=== PATIENT | male | born 1945 | race Caucasian/White ===

== ENCOUNTER 2024-11-05 23:15 | Emergency (ER) | payer OTHER, SELFPAY ==
--- NOTE | 2024-11-05 23:12 | XR_ITS ---
PROCEDURE INFORMATION: Exam: XR Chest Exam date and time: 11/05/2024 11:21 PM Age: 79 years old Clinical indication: Other: Seizure like activity TECHNIQUE: Imaging protocol: Radiologic exam of the chest. Views: 1 view. COMPARISON: No relevant prior studies available. FINDINGS: Lungs: No acute appearing consolidation. Pleural spaces: No pleural effusion. No pneumothorax. Heart/Mediastinum: No acute findings or cardiomegaly. Bones/joints: Status post sternotomy. IMPRESSION: No acute cardiopulmonary findings.
--- NOTE | 2024-11-05 23:12 | CT_ITS ---
PROCEDURE INFORMATION: Exam: CT Head Without Contrast Exam date and time: 11/05/2024 11:34 PM Age: 79 years old Clinical indication: Other: Seizure like activity TECHNIQUE: Imaging protocol: Computed tomography of the head without contrast. Radiation optimization: All CT scans at this facility use at least one of these dose optimization techniques: automated exposure control; mA and/or kV adjustment per patient size (includes targeted exams where dose is matched to clinical indication); or iterative reconstruction. COMPARISON: No relevant prior studies available. FINDINGS: Brain: Large area of right frontal encephalomalacia consistent with remote infarct. Age related atrophic changes in the brain. No mass effect or midline shift. No intracranial hemorrhage. No intracranial edema. No evidence of acute territorial ischemia. There is marked diffuse heterogeneity of the white matter attenuation, consistent with severe chronic white matter microvascular ischemic changes. Cerebral ventricles: The ventricular system demonstrates moderate diffuse compensatory enlargement. Paranasal sinuses: Chronic appearing polypoid mucosal thickening in the right maxillary sinus. Mastoid air cells: No significant mastoid effusion. Bones: No acute fracture. Soft tissues: No acute findings. IMPRESSION: 1. No acute intracranial findings. 2. Extensive encephalomalacia in the right frontal lobe. 3. Senescent changes in the brain.
--- NOTE | 2024-11-05 23:15 | ECG_ITS ---
APPROVED REPORT Exam: Resting ECG HR:100 bpm ECG Measurements Heart Rate 100 AXES LA 179 P 102 QRSd 99 QRS 58 QT 350 T 16 QTc 407 Conclusion SINUS TACHYCARDIA WITH OCCASIONAL VENTRICULAR PREMATURE COMPLEXES NONSPECIFIC ST & T-WAVE ABNORMALITY ABNORMAL RHYTHM ECG UNCONFIRMED REPORT Electronically signed by : SYL MCCLURE, 11/08/2024 03:47:13
[2024-11-05 23:24] VITALS: BP 170/104; PULSE 104; RESP 16; TEMP 37.2; O2SAT 94; BMI 34.5
[2024-11-05 23:28] LABS: Basophils # 0.1 K/mm3 (0-0.2); Basophils % 0.5 % (0.1-2.0); Eosinophils # 0.2 Kmm3 (0.0-0.4); Eosinophils % 1.8 % (0.1-12.0); Hematocrit 44.4 % (42.0-52.0); Hemoglobin 14.1 g/dL (14.1-18.0); Lymphocytes # 1.4 K/mm3 (0.7-4.5); Lymphocytes % 13.3 % (10-50); Mean Corpuscular HGB Conc 31.8 g/dL (31.8-35.4); Mean Corpuscular Hemoglobin 29.1 pg (27.0-31.2); Mean Corpuscular Volume 91.7 fl (80-94); Mean Platelet Volume 9.5 fl (7.4-10.4); Monocytes # 0.6 K/mm3 (0.1-1.0); Monocytes % 6.2 % (1.7-9.3); Nucleated Red Blood Cells # 0 10^3/uL; Nucleated Red Blood Cells % 0 %; Platelet Count 186 K/mm3 (142-424); Red Blood Count 4.84 M/mm3 (4.60-6.20); Red Cell Distribution Width 13.8 % (11.5-17.5); Red Cell Distribution Width-SD 46.5 fL; White Blood Count 10.2 K/mm3 (4.8-10.8)
--- NOTE | 2024-11-05 23:35 | PC.NURSE ---
side rails up x2 and padded per seizure precautions. HOB 30 degree elvated
--- NOTE | 2024-11-05 23:36 | ED_ITS ---
Discharge Plan Disposition Patient Disposition: [facility] Clinical Impressions Clinical Impression: Generalized seizure Instructions Patient Instructions: DI for Seizure Disorder -- Adult, DI for Seizure (Not Epilepsy/Seizure Disorder), DI for Seizure Disorder -- Child Print Language Print Language: Chinese Discharge ED Provider: Collins Durant General Adult HPI General Chief complaint: Seizure Stated complaint: seizure Time Seen by Provider: 11/05/24 23:17 Mode of Arrival: EMS Source of Information: Patient and EMS Description of Symptoms (Recalled from ER Triage Doc. by RN): pt presents to ed via ems with c/o seizure like activity that was witnessed per family prior to their arrival. 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 Pt now GCS 15, NAD noted, RR even and non labored. Pt did urinate himself prior to arrival. History of Present Illness HPI narrative: 79-year-old male, [facility], history of severe carotid stenosis, prior stroke, hypertension presents for possible seizure. Patient was at his family's house and he got tense, stopped moving and then started convulsing for couple minutes according to what EMS heard from family. Patient was postictal for the entirety of the EMS trip here, on arrival is now GCS 15 and well-appearing. Patient urinated on himself during the episode. Family reports that he had a similar episode 3 months ago and was admitted to the [facility] for workup. During that time they did not find any seizures, they think that he is having syncope related to his carotid stenosis. They report that he has had 3-4 these episodes in total and they mimic seizures. He is not currently on any seizure medication. Related Data Allergies Allergy/AdvReac Type Severity Reaction Status Date / Time Sulfa (Sulfonamide AdvReac Unknown Verified 11/05/24 23:33 Antibiotics) allergy reaction [facility] Disclaimer: The information contained in this section may have been updated after the patient was seen, as this information can be updated by other users. Social History Smoking Status: Never smoker alcohol intake: never current occupational status: previously employed Travel in the last 8 weeks: None ROS Obtained: Yes All systems reviewed & no additional complaints except as documented Physical Exam General General appearance: alert and in no apparent distress Head Head exam: atraumatic and normocephalic Eye Eye exam: Present normal appearance, PERRL and EOMI ENT ENT exam: Present normal oropharynx and normal external ear exam Neck Neck exam: Present normal inspection and full ROM Chest Chest inspection: Present normal inspection and symmetric chest wall rise; Absent tenderness Respiratory Respiratory exam: Present normal lung sounds bilaterally; Absent respiratory distress Cardiovascular Cardiovascular exam: Present regular rate and normal rhythm Abdominal Exam Abdominal exam: Present soft; Absent distention, tenderness or guarding Extremities Exam Extremities exam: Present normal inspection; Absent edema or joint swelling Back Exam Back exam: Present normal inspection; Absent tenderness Neurological Exam Neurological exam: Present alert and oriented X3; Absent motor sensory deficit Psychiatric Psychiatric exam: Present normal affect and normal mood Skin Skin exam: Present warm, dry and normal color Lymphatic Lymphatic Findings: no adenopathy Medical Decision Making Medical Records Medical records reviewed: Yes I reviewed the patient's medical records. Screening: Per USPSTF and CDC recommendations, given the prevalence of disease in our region, it is our hospital?s policy to screen for HIV and viral Hepatitis for all patients aged 18 and over and those with ongoing risk factors. Regan Inquiry Pt receiving controlled substance: No Regan was queried for this patient: No Vital Signs: 11/05/24 23:24 11/06/24 00:00 Temperature 98.9 F Temperature Source Oral Pulse Rate 99 H Pulse Rate [Radial] 104 H Respiratory Rate 16 23 Blood Pressure 176/92 H Blood Pressure [Right Arm] 170/104 H Blood Pressure Mean [Right Arm] 126 Blood Pressure Position [Right Arm] Sitting 02 Sat by Pulse Oximetry 94 L 94 L Oxygen Delivery Method Room Air Lab Data Lab results reviewed: Yes I reviewed the patient's lab results. Lab Results 11/05/24 22:23: Troponin I 0.02 11/05/24 23:22: WBC 10.2, RBC 4.84, Hgb 14.1, Hct 44.4, MCV 91.7, MCH 29.1, MCHC 31.8, RDW 13.8, Plt Count 186, MPV 9.5, Neut % (Auto) 78.0, Lymph % (Auto) 13.3, [place] % (Auto) 6.2, Eos % (Auto) 1.8, Baso % (Auto) 0.5, Neut # (Auto) 8.0 H, Lymph # (Auto) 1.4, [place] # (Auto) 0.6, Eos # (Auto) 0.2, Baso # (Auto) 0.1, Sodium 142, Potassium 3.7, Chloride 109 H, Carbon Dioxide 23, Anion Gap 13.7, B UN 23 H, Creatinine 1.50 H, Estimated Creat Clear 54, Estimated GFR 45 L, Est GFR ( Amer) 54 L, Glucose 110 H, Calcium 8.7, Phosphorus 3.3, Magnesium 2.1, Total Bilirubin 1.0, AST 42, ALT 36, Alkaline Phosphatase 86, Total Protein 6.6, Albumin 3.8, Globulin 2.8, Albumin/Globulin Ratio 1.4, TSH 2.77, Thyroxine (T4) 8.2 11/05/24 23:45: Lactate 2.8 H 11/06/24 00:20: Urine Color Yellow, Urine Appearance Clear, Urine pH 6.0, Ur Specific [place] 1.025, Urine Protein 2+ A, Urine Glucose (UA) 3+, Urine Ketones Negative, Urine Blood Negative, Urine Nitrate Negative, Urine Bilirubin Negative, Urine Urobilinogen 0.2, Ur Leukocyte Esterase Negative, Urine RBC None, Urine WBC Occasional, Ur Squamous Epith Cells Occasional, Urine Bacteria Trace, Urine Mucus Trace 11/05/24 23:22 11/05/24 23:22 Orders (Tests/Meds): ORDERS Category Date Time Status CT head/brain wo con Stat Cat Scan 11/05/24 23:12 Completed CXR --portable [XR chest portable] Stat Exams 11/05/24 23:12 Completed CBC w/Auto Diff [Complete Blood Count Auto Diff] Stat Lab 11/05/24 23:22 Completed CMP [Comprehensive Metabolic Panel] Stat Lab 11/05/24 23:22 Completed Lactic Acid Stat Lab 11/05/24 23:45 Completed Magnesium Stat Lab 11/05/24 23:22 Completed Phosphorous Stat Lab 11/05/24 23:22 Completed T4 (Thyroxine) Stat Lab 11/05/24 23:22 Completed TSH [Thyroid Stimulating Hormone] Stat Lab 11/05/24 23:22 Completed Troponin I Q3H Lab 11/05/24 22:23 Completed Troponin I Q3H Lab 11/06/24 02:45 Ordered UA [Urinalysis and Microscopic] Stat Lab 11/06/24 00:20 Completed ECG Data Tracing #1: I reviewed this ECG and interpreted as documented below: Sinus rhythm, rate of 100., T wave inversions in precordial and inferior leads, occasional PVC. ECG initial impression date: 11/05/24 ECG initial impression time: 23:16 HEART Score History (anamnesis): Slightly suspicious ECG: Non-specific disturbance Age: >65 years Risk factors: Atherosclerosis history Troponin: </= normal limit HEART Score: 5 Medical Decision Narrative: 79-year-old male with history of of prior stroke, severe carotid stenosis with associated syncope, hypertension, seizure-like activity in the past presents for seizure-like activity. History was obtained via interactive discussion with EMS, patient, family. On arrival, patient is [afebrile, hemodynamically stable, satting appropriately, alert, oriented x4, GCS 15], moving all extremities spontaneously. Full physical exam performed and significant for no focal neurologic deficits, no significant physical exam abnormalities. Differential includes but is not limited to seizure, syncope, intracranial lesion, cardiac pathology electrolyte derangement. Workup initiated including CT head, chest x-ray, EKG, CBC CMP mag Phos troponin TSH T4. On re-evaluation, patient [remains afebrile, HD stable.] Laboratory workup independently interpreted by me and significant for mildly elevated lactate which could be consistent with recent seizure. No significant electrolyte derangement, no significant leukocytosis. Creatinine 1.5, baseline unknown. Urine does not show infection.. Imaging independently interpreted by me and significant for encephalomalacia that appears chronic, no intracranial bleeding or obvious mass lesion.. See radiology read for full review of final results. Given patient history, exam and workup, patient's presentation most likely represents seizure or possibly syncope. [facility]. I discussed the case with patient and he is agreeable to transfer for further evaluation at the [facility]. Patient was accepted to the [facility] by Dr. Barahona and was transferred in stable condition. Procedures Risk/Benefits of Procedure(s) Were Explained: Yes Critical Care Critical Care Time Critical Care Time: No
[2024-11-05 23:37] LABS: Alanine Aminotransferase 36 U/L (12-78); Albumin Level 3.8 g/dl (3.5-5.0); Albumin/Globulin Ratio 1.4 (1.1-1.8); Alkaline Phosphatase 86 U/L (38-126); Anion Gap 13.7 mEq/L (5-15); Aspartate Amino Transferase 42 U/L (17-59); Blood Urea Nitrogen 23 mg/dl (9-20); Calcium 8.7 mg/dl (8.4-10.2); Carbon Dioxide 23 mmol/L (22.0-30.0); Chloride 109 mmol/L (98-107); Creatinine Clearance Estimated 54 mL/min (50-200); Estimated Glomerular Filt Rate 45 ml/min (>60); GFR (African American) 54 ML/MIN (>60); Globulin 2.8 g/dL (1.3-3.2); Glucose 110 mg/dl (74-100); Magnesium 2.1 mg/dl (1.6-2.3); Phosphorous 3.3 mg/dl (2.5-4.5); Potassium 3.7 mmoL/L (3.5-5.1); Sodium 142 mmol/L (136-145); Total Protein,Serum 6.6 g/dl (6.3-8.2)
[2024-11-05 23:54] LABS: T4 (Thyroxine) 8.2 ug/dl (5.53-11.0)
[2024-11-05 23:58] LABS: Troponin I 0.02 ng/ml (0.00-0.034)
[2024-11-05 23:58] LABS: Lactic Acid 2.8 mmol/L (0.7-2.1)
[2024-11-06] VITALS: BP 176/92; PULSE 99; RESP 23; O2SAT 94
[2024-11-06 00:08] LABS: Thyroid Stimulating Hormone 2.77 uIU/mL (0.465-4.68)
[2024-11-06 00:25] LABS: Microscopic, Urine URINE MICROSCOPIC (MICROSCOPIC)
[2024-11-06 00:27] LABS: Appearance,Urine CLEAR (Clear); Bilirubin,Urine Negative (Negative); Blood, Urine Negative (Negative); Color,Urine YELLOW (Yellow); Glucose,Urine (UA) 3+ (Negative); Ketones,Urine Negative (Negative); Leukocyte Esterase,Urine Negative (Negative); Nitrate,Urine Negative (Negative); Protein,Urine 2+ (Negative); Specific Gravity, Urine 1.025 (1.005-1.030); Urobilinogen,Urine 0.2 EU/dl (0.2)
[2024-11-06 00:31] VITALS: BP 154/92; PULSE 93; RESP 13; O2SAT 98
--- NOTE | 2024-11-06 00:43 | PC.NURSE ---
family comes out to show POA papers and speak with provider, updated regarding POC and pending admission/discharge
[2024-11-06 00:45] LABS: Bacteria,Urine Trace /lpf; Mucus,Urine Trace /lpf; Squamous Epithelial Cell,Urine Occasional #/hpf (0-5); WBC,Urine Occasional #/hpf (0-3)
[2024-11-06 01:01] VITALS: BP 187/92; PULSE 85; RESP 26; O2SAT 94
[2024-11-06 01:21] LABS: Coronavirus 19, PCR Not Detected (NotDetected); Influenza A, PCR Not Detected (NotDetected); Influenza B, PCR Not Detected (NotDetected)
[2024-11-06 01:30] VITALS: BP 189/83; PULSE 83; RESP 25; O2SAT 94
--- NOTE | 2024-11-06 01:33 | PC.NURSE ---
bed placement at [facility] pending Covid Swab
--- NOTE | 2024-11-06 01:47 | PC.NURSE ---
pt assisted to bedside to use urinal upon request.
[2024-11-06 02:00] VITALS: BP 188/97; PULSE 73; RESP 23; O2SAT 96
--- NOTE | 2024-11-06 02:00 | PC.NURSE ---
negative covid result called to Steve at [facility], to call back with bed assignment
--- NOTE | 2024-11-06 02:28 | PC.NURSE ---
report given to Jennifer Bates RN
[2024-11-06 02:52] VITALS: BP 188/85; PULSE 88; RESP 18; TEMP 37.1; O2SAT 95
[2024-11-06 03:47] LABS: Reflex Lactic Add Lactic Reflex
== END 2024-11-06 02:54 ==
PROVIDERS: Emergency Provider Emergency Medicine
DX: R56.9 Unspecified convulsions (principal); R00.0 Tachycardia, unspecified; G93.89 Other specified disorders of brain
CPT/HCPCS: 70450; 71045; 80053; 81001; 83605; 83735; 84100; 84436; 84443; 84484; 85025; 87636; 93005; 99285

== ENCOUNTER 2025-06-10 13:02 | Emergency (ER) | payer OTHER, SELFPAY ==
--- OUTSIDE RECORDS SUMMARY | 2025-04-22 10:23 | XMS_ITS | Encounter Summary ---
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 METHOD 05/03/2025 4:40 AM EDT [facility] MCH 28.3 26.0 - 32.0 pg LAB HEMATOLOGY METHOD 05/03/2025 4:40 AM EDT [facility] MCHC 31.1 30.7 - 35.5 g/dL LAB HEMATOLOGY METHOD 05/03/2025 4:40 AM EDT [facility] RDW 15.6(H) 11.5 - 14.5 % LAB HEMATOLOGY METHOD 05/03/2025 4:40 AM EDT [facility] MPV 10.3 8.8 - 12.5 fL LAB HEMATOLOGY METHOD 05/03/2025 4:40 AM EDT [facility] nRBC 0.0 <=0.0 per 100 WBCs LAB HEMATOLOGY METHOD 05/03/2025 4:40 AM EDT [facility] Blood Venous blood specimen / Unknown Venipuncture / Unknown 05/03/2025 4:10 AM EDT 05/03/2025 4:25 AM EDT us Michelle Christensen MD LAB BLOOD ORDERABLES Final Res ult [facility] [address] [place] [address] * (ABNORMAL) Basic Metabolic Panel, Plasma (05/03/2025 4:10 AM EDT) Glucose, Plasma 112(H) 74 - 99 mg/dL 05/03/2025 4:53 AM EDT [facility] BUN, Plasma 48(H) 8 - 23 mg/dL 05/03/2025 4:53 AM EDT [facility] Creatinine, Plasma 0.93 0.70 - 1.20 mg/dL 05/03/2025 4:53 AM EDT [facility] BUN/Creatinine Ratio 52 05/03/2025 4:53 AM EDT [facility] Sodium, Plasma 143 136 - 145 mmol/L 05/03/2025 4:53 AM EDT [facility] Potassium, Plasma 4.2 3.6 - 4.9 mmol/L 05/03/2025 4:53 AM EDT [facility] Chloride, Plasma 113(H) 97 - 107 mmol/L 05/03/2025 4:53 AM EDT [facility] CO2, Plasma 24 22 - 29 mmol/L 05/03/2025 4:53 AM EDT [facility] Anion Gap 6 6 - 16 mmol/L 05/03/2025 4:53 AM EDT [facility] Total Calcium, Plasma 8.8(L) 8.9 - 10.2 mg/dL 05/03/2025 4:53 AM EDT [facility] eGFRcr 83.0 mL/min/1.7 3m*2 05/03/2025 4:53 AM EDT [facility] Comment:Reported eGFRcr in m L/min/1.73m2 is based the CKD-EPI 2020 equation that does not use a race coefficient. Blood Venous blood specimen / Unknown Venipuncture / Unknown 05/03/2025 4:10 AM EDT 05/03/2025 4:21 AM EDT Michelle Christensen MD LAB BLOOD ORDERABLES Final Res ult Performing Organization Address City/[facility]/ZIP Co de Phone Number [facility] [address] [place] [address] * Magnesium, Plasma (05/03/2025 4:10 AM EDT) Magnesium, Plasma 2.2 1.9 - 2.4 mg/dL 05/03/2025 4:53 AM EDT [facility] Blood Venous blood specimen / Unknown Venipuncture / Unknown 05/03/2025 4:10 AM EDT 05/03/2025 4:21 AM EDT us Michelle Christensen MD LAB BLOOD ORDERABLES Final Res ult [facility] [address] [place] [address] * Phosphorus, Plasma (05/03/2025 4:10 AM EDT) Phosphorus, Plasma 2.7 2.5 - 4.5 mg/dL 05/03/2025 4:53 AM EDT [facility] Blood Venous blood specimen / Unknown Venipuncture / Unknown 05/03/2025 4:10 AM EDT 05/03/2025 4:21 AM EDT us Michelle Christensen MD LAB BLOOD ORDERABLES Final Res ult [facility] [address] [place] [address] * (ABNORMAL) POCT glucose meter (05/03/2025 12:31 AM EDT) POCT Glucose 130(H) 74 - 99 mg/dL 05/03/2025 12:33 AM EDT [facility] Comment:Accuracy of a glucos e result obtained from a capillary whole blood specimen relies upon adequate, non-compromised capillary blood flow. If the capillary glucose result is not consistent with the patient's clinical signs and symptoms, glucose testing should be repeated with either an arterial or venous sample on the glucometer or sent to the main labortory for testing. Comment 05/03/2025 12:33 AM EDT [facility] Clothespin Machine Operator ID Ericka Griffith 05/03/2025 12:33 AM EDT [facility] Device ID [id number] 05/03/2025 12:33 AM EDT [facility] Specimen Type POC Capillary 05/03/2025 12:33 AM EDT [facility] Blood Capillary blood specimen / Unknown 05/03/2025 12:31 AM EDT 05/03/2025 12:33 AM EDT us José Miguel Krueger MD LAB POINT OF CARE TEST DOCKED DEVICE UNSOLICITED RESULTS Final Result Performing Organization Address City/[facility]/ZIP Co de Phone Number [facility] [address] [place] [address] * [place] Modified Barium Swallow (05/02/2025 1:46 PM EDT) Anatomical Region Laterality Modality Esophagus, stomach and duodenum Digital Radiography Impressions 05/02/2025 4:51 PM EDT No aspiration of any tested consistency. CRITICAL RESULT: No. COMMUNICATION: Per this written report. By electronically signing this report, I, the attending physician, attest that I have personally reviewed the images/data for the above examination(s) and agree with the final edited report. Drafted by Kavin Gregg MD on 05/02/2025 4:12 PM Final report signed by Lamont Braden MD on 05/02/2025 4:51 PM Narrative 05/02/2025 4:51 PM EDT CLINICAL INDICATION: Swallow study TECHNIQUE: Modified barium swallow was performed utilizing video fluoroscopy in conjunction with the Speech Pathology team. The patient ingested multiple barium media varying consistencies. Fluoroscopy Time: 3 minutes. COMPARISON: Modified barium swallow April 25, 2025 FINDINGS: Swallowing: There was no aspiration with thin barium, however, there was penetration with thin barium using teaspoon, straw single on chin tuck. There was also penetration with nectar barium with cup consecutive. Penetration was also observed with honey barium using straw consecutive. There are moderate vallecular residue. Other: Edentulous. Procedure Note Lamont Braden MD - 05/02/2025 CLINICAL INDICATION: Swallow study TECHNIQUE: Modified barium swallow was performed utilizing video fluoroscopy inconjunction with the Speech Pathology team. The patient ingested multiplebarium media varying consistencies. Fluoroscopy Time: 3 minutes. COMPARISON: Modified barium swallow April 25, 2025 FINDINGS: Swallowing: There was no aspiration with thin barium, however, there waspenetration with thin barium using teaspoon, straw single on chin tuck.There was also penetration with nectar barium with cup consecutive.Penetration was also observed with honey barium using straw consecutive.There are moderate vallecular residue. Other: Edentulous. IMPRESSION: No aspiration of any tested consistency. CRITICAL RESULT: No. COMMUNICATION: Per this written report. By electronically signing this report, I, the attending physician, attestthat I have personally reviewed the images/data for the aboveexamination(s) and agree with the final edited report. Drafted by Kavin Gregg MD on 05/02/2025 4:12 PM Final report signed by Lamont Braden MD on 05/02/2025 4:51 PM us Shabnam Spring QUALITY IMPROVEMENT MANAGER, DNP IMG FLUOROSCOPY PROCE DURES Final Result * (ABNORMAL) POCT glucose meter (05/02/2025 12:15 PM EDT) [facility] POCT Glucose 116(H) 74 - 99 mg/dL 05/02/2025 12:17 PM EDT [facility] Comment:Accuracy of a glucos e result obtained from a capillary whole blood specimen relies upon adequate, non-compromised capillary blood flow. If the capillary glucose result is not consistent with the patient's clinical signs and symptoms, glucose testing should be repeated with either an arterial or venous sample on the glucometer or sent to the main labortory for testing. Comment 05/02/2025 12:17 PM EDT [facility] Clothespin Machine Operator ID Sincere Downey 05/02/20 12:17 PM EDT [facility] Device ID [id number] 05/02/2025 12:17 PM EDT [facility] Specimen Type POC Capillary 05/02/2025 12:17 PM EDT [facility] Blood Capillary blood specimen / Unknown 05/02/2025 12:15 PM EDT 05/02/2025 12:17 PM EDT José Miguel Krueger MD LAB POINT OF CARE TEST DOCKED DEVICE UNSOLICITED RESULTS Final Result Performing Organization Address City/State/[facility] Co de Phone Number [facility] [address] [place] [address] * (ABNORMAL) POCT glucose meter (05/02/2025 6:17 AM EDT) [facility] POCT Glucose 121(H) 74 - 99 mg/dL 05/02/2025 6:18 AM EDT [facility] Comment:Accuracy of a glucos e result obtained from a capillary whole blood specimen relies upon adequate, non-compromised capillary blood flow. If the capillary glucose result is not consistent with the patient's clinical signs and symptoms, glucose testing should be repeated with either an arterial or venous sample on the glucometer or sent to the main labortory for testing. Comment 05/02/2025 6:18 AM EDT [facility] Clothespin Machine Operator ID Ericka Griffith 05/02/2025 6:18 AM EDT [facility] Device ID [id number] 05/02/2025 6:18 AM EDT [facility] Specimen Type POC Capillary 05/02/2025 6:18 AM EDT [facility] Blood Capillary blood specimen / Unknown 05/02/2025 6:17 AM EDT 05/02/2025 6:18 AM EDT Yovani Medrano MD LAB POINT OF CARE TE ST DOCKED DEVICE UNSOLICITED RESULTS Final Result [facility] [address] [place] [id number] * (ABNORMAL) CBC W/O Differential (05/02/2025 3:50 AM EDT) WBC Count 11.16(H) 3.70 - 10.30 10*3/uL LAB HEMATOLOGY METHOD 05/02/2025 4:07 AM EDT [facility] RBC Count 2.90(L) 4.60 - 6.10 10*6/uL LAB HEMATOLOGY METHOD 05/02/2025 4:07 AM EDT [facility] HGB 8.2(L) 13.7 - 17.5 g/dL LAB HEMATOLOGY METHOD 05/02/2025 4:07 AM EDT [facility] HCT 26.7(L) 40.0 - 51.0 % LAB HEMATOLOGY METHOD 05/02/2025 4:07 AM EDT [facility] Platelet Count 245 155 - 369 10*3/uL LAB HEMATOLOGY METHOD 05/02/2025 4:07 AM EDT [facility] MCV 92 79 - 98 fL LAB HEMATOLOGY METHOD 05/02/2025 4:07 AM EDT [facility] MCH 28.3 26.0 - 32.0 pg LAB HEMATOLOGY METHOD 05/02/2025 4:07 AM EDT [facility] MCHC 30.7 30.7 - 35.5 g/dL LAB HEMATOLOGY METHOD 05/02/2025 4:07 AM EDT [facility] RDW 15.6(H) 11.5 - 14.5 % LAB HEMATOLOGY METHOD 05/02/2025 4:07 AM EDT [facility] MPV 10.3 8.8 - 12.5 fL LAB HEMATOLOGY METHOD 05/02/2025 4:07 AM EDT [facility] nRBC 0.0 <=0.0 per 100 WBCs LAB HEMATOLOGY METHOD 05/02/2025 4:07 AM EDT [facility] Blood Venous blood specimen / Unknown Venipuncture / Unknown 05/02/2025 3:50 AM EDT 05/02/2025 3:57 AM EDT us Michelle Christensen MD LAB BLOOD ORDERABLES Final Res ult [facility] [address] [place] [address] * (ABNORMAL) Basic Metabolic Panel, Plasma (05/02/2025 3:50 AM EDT) Glucose, Plasma 119(H) 74 - 99 mg/dL 05/02/2025 4:27 AM EDT [facility] BUN, Plasma 56(H) 8 - 23 mg/dL 05/02/2025 4:27 AM EDT [facility] Creatinine, Plasma 1.07 0.70 - 1.20 mg/dL 05/02/2025 4:27 AM EDT [facility] BUN/Creatinine Ratio 52 05/02/2025 4:27 AM EDT [facility] Sodium, Plasma 147(H) 136 - 145 mmol/L 05/02/2025 4:27 AM EDT [facility] Potassium, Plasma 4.4 3.6 - 4.9 mmol/L 05/02/2025 4:27 AM EDT [facility] Chloride, Plasma 116(H) 97 - 107 mmol/L 05/02/2025 4:27 AM EDT [facility] CO2, Plasma 25 22 - 29 mmol/L 05/02/2025 4:27 AM EDT [facility] Anion Gap 6 6 - 16 mmol/L 05/02/2025 4:27 AM EDT [facility] Total Calcium, Plasma 9.0 8.9 - 10.2 mg/dL 05/02/2025 4:27 AM EDT [facility] eGFRcr 70.2 mL/min/1.7 3m*2 05/02/2025 4:27 AM EDT [facility] Comment:Reported eGFRcr in m L/min/1.73m2 is based the CKD-EPI 2020 equation that does not use a race coefficient. Blood Venous blood specimen / Unknown Venipuncture / Unknown 05/02/2025 3:50 AM EDT 05/02/2025 3:58 AM EDT us Michelle Christensen MD LAB BLOOD ORDERABLES Final Res ult Performing Organization Address [facility] Co de Phone Number [facility] [address] [place] [address] * Magnesium, Plasma (05/02/2025 3:50 AM EDT) Magnesium, Plasma 2.4 1.9 - 2.4 mg/dL 05/02/2025 4:27 AM EDT [facility] Blood Venous blood specimen / Unknown Venipuncture / Unknown 05/02/2025 3:50 AM EDT 05/02/2025 3:58 AM EDT us Michelle Christensen MD LAB BLOOD ORDERABLES Final Res ult Performing Organization Address [facility] Co [place] [address] * Phosphorus, Plasma (05/02/2025 3:50 AM EDT) Phosphorus, Plasma 3.3 2.5 - 4.5 mg/dL 05/02/2025 4:27 AM EDT [facility] Blood Venous blood specimen / Unknown Venipuncture / Unknown 05/02/2025 3:50 AM EDT 05/02/2025 3:58 AM EDT us Michelle Christensen MD LAB BLOOD ORDERABLES Final Res ult Performing Organization Address [facility] Co de Phone Number [facility] [address] [place] [address] * (ABNORMAL) POCT glucose meter (05/01/2025 11:39 PM EDT) POCT Glucose 108(H) 74 - 99 mg/dL 05/01/2025 11:41 PM EDT [facility] Comment:Accuracy of a glucos e result obtained from a capillary whole blood specimen relies upon adequate, non-compromised capillary blood flow. If the capillary glucose result is not consistent with the patient's clinical signs and symptoms, glucose testing should be repeated with either an arterial or venous sample on the glucometer or sent to the main labortory for testing. Comment 05/01/2025 11:41 PM EDT [facility] Clothespin Machine Operator ID Ericka Griffith 05/01/2025 11:41 PM EDT [facility] Device ID [id number] 05/01/2025 11:41 PM EDT [facility] Specimen Type POC Capillary 05/01/2025 11:41 PM EDT [facility] Blood Capillary blood specimen / Unknown 05/01/2025 11:39 PM EDT 05/01/2025 11:41 PM EDT Yovani Medrano MD LAB POINT OF CARE TE ST DOCKED DEVICE UNSOLICITED RESULTS Final Result [facility] [address] [place] [address] * (ABNORMAL) POCT glucose meter (05/01/2025 5:10 PM EDT) [facility] POCT Glucose 104(H) 74 - 99 mg/dL 05/01/2025 5:13 PM EDT [facility] Comment:Accuracy of a glucos e result obtained from a capillary whole blood specimen relies upon adequate, non-compromised capillary blood flow. If the capillary glucose result is not consistent with the patient's clinical signs and symptoms, glucose testing should be repeated with either an arterial or venous sample on the glucometer or sent to the main labortory for testing. Comment 05/01/2025 5:13 PM EDT [facility] Clothespin Machine Operator ID Nelson Bahena 025 5:13 PM EDT [facility] Device ID [id number] 05/01/2025 5:13 PM EDT [facility] Specimen Type POC Capillary 05/01/2025 5:13 PM EDT [facility] Blood Capillary blood specimen / Unknown 05/01/2025 5:10 PM EDT 05/01/2025 5:13 PM EDT Yovani Medrano MD LAB POINT OF CARE TE ST DOCKED DEVICE UNSOLICITED RESULTS Final Result Performing Organization Address [facility] de Phone Number [facility] [address] [place] [address] * POCT glucose meter (05/01/2025 11:12 AM EDT) POCT Glucose 94 74 - 99 mg/dL 05/01/2025 11:20 AM EDT [facility] Comment:Accuracy of a glucos e result obtained from a capillary whole blood specimen relies upon adequate, non-compromised capillary blood flow. If the capillary glucose result is not consistent with the patient's clinical signs and symptoms, glucose testing should be repeated with either an arterial or venous sample on the glucometer or sent to the main labortory for testing. Comment 05/01/2025 11:20 AM EDT [facility] Clothespin Machine Operator ID Nelson Bahena 025 11:20 AM EDT [facility] Device ID [id number] 05/01/2025 11:20 AM EDT [facility] Specimen Type POC Capillary 05/01/2025 11:20 AM EDT [facility] Blood Capillary blood specimen / Unknown 05/01/2025 11:12 AM EDT 05/01/2025 11:20 AM EDT Yovani Medrano MD LAB POINT OF CARE TE ST DOCKED DEVICE UNSOLICITED RESULTS Final Result Performing Organization Address [facility] de Phone Number [facility] [address] [place] [address] * XR Abdomen 1 View (05/01/2025 10:41 AM EDT) Anatomical Region Laterality Modality Body Digital Radiogra phy Impressions 05/01/2025 11:33 AM EDT Nonobstructive bowel gas pattern. Interval transit of contrast which now presents in the rectum. CRITICAL RESULT: No. COMMUNICATION: Per this written report. Drafted by Lamont Braden MD on 05/01/2025 11:32 AM Final report signed by Lamont Braden MD on 05/01/2025 11:33 AM Narrative 05/01/2025 11:33 AM EDT CLINICAL INDICATION: emesis with abd distention TECHNIQUE: Supine radiograph of the abdomen. COMPARISON: April 26 2025. FINDINGS: The tip of the feeding tube is within the distal stomach. There is gas in nondilated small and large bowel loops. There is contrast which is present now in the distal left colon and rectum. Procedure Note Lamont Braden MD - 05/01/2025 CLINICAL INDICATION: emesis with abd distention TECHNIQUE: Supine radiograph of the abdomen. COMPARISON: April 26 2025. FINDINGS: The tip of the feeding tube is within the distal stomach. There is gas innondilated small and large bowel loops. There is contrast which is presentnow in the distal left colon and rectum. IMPRESSION: Nonobstructive bowel gas pattern. Interval transit of contrast which nowpresents in the rectum. CRITICAL RESULT: No. COMMUNICATION: Per this written report. Drafted by Lamont Braden MD on 05/01/2025 11:32 AM Final report signed by Lamont Braden MD on 05/01/2025 11:33 AM us Shabnam Spring QUALITY IMPROVEMENT MANAGER, DNP IMG XR PROCEDURES Fin al Result * (ABNORMAL) POCT glucose meter (05/01/2025 5:38 AM EDT) POCT Glucose 109(H) 74 - 99 mg/dL 05/01/2025 5:41 AM EDT [facility] Comment:Accuracy of a glucos e result obtained from a capillary whole blood specimen relies upon adequate, non-compromised capillary blood flow. If the capillary glucose result is not consistent with the patient's clinical signs and symptoms, glucose testing should be repeated with either an arterial or venous sample on the glucometer or sent to the main labortory for testing. Comment 05/01/2025 5:41 AM EDT [facility] Clothespin Machine Operator ID Damaso Hernandez 05/01/2025 5:41 AM EDT [facility] [facility] Device ID [id number] 05/01/2025 5:41 AM EDT [facility] Specimen Type POC Capillary 05/01/2025 5:41 AM EDT [facility] Blood Capillary blood specimen / Unknown 05/01/2025 5:38 AM EDT 05/01/2025 5:41 AM EDT Yovani Medrano MD LAB POINT OF CARE TE ST DOCKED DEVICE UNSOLICITED RESULTS Final Result [facility] [address] [place] [id number] * (ABNORMAL) CBC W/O Differential (05/01/2025 3:51 AM EDT) WBC Count 14.36(H) 3.70 - 10.30 10*3/uL LAB HEMATOLOGY METHOD 05/01/2025 4:09 AM EDT [facility] RBC Count 3.34(L) 4.60 - 6.10 10*6/uL LAB HEMATOLOGY METHOD 05/01/2025 4:09 AM EDT [facility] HGB 9.3(L) 13.7 - 17.5 g/dL LAB HEMATOLOGY METHOD 05/01/2025 4:09 AM EDT [facility] HCT 30.4(L) 40.0 - 51.0 % LAB HEMATOLOGY METHOD 05/01/2025 4:09 AM EDT [facility] Platelet Count 247 155 - 369 10*3/uL LAB HEMATOLOGY METHOD 05/01/2025 4:09 AM EDT [facility] MCV 91 79 - 98 fL LAB HEMATOLOGY METHOD 05/01/2025 4:09 AM EDT [facility] MCH 27.8 26.0 - 32.0 pg LAB HEMATOLOGY METHOD 05/01/2025 4:09 AM EDT [facility] MCHC 30.6(L) 30.7 - 35.5 g/dL LAB HEMATOLOGY METHOD 05/01/2025 4:09 AM EDT [facility] RDW 15.4(H) 11.5 - 14.5 % LAB HEMATOLOGY METHOD 05/01/2025 4:09 AM EDT [facility] MPV 10.2 8.8 - 12.5 fL LAB HEMATOLOGY METHOD 05/01/2025 4:09 AM EDT [facility] nRBC 0.0 <=0.0 per 100 WBCs LAB HEMATOLOGY METHOD 05/01/2025 4:09 AM EDT [facility] Blood Venous blood specimen / Unknown Venipuncture / Unknown 05/01/2025 3:51 AM EDT 05/01/2025 3:59 AM EDT us Michelle Christensen MD LAB BLOOD ORDERABLES Final Res ult [facility] [address] [place] [address] * (ABNORMAL) Basic Metabolic Panel, Plasma (05/01/2025 3:51 AM EDT) Glucose, Plasma 133(H) 74 - 99 mg/dL 05/01/2025 4:30 AM EDT [facility] BUN, Plasma 45(H) 8 - 23 mg/dL 05/01/2025 4:30 AM EDT [facility] Creatinine, Plasma 0.94 0.70 - 1.20 mg/dL 05/01/2025 4:30 AM EDT [facility] BUN/Creatinine Ratio 48 05/01/2025 4:30 AM EDT [facility] Sodium, Plasma 146(H) 136 - 145 mmol/L 05/01/2025 4:30 AM EDT [facility] Potassium, Plasma 4.4 3.6 - 4.9 mmol/L 05/01/2025 4:30 AM EDT [facility] Chloride, Plasma 114(H) 97 - 107 mmol/L 05/01/2025 4:30 AM EDT [facility] CO2, Plasma 25 22 - 29 mmol/L 05/01/2025 4:30 AM EDT [facility] Anion Gap 7 6 - 16 mmol/L 05/01/2025 4:30 AM EDT [facility] Total Calcium, Plasma 9.0 8.9 - 10.2 mg/dL 05/01/2025 4:30 AM EDT [facility] eGFRcr 81.9 mL/min/1.7 3m*2 05/01/2025 4:30 AM EDT [facility] Comment:Reported eGFRcr in m L/min/1.73m2 is based the CKD-EPI 2020 equation that does not use a race coefficient. Blood Venous blood specimen / Unknown Venipuncture / Unknown 05/01/2025 3:51 AM EDT 05/01/2025 3:59 AM EDT us Michelle Christensen MD LAB BLOOD ORDERABLES Final Res ult Performing Organization Address City/[facility]/ZIP Co de Phone [place] [address] * Magnesium, Plasma (05/01/2025 3:51 AM EDT) Magnesium, Plasma 2.2 1.9 - 2.4 mg/dL 05/01/2025 4:30 AM EDT [facility] Blood Venous blood specimen / Unknown Venipuncture / Unknown 05/01/2025 3:51 AM EDT 05/01/2025 3:59 AM EDT us Michelle Christensen MD LAB BLOOD ORDERABLES Final Res ult Performing Organization Address [facility] [place] [address] * Phosphorus, Plasma (05/01/2025 3:51 AM EDT) [facility] Signature Phosphorus, Plasma 2.8 2.5 - 4.5 mg/dL 05/01/2025 4:30 AM EDT [facility] Blood Venous blood specimen / Unknown Venipuncture / Unknown 05/01/2025 3:51 AM EDT 05/01/2025 3:59 AM EDT us Michelle Christensen MD LAB BLOOD ORDERABLES Final Res ult Performing Organization Address [facility] [place] [address] * (ABNORMAL) POCT glucose meter (04/30/2025 11:47 PM EDT) POCT Glucose 122(H) 74 - 99 mg/dL 05/01/2025 3:19 AM EDT [facility] Comment:Accuracy of a glucos e result obtained from a capillary whole blood specimen relies upon adequate, non-compromised capillary blood flow. If the capillary glucose result is not consistent with the patient's clinical signs and symptoms, glucose testing should be repeated with either an arterial or venous sample on the glucometer or sent to the main labortory for testing. Comment 05/01/2025 3:19 AM EDT [facility] Clothespin Machine Operator ID Damaso Hernandez 05/01/2025 3:19 AM EDT [facility] Device ID [id number] 05/01/2025 3:19 AM EDT [facility] Specimen Type POC Capillary 05/01/2025 3:19 AM EDT [facility] Blood Capillary blood specimen / Unknown 04/30/2025 11:47 PM EDT 05/01/2025 3:19 AM EDT Yovani Medrano MD LAB POINT OF CARE TE ST DOCKED DEVICE UNSOLICITED RESULTS Final Result Performing Organization Address City/State/[facility] Co de Phone Number [facility] [address] [place] [address] * (ABNORMAL) POCT glucose meter (04/30/2025 5:11 PM EDT) [facility] POCT Glucose 114(H) 74 - 99 mg/dL 04/30/2025 5:13 PM EDT [facility] Comment:Accuracy of a glucos e result obtained from a capillary whole blood specimen relies upon adequate, non-compromised capillary blood flow. If the capillary glucose result is not consistent with the patient's clinical signs and symptoms, glucose testing should be repeated with either an arterial or venous sample on the glucometer or sent to the main labortory for testing. Comment 04/30/2025 5:13 PM EDT [facility] Clothespin Machine Operator ID Nelson Bahena 025 5:13 PM EDT [facility] Device ID [id number] 04/30/2025 5:13 PM EDT [facility] Specimen Type POC Capillary 04/30/2025 5:13 PM EDT [facility] Blood Capillary blood specimen / Unknown 04/30/2025 5:11 PM EDT 04/30/2025 5:13 PM EDT Yovani Medrano MD LAB POINT OF CARE TE ST DOCKED DEVICE UNSOLICITED RESULTS Final Result Performing Organization Address City/[facility] Co de Phone Number [facility] [address] [place] [address] * (ABNORMAL) POCT glucose meter (04/30/2025 11:22 AM EDT) Pathologist [facility] POCT Glucose 109(H) 74 - 99 mg/dL 04/30/2025 11:24 AM EDT [facility] Comment:Accuracy of a glucos e result obtained from a capillary whole blood specimen relies upon adequate, non-compromised capillary blood flow. If the capillary glucose result is not consistent with the patient's clinical signs and symptoms, glucose testing should be repeated with either an arterial or venous sample on the glucometer or sent to the main labortory for testing. Comment 04/30/2025 11:24 AM EDT [facility] Clothespin Machine Operator ID Nelson Bahena 025 11:24 AM EDT [facility] LAB Device ID [id number] 04/30/2025 11:24 AM EDT [facility] Specimen Type POC Capillary 04/30/2025 11:24 AM EDT [facility] Blood Capillary blood specimen / Unknown 04/30/2025 11:22 AM EDT 04/30/2025 11:24 AM EDT Yovani Medrano MD LAB POINT OF CARE TE ST DOCKED DEVICE UNSOLICITED RESULTS Final Result Performing Organization Address City/[facility] Co de Phone Number [facility] [address] [place] [address] * (ABNORMAL) CBC W/O Differential (04/30/2025 3:47 AM EDT) WBC Count 10.86(H) 3.70 - 10.30 10*3/uL LAB HEMATOLOGY METHOD 04/30/2025 4:05 AM EDT [facility] RBC Count 3.12(L) 4.60 - 6.10 10*6/uL LAB HEMATOLOGY METHOD 04/30/2025 4:05 AM EDT [facility] HGB 8.8(L) 13.7 - 17.5 g/dL LAB HEMATOLOGY METHOD 04/30/2025 4:05 AM EDT [facility] HCT 28.4(L) 40.0 - 51.0 % LAB HEMATOLOGY METHOD 04/30/2025 4:05 AM EDT [facility] Platelet Count 208 155 - 369 10*3/uL LAB HEMATOLOGY METHOD 04/30/2025 4:05 AM EDT [facility] MCV 91 79 - 98 fL LAB HEMATOLOGY METHOD 04/30/2025 4:05 AM EDT [facility] MCH 28.2 26.0 - 32.0 pg LAB HEMATOLOGY METHOD 04/30/2025 4:05 AM EDT [facility] MCHC 31.0 30.7 - 35.5 g/dL LAB HEMATOLOGY METHOD 04/30/2025 4:05 AM EDT [facility] RDW 15.2(H) 11.5 - 14.5 % LAB HEMATOLOGY METHOD 04/30/2025 4:05 AM EDT [facility] MPV 10.0 8.8 - 12.5 fL LAB HEMATOLOGY METHOD 04/30/2025 4:05 AM EDT [facility] nRBC 0.0 <=0.0 per 100 WBCs LAB HEMATOLOGY METHOD 04/30/2025 4:05 AM EDT [facility] Blood Venous blood specimen / Unknown Venipuncture / Unknown 04/30/2025 3:47 AM EDT 04/30/2025 3:57 AM EDT us Michelle Christensen MD LAB BLOOD ORDERABLES Final Res ult [facility] [address] [place] [address] * (ABNORMAL) Basic Metabolic Panel, Plasma (04/30/2025 3:47 AM EDT) Glucose, Plasma 122(H) 74 - 99 mg/dL 04/30/2025 4:31 AM EDT [facility] BUN, Plasma 38(H) 8 - 23 mg/dL 04/30/2025 4:31 AM EDT [facility] Creatinine, Plasma 0.95 0.70 - 1.20 mg/dL 04/30/2025 4:31 AM EDT [facility] BUN/Creatinine Ratio 40 04/30/2025 4:31 AM EDT [facility] Sodium, Plasma 145 136 - 145 mmol/L 04/30/2025 4:31 AM EDT [facility] Potassium, Plasma 4.3 3.6 - 4.9 mmol/L 04/30/2025 4:31 AM EDT [facility] Chloride, Plasma 116(H) 97 - 107 mmol/L 04/30/2025 4:31 AM EDT [facility] CO2, Plasma 23 22 - 29 mmol/L 04/30/2025 4:31 AM EDT [facility] Anion Gap 6 6 - 16 mmol/L 04/30/2025 4:31 AM EDT [facility] Total Calcium, Plasma 8.8(L) 8.9 - 10.2 mg/dL 04/30/2025 4:31 AM EDT [facility] eGFRcr 80.9 mL/min/1.7 3m*2 04/30/2025 4:31 AM EDT [facility] Comment:Reported eGFRcr in m L/min/1.73m2 is based the CKD-EPI 2020 equation that does not use a race coefficient. Blood Venous blood specimen / Unknown Venipuncture / Unknown 04/30/2025 3:47 AM EDT 04/30/2025 3:57 AM EDT us Michelle Christensen MD LAB BLOOD ORDERABLES Final Res ult [facility] [address] [place] [address] * Magnesium, Plasma (04/30/2025 3:47 AM EDT) Magnesium, Plasma 2.0 1.9 - 2.4 mg/dL 04/30/2025 4:31 AM EDT [facility] Blood Venous blood specimen / Unknown Venipuncture / Unknown 04/30/2025 3:47 AM EDT 04/30/2025 3:57 AM EDT Result [facility] us Michelle Christensen MD LAB BLOOD ORDERABLES Final Res ult Performing Organization Address [facility]/ZIP Co de Phone Number [facility] [address] [place] [address] * (ABNORMAL) Phosphorus, Plasma (04/30/2025 3:47 AM EDT) [facility] Phosphorus, Plasma 2.1(L) 2.5 - 4.5 mg/dL 04/30/2025 4:31 AM EDT [facility] Blood Venous blood specimen / Unknown Venipuncture / Unknown 04/30/2025 3:47 AM EDT 04/30/2025 3:57 AM EDT Result [facility] us Michelle Christensen MD LAB BLOOD ORDERABLES Final Res ult Performing Organization Address [facility] de Phone Number [facility] [address] [place] [id number] * (ABNORMAL) POCT glucose meter (04/29/2025 11:36 PM EDT) [facility] POCT Glucose 112(H) 74 - 99 mg/dL 04/29/2025 11:38 PM EDT [facility] Comment:Accuracy of a glucos e result obtained from a capillary whole blood specimen relies upon adequate, non-compromised capillary blood flow. If the capillary glucose result is not consistent with the patient's clinical signs and symptoms, glucose testing should be repeated with either an arterial or venous sample on the glucometer or sent to the main labortory for testing. Comment 04/29/2025 11:38 PM EDT [facility] Clothespin Machine Operator ID Baylee Widle 11:38 PM EDT [facility] Device ID [id number] 04/29/2025 11:38 PM EDT [facility] Specimen Type POC Capillary 04/29/2025 11:38 PM EDT [facility] Blood Capillary blood specimen / Unknown 04/29/2025 11:36 PM EDT 04/29/2025 11:38 PM EDT us Bell Campbell MD LAB POINT OF CARE TEST DOCKED DEVICE UNSOLICITED RESULTS Final Result Performing Organization Address [facility] de Phone Number [facility] [address] [place] [address] * (ABNORMAL) POCT glucose meter (04/29/2025 5:02 PM EDT) [facility] POCT Glucose 122(H) 74 - 99 mg/dL 04/29/2025 5:04 PM EDT [facility] Comment:Accuracy of a glucos e result obtained from a capillary whole blood specimen relies upon adequate, non-compromised capillary blood flow. If the capillary glucose result is not consistent with the patient's clinical signs and symptoms, glucose testing should be repeated with either an arterial or venous sample on the glucometer or sent to the main labortory for testing. Comment 04/29/2025 5:04 PM EDT [facility] Clothespin Machine Operator ID Bell Duncan 04/29/2025 5:04 PM EDT [facility] Device ID [id number] 04/29/2025 5:04 PM EDT [facility] Specimen Type POC Capillary 04/29/2025 5:04 PM EDT [facility] Blood Capillary blood specimen / Unknown 04/29/2025 5:02 PM EDT 04/29/2025 5:04 PM EDT Bell Campbell MD LAB POINT OF CARE TEST DOCKED DEVICE UNSOLICITED RESULTS Final Result Performing Organization Address [facility] de Phone Number [facility] [address] [place] [address] * (ABNORMAL) POCT glucose meter (04/29/2025 5:23 AM EDT) [facility] POCT Glucose 112(H) 74 - 99 mg/dL 04/29/2025 5:24 AM EDT [facility] Comment:Accuracy of a glucos e result obtained from a capillary whole blood specimen relies upon adequate, non-compromised capillary blood flow. If the capillary glucose result is not consistent with the patient's clinical signs and symptoms, glucose testing should be repeated with either an arterial or venous sample on the glucometer or sent to the main labortory for testing. Comment 04/29/2025 5:24 AM EDT [facility] Clothespin Machine Operator ID Lillian Jones 04/29/2025 5:24 AM EDT [facility] Device ID [id number] 04/29/2025 5:24 AM EDT [facility] Specimen Type POC Capillary 04/29/2025 5:24 AM EDT [facility] Blood Capillary blood specimen / Unknown 04/29/2025 5:23 AM EDT 04/29/2025 5:24 AM EDT Bell Campbell MD LAB POINT OF CARE TEST DOCKED DEVICE UNSOLICITED RESULTS Final Result [facility] [address] [place] [id number] * (ABNORMAL) CBC W/O Differential (04/29/2025 12:33 AM EDT) WBC Count 9.58 3.70 - 10.30 10*3/uL LAB HEMATOLOGY METHOD 04/29/2025 12:52 AM EDT [facility] RBC Count 3.13(L) 4.60 - 6.10 10*6/uL LAB HEMATOLOGY METHOD 04/29/2025 12:52 AM EDT [facility] HGB 8.9(L) 13.7 - 17.5 g/dL LAB HEMATOLOGY METHOD 04/29/2025 12:52 AM EDT [facility] HCT 28.0(L) 40.0 - 51.0 % LAB HEMATOLOGY METHOD 04/29/2025 12:52 AM EDT [facility] Platelet Count 205 155 - 369 10*3/uL LAB HEMATOLOGY METHOD 04/29/2025 12:52 AM EDT [facility] MCV 90 79 - 98 fL LAB HEMATOLOGY METHOD 04/29/2025 12:52 AM EDT [facility] MCH 28.4 26.0 - 32.0 pg LAB HEMATOLOGY METHOD 04/29/2025 12:52 AM EDT [facility] MCHC 31.8 30.7 - 35.5 g/dL LAB HEMATOLOGY METHOD 04/29/2025 12:52 AM EDT [facility] RDW 15.0(H) 11.5 - 14.5 % LAB HEMATOLOGY METHOD 04/29/2025 12:52 AM EDT [facility] MPV 9.8 8.8 - 12.5 fL LAB HEMATOLOGY METHOD 04/29/2025 12:52 AM EDT [facility] nRBC 0.0 <=0.0 per 100 WBCs LAB HEMATOLOGY METHOD 04/29/2025 12:52 AM EDT [facility] Blood Venous blood specimen / Unknown Venipuncture / Unknown 04/29/2025 12:33 AM EDT 04/29/2025 12:45 AM EDT us Michelle Christensen MD LAB BLOOD ORDERABLES Final Res ult [facility] [address] [place] [address] * (ABNORMAL) Basic Metabolic Panel, Plasma (04/29/2025 12:33 AM EDT) Glucose, Plasma 114(H) 74 - 99 mg/dL 04/29/2025 1:17 AM EDT [facility] BUN, Plasma 26(H) 8 - 23 mg/dL 04/29/2025 1:17 AM EDT [facility] Creatinine, Plasma 0.93 0.70 - 1.20 mg/dL 04/29/2025 1:17 AM EDT [facility] BUN/Creatinine Ratio 28 04/29/2025 1:17 AM EDT [facility] Sodium, Plasma 145 136 - 145 mmol/L 04/29/2025 1:17 AM EDT [facility] Potassium, Plasma 4.0 3.6 - 4.9 mmol/L 04/29/2025 1:17 AM EDT [facility] Chloride, Plasma 114(H) 97 - 107 mmol/L 04/29/2025 1:17 AM EDT [facility] CO2, Plasma 24 22 - 29 mmol/L 04/29/2025 1:17 AM EDT [facility] Anion Gap 7 6 - 16 mmol/L 04/29/2025 1:17 AM EDT [facility] Total Calcium, Plasma 8.8(L) 8.9 - 10.2 mg/dL 04/29/2025 1:17 AM EDT [facility] eGFRcr 83.0 mL/min/1.7 3m*2 04/29/2025 1:17 AM EDT [facility] Comment:Reported eGFRcr in m L/min/1.73m2 is based the CKD-EPI 2020 equation that does not use a race coefficient. Blood Venous blood specimen / Unknown Venipuncture / Unknown 04/29/2025 12:33 AM EDT 04/29/2025 12:45 AM EDT us Michelle Christensen MD LAB BLOOD ORDERABLES Final Res ult Performing Organization Address City/[facility]/ZIP Co de Phone Number [facility] [address] [place] [address] * Magnesium, Plasma (04/29/2025 12:33 AM EDT) Magnesium, Plasma 2.0 1.9 - 2.4 mg/dL 04/29/2025 1:17 AM EDT [facility] Blood Venous blood specimen / Unknown Venipuncture / Unknown 04/29/2025 12:33 AM EDT 04/29/2025 12:45 AM EDT us Michelle Christensen MD LAB BLOOD ORDERABLES Final Res ult Performing Organization Address [facility] Co de Phone Number [facility] [address] [place] [address] * (ABNORMAL) Phosphorus, Plasma (04/29/2025 12:33 AM EDT) Phosphorus, Plasma 2.2(L) 2.5 - 4.5 mg/dL 04/29/2025 1:17 AM EDT [facility] Blood Venous blood specimen / Unknown Venipuncture / Unknown 04/29/2025 12:33 AM EDT 04/29/2025 12:45 AM EDT us Michelle Christensen MD LAB BLOOD ORDERABLES Final Res ult Performing Organization Address City/[facility]/ZIP Co de Phone Number [facility] [address] [place] [address] * (ABNORMAL) POCT glucose meter (04/29/2025 12:32 AM EDT) POCT Glucose 108(H) 74 - 99 mg/dL 04/29/2025 12:33 AM EDT [facility] Comment:Accuracy of a glucos e result obtained from a capillary whole blood specimen relies upon adequate, non-compromised capillary blood flow. If the capillary glucose result is not consistent with the patient's clinical signs and symptoms, glucose testing should be repeated with either an arterial or venous sample on the glucometer or sent to the main labortory for testing. Comment 04/29/2025 12:33 AM EDT [facility] Clothespin Machine Operator ID Lillian Jones 04/29/2025 12:33 AM EDT [facility] Device ID [id number] 04/29/2025 12:33 AM EDT [facility] Specimen Type POC Capillary 04/29/2025 12:33 AM EDT [facility] Blood Capillary blood specimen / Unknown 04/29/2025 12:32 AM EDT 04/29/2025 12:33 AM EDT Bell Campbell MD LAB POINT OF CARE TEST DOCKED DEVICE UNSOLICITED RESULTS Final Result Performing Organization Address City/State/[facility] Co de Phone Number [facility] [address] [place] [address] * POCT glucose meter (04/28/2025 6:32 PM EDT) [facility] POCT Glucose 83 74 - 99 mg/dL 04/29/2025 12:30 AM EDT [facility] Comment:Accuracy of a glucos e result obtained from a capillary whole blood specimen relies upon adequate, non-compromised capillary blood flow. If the capillary glucose result is not consistent with the patient's clinical signs and symptoms, glucose testing should be repeated with either an arterial or venous sample on the glucometer or sent to the main labortory for testing. Comment 04/29/2025 12:30 AM EDT [facility] Clothespin Machine Operator ID Lyudmila Padilla 12:30 AM EDT [facility] Device ID [id number] 04/29/2025 12:30 AM EDT [facility] Specimen Type POC Capillary 04/29/2025 12:30 AM EDT [facility] Blood Capillary blood specimen / Unknown 04/28/2025 6:32 PM EDT 04/29/2025 12:30 AM EDT Bell Campbell MD LAB POINT OF CARE TEST DOCKED DEVICE UNSOLICITED RESULTS Final Result Performing Organization Address [facility] Co de Phone Number [facility] [address] [place] [address] * POCT glucose meter (04/28/2025 6:23 AM EDT) [facility] POCT Glucose 93 74 - 99 mg/dL 04/28/2025 6:27 AM EDT [facility] Comment:Accuracy of a glucos e result obtained from a capillary whole blood specimen relies upon adequate, non-compromised capillary blood flow. If the capillary glucose result is not consistent with the patient's clinical signs and symptoms, glucose testing should be repeated with either an arterial or venous sample on the glucometer or sent to the main labortory for testing. Comment 04/28/2025 6:27 AM EDT [facility] Clothespin Machine Operator ID Blanka Cheney 025 6:27 AM EDT [facility] Device ID [id number] 04/28/2025 6:27 AM EDT [facility] Specimen Type POC Capillary 04/28/2025 6:27 AM EDT [facility] Blood Capillary blood specimen / Unknown 04/28/2025 6:23 AM EDT 04/28/2025 6:27 AM EDT Bell Campbell MD LAB POINT OF CARE TEST DOCKED DEVICE UNSOLICITED RESULTS Final Result Performing Organization Address City/[facility] Co de Phone Number [facility] [address] [place] [address] * (ABNORMAL) CBC W/O Differential (04/28/2025 12:57 AM EDT) Pathologist [facility] WBC Count 9.00 3.70 - 10.30 10*3/uL LAB HEMATOLOGY METHOD 04/28/2025 1:14 AM EDT [facility] RBC Count 2.84(L) 4.60 - 6.10 10*6/uL LAB HEMATOLOGY METHOD 04/28/2025 1:14 AM EDT [facility] HGB 8.3(L) 13.7 - 17.5 g/dL LAB HEMATOLOGY METHOD 04/28/2025 1:14 AM EDT [facility] HCT 25.3(L) 40.0 - 51.0 % LAB HEMATOLOGY METHOD 04/28/2025 1:14 AM EDT [facility] Platelet Count 177 155 - 369 10*3/uL LAB HEMATOLOGY METHOD 04/28/2025 1:14 AM EDT [facility] MCV 89 79 - 98 fL LAB HEMATOLOGY METHOD 04/28/2025 1:14 AM EDT [facility] MCH 29.2 26.0 - 32.0 pg LAB HEMATOLOGY METHOD 04/28/2025 1:14 AM EDT [facility] MCHC 32.8 30.7 - 35.5 g/dL LAB HEMATOLOGY METHOD 04/28/2025 1:14 AM EDT [facility] RDW 14.9(H) 11.5 - 14.5 % LAB HEMATOLOGY METHOD 04/28/2025 1:14 AM EDT [facility] MPV 10.0 8.8 - 12.5 fL LAB HEMATOLOGY METHOD 04/28/2025 1:14 AM EDT [facility] nRBC 0.0 <=0.0 per 100 WBCs LAB HEMATOLOGY METHOD 04/28/2025 1:14 AM EDT [facility] Blood Venous blood specimen / Unknown Venipuncture / Unknown 04/28/2025 12:57 AM EDT 04/28/2025 1:05 AM EDT us Michelle Christensen MD LAB BLOOD ORDERABLES Final Res ult [facility] [address] [place] [address] * (ABNORMAL) Basic Metabolic Panel, Plasma (04/28/2025 12:57 AM EDT) Glucose, Plasma 106(H) 74 - 99 mg/dL 04/28/2025 2:01 AM EDT [facility] BUN, Plasma 22 8 - 23 mg/dL 04/28/2025 2:01 AM EDT [facility] Creatinine, Plasma 0.92 0.70 - 1.20 mg/dL 04/28/2025 2:01 AM EDT [facility] BUN/Creatinine Ratio 24 04/28/2025 2:01 AM EDT [facility] Sodium, Plasma 146(H) 136 - 145 mmol/L 04/28/2025 2:01 AM EDT [facility] Potassium, Plasma 3.8 3.6 - 4.9 mmol/L 04/28/2025 2:01 AM EDT [facility] Chloride, Plasma 115(H) 97 - 107 mmol/L 04/28/2025 2:01 AM EDT [facility] CO2, Plasma 23 22 - 29 mmol/L 04/28/2025 2:01 AM EDT [facility] Anion Gap 8 6 - 16 mmol/L 04/28/2025 2:01 AM EDT [facility] Total Calcium, Plasma 8.7(L) 8.9 - 10.2 mg/dL 04/28/2025 2:01 AM EDT [facility] eGFRcr 84.1 mL/min/1.7 3m*2 04/28/2025 2:01 AM EDT [facility] Comment:Reported eGFRcr in m L/min/1.73m2 is based the CKD-EPI 2020 equation that does not use a race coefficient. Blood Venous blood specimen / Unknown Venipuncture / Unknown 04/28/2025 12:57 AM EDT 04/28/2025 1:05 AM EDT us Michelle Christensen MD LAB BLOOD ORDERABLES Final Res ult [facility] [address] [place] [address] * Magnesium, Plasma (04/28/2025 12:57 AM EDT) Magnesium, Plasma 2.0 1.9 - 2.4 mg/dL 04/28/2025 2:01 AM EDT [facility] Blood Venous blood specimen / Unknown Venipuncture / Unknown 04/28/2025 12:57 AM EDT 04/28/2025 1:05 AM EDT us Michelle Christensen MD LAB BLOOD ORDERABLES Final Res ult Performing Organization Address [facility]/ZIP Co de Phone Number [facility] [address] [place] [address] * Phosphorus, Plasma (04/28/2025 12:57 AM EDT) Pathologist [facility] Phosphorus, Plasma 2.5 2.5 - 4.5 mg/dL 04/28/2025 2:01 AM EDT [facility] Blood Venous blood specimen / Unknown Venipuncture / Unknown 04/28/2025 12:57 AM EDT 04/28/2025 1:05 AM EDT Michelle Christensen MD LAB BLOOD ORDERABLES Final Res t Performing Organization Address [facility] de Phone Number [facility] [address] [place] [address] * (ABNORMAL) POCT glucose meter (04/28/2025 12:43 AM EDT) [facility] POCT Glucose 106(H) 74 - 99 mg/dL 04/28/2025 12:45 AM EDT [facility] Comment:Accuracy of a glucos e result obtained from a capillary whole blood specimen relies upon adequate, non-compromised capillary blood flow. If the capillary glucose result is not consistent with the patient's clinical signs and symptoms, glucose testing should be repeated with either an arterial or venous sample on the glucometer or sent to the main labortory for testing. Comment 04/28/2025 12:45 AM EDT [facility] [employer] Machine Operator ID Blanka Cheney 025 12:45 AM EDT [facility] Device ID [id number] 04/28/2025 12:45 AM EDT [facility] Specimen Type POC Capillary 04/28/2025 12:45 AM EDT [facility] Blood Capillary blood specimen / Unknown 04/28/2025 12:43 AM EDT 04/28/2025 12:45 AM EDT Bell Campbell MD LAB POINT OF CARE TEST DOCKED DEVICE UNSOLICITED RESULTS Final Result Performing Organization Address [facility] de Phone Number [facility] [address] [place] [address] * (ABNORMAL) POCT glucose meter (04/27/2025 6:30 PM EDT) POCT Glucose 117(H) 74 - 99 mg/dL 04/27/2025 6:31 PM EDT [facility] Comment:Accuracy of a glucos e result obtained from a capillary whole blood specimen relies upon adequate, non-compromised capillary blood flow. If the capillary glucose result is not consistent with the patient's clinical signs and symptoms, glucose testing should be repeated with either an arterial or venous sample on the glucometer or sent to the main labortory for testing. Comment 04/27/2025 6:31 PM EDT [facility] Clothespin Machine Operator ID Bianka Rosen 04/27/2025 6:31 PM EDT [facility] Device ID [id number] 04/27/2025 6:31 PM EDT [facility] Specimen Type POC Capillary 04/27/2025 6:31 PM EDT [facility] Blood Capillary blood specimen / Unknown 04/27/2025 6:30 PM EDT 04/27/2025 6:31 PM EDT Bell Campbell MD LAB POINT OF CARE TEST DOCKED DEVICE UNSOLICITED RESULTS Final Result Performing Organization Address City/[facility] Co de Phone Number [facility] [address] [place] [address] * XR Chest 1 View (04/27/2025 6:57 AM EDT) Anatomical Region Laterality Modality Chest Digital Radiogra phy Impressions 04/27/2025 10:34 AM EDT Interval insertion of feeding tube, extends into the abdomen. Bilateral diffuse interstitial thickening, suggesting mild positive fluid balance. CRITICAL RESULT: No. COMMUNICATION: Per this written report. By electronically signing this report, I, the attending physician, attest that I have personally reviewed the images/data for the above examination(s) and agree with the final edited report. Drafted by Corey Garner MD on 04/27/2025 10:08 AM Final report signed by Danelle Gonzalez MD on 04/27/2025 10:34 AM Narrative 04/27/2025 10:34 AM EDT CLINICAL INDICATION: rib fx, still requiring oxygen TECHNIQUE: XR CHEST 1 VIEW COMPARISON: Chest x-ray 04/24/2025 FINDINGS: Interval insertion of feeding tube with tip terminating outside the field of view. Unchanged appearance of the cardiomediastinal silhouette with intact median sternotomy wires. Bilateral interstitial thickening. Left retrocardiac atelectasis. No pneumothorax. No significant pleural effusion. Procedure Note Danelle Gonzalez MD - 04/27/2025 CLINICAL INDICATION: rib fx, still requiring oxygen TECHNIQUE: XR CHEST 1 VIEW COMPARISON: Chest x-ray 04/24/2025 FINDINGS: Interval insertion of feeding tube with tip terminating outside the fieldof view. Unchanged appearance of the cardiomediastinal silhouette withintact median sternotomy wires. Bilateral interstitial thickening. Leftretrocardiac atelectasis. No pneumothorax. No significant pleuraleffusion. IMPRESSION: Interval insertion of feeding tube, extends into the abdomen. Bilateral diffuse interstitial thickening, suggesting mild positive fluidbalance. CRITICAL RESULT: No. COMMUNICATION: Per this written report. By electronically signing this report, I, the attending physician, attlaurythat I have personally reviewed the images/data for the aboveexamination(s) and agree with the final edited report. Drafted by Corey Garner MD on 04/27/2025 10:08 AM Final report signed by Danelle Gonzalez MD on 04/27/2025 10:34 AM Bell Campbell MD IMG XR PROCEDURES Final Re sult * (ABNORMAL) POCT glucose meter (04/27/2025 5:50 AM EDT) POCT Glucose 122(H) 74 - 99 mg/dL 04/27/2025 5:55 AM EDT [facility] Comment:Accuracy of a glucos e result obtained from a capillary whole blood specimen relies upon adequate, non-compromised capillary blood flow. If the capillary glucose result is not consistent with the patient's clinical signs and symptoms, glucose testing should be repeated with either an arterial or venous sample on the glucometer or sent to the main labortory for testing. Comment 04/27/2025 5:55 AM EDT [facility] Clothespin Machine Operator ID Blanka Cheney 025 5:55 AM EDT [facility] Device ID [id number] 04/27/2025 5:55 AM EDT [facility] Specimen Type POC Capillary 04/27/2025 5:55 AM EDT [facility] Blood Capillary blood specimen / Unknown 04/27/2025 5:50 AM EDT 04/27/2025 5:55 AM EDT Bell Campbell MD LAB POINT OF CARE TEST DOCKED DEVICE UNSOLICITED RESULTS Final Result Performing Organization Address City/State/[facility] Co de Phone Number [facility] [address] [place] [address] * (ABNORMAL) POCT glucose meter (04/27/2025 12:40 AM EDT) POCT Glucose 103(H) 74 - 99 mg/dL 04/27/2025 12:43 AM EDT [facility] Comment:Accuracy of a glucos e result obtained from a capillary whole blood specimen relies upon adequate, non-compromised capillary blood flow. If the capillary glucose result is not consistent with the patient's clinical signs and symptoms, glucose testing should be repeated with either an arterial or venous sample on the glucometer or sent to the main labortory for testing. Comment 04/27/2025 12:43 AM EDT [facility] Clothespin Machine Operator ID Blanka Cheney 025 12:43 AM EDT [facility]ALTH[facility] LAB Device ID [id number] 04/27/2025 12:43 AM EDT [facility] Specimen Type POC Venous 04/27/2025 12:43 AM EDT [facility] Blood Venous blood specimen / Unknown 04/27/2025 12:40 AM EDT 04/27/2025 12:43 AM EDT us Bell Campbell MD LAB POINT OF CARE TEST DOCKED DEVICE UNSOLICITED RESULTS Final Result [facility] [address] [place] [address] * (ABNORMAL) CBC W/O Differential (04/27/2025 12:39 AM EDT) WBC Count 10.69(H) 3.70 - 10.30 10*3/uL LAB HEMATOLOGY METHOD 04/27/2025 12:58 AM EDT [facility] RBC Count 2.97(L) 4.60 - 6.10 10*6/uL LAB HEMATOLOGY METHOD 04/27/2025 12:58 AM EDT [facility] HGB 8.3(L) 13.7 - 17.5 g/dL LAB HEMATOLOGY METHOD 04/27/2025 12:58 AM EDT [facility] HCT 26.7(L) 40.0 - 51.0 % LAB HEMATOLOGY METHOD 04/27/2025 12:58 AM EDT [facility] Platelet Count 170 155 - 369 10*3/uL LAB HEMATOLOGY METHOD 04/27/2025 12:58 AM EDT [facility] MCV 90 79 - 98 fL LAB HEMATOLOGY METHOD 04/27/2025 12:58 AM EDT [facility] MCH 27.9 26.0 - 32.0 pg LAB HEMATOLOGY METHOD 04/27/2025 12:58 AM EDT [facility] MCHC 31.1 30.7 - 35.5 g/dL LAB HEMATOLOGY METHOD 04/27/2025 12:58 AM EDT [facility] RDW 15.2(H) 11.5 - 14.5 % LAB HEMATOLOGY METHOD 04/27/2025 12:58 AM EDT [facility] MPV 10.3 8.8 - 12.5 fL LAB HEMATOLOGY METHOD 04/27/2025 12:58 AM EDT [facility] nRBC 0.0 <=0.0 per 100 WBCs LAB HEMATOLOGY METHOD 04/27/2025 12:58 AM EDT [facility] Blood Venous blood specimen / Unknown Venipuncture / Unknown 04/27/2025 12:39 AM EDT 04/27/2025 12:46 AM EDT us Michelle Christensen MD LAB BLOOD ORDERABLES Final Res ult [facility] [address] [place] [address] * (ABNORMAL) Basic Metabolic Panel, Plasma (04/27/2025 12:39 AM EDT) Glucose, Plasma 114(H) 74 - 99 mg/dL 04/27/2025 1:21 AM EDT [facility] BUN, Plasma 27(H) 8 - 23 mg/dL 04/27/2025 1:21 AM EDT [facility] Creatinine, Plasma 1.06 0.70 - 1.20 mg/dL 04/27/2025 1:21 AM EDT [facility] BUN/Creatinine Ratio 25 04/27/2025 1:21 AM EDT [facility] Sodium, Plasma 146(H) 136 - 145 mmol/L 04/27/2025 1:21 AM EDT [facility] Potassium, Plasma 3.9 3.6 - 4.9 mmol/L 04/27/2025 1:21 AM EDT [facility] Chloride, Plasma 115(H) 97 - 107 mmol/L 04/27/2025 1:21 AM EDT [facility] CO2, Plasma 22 22 - 29 mmol/L 04/27/2025 1:21 AM EDT [facility] Anion Gap 9 6 - 16 mmol/L 04/27/2025 1:21 AM EDT [facility] Total Calcium, Plasma 8.8(L) 8.9 - 10.2 mg/dL 04/27/2025 1:21 AM EDT [facility] eGFRcr 70.9 mL/min/1.7 3m*2 04/27/2025 1:21 AM EDT [facility] Comment:Reported eGFRcr in m L/min/1.73m2 is based the CKD-EPI 2020 equation that does not use a race coefficient. Blood Venous blood specimen / Unknown Venipuncture / Unknown 04/27/2025 12:39 AM EDT 04/27/2025 12:46 AM EDT us Michelle Christensen MD LAB BLOOD ORDERABLES Final Res ult Performing Organization Address City/[facility] [place] [address] * Magnesium, Plasma (04/27/2025 12:39 AM EDT) Magnesium, Plasma 2.0 1.9 - 2.4 mg/dL 04/27/2025 1:21 AM EDT [facility] Blood Venous blood specimen / Unknown Venipuncture / Unknown 04/27/2025 12:39 AM EDT 04/27/2025 12:46 AM EDT us Michelle Christensen MD LAB BLOOD ORDERABLES Final Res ult Performing Organization Address [facility] [place] [address] * Phosphorus, Plasma (04/27/2025 12:39 AM EDT) [facility] Phosphorus, Plasma 3.6 2.5 - 4.5 mg/dL 04/27/2025 1:21 AM EDT [facility] Blood Venous blood specimen / Unknown Venipuncture / Unknown 04/27/2025 12:39 AM EDT 04/27/2025 12:46 AM EDT us Michelle Christensen MD LAB BLOOD ORDERABLES Final Res ult Performing Organization Address [facility] Co de Phone Number [facility] [address] [place] [address] * POCT glucose meter (04/26/2025 6:48 PM EDT) [facility] POCT Glucose 94 74 - 99 mg/dL 04/26/2025 6:50 PM EDT [facility] Comment:Accuracy of a glucos e result obtained from a capillary whole blood specimen relies upon adequate, non-compromised capillary blood flow. If the capillary glucose result is not consistent with the patient's clinical signs and symptoms, glucose testing should be repeated with either an arterial or venous sample on the glucometer or sent to the main labortory for testing. Comment 04/26/2025 6:50 PM EDT [facility] Clothespin Machine Operator ID Steve Cruz 04/26/2025 6:50 PM EDT [facility] LAB Device ID [id number] 04/26/2025 6:50 PM EDT [facility] Specimen Type POC Capillary 04/26/2025 6:50 PM EDT [facility] Blood Capillary blood specimen / Unknown 04/26/2025 6:48 PM EDT 04/26/2025 6:50 PM EDT Bell Campbell MD LAB POINT OF CARE TEST DOCKED DEVICE UNSOLICITED RESULTS Final Result Performing Organization Address City/State/[facility] Co de Phone Number [facility] [address] [place] [address] * XR Abdomen 1 View (04/26/2025 5:38 PM EDT) Anatomical Region Laterality Modality Body Digital Radiogra phy Impressions 04/26/2025 5:44 PM EDT The tip of the feeding tube is within the distal stomach. CRITICAL RESULT: No. COMMUNICATION: Per this written report. Drafted by Deanna Barahona MD on 04/26/2025 5:44 PM Final report signed by Deanna Barahona MD on 04/26/2025 5:44 PM Narrative 04/26/2025 5:44 PM EDT CLINICAL INDICATION: DHT placement TECHNIQUE: Supine radiograph of the abdomen. COMPARISON: April 24, 2025. FINDINGS: Limited [id number] abdominal radiograph for the purpose of locating tube position. The tip of the feeding tube is within the distal stomach. Procedure Note Deanna Barahona MD - 04/26/2025 CLINICAL INDICATION: DHT placement TECHNIQUE: Supine radiograph of the abdomen. COMPARISON: April 24, 2025. FINDINGS: Limited [id number] abdominal radiograph for the purpose of locatingtube position. The tip of the feeding tube is within the distal stomach. IMPRESSION: The tip of the feeding tube is within the distal stomach. CRITICAL RESULT: No. COMMUNICATION: Per this written report. Drafted by Deanna Barahona MD on 04/26/2025 5:44 PM Final report signed by Deanna Barahona MD on 04/26/2025 5:44 PM us Bell Campbell MD IMG XR PROCEDURES Final Re sult * (ABNORMAL) POCT glucose meter (04/26/2025 1:15 PM EDT) POCT Glucose 104(H) 74 - 99 mg/dL 04/26/2025 1:17 PM EDT [facility] Comment:Accuracy of a glucos e result obtained from a capillary whole blood specimen relies upon adequate, non-compromised capillary blood flow. If the capillary glucose result is not consistent with the patient's clinical signs and symptoms, glucose testing should be repeated with either an arterial or venous sample on the glucometer or sent to the main labortory for testing. Comment 04/26/2025 1:17 PM EDT [facility] Clothespin Machine Operator ID Steve Cruz 04/26/2025 1:17 PM EDT [facility] Device ID [id number] 04/26/2025 1:17 PM EDT [facility] Specimen Type POC Capillary 04/26/2025 1:17 PM EDT [facility] Blood Capillary blood specimen / Unknown 04/26/2025 1:15 PM EDT 04/26/2025 1:17 PM EDT us Bell Campbell MD LAB POINT OF CARE TEST DOCKED DEVICE UNSOLICITED RESULTS Final Result Performing Organization Address City/State/[facility] Co de Phone Number [facility] [address] [place] [address] * POCT glucose meter (04/26/2025 6:28 AM EDT) POCT Glucose 97 74 - 99 mg/dL 04/26/2025 6:30 AM EDT [facility] Comment:Accuracy of a glucos e result obtained from a capillary whole blood specimen relies upon adequate, non-compromised capillary blood flow. If the capillary glucose result is not consistent with the patient's clinical signs and symptoms, glucose testing should be repeated with either an arterial or venous sample on the glucometer or sent to the main labortory for testing. Comment 04/26/2025 6:30 AM EDT [facility] Clothespin Machine Operator ID Debby Montes 04/26/20 6:30 AM EDT [facility] Device ID [id number] 04/26/2025 6:30 AM EDT [facility] Specimen Type POC Venous 04/26/2025 6:30 AM EDT [facility] Blood Venous blood specimen / Unknown 04/26/2025 6:28 AM EDT 04/26/2025 6:30 AM EDT us Bell Campbell MD LAB POINT OF CARE TEST DOCKED DEVICE UNSOLICITED RESULTS Final Result Performing Organization Address City/[facility] Co de Phone Number [facility] [address] [place] [address] * POCT glucose meter (04/26/2025 1:15 AM EDT) [facility] POCT Glucose 88 74 - 99 mg/dL 04/26/2025 1:17 AM EDT [facility] Comment:Accuracy of a glucos e result obtained from a capillary whole blood specimen relies upon adequate, non-compromised capillary blood flow. If the capillary glucose result is not consistent with the patient's clinical signs and symptoms, glucose testing should be repeated with either an arterial or venous sample on the glucometer or sent to the main labortory for testing. Comment 04/26/2025 1:17 AM EDT [facility] Clothespin Machine Operator ID Debby Montes 04/26/20 1:17 AM EDT [facility] Device ID [id number] 04/26/2025 1:17 AM EDT [facility] Specimen Type POC Venous 04/26/2025 1:17 AM EDT [facility] Blood Venous blood specimen / Unknown 04/26/2025 1:15 AM EDT 04/26/2025 1:17 AM EDT us Bell Campbell MD LAB POINT OF CARE TEST DOCKED DEVICE UNSOLICITED RESULTS Final Result Performing Organization Address City/[facility]/ZIP Co de Phone Number [facility] [address] [place] [address] * (ABNORMAL) CBC W/O Differential (04/26/2025 1:15 AM EDT) [facility] Signature WBC Count 12.26(H) 3.70 - 10.30 10*3/uL LAB HEMATOLOGY METHOD 04/26/2025 1:28 AM EDT [facility] RBC Count 3.08(L) 4.60 - 6.10 10*6/uL LAB HEMATOLOGY METHOD 04/26/2025 1:28 AM EDT [facility] HGB 8.7(L) 13.7 - 17.5 g/dL LAB HEMATOLOGY METHOD 04/26/2025 1:28 AM EDT [facility] HCT 27.1(L) 40.0 - 51.0 % LAB HEMATOLOGY METHOD 04/26/2025 1:28 AM EDT [facility] Platelet Count 165 155 - 369 10*3/uL LAB HEMATOLOGY METHOD 04/26/2025 1:28 AM EDT [facility] MCV 88 79 - 98 fL LAB HEMATOLOGY METHOD 04/26/2025 1:28 AM EDT [facility] MCH 28.2 26.0 - 32.0 pg LAB HEMATOLOGY METHOD 04/26/2025 1:28 AM EDT [facility] MCHC 32.1 30.7 - 35.5 g/dL LAB HEMATOLOGY METHOD 04/26/2025 1:28 AM EDT [facility] RDW 15.3(H) 11.5 - 14.5 % LAB HEMATOLOGY METHOD 04/26/2025 1:28 AM EDT [facility] MPV 10.0 8.8 - 12.5 fL LAB HEMATOLOGY METHOD 04/26/2025 1:28 AM EDT [facility] nRBC 0.0 <=0.0 per 100 WBCs LAB HEMATOLOGY METHOD 04/26/2025 1:28 AM EDT [facility] Blood Venous blood specimen / Unknown Venipuncture / Unknown 04/26/2025 1:15 AM EDT 04/26/2025 1:21 AM EDT us Michelle Christensen MD LAB BLOOD ORDERABLES Final Res ult [facility] [address] [place] [address] * (ABNORMAL) Basic Metabolic Panel, Plasma (04/26/2025 1:15 AM EDT) Glucose, Plasma 97 74 - 99 mg/dL 04/26/2025 1:50 AM EDT [facility] BUN, Plasma 26(H) 8 - 23 mg/dL 04/26/2025 1:50 AM EDT [facility] Creatinine, Plasma 1.12 0.70 - 1.20 mg/dL 04/26/2025 1:50 AM EDT [facility] BUN/Creatinine Ratio 23 04/26/2025 1:50 AM EDT [facility] Sodium, Plasma 145 136 - 145 mmol/L 04/26/2025 1:50 AM EDT [facility] Potassium, Plasma 3.8 3.6 - 4.9 mmol/L 04/26/2025 1:50 AM EDT [facility] Chloride, Plasma 115(H) 97 - 107 mmol/L 04/26/2025 1:50 AM EDT [facility] CO2, Plasma 22 22 - 29 mmol/L 04/26/2025 1:50 AM EDT [facility] Anion Gap 8 6 - 16 mmol/L 04/26/2025 1:50 AM EDT [facility] Total Calcium, Plasma 8.7(L) 8.9 - 10.2 mg/dL 04/26/2025 1:50 AM EDT [facility] eGFRcr 66.4 mL/min/1.7 3m*2 04/26/2025 1:50 AM EDT [facility] Comment:Reported eGFRcr in m L/min/1.73m2 is based the CKD-EPI 2020 equation that does not use a race coefficient. Blood Venous blood specimen / Unknown Venipuncture / Unknown 04/26/2025 1:15 AM EDT 04/26/2025 1:21 AM EDT us Michelle Christensen MD LAB BLOOD ORDERABLES Final Res ult [facility] [address] [place] [address] * Magnesium, Plasma (04/26/2025 1:15 AM EDT) [facility] Magnesium, Plasma 1.9 1.9 - 2.4 mg/dL 04/26/2025 1:50 AM EDT [facility] Blood Venous blood specimen / Unknown Venipuncture / Unknown 04/26/2025 1:15 AM EDT 04/26/2025 1:21 AM EDT us Michelle Christensen MD LAB BLOOD ORDERABLES Final Res ult Performing Organization Address [facility] Co de Phone Number [facility] [address] [place] [address] * Phosphorus, Plasma (04/26/2025 1:15 AM EDT) [facility] Phosphorus, Plasma 3.3 2.5 - 4.5 mg/dL 04/26/2025 1:50 AM EDT [facility] Blood Venous blood specimen / Unknown Venipuncture / Unknown 04/26/2025 1:15 AM EDT 04/26/2025 1:21 AM EDT us Michelle Christensen MD LAB BLOOD ORDERABLES Final Res ult Performing Organization Address [facility] de [place] [address] * (ABNORMAL) POCT glucose meter (04/25/2025 6:37 PM EDT) [facility] POCT Glucose 112(H) 74 - 99 mg/dL 04/25/2025 6:39 PM EDT [facility] Comment:Accuracy of a glucos e result obtained from a capillary whole blood specimen relies upon adequate, non-compromised capillary blood flow. If the capillary glucose result is not consistent with the patient's clinical signs and symptoms, glucose testing should be repeated with either an arterial or venous sample on the glucometer or sent to the main labortory for testing. Comment 04/25/2025 6:39 PM EDT [facility] Clothespin Machine Operator ID Peri Moya 04/25/20 6:39 PM EDT [facility] Device ID [id number] 04/25/2025 6:39 PM EDT [facility] Specimen Type POC Capillary 04/25/2025 6:39 PM EDT [facility] Blood Capillary blood specimen / Unknown 04/25/2025 6:37 PM EDT 04/25/2025 6:39 PM EDT Bell Campbell MD LAB POINT OF CARE TEST DOCKED DEVICE UNSOLICITED RESULTS Final Result [facility] [address] [place] [id number] * [place] Modified Barium Swallow (04/25/2025 3:31 PM EDT) Anatomical Region Laterality Modality Esophagus, stomach and duodenum Digital Radiography Impressions 04/25/2025 4:35 PM EDT No aspiration of any tested consistency. Laryngeal penetration of thin barium consistency. Please see separate note by Speech therapy team for dietary recommendations. CRITICAL RESULT: No. COMMUNICATION: Per this written report. By electronically signing this report, I, the attending physician, attest that I have personally reviewed the images/data for the above examination(s) and agree with the final edited report. Drafted by CL Buck RT (R) on 04/25/2025 4:22 PM Final report signed by Miles Curtis MD on 04/25/2025 4:35 PM Narrative 04/25/2025 4:35 PM EDT CLINICAL INDICATION: Environmental Health Officer recs; dysphagia TECHNIQUE: Modified barium swallow was performed utilizing video fluoroscopy in conjunction with the Speech Pathology team. The patient ingested barium media of varying consistencies. Fluoroscopy Time: 1.4 minutes. COMPARISON: None. FINDINGS: Swallowing: Thin consistency (IDDSI 0): There is no aspiration. There is laryngeal penetration by the teaspoon and straw. There is no laryngeal penetration by the cup. There is moderate vallecular residue. [place] consistency (IDDSI 2): There is no aspiration or laryngeal penetration by the cup. There is moderate vallecular residue. [place] consistency (IDDSI 4): There is no aspiration or laryngeal penetration. There is significant vallecular residue. Other: The patient is edentulous. Enteric tube is present. Procedure Note Miles Curtis MD - 04/25/2025 CLINICAL INDICATION: Environmental Health Officer recs; dysphagia TECHNIQUE: Modified barium swallow was performed utilizing video fluoroscopy inconjunction with the Speech Pathology team. The patient ingested bariummedia of varying consistencies. Fluoroscopy Time: 1.4 minutes. COMPARISON: None. FINDINGS: Swallowing: Thin consistency (IDDSI 0): There is no aspiration. There is laryngealpenetration by the teaspoon and straw. There is no laryngeal penetrationby the cup. There is moderate vallecular residue. [place] consistency (IDDSI 2): There is no aspiration or laryngealpenetration by the cup. There is moderate vallecular residue. [place]ud[place] consistency (IDDSI 4): There is no aspiration or laryngealpenetration. There is significant vallecular residue. Other: The patient is edentulous. Enteric tube is present. IMPRESSION: No aspiration of any tested consistency. Laryngeal penetration of thin barium consistency. Please see separate note by Speech therapy team for dietaryrecommendations. CRITICAL RESULT: No. COMMUNICATION: Per this written report. By electronically signing this report, I, the attending physician, attestthat I have personally reviewed the images/data for the aboveexamination(s) and agree with the final edited report. Drafted by CL Buck RT (R) on 04/25/2025 4:22 PM Final report signed by Miles Curtis MD on 04/25/2025 4:35 PM Michelle Christensen MD IMG FLUOROSCOPY PROCEDURES Fin al Result * (ABNORMAL) POCT glucose meter (04/25/2025 11:51 AM EDT) POCT Glucose 105(H) 74 - 99 mg/dL 04/25/2025 11:53 AM EDT [facility] Comment:Accuracy of a glucos e result obtained from a capillary whole blood specimen relies upon adequate, non-compromised capillary blood flow. If the capillary glucose result is not consistent with the patient's clinical signs and symptoms, glucose testing should be repeated with either an arterial or venous sample on the glucometer or sent to the main labortory for testing. Comment 04/25/2025 11:53 AM EDT [facility] [employer] Machine Operator ID Peri Moya 04/25/20 11:53 AM EDT [facility] Device ID [id number] 04/25/2025 11:53 AM EDT [facility] Specimen Type POC Capillary 04/25/2025 11:53 AM EDT [facility] Blood Capillary blood specimen / Unknown 04/25/2025 11:51 AM EDT 04/25/2025 11:53 AM EDT Bell Campbell MD LAB POINT OF CARE TEST DOCKED DEVICE UNSOLICITED RESULTS Final Result Performing Organization Address [facility] Co de Phone Number [facility] [address] [place] [address] * (ABNORMAL) Hemoglobin and hematocrit, blood (04/25/2025 2:48 AM EDT) HGB 9.2(L) 13.7 - 17.5 g/dL LAB HEMATOLOGY METHOD 04/25/2025 3:03 AM EDT [facility] HCT 28.9(L) 40.0 - 51.0 % LAB HEMATOLOGY METHOD 04/25/2025 3:03 AM EDT [facility] Blood Venous blood specimen / Unknown Venipuncture / Unknown 04/25/2025 2:48 AM EDT 04/25/2025 2:54 AM EDT us Michelle Christensen MD LAB BLOOD ORDERABLES Final Res ult [facility] [address] [place] [id number] * TEG Global Hemostasis with Lysis (04/25/2025 2:48 AM EDT) R, Lysis 6.7 4.6 - 9.1 min 04/25/2025 3:55 AM EDT [facility] MA, Rapid, Lysis 65.7 52.0 - 70.0 mm 04/25/2025 3:55 AM EDT [facility] MA, Fibrinogen, Lysis 28.9 15.0 - 32.0 mm 04/25/2025 3:55 AM EDT [facility] LY30 0.1 0.0 - 2.6 % 04/25/2025 3:55 AM EDT [facility] Blood Venous blood specimen / Unknown Venipuncture / Unknown 04/25/2025 2:48 AM EDT 04/25/2025 2:56 AM EDT Michelle Christensen MD LAB BLOOD ORDERABLES Final Res ult [facility] [address] [place] [address] * ECG Adult (04/25/2025 12:32 AM EDT) EKG DIAGNOSIS CLASS Abnormal MUSE ECG Ventricular Rate 101 BPM MUSE ECG Atrial Rate 101 BPM MUSE ECG IA Interval 186 ms MUSE ECG QRSD Interval 106 ms MUSE ECG QT Interval 334 ms MUSE ECG QTC Interval 433 ms MUSE ECG P [place] 53 degrees MUSE ECG R [place] 70 degrees MUSE ECG T Wave [place] 33 degrees MUSE ECG Diagnosis Sinus tachycardia with occasional premature ventricular complexes MUSE ECG Diagnosis Inferior Q waves noted MUSE ECG Diagnosis Poor R-wave progression Cannot rule out Anterior infarct , age undetermined MUSE ECG Diagnosis Nonspecific ST abnormality MUSE ECG Diagnosis Abnormal ECG MUSE ECG Diagnosis MUSE ECG Diagnosis Confirmed by Mathew King ([id number]) on 04/25/2025 7:36:58 AM MUSE ECG 04/25/2025 12:3 2 AM EDT 04/25/2025 7:36 AM EDT us Michelle Christensen MD ECG ORDERABLES Final Result Performing Organization Address City/[facility] Co de Phone Number MUSE ECG * (ABNORMAL) POCT glucose meter (04/25/2025 12:10 AM EDT) POCT Glucose 109(H) 74 - 99 mg/dL 04/25/2025 12:12 AM EDT [facility] Comment:Accuracy of a glucos e result obtained from a capillary whole blood specimen relies upon adequate, non-compromised capillary blood flow. If the capillary glucose result is not consistent with the patient's clinical signs and symptoms, glucose testing should be repeated with either an arterial or venous sample on the glucometer or sent to the main labortory for testing. Comment 04/25/2025 12:12 AM EDT [facility] [employer] Machine Operator ID Joanie Curran 04/25/2025 12:12 AM EDT [facility] Device ID [id number] 04/25/2025 12:12 AM EDT [facility] Specimen Type POC Venous 04/25/2025 12:12 AM EDT [facility] Blood Venous blood specimen / Unknown 04/25/2025 12:10 AM EDT 04/25/2025 12:12 AM EDT us Michelle Christensen MD LAB POINT OF CARE TE ST DOCKED DEVICE UNSOLICITED RESULTS Final Result [facility] [address] [place] [address] * (ABNORMAL) CBC W/O Differential (04/25/2025 12:08 AM EDT) WBC Count 12.08(H) 3.70 - 10.30 10*3/uL LAB HEMATOLOGY METHOD 04/25/2025 12:22 AM EDT [facility] RBC Count 2.88(L) 4.60 - 6.10 10*6/uL LAB HEMATOLOGY METHOD 04/25/2025 12:22 AM EDT [facility] HGB 8.3(L) 13.7 - 17.5 g/dL LAB HEMATOLOGY METHOD 04/25/2025 12:22 AM EDT [facility] HCT 25.5(L) 40.0 - 51.0 % LAB HEMATOLOGY METHOD 04/25/2025 12:22 AM EDT [facility] Platelet Count 135(L) 155 - 369 10*3/uL LAB HEMATOLOGY METHOD 04/25/2025 12:22 AM EDT [facility] MCV 89 79 - 98 fL LAB HEMATOLOGY METHOD 04/25/2025 12:22 AM EDT [facility] MCH 28.8 26.0 - 32.0 pg LAB HEMATOLOGY METHOD 04/25/2025 12:22 AM EDT [facility] MCHC 32.5 30.7 - 35.5 g/dL LAB HEMATOLOGY METHOD 04/25/2025 12:22 AM EDT [facility] RDW 15.0(H) 11.5 - 14.5 % LAB HEMATOLOGY METHOD 04/25/2025 12:22 AM EDT [facility] MPV 10.0 8.8 - 12.5 fL LAB HEMATOLOGY METHOD 04/25/2025 12:22 AM EDT [facility] nRBC 0.0 <=0.0 per 100 WBCs LAB HEMATOLOGY METHOD 04/25/2025 12:22 AM EDT [facility] Blood Venous blood specimen / Unknown Venipuncture / Unknown 04/25/2025 12:08 AM EDT 04/25/2025 12:15 AM EDT us Michelle Christensen MD LAB BLOOD ORDERABLES Final Res ult [facility] [address] [place] [address] * (ABNORMAL) Basic Metabolic Panel, Plasma (04/25/2025 12:08 AM EDT) Glucose, Plasma 101(H) 74 - 99 mg/dL 04/25/2025 12:42 AM EDT [facility] BUN, Plasma 27(H) 8 - 23 mg/dL 04/25/2025 12:42 AM EDT [facility] Creatinine, Plasma 1.14 0.70 - 1.20 mg/dL 04/25/2025 12:42 AM EDT [facility] BUN/Creatinine Ratio 24 04/25/2025 12:42 AM EDT [facility] Sodium, Plasma 142 136 - 145 mmol/L 04/25/2025 12:42 AM EDT [facility] Potassium, Plasma 3.8 3.6 - 4.9 mmol/L 04/25/2025 12:42 AM EDT [facility] Chloride, Plasma 112(H) 97 - 107 mmol/L 04/25/2025 12:42 AM EDT [facility] CO2, Plasma 22 22 - 29 mmol/L 04/25/2025 12:42 AM EDT [facility] Anion Gap 8 6 - 16 mmol/L 04/25/2025 12:42 AM EDT [facility] Total Calcium, Plasma 8.8(L) 8.9 - 10.2 mg/dL 04/25/2025 12:42 AM EDT [facility] eGFRcr 65.0 mL/min/1.7 3m*2 04/25/2025 12:42 AM EDT [facility] Comment:Reported eGFRcr in m L/min/1.73m2 is based the CKD-EPI 2020 equation that does not use a race coefficient. Blood Venous blood specimen / Unknown Venipuncture / Unknown 04/25/2025 12:08 AM EDT 04/25/2025 12:15 AM EDT us Michelle Christensen MD LAB BLOOD ORDERABLES Final Res ult Performing Organization Address City/[facility]/ZIP Co de Phone Number [facility] [address] [place] [address] * Magnesium, Plasma (04/25/2025 12:08 AM EDT) Magnesium, Plasma 1.9 1.9 - 2.4 mg/dL 04/25/2025 12:42 AM EDT [facility] Blood Venous blood specimen / Unknown Venipuncture / Unknown 04/25/2025 12:08 AM EDT 04/25/2025 12:15 AM EDT us Michelle Christensen MD LAB BLOOD ORDERABLES Final Res ult [facility] [address] [place] [address] * Phosphorus, Plasma (04/25/2025 12:08 AM EDT) Phosphorus, Plasma 3.3 2.5 - 4.5 mg/dL 04/25/2025 12:42 AM EDT [facility] Blood Venous blood specimen / Unknown Venipuncture / Unknown 04/25/2025 12:08 AM EDT 04/25/2025 12:15 AM EDT us Michelle Christensen MD LAB BLOOD ORDERABLES Final Res ult [facility] [address] [place] [address] * CT Abdomen Pelvis w IV Contrast (04/24/2025 10:02 PM EDT) Anatomical Region Laterality Modality Abdomen, Pelvis Computed Tomogra phy Impressions 04/24/2025 10:54 PM EDT Interval decrease in size of a small right lower lobe adjacent hematoma and minimal soft tissue contusion and hematoma in the left inguinal soft tissue. Decreased trace pelvic fluid CRITICAL RESULT: No. COMMUNICATION: Per this written report. Drafted by Tomer Sparks MD on 04/24/2025 10:46 PM Final report signed by Tomer Sparks MD on 04/24/2025 10:54 PM Narrative 04/24/2025 10:54 PM EDT CLINICAL INDICATION: s/p trauma, mesenteric hematom, concern for bowel injury TECHNIQUE: Multiple axial CT images were obtained from lung bases through pubic symphysis following administration of IV contrast, Omnipaque 300, 100 mL. Delayed images of abdomen and kidneys were also obtained. Reformatted images in the coronal and sagittal planes were generated from the axial data set to facilitate diagnostic accuracy. Total DLP (Dose-Length Product): 833.26 mGy.cm. Please note: The reported value represents the total of one or more individual components during the CT acquisition on this date and at this time, and as such, the same value may appear in more than one CT report depending on the interpreting/reporting physicians. COMPARISON: 04/22/2025 FINDINGS: Lower Chest: Left lower lobe consolidation with trace left effusion have developed Solid Abdominal Organs: Large 8.8 x 11.4 cm hypoenhancing central hepatic mass is grossly unchanged. Unremarkable gallbladder. No biliary dilatation GI Tract/Mesentery/Peritoneum: No evidence of bowel obstruction. Colonic diverticulosis without diverticulitis. No pneumatosis. Oral contrast opacifies nondistended loops of small bowel. Interval decrease in size of the small focus of mesenteric hematoma in the right lower quadrant (series 2 image 72). Pelvic Viscera: No new suspicious pelvic mass lesions. Lymph Nodes/Vasculature: No lymphadenopathy by CT size criteria. Stable postoperative changes of aortobiiliac stent. The abdominal aorta and its branches are diffusely atherosclerotic Free Fluid: Trace free pelvic fluid. Near complete resolution of the perihepatic fluid/subcapsular collection. Musculoskeletal and Body Wall: Minimal subcutaneous contusion/hemorrhage in the left inguinal region, decreased. Redemonstration of multiple left transverse process fractures in the lumbar spine as well as lower sacrum fracture Procedure Note Tomer Sparks MD - 04/24/2025 CLINICAL INDICATION: s/p trauma, mesenteric hematom, concern for bowel injury TECHNIQUE: Multiple axial CT images were obtained from lung bases through pubicsymphysis following administration of IV contrast, Omnipaque 300, 100 mL.Delayed images of abdomen and kidneys were also obtained. Reformattedimages in the coronal and sagittal planes were generated from the axialdata set to facilitate diagnostic accuracy. Total DLP (Dose-Length Product): 833.26 mGy.cm. Please note: The reportedvalue represents the total of one or more individual components during theCT acquisition on this date and at this time, and as such, the same valuemay appear in more than one CT report depending on theinterpreting/reporting physicians. COMPARISON: 04/22/2025 FINDINGS: Lower Chest: Left lower lobe consolidation with trace left effusion havedeveloped Solid Abdominal Organs: Large 8.8 x 11.4 cm hypoenhancing central hepaticmass is grossly unchanged. Unremarkable gallbladder. No biliarydilatation GI Tract/Mesentery/Peritoneum: No evidence of bowel obstruction. Colonicdiverticulosis without diverticulitis. No pneumatosis. Oral contrastopacifies nondistended loops of small bowel. Interval decrease in size ofthe small focus of mesenteric hematoma in the right lower quadrant (series2 image 72). Pelvic Viscera: No new suspicious pelvic mass lesions. Lymph Nodes/Vasculature: No lymphadenopathy by CT size criteria. Stablepostoperative changes of aortobiiliac stent. The abdominal aorta and itsbranches are diffusely atherosclerotic Free Fluid: Trace free pelvic fluid. Near complete resolution of theperihepatic fluid/subcapsular collection. Musculoskeletal and Body Wall: Minimal subcutaneous contusion/hemorrhagein the left inguinal region, decreased. Redemonstration of multiple lefttransverse process fractures in the lumbar spine as well as lower sacrumfracture IMPRESSION: Interval decrease in size of a small right lower lobe adjacent hematomaand minimal soft tissue contusion and hematoma in the left inguinal softtissue. Decreased trace pelvic fluid CRITICAL RESULT: No. COMMUNICATION: Per this written report. Drafted by Tomer Sparks MD on 04/24/2025 10:46 PM Final report signed by Tomer Sparks MD on 04/24/2025 10:54 PM us Michelle Christensen MD IMG CT PROCEDURES Final Result * XR Abdomen 1 View (04/24/2025 6:53 PM EDT) Anatomical Region Laterality Modality Body Digital Radiogra phy Impressions 04/24/2025 7:38 PM EDT The tip of the gastric tube is within the proximal stomach CRITICAL RESULT: No. COMMUNICATION: Per this written report. Drafted by Tomer Sparks MD on 04/24/2025 7:38 PM Final report signed by Tomer Sparks MD on 04/24/2025 7:38 PM Narrative 04/24/2025 7:38 PM EDT CLINICAL INDICATION: NG placement TECHNIQUE: Supine radiograph of the abdomen. COMPARISON: None. FINDINGS: Limited [id number] abdominal radiograph for the purpose of locating tube position. The tip of the nasogastric tube is within the proximal stomach. Procedure Note Tomer Sparks MD - 04/24/2025 CLINICAL INDICATION: NG placement TECHNIQUE: Supine radiograph of the abdomen. COMPARISON: None. FINDINGS: Limited gnjul-wa-qriy abdominal radiograph for the purpose of locatingtube position. The tip of the nasogastric tube is within the proximal stomach. IMPRESSION: The tip of the gastric tube is within the proximal stomach CRITICAL RESULT: No. COMMUNICATION: Per this written report. Drafted by Tomer Sparks MD on 04/24/2025 7:38 PM Final report signed by Tomer Sparks MD on 04/24/2025 7:38 PM us Michelle Christensen MD IMG XR PROCEDURES Final Result * (ABNORMAL) POCT glucose meter (04/24/2025 6:50 PM EDT) POCT Glucose 109(H) 74 - 99 mg/dL 04/24/2025 6:52 PM EDT [facility] Comment:Accuracy of a glucos e result obtained from a capillary whole blood specimen relies upon adequate, non-compromised capillary blood flow. If the capillary glucose result is not consistent with the patient's clinical signs and symptoms, glucose testing should be repeated with either an arterial or venous sample on the glucometer or sent to the main labortory for testing. Comment 04/24/2025 6:52 PM EDT [facility] [employer] Machine Operator ID Peri Moya 04/24/20 25 6:52 PM EDT [facility] Device ID [id number] 04/24/2025 6:52 PM EDT [facility] Specimen Type POC Capillary 04/24/2025 6:52 PM EDT [facility] Blood Capillary blood specimen / Unknown 04/24/2025 6:50 PM EDT 04/24/2025 6:52 PM EDT us Michelle Christensen MD LAB POINT OF CARE TE ST DOCKED DEVICE UNSOLICITED RESULTS Final Result Performing Organization Address City/State/[facility] Co de Phone Number [facility] [address] [place] [address] * XR Abdomen 1 View (Adult Inpatients per policy) (04/24/2025 6:27 PM EDT) Anatomical Region Laterality Modality Body Digital Radiogra phy Impressions 04/24/2025 6:48 PM EDT The tip of the gastric tube is within the proximal stomach CRITICAL RESULT: No. COMMUNICATION: Per this written report. Drafted by Tomer Sparks MD on 04/24/2025 6:48 PM Final report signed by Tomer Sparks MD on 04/24/2025 6:48 PM Narrative 04/24/2025 6:48 PM EDT CLINICAL INDICATION: Confirm proper placement of NG/OG tube TECHNIQUE: Supine radiograph of the abdomen. COMPARISON: None. FINDINGS: Limited [id number]-dp-[id number] abdominal radiograph for the purpose of locating tube position. The tip of the nasogastric tube is within the proximal stomach. Procedure Note Tomer Sparks MD - 04/24/2025 CLINICAL INDICATION: Confirm proper placement of NG/OG tube TECHNIQUE: Supine radiograph of the abdomen. COMPARISON: None. FINDINGS: Limited [id number]-[id number] abdominal radiograph for the purpose of locatingtube position. The tip of the nasogastric tube is within the proximal stomach. IMPRESSION: The tip of the gastric tube is within the proximal stomach CRITICAL RESULT: No. COMMUNICATION: Per this written report. Drafted by Tomer Sparks MD on 04/24/2025 6:48 PM Final report signed by Tomer Sparks MD on 04/24/2025 6:48 PM Michelle Christensen MD IMG XR PROCEDURES Final Result * [facility] CRITICAL CARE, E/M 30-74 MINUTES (04/24/2025 4:48 PM EDT) Narrative Michelle Christensen MD - 04/24/2025 4:48 PM EDT Michelle Christensen MD 04/27/2025 11:09 PM Critical Care Performed by: Michelle Christensen MD Authorized by: Michelle Christensen MD Critical care provider statement: Critical care time (minutes): 35 Critical care time was exclusive of: Separately billable procedures and treating other patients and teaching time Critical care was time spent personally by me on the following activities: Development of treatment plan with patient or surrogate, evaluation of patient's response to treatment, examination of patient, ordering and performing treatments and interventions, ordering and review of laboratory studies and ordering and review of radiographic studies Critical care statement: I saw and evaluated the patient with the resident/ fellow. I discussed the case with the resident/ fellow and agree with the findings and plan as documented. Michelle Christensen MD IN CLINIC/BEDSIDE ORDERABLES F inal Result * (ABNORMAL) POCT glucose meter (04/24/2025 12:28 PM EDT) POCT Glucose 104(H) 74 - 99 mg/dL 04/24/2025 12:30 PM EDT [facility] Comment:Accuracy of a glucos e result obtained from a capillary whole blood specimen relies upon adequate, non-compromised capillary blood flow. If the capillary glucose result is not consistent with the patient's clinical signs and symptoms, glucose testing should be repeated with either an arterial or venous sample on the glucometer or sent to the main labortory for testing. Comment 04/24/2025 12:30 PM EDT [facility] [employer] Machine Operator ID Peri Moya 04/24/20 12:30 PM EDT [facility] Device ID [id number] 04/24/2025 12:30 PM EDT [facility] Specimen Type POC Capillary 04/24/2025 12:30 PM EDT [facility] Blood Capillary blood specimen / Unknown 04/24/2025 12:28 PM EDT 04/24/2025 12:30 PM EDT us Michelle Christensen MD LAB POINT OF CARE TE ST DOCKED DEVICE UNSOLICITED RESULTS Final Result Performing Organization Address City/[facility] Co de Phone Number [facility] [address] [place] [address] * (ABNORMAL) POCT glucose meter (04/24/2025 12:23 PM EDT) POCT Glucose 273(H) 74 - 99 mg/dL 04/24/2025 12:25 PM EDT [facility] Comment:Accuracy of a glucos e result obtained from a capillary whole blood specimen relies upon adequate, non-compromised capillary blood flow. If the capillary glucose result is not consistent with the patient's clinical signs and symptoms, glucose testing should be repeated with either an arterial or venous sample on the glucometer or sent to the main labortory for testing. Comment 04/24/2025 12:25 PM EDT [facility] Cl[employer] Machine Operator ID Peri Moya 04/24/20 12:25 PM EDT [facility] Device ID [id number] 04/24/2025 12:25 PM EDT [facility] Specimen Type POC Capillary 04/24/2025 12:25 PM EDT [facility] Blood Capillary blood specimen / Unknown 04/24/2025 12:23 PM EDT 04/24/2025 12:25 PM EDT us Michelle Christensen MD LAB POINT OF CARE TE ST DOCKED DEVICE UNSOLICITED RESULTS Final Result [facility] [address] [place] [address] * (ABNORMAL) POCT glucose meter (04/24/2025 12:21 PM EDT) POCT Glucose 382(H) 74 - 99 mg/dL 04/24/2025 12:23 PM EDT [facility] Comment:Accuracy of a glucos e result obtained from a capillary whole blood specimen relies upon adequate, non-compromised capillary blood flow. If the capillary glucose result is not consistent with the patient's clinical signs and symptoms, glucose testing should be repeated with either an arterial or venous sample on the glucometer or sent to the main labortory for testing. Comment 04/24/2025 12:23 PM EDT [facility] Cl[employer]spin Machine Operator ID Peri Moya 04/24/20 12:23 PM EDT [facility] Device ID [id number] 04/24/2025 12:23 PM EDT [facility] Specimen Type POC Capillary 04/24/2025 12:23 PM EDT [facility] Blood Capillary blood specimen / Unknown 04/24/2025 12:21 PM EDT 04/24/2025 12:23 PM EDT us Michelle Christensen MD LAB POINT OF CARE TE ST DOCKED DEVICE UNSOLICITED RESULTS Final Result [facility] [address] [place] [id number] * XR Chest 1 View (04/24/2025 6:48 AM EDT) Anatomical Region Laterality Modality Chest Digital Radiogra phy Impressions 04/24/2025 2:04 PM EDT No significant interval change. CRITICAL RESULT: No. COMMUNICATION: Per this written report. Drafted by Clarence Renteria MD on 04/24/2025 2:03 PM Final report signed by Clarence Renteria MD on 04/24/2025 2:04 PM Narrative 04/24/2025 2:04 PM EDT CLINICAL INDICATION: rib fx TECHNIQUE: Single AP view of chest. COMPARISON: One day prior FINDINGS: The cardiomediastinal contours unchanged. No sizable pneumothorax. No sizable pleural effusion. Bibasal lung opacities which may represent atelectasis. No lung consolidation. Procedure Note Clarence Renteria MD - 04/24/2025 CLINICAL INDICATION: rib fx TECHNIQUE: Single AP view of chest. COMPARISON: One day prior FINDINGS: The cardiomediastinal contours unchanged. No sizable pneumothorax. Nosizable pleural effusion. Bibasal lung opacities which may representatelectasis. No lung consolidation. IMPRESSION: No significant interval change. CRITICAL RESULT: No. COMMUNICATION: Per this written report. Drafted by Clarence Renteria MD on 04/24/2025 2:03 PM Final report signed by Clarence Renteria MD on 04/24/2025 2:04 PM Michelle Christensen MD IMG XR PROCEDURES Final Result * (ABNORMAL) CBC W/O Differential (04/24/2025 1:32 AM EDT) WBC Count 13.01(H) 3.70 - 10.30 10*3/uL LAB HEMATOLOGY METHOD 04/24/2025 1:50 AM EDT [facility] RBC Count 3.33(L) 4.60 - 6.10 10*6/uL LAB HEMATOLOGY METHOD 04/24/2025 1:50 AM EDT [facility] HGB 9.7(L) 13.7 - 17.5 g/dL LAB HEMATOLOGY METHOD 04/24/2025 1:50 AM EDT [facility] HCT 30.3(L) 40.0 - 51.0 % LAB HEMATOLOGY METHOD 04/24/2025 1:50 AM EDT [facility] Platelet Count 153(L) 155 - 369 10*3/uL LAB HEMATOLOGY METHOD 04/24/2025 1:50 AM EDT [facility] MCV 91 79 - 98 fL LAB HEMATOLOGY METHOD 04/24/2025 1:50 AM EDT [facility] MCH 29.1 26.0 - 32.0 pg LAB HEMATOLOGY METHOD 04/24/2025 1:50 AM EDT [facility] MCHC 32.0 30.7 - 35.5 g/dL LAB HEMATOLOGY METHOD 04/24/2025 1:50 AM EDT [facility] RDW 14.9(H) 11.5 - 14.5 % LAB HEMATOLOGY METHOD 04/24/2025 1:50 AM EDT [facility] MPV 10.3 8.8 - 12.5 fL LAB HEMATOLOGY METHOD 04/24/2025 1:50 AM EDT [facility] nRBC 0.0 <=0.0 per 100 WBCs LAB HEMATOLOGY METHOD 04/24/2025 1:50 AM EDT [facility] Blood Arterial blood specimen / Unknown Arterial Puncture / Unknown 04/24/2025 1:32 AM EDT 04/24/2025 1:43 AM EDT us Michelle Christensen MD LAB BLOOD ORDERABLES Final Res ult [facility] [address] [place] [address] * (ABNORMAL) Basic Metabolic Panel, Plasma (04/24/2025 1:32 AM EDT) Glucose, Plasma 127(H) 74 - 99 mg/dL 04/24/2025 2:14 AM EDT [facility] BUN, Plasma 28(H) 8 - 23 mg/dL 04/24/2025 2:14 AM EDT [facility] Creatinine, Plasma 1.13 0.70 - 1.20 mg/dL 04/24/2025 2:14 AM EDT [facility] BUN/Creatinine Ratio 25 04/24/2025 2:14 AM EDT [facility] Sodium, Plasma 142 136 - 145 mmol/L 04/24/2025 2:14 AM EDT [facility] Potassium, Plasma 4.1 3.6 - 4.9 mmol/L 04/24/2025 2:14 AM EDT [facility] Comment:Hemolyzed, result ma y be falsely increased. Chloride, Plasma 114(H) 97 - 107 mmol/L 04/24/2025 2:14 AM EDT [facility] CO2, Plasma 17(L) 22 - 29 mmol/L 04/24/2025 2:14 AM EDT [facility] Anion Gap 11 6 - 16 mmol/L 04/24/2025 2:14 AM EDT [facility] Total Calcium, Plasma 9.5 8.9 - 10.2 mg/dL 04/24/2025 2:14 AM EDT [facility] eGFRcr 65.7 mL/min/1.7 3m*2 04/24/2025 2:14 AM EDT [facility] Comment:Reported eGFRcr in m L/min/1.73m2 is based the CKD-EPI 2020 equation that does not use a race coefficient. Blood Arterial blood specimen / Unknown Arterial Puncture / Unknown 04/24/2025 1:32 AM EDT 04/24/2025 1:43 AM EDT us Michelle Christensen MD LAB BLOOD ORDERABLES Final Res ult Performing Organization Address [facility] Co de Phone Number [facility] [address] [place] [address] * (ABNORMAL) Magnesium, Plasma (04/24/2025 1:32 AM EDT) Magnesium, Plasma 1.7(L) 1.9 - 2.4 mg/dL 04/24/2025 2:14 AM EDT [facility] Blood Arterial blood specimen / Unknown Arterial Puncture / Unknown 04/24/2025 1:32 AM EDT 04/24/2025 1:43 AM EDT Result Janette Christensen MD LAB BLOOD ORDERABLES Final Res ult Performing Organization Address City/[facility]/ZIP Co de Phone Number [facility] [address] [place] [address] * Phosphorus, Plasma (04/24/2025 1:32 AM EDT) Phosphorus, Plasma 3.5 2.5 - 4.5 mg/dL 04/24/2025 2:14 AM EDT [facility] Blood Arterial blood specimen / Unknown Arterial Puncture / Unknown 04/24/2025 1:32 AM EDT 04/24/2025 1:43 AM EDT us Michelle Christensen MD LAB BLOOD ORDERABLES Final Res ult [facility] [address] [place] [address] * (ABNORMAL) Blood gas panel, arterial (04/24/2025 1:31 AM EDT) pH, Arterial 7.41 7.31 - 7.42 LAB HEMATOLOGY METHOD 04/24/2025 1:44 AM EDT [facility] pCO2, Arterial 36 32 - 45 mmHg LAB HEMATOLOGY METHOD 04/24/2025 1:44 AM EDT [facility] pO2, Arterial 93 >60 mmHg LAB HEMATOLOGY METHOD 04/24/2025 1:44 AM EDT [facility] SO2, Measured, Arterial 98 94 - 98 % LAB HEMATOLOGY METHOD 04/24/2025 1:44 AM EDT [facility] Base Excess, Arterial -1.3 -2.0 - 3.0 mmol/L LAB HEMATOLOGY METHOD 04/24/2025 1:44 AM EDT [facility] Bicarbonate, Calculated, Arterial 23 22 - 26 mmol/L LAB HEMATOLOGY METHOD 04/24/2025 1:44 AM EDT [facility] Hematocrit, Whole Blood 28.5(L) 40.0 - 51.0 % LAB HEMATOLOGY METHOD 04/24/2025 1:44 AM EDT [facility] Sodium, Whole Blood 145 136 - 145 mmol/L LAB HEMATOLOGY METHOD 04/24/2025 1:44 AM EDT [facility] Potassium, Whole Blood 3.7 3.6 - 4.9 mmol/L LAB HEMATOLOGY METHOD 04/24/2025 1:44 AM EDT [facility] Chloride, Whole Blood 114(H) 97 - 107 mmol/L LAB HEMATOLOGY METHOD 04/24/2025 1:44 AM EDT [facility] Glucose, Whole Blood 128(H) 74 - 99 mg/dL LAB HEMATOLOGY METHOD 04/24/2025 1:44 AM EDT [facility] Ionized Calcium, Whole Blood 5.2(H) 4.6 - 5.1 mg/dL LAB HEMATOLOGY METHOD 04/24/2025 1:44 AM EDT [facility] Lactate, Arterial, Whole Blood 1.8(H) 0.5 - 1.6 mmol/L LAB HEMATOLOGY METHOD 04/24/2025 1:44 AM EDT [facility] Blood Arterial blood specimen / Unknown Arterial Puncture / Unknown 04/24/2025 1:31 AM EDT 04/24/2025 1:43 AM EDT Michelle Christensen MD LAB BLOOD ORDERABLES Final Res ult Performing Organization Address City/[facility]/ZIP Co de Phone Number [facility] [address] [place] [address] * (ABNORMAL) POCT glucose meter (04/23/2025 6:15 PM EDT) POCT Glucose 112(H) 74 - 99 mg/dL 04/23/2025 6:17 PM EDT [facility] Comment:Accuracy of a glucos e result obtained from a capillary whole blood specimen relies upon adequate, non-compromised capillary blood flow. If the capillary glucose result is not consistent with the patient's clinical signs and symptoms, glucose testing should be repeated with either an arterial or venous sample on the glucometer or sent to the main labortory for testing. Comment 04/23/2025 6:17 PM EDT [facility] [employer] Machine Operator ID Etta Mcallister 04/23/2025 6:17 PM EDT [facility] Device ID [id number] 04/23/2025 6:17 PM EDT [facility] Specimen Type POC Capillary 04/23/2025 6:17 PM EDT [facility] Blood Capillary blood specimen / Unknown 04/23/2025 6:15 PM EDT 04/23/2025 6:17 PM EDT us Michelle Christensen MD LAB POINT OF CARE TE ST DOCKED DEVICE UNSOLICITED RESULTS Final Result Performing Organization Address City/[facility]/ZIP Co de Phone Number [facility] [address] [place] [address] * (ABNORMAL) OXYCODONE CONFIRMATION,URINE (04/23/2025 10:14 AM EDT) Pathologist [facility] Oxycodone 264(H) <50 ng/mL 04/26/2025 12:33 AM EDT [facility] Oxymorphone <50 <50 ng/mL 04/26/2025 12:33 AM EDT [facility] Oxymorphone Glucuronide 621(H) <50 ng/mL 04/26/2025 12:33 AM EDT [facility] Urine Urine specimen from urinary conduit / Unknown Non-blood Collection / Unknown 04/23/2025 10:14 AM EDT 04/23/2025 10:21 AM EDT Narrative [facility] - 04/26/2025 12:33 AM EDT Test performed by LC-MS/MS at the [facility]. This test was developed and its performance characteristics determined by [facility]. It has not been cleared or approved by the FDA. The laboratory is regulated under CLIA as qualified to perform high-complexity testing. This test is used for clinical purposes. Letty Foley DO LAB URINE ORDERABLES Final Re sult Performing Organization Address City/[facility]/ZIP Co de Phone Number [facility] [address] [place] [address] * Urinalysis Microscopic Examination (04/23/2025 10:14 AM EDT) Urine Urine specimen from urinary conduit / Unknown Non-blood Collection / Unknown 04/23/2025 10:14 AM EDT 04/23/2025 10:21 AM EDT Letty Foley DO LAB URINE ORDERABLES Final Re sult Performing Organization Address [facility]/ZIP Co de Phone Number [facility] [address] [place] [address] * (ABNORMAL) Urinalysis with reflex microscopic (Culture NOT Included) (04/23/2025 10:14 AM EDT) Color, Urine Yellow LAB URINALYSIS - AUTOMATED METHOD 04/23/2025 10:32 AM EDT [facility] Clarity, Urine Cloudy LAB URINALYSIS - AUTOMATED METHOD 04/23/2025 10:32 AM EDT [facility] Spec [place], Urine >1.030(H) 1.005 - 1.030 LAB URINALYSIS - AUTOMATED METHOD 04/23/2025 10:32 AM EDT [facility] pH, Urine 5.5 5.0 - 8.0 LAB URINALYSIS - AUTOMATED METHOD 04/23/2025 10:32 AM T [facility] Protein, Urine 30(A) Negative mg/dL LAB URINALYSIS - AUTOMATED METHOD 04/23/2025 10:32 AM [facility] Glucose, Urine >=1000(A) Negative mg/dL LAB URINALYSIS - AUTOMATED METHOD 04/23/2025 10:32 AM [facility] Ketones, Urine Negative Negative mg/dL LAB URINALYSIS - AUTOMATED METHOD 04/23/2025 10:32 AM [facility] Blood, Urine Large(A) Negative LAB URINALYSIS - AUTOMATED METHOD 04/23/2025 10:32 AM [facility] Bilirubin, Urine Negative Negative LAB URINALYSIS - AUTOMATED METHOD 04/23/2025 10:32 AM [facility] Urobilinogen, Urine 0.2 0.2 to 1.0 mg/dL LAB URINALYSIS - AUTOMATED METHOD 04/23/2025 10:32 AM [facility] Leukocytes, Urine Negative Negative LAB URINALYSIS - AUTOMATED METHOD 04/23/2025 10:32 AM [facility] Nitrite, Urine Negative Negative LAB URINALYSIS - AUTOMATED METHOD 04/23/2025 10:32 AM [facility] RBC, Urine >50(A) 0 to 3 /HPF LAB URINALYSIS - AUTOMATED METHOD 04/23/2025 10:32 AM [facility] WBC, Urine 0 - 5 0 to 5 /HPF LAB URINALYSIS - AUTOMATED METHOD 04/23/2025 10:32 AM [facility] Squamous Epithelial Cells 0 - 2 0 to 5 /HPF LAB URINALYSIS - AUTOMATED METHOD 04/23/2025 10:32 AM [facility] Hyaline Casts 0 - 2 0 to 5 /LPF LAB URINALYSIS - AUTOMATED METHOD 04/23/2025 10:32 AM [facility] Bacteria, Urine Negative Negative LAB URINALYSIS - AUTOMATED METHOD 04/23/2025 10:32 AM [facility] Urine Urine specimen from urinary conduit / Unknown Non-blood Collection / Unknown 04/23/2025 10:14 AM EDT 04/23/2025 10:21 AM EDT us LettyEmbedster DO LAB URINE ORDERABLES Final Re sult [facility] [address] [place] [address] * Drug Abuse Screen, Urine (04/23/2025 10:14 AM EDT) Amphetamine Screen Urine Negative Cutoff: 500 ng/mL 04/23/2025 1:46 PM EDT [facility] Benzodiazepines Screen Urine Negative Cutoff: 200 ng/mL 04/23/2025 1:46 PM EDT [facility] Cannabinoid Screen Urine Negative Cutoff: 50 ng/mL 04/23/2025 1:46 PM EDT [facility] Cocaine Screen Urine Negative Cutoff: 300 ng/mL 04/23/2025 1:46 PM EDT [facility] Barbiturate Screen Urine Negative Cutoff: 200 ng/mL 04/23/2025 1:46 PM EDT [facility] Opiate Screen Urine Negative Cutoff: 300 ng/mL 04/23/2025 1:46 PM EDT [facility] Methadone Screen Urine Negative Cutoff: 300 ng/mL 04/23/2025 1:46 PM EDT [facility] Buprenorphine Screen Urine Negative Cutoff: 10 ng/mL 04/23/2025 1:46 PM EDT [facility] Fentanyl Screen Urine Negative Cutoff: 1 ng/mL 04/23/2025 1:46 PM EDT [facility] Oxycodone Screen Urine Presumptive positive. Confirmation by LC-MS/MS to follow. Cutoff: 100 ng/mL 04/23/2025 1:46 PM EDT [facility] Urine Urine specimen from urinary conduit / Unknown Non-blood Collection / Unknown 04/23/2025 10:14 AM EDT 04/23/2025 10:21 AM EDT us Letty SmashChart DO LAB URINE ORDERABLES Final Re sult [facility] [address] [place] [address] * IA CRITICAL CARE, E/M 30-74 MINUTES (04/23/2025 9:08 AM EDT) Narrative Michelle Christensen MD - 04/23/2025 9:08 AM EDT Michelle Christensen MD 04/27/2025 11:08 PM Critical Care Performed by: Michelle Christensen MD Authorized by: Michelle Christensen MD Critical care provider statement: Critical care time (minutes): 30 Critical care time was exclusive of: Separately billable procedures and treating other patients and teaching time Critical care was time spent personally by me on the following activities: Development of treatment plan with patient or surrogate, evaluation of patient's response to treatment, examination of patient, ordering and performing treatments and interventions, ordering and review of laboratory studies and ordering and review of radiographic studies Critical care statement: I saw and evaluated the patient with the resident/ fellow. I discussed the case with the resident/ fellow and agree with the findings and plan as documented. Michelle Christensen MD IN CLINIC/BEDSIDE ORDERABLES F inal Result * Jhonny auris Surveillance by PCR (04/23/2025 9:05 AM EDT) Jhonny auris PCR Result Not Detected Not Detected 04/24/2025 2:13 PM EDT [facility] Swab (Axilla and Groin) Non-blood Collection / Unknown 04/23/2025 9:05 AM EDT 04/23/2025 9:45 AM EDT Narrative [facility] - 04/24/2025 2:13 PM EDT This PCR assay was developed and its performance characteristics determined by [facility] as appropriate for clinical purposes. This assay has not been cleared or approved by the FDA, but is performed in a CLIA regulated laboratory that is qualified to perform high-complexity testing. This PCR assay was developed and its performance characteristics determined by [facility] as appropriate for clinical purposes. This assay has not been cleared or approved by the FDA, but is performed in a CLIA regulated laboratory that is qualified to perform high-complexity testing. us José Miguel Krueger MD LAB MICROBIOLOGY - GENERAL ORDERABLES Final Result Performing Organization Address [facility] Co de Phone Number [facility] [address] [place] [address] * Multi Drug Resistance Test (04/23/2025 9:05 AM EDT) Pathologist [facility] Culture No growth at day 1 04/24/2025 12:11 PM EDT [facility] Swab (Nares and Kamille Rectal) Non-blood Collection / Unknown 04/23/2025 9:05 AM EDT 04/23/2025 9:45 AM EDT Narrative [facility] - 04/24/2025 12:11 PM EDT This test was developed and its performance characteristics determined by the [facility]. Although the media is FDA-approved, it is not FDA-approved for all specimen types submitted. The FDA has determined that such clearance or approval is not necessary. This test is used for surveillance purposes. It should not be regarded as investigational or for research. The [facility] is certified under the Clinical Laboratory Improvement Amendments of 1988 (CLIA-88) as qualified to perform high complexity clinical laboratory testing. José Miguel Krueger MD LAB MICROBIOLOGY - GENERAL ORDERABLES Final Result Performing Organization Address [facility] Co de Phone Number [facility] [address] [place] [address] * (ABNORMAL) CBC W/O Differential (04/23/2025 9:01 AM EDT) WBC Count 11.71(H) 3.70 - 10.30 10*3/uL LAB HEMATOLOGY METHOD 04/23/2025 9:23 AM EDT [facility] RBC Count 3.33(L) 4.60 - 6.10 10*6/uL LAB HEMATOLOGY METHOD 04/23/2025 9:23 AM EDT [facility] HGB 9.7(L) 13.7 - 17.5 g/dL LAB HEMATOLOGY METHOD 04/23/2025 9:23 AM EDT [facility] HCT 29.7(L) 40.0 - 51.0 % LAB HEMATOLOGY METHOD 04/23/2025 9:23 AM EDT [facility] Platelet Count 165 155 - 369 10*3/uL LAB HEMATOLOGY METHOD 04/23/2025 9:23 AM EDT [facility] MCV 89 79 - 98 fL LAB HEMATOLOGY METHOD 04/23/2025 9:23 AM EDT [facility] MCH 29.1 26.0 - 32.0 pg LAB HEMATOLOGY METHOD 04/23/2025 9:23 AM EDT [facility] MCHC 32.7 30.7 - 35.5 g/dL LAB HEMATOLOGY METHOD 04/23/2025 9:23 AM EDT [facility] RDW 15.0(H) 11.5 - 14.5 % LAB HEMATOLOGY METHOD 04/23/2025 9:23 AM EDT [facility] MPV 10.4 8.8 - 12.5 fL LAB HEMATOLOGY METHOD 04/23/2025 9:23 AM EDT [facility] nRBC 0.0 <=0.0 per 100 WBCs LAB HEMATOLOGY METHOD 04/23/2025 9:23 AM EDT [facility] Blood Venous blood specimen / Unknown Venipuncture / Unknown 04/23/2025 9:01 AM EDT 04/23/2025 9:08 AM EDT us José Miguel Krueger MD LAB BLOOD ORDERABLES Final Result [facility] [address] [place] [address] * (ABNORMAL) Basic Metabolic Panel, Plasma (04/23/2025 9:01 AM EDT) Glucose, Plasma 143(H) 74 - 99 mg/dL 04/23/2025 9:38 AM EDT [facility] BUN, Plasma 28(H) 8 - 23 mg/dL 04/23/2025 9:38 AM EDT [facility] Creatinine, Plasma 1.26(H) 0.70 - 1.20 mg/dL 04/23/2025 9:38 AM EDT [facility] BUN/Creatinine Ratio 22 04/23/2025 9:38 AM EDT [facility] Sodium, Plasma 141 136 - 145 mmol/L 04/23/2025 9:38 AM EDT [facility] Potassium, Plasma 4.0 3.6 - 4.9 mmol/L 04/23/2025 9:38 AM EDT [facility] Chloride, Plasma 110(H) 97 - 107 mmol/L 04/23/2025 9:38 AM EDT [facility] CO2, Plasma 22 22 - 29 mmol/L 04/23/2025 9:38 AM EDT [facility] Anion Gap 9 6 - 16 mmol/L 04/23/2025 9:38 AM EDT [facility] Total Calcium, Plasma 9.8 8.9 - 10.2 mg/dL 04/23/2025 9:38 AM EDT [facility] eGFRcr 57.7 mL/min/1.7 3m*2 04/23/2025 9:38 AM EDT [facility] Comment:Reported eGFRcr in m L/min/1.73m2 is based the CKD-EPI 2020 equation that does not use a race coefficient. Blood Venous blood specimen / Unknown Venipuncture / Unknown 04/23/2025 9:01 AM EDT 04/23/2025 9:08 AM EDT us José Miguel Krueger MD LAB BLOOD ORDERABLES Final Result [facility] [address] [place] [address] * Magnesium, Plasma (04/23/2025 9:01 AM EDT) Magnesium, Plasma 1.9 1.9 - 2.4 mg/dL 04/23/2025 9:38 AM EDT [facility] Blood Venous blood specimen / Unknown Venipuncture / Unknown 04/23/2025 9:01 AM EDT 04/23/2025 9:08 AM EDT us José Miguel Krueger MD LAB BLOOD ORDERABLES Final Result [facility] [address] [place] [address] * Phosphorus, Plasma (04/23/2025 9:01 AM EDT) Phosphorus, Plasma 4.0 2.5 - 4.5 mg/dL 04/23/2025 9:38 AM EDT [facility] Blood Venous blood specimen / Unknown Venipuncture / Unknown 04/23/2025 9:01 AM EDT 04/23/2025 9:08 AM EDT José Miguel Krueger MD LAB BLOOD ORDERABLES Final Result [facility] [address] [place] [address] * ECG Adult (04/23/2025 8:48 AM EDT) EKG DIAGNOSIS CLASS Abnormal MUSE ECG Ventricular Rate 92 BPM MUSE ECG Atrial Rate 92 BPM MUSE ECG IA Interval 160 ms MUSE ECG QRSD Interval 104 ms MUSE ECG QT Interval 354 ms MUSE ECG QTC Interval 437 ms MUSE ECG P Ruther[place] 48 degrees MUSE ECG R [place] 41 degrees MUSE ECG T Wave [place] -3 degrees MUSE ECG Diagnosis Normal sinus rhythm MUSE ECG Diagnosis Cannot rule out a Possible Inferior infarct , age undetermined MUSE ECG Diagnosis Abnormal ECG MUSE ECG Diagnosis MUSE ECG Diagnosis Confirmed by Cain Lin ([id number]) on 04/23/2025 2:11:16 PM MUSE ECG 04/23/2025 8:48 AM EDT 04/23/2025 2:11 PM EDT us José Miguel Krueger MD ECG ORDERABLES Final Resu lt MUSE ECG * XR Thoracic Spine 2 Views (04/23/2025 3:56 AM EDT) Anatomical Region Laterality Modality Spine, T-spine Computed Radiogr aphy Impressions 04/23/2025 6:32 AM EDT Nonvisualization of previously described transverse process fractures. 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 Thoracic spine. CRITICAL RESULT: No. COMMUNICATION: Per this written report. Drafted by Eliezer Gamble MD on 04/23/2025 6:28 AM Final report signed by Eliezer Gamble MD on 04/23/2025 6:32 AM Narrative 04/23/2025 6:32 AM EDT CLINICAL INDICATION: transverse process fractures TECHNIQUE: XR THORACIC SPINE 2 VIEWS, XR CERVICAL SPINE 2 OR 3 VIEWS COMPARISON: CT scan 04/22/2025 FINDINGS: Cervical spine: Overlying collar obscures bone detail. Limited evaluation due to overlying soft tissues. The head is tilted to the right. Marked mid and lower cervical uncovertebral hypertrophy. Suboptimal lateral and swimmer's views with only the upper 5 cervical vertebral bodies well seen. Mild prevertebral soft tissue swelling. No listhesis is noted. Degenerative changes are seen at C4-5 and C5-6 most pronounced at C5-6. The fractures of the left C6 and C7 transverse processes are not well seen. Thoracic spine: Imaged lungs are clear. Median sternotomy wires. Levocurvature of the upper thoracic spine. Severely limited evaluation due to demineralization and overlying structures. Moderate upper and mid thoracic spine disc space narrowing with osteophytosis and minimal kyphosis. No listhesis. The known left first rib fracture is not well seen. Procedure Note Eliezer Gamble MD - 04/23/2025 CLINICAL INDICATION: transverse process fractures TECHNIQUE: XR THORACIC SPINE 2 VIEWS, XR CERVICAL SPINE 2 OR 3 VIEWS COMPARISON: CT scan 04/22/2025 FINDINGS: Cervical spine: Overlying collar obscures bone detail. Limited evaluationdue to overlying soft tissues. The head is tilted to the right. Marked midand lower cervical uncovertebral hypertrophy. Suboptimal lateral andswimmer's views with only the upper 5 cervical vertebral bodies well seen.Mild prevertebral soft tissue swelling. No listhesis is noted.Degenerative changes are seen at C4-5 and C5-6 most pronounced at C5-6.The fractures of the left C6 and C7 transverse processes are not wellseen. Thoracic spine: Imaged lungs are clear. Median sternotomy wires.Levocurvature of the upper thoracic spine. Severely limited evaluation dueto demineralization and overlying structures. Moderate upper and midthoracic spine disc space narrowing with osteophytosis and minimalkyphosis. No listhesis. The known left first rib fracture is not wellseen. IMPRESSION: Nonvisualization of previously described transverse process fractures.Thoracic multilevel discogenic disease with slight kyphosis of the uppercervical spine. Thoracic spine. CRITICAL RESULT: No. COMMUNICATION: Per this written report. Drafted by Eliezer Gamble MD on 04/23/2025 6:28 AM Final report signed by Eliezer Gamble MD on 04/23/2025 6:32 AM [facility] XR PROCEDURES Final Resul t * XR Cervical Spine 2 or 3 Views (04/23/2025 3:56 AM EDT) Anatomical Region Laterality Modality Spine, C-spine Computed Radiogr aphy Impressions 04/23/2025 6:32 AM EDT Nonvisualization of previously described transverse process fractures. 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 Thoracic spine. CRITICAL RESULT: No. COMMUNICATION: Per this written report. Drafted by Eliezer Gamble MD on 04/23/2025 6:28 AM Final report signed by Eliezer Gamble MD on 04/23/2025 6:32 AM Narrative 04/23/2025 6:32 AM EDT CLINICAL INDICATION: transverse process fractures TECHNIQUE: XR THORACIC SPINE 2 VIEWS, XR CERVICAL SPINE 2 OR 3 VIEWS COMPARISON: CT scan 04/22/2025 FINDINGS: Cervical spine: Overlying collar obscures bone detail. Limited evaluation due to overlying soft tissues. The head is tilted to the right. Marked mid and lower cervical uncovertebral hypertrophy. Suboptimal lateral and swimmer's views with only the upper 5 cervical vertebral bodies well seen. Mild prevertebral soft tissue swelling. No listhesis is noted. Degenerative changes are seen at C4-5 and C5-6 most pronounced at C5-6. The fractures of the left C6 and C7 transverse processes are not well seen. Thoracic spine: Imaged lungs are clear. Median sternotomy wires. Levocurvature of the upper thoracic spine. Severely limited evaluation due to demineralization and overlying structures. Moderate upper and mid thoracic spine disc space narrowing with osteophytosis and minimal kyphosis. No listhesis. The known left first rib fracture is not well seen. Procedure Note Eliezer Gamble MD - 04/23/2025 CLINICAL INDICATION: transverse process fractures TECHNIQUE: XR THORACIC SPINE 2 VIEWS, XR CERVICAL SPINE 2 OR 3 VIEWS COMPARISON: CT scan 04/22/2025 FINDINGS: Cervical spine: Overlying collar obscures bone detail. Limited evaluationdue to overlying soft tissues. The head is tilted to the right. Marked midand lower cervical uncovertebral hypertrophy. Suboptimal lateral andswimmer's views with only the upper 5 cervical vertebral bodies well seen.Mild prevertebral soft tissue swelling. No listhesis is noted.Degenerative changes are seen at C4-5 and C5-6 most pronounced at C5-6.The fractures of the left C6 and C7 transverse processes are not wellseen. Thoracic spine: Imaged lungs are clear. Median sternotomy wires.Levocurvature of the upper thoracic spine. Severely limited evaluation dueto demineralization and overlying structures. Moderate upper and midthoracic spine disc space narrowing with osteophytosis and minimalkyphosis. No listhesis. The known left first rib fracture is not wellseen. IMPRESSION: Nonvisualization of previously described transverse process fractures.Thoracic multilevel discogenic disease with slight kyphosis of the uppercervical spine. Thoracic spine. CRITICAL RESULT: No. COMMUNICATION: Per this written report. Drafted by Eliezer Gamble MD on 04/23/2025 6:28 AM Final report signed by Eliezer Gamble MD on 04/23/2025 6:32 AM [facility] XR PROCEDURES Final Resul t * XR Chest 1 View (04/23/2025 3:56 AM EDT) Anatomical Region Laterality Modality Chest Computed Radiogr aphy Impressions 04/23/2025 11:53 AM EDT No significant interval change. CRITICAL RESULT: No. COMMUNICATION: Per this written report. Drafted by Clarence Renteria MD on 04/23/2025 11:50 AM Final report signed by Clarence Renteria MD on 04/23/2025 11:53 AM Narrative 04/23/2025 11:53 AM EDT CLINICAL INDICATION: rib fractures TECHNIQUE: Single AP view of chest. COMPARISON: One day prior FINDINGS: The cardiomediastinal contours unchanged. No pneumothorax or sizable pleural effusion. Bibasal atelectatic changes. No lung consolidation. Procedure Note Clarence Renteria MD - 04/23/2025 CLINICAL INDICATION: rib fractures TECHNIQUE: Single AP view of chest. COMPARISON: One day prior FINDINGS: The cardiomediastinal contours unchanged. No pneumothorax or sizablepleural effusion. Bibasal atelectatic changes. No lung consolidation. IMPRESSION: No significant interval change. CRITICAL RESULT: No. COMMUNICATION: Per this written report. Drafted by Clarence Renteria MD on 04/23/2025 11:50 AM Final report signed by Clarence Renteria MD on 04/23/2025 11:53 AM us José Miguel Krueger MD IMG XR PROCEDURES Final Re sult * ECG Adult (04/22/2025 4:54 PM EDT) EKG DIAGNOSIS CLASS Abnormal MUSE ECG Ventricular Rate 111 BPM MUSE ECG Atrial Rate 111 BPM MUSE ECG IA Interval 156 ms MUSE ECG QRSD Interval 94 ms MUSE ECG QT Interval 336 ms MUSE ECG QTC Interval 456 ms MUSE ECG P [place] 60 degrees MUSE ECG R [place] 62 degrees MUSE ECG T Wave [place] 66 degrees MUSE ECG Diagnosis Suspect electrode reversal: V1 V2 ; interpretation assumes no reversal MUSE ECG Diagnosis Sinus tachycardia MUSE ECG Diagnosis Poor R-wave progression ; consider septal infarct, lead placement, or normal variant MUSE ECG Diagnosis Nonspecific ST abnormality MUSE ECG Diagnosis Abnormal ECG MUSE ECG Diagnosis MUSE ECG Diagnosis Confirmed by Cain Lin ([id number]) on 04/23/2025 11:41:32 AM MUSE ECG 04/22/2025 4:54 PM EDT 04/23/2025 11:41 AM EDT us José Miguel Krueger MD ECG ORDERABLES Final Resu lt MUSE ECG * Anti Xa Level Unfractionated Heparin (04/22/2025 1:11 PM EDT) Anti Xa Level Unfractionated Heparin <0.11 <1.00 IU/mL 04/22/2025 1:28 PM EDT [facility] Blood Venous blood specimen / Unknown Venipuncture / Unknown 04/22/2025 1:11 PM EDT 04/22/2025 1:12 PM EDT Narrative [facility] - 04/22/2025 1:28 PM EDT Therapeutic Range: UFH Full Dose and ACS/NC protocols*: 0.30 - 0.70 IU/mL UFH Low Dose protocol*: 0.25 - 0.50 IU/mL UFH prophylaxis: Not established us Letty Foley DO LAB BLOOD ORDERABLES Final Re sult [facility] [address] [place] [address] * XR Hand 3+ Views Left (04/22/2025 12:53 PM EDT) Anatomical Region Laterality Modality Upper Extremities, Hand Left Digital Radiography Impressions 04/22/2025 3:18 PM EDT No acute fracture or articular abnormality. Degenerative change most prominent in the DIP joints. CRITICAL RESULT: No. COMMUNICATION: Per this written report. Drafted by Jenna Sparrow MD on 04/22/2025 3:15 PM Final report signed by Jenna Sparrow MD on 04/22/2025 3:18 PM Narrative 04/22/2025 3:18 PM EDT CLINICAL INDICATION: trauma TECHNIQUE: XR HAND LEFT 3+ VIEWS COMPARISON: None. FINDINGS: 3 views of the left hand demonstrate severe degenerative change predominantly at the PIP and DIP joints. There is no fracture or focal bone lesion. No soft tissue abnormality is appreciated. Procedure Note Jenna Sparrow MD - 04/22/2025 CLINICAL INDICATION: trauma TECHNIQUE: XR HAND LEFT 3+ VIEWS COMPARISON: None. FINDINGS: 3 views of the left hand demonstrate severe degenerative changepredominantly at the PIP and DIP joints. There is no fracture or focalbone lesion. No soft tissue abnormality is appreciated. IMPRESSION: No acute fracture or articular abnormality. Degenerative change most prominent in the DIP joints. CRITICAL RESULT: No. COMMUNICATION: Per this written report. Drafted by Jenna Sparrow MD on 04/22/2025 3:15 PM Final report signed by Jenna Sparrow MD on 04/22/2025 3:18 PM us Letty Foley DO IMG XR PROCEDURES Final Resul t * XR Pelvis 1 or 2 Views (04/22/2025 12:53 PM EDT) Anatomical Region Laterality Modality Body, Pelvis Digital Radiogra phy Impressions 04/22/2025 2:36 PM EDT Density in the left lung base may be atelectasis there are rib fractures that are not well-visualized on this exam but have been seen on the CT of the chest. Soft tissue density in the superior left shoulder/neck is consistent with known vascular injury There are multiple fractures as described on the CT of the chest abdomen pelvis and bony pelvis. However those are not well visualized on this radiograph. CRITICAL RESULT: No. COMMUNICATION: Per this written report. Drafted by Jenna Sparrow MD on 04/22/2025 2:28 PM Final report signed by Jenna Sparrow MD on 04/22/2025 2:36 PM Narrative 04/22/2025 2:36 PM EDT CLINICAL INDICATION: pain TECHNIQUE: Single AP view of the chest. Single view of the pelvis. COMPARISON: None. FINDINGS: There is mild opacification in the left lower lobe most likely aspiration or atelectasis. The lungs are hypoinflated. Heart and mediastinal contours are within normal limits. Median sternotomy wires are noted. Surgical clips are seen along the left heart border. No pneumothorax. No pleural effusion. Bony structures are unremarkable within the imaged chest. AP view the pelvis demonstrates aortoiliac vascular stents. Contrast is seen in the bladder. There is normal position of the femoral heads within the acetabulum. The pubic symphysis appears to be intact. The SI joints are nearly symmetric fairly extensive degenerative change throughout the pelvis there is no obvious fracture. Procedure Note Jenna Sparrow MD - 05/03/2025 CLINICAL INDICATION: pain TECHNIQUE: Single AP view of the chest. Single view of the pelvis. COMPARISON: None. FINDINGS: There is mild opacification in the left lower lobe most likely aspirationor atelectasis. The lungs are hypoinflated. Heart and mediastinal contoursare within normal limits. Median sternotomy wires are noted. Surgicalclips are seen along the left heart border. No pneumothorax. No pleuraleffusion. Bony structures are unremarkable within the imaged chest. AP view the pelvis demonstrates aortoiliac vascular stents. Contrast isseen in the bladder. There is normal position of the femoral heads withinthe acetabulum. The pubic symphysis appears to be intact. The SI jointsare nearly symmetric fairly extensive degenerative change throughout thepelvis there is no obvious fracture. IMPRESSION: Density in the left lung base may be atelectasis there are rib fracturesthat are not well-visualized on this exam but have been seen on the CT ofthe chest. Soft tissue density in the superior left shoulder/neck isconsistent with known vascular injury There are multiple fractures as described on the CT of the chest abdomenpelvis and bony pelvis. However those are not well visualized on thisradiograph. CRITICAL RESULT: No. COMMUNICATION: Per this written report. Drafted by Jenna Sparrow MD on 04/22/2025 2:28 PM Final report signed by Jenna Sparrow MD on 04/22/2025 2:36 PM us Lettyrosita Foley DO IMG XR PROCEDURES Final Resul t * XR Chest 1 View (04/22/2025 12:53 PM EDT) Anatomical Region Laterality Modality Chest Digital Radiogra phy Impressions 05/03/2025 11:23 AM EDT Density in the left lung base may be atelectasis there are rib fractures that are not well-visualized on this exam but have been seen on the CT of the chest. Soft tissue density in the superior left shoulder/neck is consistent with known vascular injury There are multiple fractures as described on the CT of the chest abdomen pelvis and bony pelvis. However those are not well visualized on this radiograph. CRITICAL RESULT: No. COMMUNICATION: Per this written report. Drafted by Jenna Sparrow MD on 04/22/2025 2:28 PM Final report signed by Jenna Sparrow MD on 04/22/2025 2:36 PM Narrative 05/03/2025 11:23 AM EDT CLINICAL INDICATION: pain TECHNIQUE: Single AP view of the chest. Single view of the pelvis. COMPARISON: None. FINDINGS: There is mild opacification in the left lower lobe most likely aspiration or atelectasis. The lungs are hypoinflated. Heart and mediastinal contours are within normal limits. Median sternotomy wires are noted. Surgical clips are seen along the left heart border. No pneumothorax. No pleural effusion. Bony structures are unremarkable within the imaged chest. AP view the pelvis demonstrates aortoiliac vascular stents. Contrast is seen in the bladder. There is normal position of the femoral heads within the acetabulum. The pubic symphysis appears to be intact. The SI joints are nearly symmetric fairly extensive degenerative change throughout the pelvis there is no obvious fracture. Procedure Note Jenna Sparrow MD - 05/03/2025 CLINICAL INDICATION: pain TECHNIQUE: Single AP view of the chest. Single view of the pelvis. COMPARISON: None. FINDINGS: There is mild opacification in the left lower lobe most likely aspirationor atelectasis. The lungs are hypoinflated. Heart and mediastinal contoursare within normal limits. Median sternotomy wires are noted. Surgicalclips are seen along the left heart border. No pneumothorax. No pleuraleffusion. Bony structures are unremarkable within the imaged chest. AP view the pelvis demonstrates aortoiliac vascular stents. Contrast isseen in the bladder. There is normal position of the femoral heads withinthe acetabulum. The pubic symphysis appears to be intact. The SI jointsare nearly symmetric fairly extensive degenerative change throughout thepelvis there is no obvious fracture. IMPRESSION: Density in the left lung base may be atelectasis there are rib fracturesthat are not well-visualized on this exam but have been seen on the CT ofthe chest. Soft tissue density in the superior left shoulder/neck isconsistent with known vascular injury There are multiple fractures as described on the CT of the chest abdomenpelvis and bony pelvis. However those are not well visualized on thisradiograph. CRITICAL RESULT: No. COMMUNICATION: Per this written report. Drafted by Jenna Sparrow MD on 04/22/2025 2:28 PM Final report signed by Jenna Sparrow MD on 04/22/2025 2:36 PM us Letty Foley DO IMG XR PROCEDURES Final Resul t * CT Thoracic Spine wo IV Contrast (04/22/2025 12:40 PM EDT) Anatomical Region Laterality Modality Spine, T-spine Computed Tomogra phy Impressions 04/22/2025 2:10 PM EDT Posttraumatic hematoma in the soft tissues of the left lateral neck with areas of contrast extravasation. This was already visualized by the surgical team. Nondisplaced fracture of the posterior aspect of the left first rib. Fractures of the bilateral anterolateral fourth ribs. Free fluid in the inferior aspect of the peritoneum and small collections of free fluid in the right paracolic gutter and left paracolic gutter. Subcapsular hematoma along the right peripheral hemiliver . 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 Acute hematoma seen in the right lower quadrant mesentery at the level of the iliac crest on image 349 of series 4. Interval increase in size of a heterogeneously enhancing right hemiliver mass, suggesting neoplastic disease progression. Stable peripherally enhancing lesion in the spleen, not entirely characterized on this exam. Multiple fractures in the cervical, lumbar spine, and sacrum as discussed. CRITICAL RESULT: Yes COMMUNICATION: Left neck hematoma with areas of contrast extravasation were discussed via phone with LETTY Deep FOLEY on 04/22/2025 1:04 PM by Nelson Ponce MD with acknowledgment of the results. By electronically signing this report, I, the attending physician, attest that I have personally reviewed the images/data for the above examination(s) and agree with the final edited report. Drafted by Nelson Ponce MD on 04/22/2025 1:08 PM Final report signed by Jenna Sparrow MD on 04/22/2025 2:10 PM Narrative 04/22/2025 2:10 PM EDT CLINICAL INDICATION: pain TECHNIQUE: Imaging of the chest abdomen and pelvis was performed, from thoracic inlet through pubic symphysis, using spiral technique, following administration of IV contrast, Omnipaque 350, 100 mL according to the CTA thoracic aorta/chest and CTA Abdomen/Pelvis protocol. Reformatted images in the coronal, sagittal, and oblique planes were generated from the axial data set to facilitate diagnostic accuracy. In addition, 3D images were created and reviewed. Imaging of the entire cervical, thoracic, and lumbar spine was performed, using spiral technique, without contrast administration. Reformatted images in the coronal and sagittal planes were generated from the axial data set to facilitate diagnostic accuracy and/or surgical planning. Total DLP (Dose-Length Product): 4205.41 mGy.cm. Please note: The reported value represents the total of one or more individual components during the CT acquisition on this date and at this time, and as such, the same value may appear in more than one CT report depending on the interpreting/reporting physicians. COMPARISON: Outside CT chest 09/04/2024, outside CT abdomen pelvis without IV contrast 09/02/2023, outside MR abdomen 09/07/2024 FINDINGS: Chest: Aorta/Vessels: No acute thoracic aortic pathology. No periaortic hematoma. No filling defect within the pulmonary arteries to suggest pulmonary embolism. Coronary artery calcifications. Pleural/Pericardial Space: No pneumothorax. No pleural effusions. No pericardial effusion. Lymph Nodes: No lymphadenopathy within the chest. Lungs: Mild emphysematous changes at the lung apices. Except for dependent atelectasis, the lungs are clear. Mediastinum: Otherwise unremarkable. Chest wall: No chest wall hematoma or contusion. Hematoma over the soft tissues of the left neck at the level of the hyoid approximately 5.8 x 4.7 cm (series 3, image 32). There were a few areas of apparent contrast extravasation superiorly in the collection as seen on series 3, image 9 and image 8. Bones: Minimally displaced posterior first left rib fracture. Postsurgical changes of prior median sternotomy. Abdomen: Vessels: The abdominal aorta and its major branches are patent. Postsurgical changes of aortobiiliac arterial stents, which also appear patent. 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 There appears to be a degree of filling on the portal venous images. Normal Gallbladder. No intra- or extra-hepatic biliary ductal dilatation. Perihepatic hematoma about the peripheral right hemiliver measuring 9.9 x 1.7 cm in its greatest measurement (series 901, image 97). No definite laceration is noted. No apparent associated vascular complication. Spleen: Rounded peripherally enhancing lesion in the spleen measuring 2.5 x 2.9 cm unchanged from previous examination (series 4, image 230). There is central fill-in on portal venous images. Pancreas: The pancreas enhances homogeneously. 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 Kidneys: The kidneys demonstrate symmetric nephrogram. Bilateral low attenuating renal cysts and other too small to characterize lesions, similar to previous examinations. No renal or ureteral calculi. No hydronephrosis. Bowel/Mesentery: The stomach is within normal limits. The small bowel loops are not dilated. The large bowel loops are not dilated. Colonic diverticulosis without evidence of acute diverticulitis. The appendix is visualized and normal. Lymph Nodes: No lymphadenopathy within the abdomen or pelvis. Fluid Survey: Small amount of free fluid in the right paracolic gutter. No free fluid in the pelvis. Pelvis: The pelvic viscera are unremarkable. Mesenteric stranding in the left hemipelvis mesentery, may be posttraumatic. Body Wall: Stranding over the ventral left lower soft tissues of the posttraumatic represent contusion. Fat-containing umbilical hernia. Bones: No acute fracture within the abdomen or pelvis. Cervical Spine: Vertebrae: Mildly displaced fracture through the transverse process C6. Additional fracture through the transverse process of C7. Alignment: Normal spinal alignment. Paraspinal Soft Tissues: No paraspinal hematoma. Lung Apices: No pneumothorax at the lung apices. Skull base: Small right mastoid effusion. Thoracic Spine: Vertebrae: Likely contusion involving the left transverse process of T1. No acute fracture is noted. Alignment: Normal spinal alignment. Paraspinal Soft Tissues: No paraspinal hematoma. Lumbar Spine: Vertebrae: Displaced fractures of the left transverse processes of L1, L2, and L3. Nondisplaced fractures of the left transverse process of L4 and L5. Vertebral body heights are well-maintained. Alignment: Mild retrolisthesis of L3 on L4. Grade 1 anterolisthesis of L5 on S1. Paraspinal Soft Tissues: No paraspinal hematoma. Hematoma over the left hip with acute hemorrhage seen within the soft tissue anteriorly. Procedure Note Jenna Sparrow MD - 04/22/2025 CLINICAL INDICATION: pain TECHNIQUE: Imaging of the chest abdomen and pelvis was performed, from thoracic inletthrough pubic symphysis, using spiral technique, following administrationof IV contrast, Omnipaque 350, 100 mL according to the CTA thoracicaorta/chest and CTA Abdomen/Pelvis protocol. Reformatted images in thecoronal, sagittal, and oblique planes were generated from the axial dataset to facilitate diagnostic accuracy. In addition, 3D images were createdand reviewed. Imaging of the entire cervical, thoracic, and lumbar spine was performed,using spiral technique, without contrast administration. Reformattedimages in the coronal and sagittal planes were generated from the axialdata set to facilitate diagnostic accuracy and/or surgical planning. Total DLP (Dose-Length Product): 4205.41 mGy.cm. Please note: The reportedvalue represents the total of one or more individual components during theCT acquisition on this date and at this time, and as such, the same valuemay appear in more than one CT report depending on theinterpreting/reporting physicians. COMPARISON: Outside CT chest 09/04/2024, outside CT abdomen pelvis without IV contrast09/02/2023, outside MR abdomen 09/07/2024 FINDINGS: Chest: Aorta/Vessels: No acute thoracic aortic pathology. No periaortic hematoma.No filling defect within the pulmonary arteries to suggest pulmonaryembolism. Coronary artery calcifications. Pleural/Pericardial Space: No pneumothorax. No pleural effusions. Nopericardial effusion. Lymph Nodes: No lymphadenopathy within the chest. Lungs: Mild emphysematous changes at the lung apices. Except for dependentatelectasis, the lungs are clear. Mediastinum: Otherwise unremarkable. Chest wall: No chest wall hematoma or contusion. Hematoma over the softtissues of the left neck at the level of the hyoid approximately 5.8 x 4.7cm (series 3, image 32). There were a few areas of apparent contrastextravasation superiorly in the collection as seen on series 3, image 9and image 8. Bones: Minimally displaced posterior first left rib fracture. Postsurgicalchanges of prior median sternotomy. Abdomen: Vessels: The abdominal aorta and its major branches are patent.Postsurgical changes of aortobiiliac arterial stents, which also appearpatent. Liver/Gallbladder/Biliary System: Large heterogeneously enhancing mass inthe medial right hemiliver measuring up to 11.5 x 9.0 cm, increased fromprevious comparison MRI from August 2024 measuring approximately 5.5 x5.3 cm. There appears to be a degree of filling on the portal venousimages. Normal Gallbladder. No intra- or extra- hepatic biliary ductaldilatation. Perihepatic hematoma about the peripheral right hemilivermeasuring 9.9 x 1.7 cm in its greatest measurement (series 901, image 97).No definite laceration is noted. No apparent associated vascularcomplication. Spleen: Rounded peripherally enhancing lesion in the spleen measuring 2.5x 2.9 cm unchanged from previous examination (series 4, image 230). Thereis central fill- in on portal venous images. Pancreas: The pancreas enhances homogeneously. 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 Kidneys: The kidneys demonstrate symmetric nephrogram. Bilateral lowattenuating renal cysts and other too small to characterize lesions,similar to previous examinations. No renal or ureteral calculi. Nohydronephrosis. Bowel/Mesentery: The stomach is within normal limits. The small bowelloops are not dilated. The large bowel loops are not dilated. Colonicdiverticulosis without evidence of acute diverticulitis. The appendix isvisualized and normal. Lymph Nodes: No lymphadenopathy within the abdomen or pelvis. Fluid Survey: Small amount of free fluid in the right paracolic gutter. Nofree fluid in the pelvis. Pelvis: The pelvic viscera are unremarkable. Mesenteric stranding in theleft hemipelvis mesentery, may be posttraumatic. Body Wall: Stranding over the ventral left lower soft tissues of theposttraumatic represent contusion. Fat-containing umbilical hernia. Bones: No acute fracture within the abdomen or pelvis. Cervical Spine: Vertebrae: Mildly displaced fracture through the transverse process C6.Additional fracture through the transverse process of C7. Alignment: Normal spinal alignment. Paraspinal Soft Tissues: No paraspinal hematoma. Lung Apices: No pneumothorax at the lung apices. Skull base: Small right mastoid effusion. Thoracic Spine: Vertebrae: Likely contusion involving the left transverse process of T1.No acute fracture is noted. Alignment: Normal spinal alignment. Paraspinal Soft Tissues: No paraspinal hematoma. Lumbar Spine: Vertebrae: Displaced fractures of the left transverse processes of L1, L2,and L3. Nondisplaced fractures of the left transverse process of L4 andL5. Vertebral body heights are well-maintained. Alignment: Mild retrolisthesis of L3 on L4. Grade 1 anterolisthesis of L5on S1. Paraspinal Soft Tissues: No paraspinal hematoma. Hematoma over the lefthip with acute hemorrhage seen within the soft tissue anteriorly. IMPRESSION: Posttraumatic hematoma in the soft tissues of the left lateral neck withareas of contrast extravasation. This was already visualized by thesurgical team. Nondisplaced fracture of the posterior aspect of the left first rib.Fractures of the bilateral anterolateral fourth ribs. Free fluid in theinferior aspect of the peritoneum and small collections of free fluid inthe right paracolic gutter and left paracolic gutter. Subcapsular hematoma along the right peripheral hemiliver . There islayering hematoma in the inferior aspect of the peritoneum This is mostconsistent with AAST II liver injury. Acute hematoma seen in the right lower quadrant mesentery at the level ofthe iliac crest on image 349 of series 4. Interval increase in size of a heterogeneously enhancing right hemilivermass, suggesting neoplastic disease progression. Stable peripherallyenhancing lesion in the spleen, not entirely characterized on this exam. Multiple fractures in the cervical, lumbar spine, and sacrum asdiscussed. CRITICAL RESULT: Yes COMMUNICATION: Left neck hematoma with areas of contrast extravasation were discussed viaphone with LETTY FOLEY on 04/22/2025 1:04 PM by Nelson Ponce MD withacknowledgment of the results. By electronically signing this report, I, the attending physician, attestthat I have personally reviewed the images/data for the aboveexamination(s) and agree with the final edited report. Drafted by Nelson Ponce MD on 04/22/2025 1:08 PM Final report signed by Jenna Sparrow MD on 04/22/2025 2:10 PM us Letty Foley DO IMG CT PROCEDURES Final Resul t * CT Lumbar Spine wo IV Contrast (04/22/2025 12:40 PM EDT) Anatomical Region Laterality Modality Spine, L-spine Computed Tomogra phy Impressions 04/22/2025 2:10 PM EDT Posttraumatic hematoma in the soft tissues of the left lateral neck with areas of contrast extravasation. This was already visualized by the surgical team. Nondisplaced fracture of the posterior aspect of the left first rib. Fractures of the bilateral anterolateral fourth ribs. Free fluid in the inferior aspect of the peritoneum and small collections of free fluid in the right paracolic gutter and left paracolic gutter. Subcapsular hematoma along the right peripheral hemiliver . 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 Acute hematoma seen in the right lower quadrant mesentery at the level of the iliac crest on image 349 of series 4. Interval increase in size of a heterogeneously enhancing right hemiliver mass, suggesting neoplastic disease progression. Stable peripherally enhancing lesion in the spleen, not entirely characterized on this exam. Multiple fractures in the cervical, lumbar spine, and sacrum as discussed. CRITICAL RESULT: Yes COMMUNICATION: Left neck hematoma with areas of contrast extravasation were discussed via phone with LETTY FOLEY on 04/22/2025 1:04 PM by Nelson Ponce MD with acknowledgment of the results. By electronically signing this report, I, the attending physician, attest that I have personally reviewed the images/data for the above examination(s) and agree with the final edited report. Drafted by Nelson Ponce MD on 04/22/2025 1:08 PM Final report signed by Jenna Sparrow MD on 04/22/2025 2:10 PM Narrative 04/22/2025 2:10 PM EDT CLINICAL INDICATION: pain TECHNIQUE: Imaging of the chest abdomen and pelvis was performed, from thoracic inlet through pubic symphysis, using spiral technique, following administration of IV contrast, Omnipaque 350, 100 mL according to the CTA thoracic aorta/chest and CTA Abdomen/Pelvis protocol. Reformatted images in the coronal, sagittal, and oblique planes were generated from the axial data set to facilitate diagnostic accuracy. In addition, 3D images were created and reviewed. Imaging of the entire cervical, thoracic, and lumbar spine was performed, using spiral technique, without contrast administration. Reformatted images in the coronal and sagittal planes were generated from the axial data set to facilitate diagnostic accuracy and/or surgical planning. Total DLP (Dose-Length Product): 4205.41 mGy.cm. Please note: The reported value represents the total of one or more individual components during the CT acquisition on this date and at this time, and as such, the same value may appear in more than one CT report depending on the interpreting/reporting physicians. COMPARISON: Outside CT chest 09/04/2024, outside CT abdomen pelvis without IV contrast 09/02/2023, outside MR abdomen 09/07/2024 FINDINGS: Chest: Aorta/Vessels: No acute thoracic aortic pathology. No periaortic hematoma. No filling defect within the pulmonary arteries to suggest pulmonary embolism. Coronary artery calcifications. Pleural/Pericardial Space: No pneumothorax. No pleural effusions. No pericardial effusion. Lymph Nodes: No lymphadenopathy within the chest. Lungs: Mild emphysematous changes at the lung apices. Except for dependent atelectasis, the lungs are clear. Mediastinum: Otherwise unremarkable. Chest wall: No chest wall hematoma or contusion. Hematoma over the soft tissues of the left neck at the level of the hyoid approximately 5.8 x 4.7 cm (series 3, image 32). There were a few areas of apparent contrast extravasation superiorly in the collection as seen on series 3, image 9 and image 8. Bones: Minimally displaced posterior first left rib fracture. Postsurgical changes of prior median sternotomy. Abdomen: Vessels: The abdominal aorta and its major branches are patent. Postsurgical changes of aortobiiliac arterial stents, which also appear patent. 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 There appears to be a degree of filling on the portal venous images. Normal Gallbladder. No intra- or extra-hepatic biliary ductal dilatation. Perihepatic hematoma about the peripheral right hemiliver measuring 9.9 x 1.7 cm in its greatest measurement (series 901, image 97). No definite laceration is noted. No apparent associated vascular complication. Spleen: Rounded peripherally enhancing lesion in the spleen measuring 2.5 x 2.9 cm unchanged from previous examination (series 4, image 230). There is central fill-in on portal venous images. Pancreas: The pancreas enhances homogeneously. 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 Kidneys: The kidneys demonstrate symmetric nephrogram. Bilateral low attenuating renal cysts and other too small to characterize lesions, similar to previous examinations. No renal or ureteral calculi. No hydronephrosis. Bowel/Mesentery: The stomach is within normal limits. The small bowel loops are not dilated. The large bowel loops are not dilated. Colonic diverticulosis without evidence of acute diverticulitis. The appendix is visualized and normal. Lymph Nodes: No lymphadenopathy within the abdomen or pelvis. Fluid Survey: Small amount of free fluid in the right paracolic gutter. No free fluid in the pelvis. Pelvis: The pelvic viscera are unremarkable. Mesenteric stranding in the left hemipelvis mesentery, may be posttraumatic. Body Wall: Stranding over the ventral left lower soft tissues of the posttraumatic represent contusion. Fat-containing umbilical hernia. Bones: No acute fracture within the abdomen or pelvis. Cervical Spine: Vertebrae: Mildly displaced fracture through the transverse process C6. Additional fracture through the transverse process of C7. Alignment: Normal spinal alignment. Paraspinal Soft Tissues: No paraspinal hematoma. Lung Apices: No pneumothorax at the lung apices. Skull base: Small right mastoid effusion. Thoracic Spine: Vertebrae: Likely contusion involving the left transverse process of T1. No acute fracture is noted. Alignment: Normal spinal alignment. Paraspinal Soft Tissues: No paraspinal hematoma. Lumbar Spine: Vertebrae: Displaced fractures of the left transverse processes of L1, L2, and L3. Nondisplaced fractures of the left transverse process of L4 and L5. Vertebral body heights are well-maintained. Alignment: Mild retrolisthesis of L3 on L4. Grade 1 anterolisthesis of L5 on S1. Paraspinal Soft Tissues: No paraspinal hematoma. Hematoma over the left hip with acute hemorrhage seen within the soft tissue anteriorly. Procedure Note Jenna Sparrow MD - 04/22/2025 CLINICAL INDICATION: pain TECHNIQUE: Imaging of the chest abdomen and pelvis was performed, from thoracic inletthrough pubic symphysis, using spiral technique, following administrationof IV contrast, Omnipaque 350, 100 mL according to the CTA thoracicaorta/chest and CTA Abdomen/Pelvis protocol. Reformatted images in thecoronal, sagittal, and oblique planes were generated from the axial dataset to facilitate diagnostic accuracy. In addition, 3D images were createdand reviewed. Imaging of the entire cervical, thoracic, and lumbar spine was performed,using spiral technique, without contrast administration. Reformattedimages in the coronal and sagittal planes were generated from the axialdata set to facilitate diagnostic accuracy and/or surgical planning. Total DLP (Dose-Length Product): 4205.41 mGy.cm. Please note: The reportedvalue represents the total of one or more individual components during theCT acquisition on this date and at this time, and as such, the same valuemay appear in more than one CT report depending on theinterpreting/reporting physicians. COMPARISON: Outside CT chest 09/04/2024, outside CT abdomen pelvis without IV contrast09/02/2023, outside MR abdomen 09/07/2024 FINDINGS: Chest: Aorta/Vessels: No acute thoracic aortic pathology. No periaortic hematoma.No filling defect within the pulmonary arteries to suggest pulmonaryembolism. Coronary artery calcifications. Pleural/Pericardial Space: No pneumothorax. No pleural effusions. Nopericardial effusion. Lymph Nodes: No lymphadenopathy within the chest. Lungs: Mild emphysematous changes at the lung apices. Except for dependentatelectasis, the lungs are clear. Mediastinum: Otherwise unremarkable. Chest wall: No chest wall hematoma or contusion. Hematoma over the softtissues of the left neck at the level of the hyoid approximately 5.8 x 4.7cm (series 3, image 32). There were a few areas of apparent contrastextravasation superiorly in the collection as seen on series 3, image 9and image 8. Bones: Minimally displaced posterior first left rib fracture. Postsurgicalchanges of prior median sternotomy. Abdomen: Vessels: The abdominal aorta and its major branches are patent.Postsurgical changes of aortobiiliac arterial stents, which also appearpatent. Liver/Gallbladder/Biliary System: Large heterogeneously enhancing mass inthe medial right hemiliver measuring up to 11.5 x 9.0 cm, increased fromprevious comparison MRI from August 2024 measuring approximately 5.5 x5.3 cm. There appears to be a degree of filling on the portal venousimages. Normal Gallbladder. No intra- or extra- hepatic biliary ductaldilatation. Perihepatic hematoma about the peripheral right hemilivermeasuring 9.9 x 1.7 cm in its greatest measurement (series 901, image 97).No definite laceration is noted. No apparent associated vascularcomplication. Spleen: Rounded peripherally enhancing lesion in the spleen measuring 2.5x 2.9 cm unchanged from previous examination (series 4, image 230). Thereis central fill- in on portal venous images. Pancreas: The pancreas enhances homogeneously. 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 Kidneys: The kidneys demonstrate symmetric nephrogram. Bilateral lowattenuating renal cysts and other too small to characterize lesions,similar to previous examinations. No renal or ureteral calculi. Nohydronephrosis. Bowel/Mesentery: The stomach is within normal limits. The small bowelloops are not dilated. The large bowel loops are not dilated. Colonicdiverticulosis without evidence of acute diverticulitis. The appendix isvisualized and normal. Lymph Nodes: No lymphadenopathy within the abdomen or pelvis. Fluid Survey: Small amount of free fluid in the right paracolic gutter. Nofree fluid in the pelvis. Pelvis: The pelvic viscera are unremarkable. Mesenteric stranding in theleft hemipelvis mesentery, may be posttraumatic. Body Wall: Stranding over the ventral left lower soft tissues of theposttraumatic represent contusion. Fat-containing umbilical hernia. Bones: No acute fracture within the abdomen or pelvis. Cervical Spine: Vertebrae: Mildly displaced fracture through the transverse process C6.Additional fracture through the transverse process of C7. Alignment: Normal spinal alignment. Paraspinal Soft Tissues: No paraspinal hematoma. Lung Apices: No pneumothorax at the lung apices. Skull base: Small right mastoid effusion. Thoracic Spine: Vertebrae: Likely contusion involving the left transverse process of T1.No acute fracture is noted. Alignment: Normal spinal alignment. Paraspinal Soft Tissues: No paraspinal hematoma. Lumbar Spine: Vertebrae: Displaced fractures of the left transverse processes of L1, L2,and L3. Nondisplaced fractures of the left transverse process of L4 andL5. Vertebral body heights are well-maintained. Alignment: Mild retrolisthesis of L3 on L4. Grade 1 anterolisthesis of L5on S1. Paraspinal Soft Tissues: No paraspinal hematoma. Hematoma over the lefthip with acute hemorrhage seen within the soft tissue anteriorly. IMPRESSION: Posttraumatic hematoma in the soft tissues of the left lateral neck withareas of contrast extravasation. This was already visualized by thesurgical team. Nondisplaced fracture of the posterior aspect of the left first rib.Fractures of the bilateral anterolateral fourth ribs. Free fluid in theinferior aspect of the peritoneum and small collections of free fluid inthe right paracolic gutter and left paracolic gutter. Subcapsular hematoma along the right peripheral hemiliver . There islayering hematoma in the inferior aspect of the peritoneum This is mostconsistent with AAST II liver injury. Acute hematoma seen in the right lower quadrant mesentery at the level ofthe iliac crest on image 349 of series 4. Interval increase in size of a heterogeneously enhancing right hemilivermass, suggesting neoplastic disease progression. Stable peripherallyenhancing lesion in the spleen, not entirely characterized on this exam. Multiple fractures in the cervical, lumbar spine, and sacrum asdiscussed. CRITICAL RESULT: Yes COMMUNICATION: Left neck hematoma with areas of contrast extravasation were discussed viaphone with LETTY FOLEY on 04/22/2025 1:04 PM by Nelson Ponce MD withacknowledgment of the results. By electronically signing this report, I, the attending physician, attestthat I have personally reviewed the images/data for the aboveexamination(s) and agree with the final edited report. Drafted by Nelson Ponce MD on 04/22/2025 1:08 PM Final report signed by Jenna Sparrow MD on 04/22/2025 2:10 PM us Letty Foley DO IMG CT PROCEDURES Final Resul t * CT Head wo IV Contrast (04/22/2025 12:40 PM EDT) Anatomical Region Laterality Modality Head Computed Tomogra phy Impressions 04/22/2025 1:37 PM EDT 1. No acute intracranial abnormality. 2. 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 CRITICAL RESULT: No. COMMUNICATION: Per this written report. Drafted by Nu Cortes MD on 04/22/2025 1:12 PM Final report signed by Nu Cortes MD on 04/22/2025 1:37 PM Narrative 04/22/2025 1:37 PM EDT CLINICAL INDICATION: Headache. TECHNIQUE: Spiral axial CT images of the head were obtained without contrast administration. Total DLP (Dose-Length Product): 922 mGy.cm. Please note: The reported value represents the total of one or more individual components during the CT acquisition on this date and at this time, and as such, the same value may appear in more than one CT report depending on the interpreting/reporting physicians. COMPARISON: None. FINDINGS: Diagnostic Quality: Adequate. The ventricles and sulci are enlarged consistent with brain parenchymal volume loss. There is focal area of encephalomalacia present within the right frontal and temporal lobes apparently secondary to previous infarct. There is moderately severe atherosclerotic calcification of intracranial arteries. There is no acute large cortical infarct, intracranial hemorrhage or large mass on this noncontrast study. There is a mild amount of non-specific but likely ischemic white matter lesions. There are prominent bilateral choroid plexus xanthogranulomas. Soft Tissues: No significant soft tissue swelling is present. There are bilateral ocular lenticular implants. Skull: There are no calvarial destructive lesions or fractures. Patient is completely edentulous. Sinuses and Mastoids: There appears to be a right maxillary odontogenic cyst. The visualized portions of the paranasal sinuses are otherwise clear. The mastoid air cells are clear. Procedure Note Nu Cortes MD - 04/22/2025 CLINICAL INDICATION: Headache. TECHNIQUE: Spiral axial CT images of the head were obtained without contrastadministration. Total DLP (Dose-Length Product): 922 mGy.cm. Please note: The reportedvalue represents the total of one or more individual components during theCT acquisition on this date and at this time, and as such, the same valuemay appear in more than one CT report depending on theinterpreting/reporting physicians. COMPARISON: None. FINDINGS: Diagnostic Quality: Adequate. The ventricles and sulci are enlarged consistent with brain parenchymalvolume loss. There is focal area of encephalomalacia present within theright frontal and temporal lobes apparently secondary to previous infarct.There is moderately severe atherosclerotic calcification of intracranialarteries. There is no acute large cortical infarct, intracranial hemorrhage or largemass on this noncontrast study. There is a mild amount of non-specific butlikely ischemic white matter lesions. There are prominent bilateralchoroid plexus xanthogranulomas. Soft Tissues: No significant soft tissue swelling is present. There arebilateral ocular lenticular implants. Skull: There are no calvarial destructive lesions or fractures. Patientis completely edentulous. Sinuses and Mastoids: There appears to be a right maxillary odontogeniccyst. The visualized portions of the paranasal sinuses are otherwiseclear. The mastoid air cells are clear. IMPRESSION: 1.No acute intracranial abnormality. 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 CRITICAL RESULT: No. COMMUNICATION: Per this written report. Drafted by Nu Cortes MD on 04/22/2025 1:12 PM Final report signed by Nu Cortes MD on 04/22/2025 1:37 PM us Letty Foley DO IMG CT PROCEDURES Final Resul t * CT Cervical Spine wo IV Contrast (04/22/2025 12:40 PM EDT) Anatomical Region Laterality Modality Spine, C-spine Computed Tomogra phy Impressions 04/22/2025 2:10 PM EDT Posttraumatic hematoma in the soft tissues of the left lateral neck with areas of contrast extravasation. This was already visualized by the surgical team. Nondisplaced fracture of the posterior aspect of the left first rib. Fractures of the bilateral anterolateral fourth ribs. Free fluid in the inferior aspect of the peritoneum and small collections of free fluid in the right paracolic gutter and left paracolic gutter. Subcapsular hematoma along the right peripheral hemiliver . 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 Acute hematoma seen in the right lower quadrant mesentery at the level of the iliac crest on image 349 of series 4. Interval increase in size of a heterogeneously enhancing right hemiliver mass, suggesting neoplastic disease progression. Stable peripherally enhancing lesion in the spleen, not entirely characterized on this exam. Multiple fractures in the cervical, lumbar spine, and sacrum as discussed. CRITICAL RESULT: Yes COMMUNICATION: Left neck hematoma with areas of contrast extravasation were discussed via phone with LETTY FOLEY on 04/22/2025 1:04 PM by Nelson Ponce MD with acknowledgment of the results. By electronically signing this report, I, the attending physician, attest that I have personally reviewed the images/data for the above examination(s) and agree with the final edited report. Drafted by Nelson Ponce MD on 04/22/2025 1:08 PM Final report signed by Jenna Sparrow MD on 04/22/2025 2:10 PM Narrative 04/22/2025 2:10 PM EDT CLINICAL INDICATION: pain TECHNIQUE: Imaging of the chest abdomen and pelvis was performed, from thoracic inlet through pubic symphysis, using spiral technique, following administration of IV contrast, Omnipaque 350, 100 mL according to the CTA thoracic aorta/chest and CTA Abdomen/Pelvis protocol. Reformatted images in the coronal, sagittal, and oblique planes were generated from the axial data set to facilitate diagnostic accuracy. In addition, 3D images were created and reviewed. Imaging of the entire cervical, thoracic, and lumbar spine was performed, using spiral technique, without contrast administration. Reformatted images in the coronal and sagittal planes were generated from the axial data set to facilitate diagnostic accuracy and/or surgical planning. Total DLP (Dose-Length Product): 4205.41 mGy.cm. Please note: The reported value represents the total of one or more individual components during the CT acquisition on this date and at this time, and as such, the same value may appear in more than one CT report depending on the interpreting/reporting physicians. COMPARISON: Outside CT chest 09/04/2024, outside CT abdomen pelvis without IV contrast 09/02/2023, outside MR abdomen 09/07/2024 FINDINGS: Chest: Aorta/Vessels: No acute thoracic aortic pathology. No periaortic hematoma. No filling defect within the pulmonary arteries to suggest pulmonary embolism. Coronary artery calcifications. Pleural/Pericardial Space: No pneumothorax. No pleural effusions. No pericardial effusion. Lymph Nodes: No lymphadenopathy within the chest. Lungs: Mild emphysematous changes at the lung apices. Except for dependent atelectasis, the lungs are clear. Mediastinum: Otherwise unremarkable. Chest wall: No chest wall hematoma or contusion. Hematoma over the soft tissues of the left neck at the level of the hyoid approximately 5.8 x 4.7 cm (series 3, image 32). There were a few areas of apparent contrast extravasation superiorly in the collection as seen on series 3, image 9 and image 8. Bones: Minimally displaced posterior first left rib fracture. Postsurgical changes of prior median sternotomy. Abdomen: Vessels: The abdominal aorta and its major branches are patent. Postsurgical changes of aortobiiliac arterial stents, which also appear patent. 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 There appears to be a degree of filling on the portal venous images. Normal Gallbladder. No intra- or extra-hepatic biliary ductal dilatation. Perihepatic hematoma about the peripheral right hemiliver measuring 9.9 x 1.7 cm in its greatest measurement (series 901, image 97). No definite laceration is noted. No apparent associated vascular complication. Spleen: Rounded peripherally enhancing lesion in the spleen measuring 2.5 x 2.9 cm unchanged from previous examination (series 4, image 230). There is central fill-in on portal venous images. Pancreas: The pancreas enhances homogeneously. 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 Kidneys: The kidneys demonstrate symmetric nephrogram. Bilateral low attenuating renal cysts and other too small to characterize lesions, similar to previous examinations. No renal or ureteral calculi. No hydronephrosis. Bowel/Mesentery: The stomach is within normal limits. The small bowel loops are not dilated. The large bowel loops are not dilated. Colonic diverticulosis without evidence of acute diverticulitis. The appendix is visualized and normal. Lymph Nodes: No lymphadenopathy within the abdomen or pelvis. Fluid Survey: Small amount of free fluid in the right paracolic gutter. No free fluid in the pelvis. Pelvis: The pelvic viscera are unremarkable. Mesenteric stranding in the left hemipelvis mesentery, may be posttraumatic. Body Wall: Stranding over the ventral left lower soft tissues of the posttraumatic represent contusion. Fat-containing umbilical hernia. Bones: No acute fracture within the abdomen or pelvis. Cervical Spine: Vertebrae: Mildly displaced fracture through the transverse process C6. Additional fracture through the transverse process of C7. Alignment: Normal spinal alignment. Paraspinal Soft Tissues: No paraspinal hematoma. Lung Apices: No pneumothorax at the lung apices. Skull base: Small right mastoid effusion. Thoracic Spine: Vertebrae: Likely contusion involving the left transverse process of T1. No acute fracture is noted. Alignment: Normal spinal alignment. Paraspinal Soft Tissues: No paraspinal hematoma. Lumbar Spine: Vertebrae: Displaced fractures of the left transverse processes of L1, L2, and L3. Nondisplaced fractures of the left transverse process of L4 and L5. Vertebral body heights are well-maintained. Alignment: Mild retrolisthesis of L3 on L4. Grade 1 anterolisthesis of L5 on S1. Paraspinal Soft Tissues: No paraspinal hematoma. Hematoma over the left hip with acute hemorrhage seen within the soft tissue anteriorly. Procedure Note Jenna Sparrow MD - 04/22/2025 CLINICAL INDICATION: pain TECHNIQUE: Imaging of the chest abdomen and pelvis was performed, from thoracic inletthrough pubic symphysis, using spiral technique, following administrationof IV contrast, Omnipaque 350, 100 mL according to the CTA thoracicaorta/chest and CTA Abdomen/Pelvis protocol. Reformatted images in thecoronal, sagittal, and oblique planes were generated from the axial dataset to facilitate diagnostic accuracy. In addition, 3D images were createdand reviewed. Imaging of the entire cervical, thoracic, and lumbar spine was performed,using spiral technique, without contrast administration. Reformattedimages in the coronal and sagittal planes were generated from the axialdata set to facilitate diagnostic accuracy and/or surgical planning. Total DLP (Dose-Length Product): 4205.41 mGy.cm. Please note: The reportedvalue represents the total of one or more individual components during theCT acquisition on this date and at this time, and as such, the same valuemay appear in more than one CT report depending on theinterpreting/reporting physicians. COMPARISON: Outside CT chest 09/04/2024, outside CT abdomen pelvis without IV contrast09/02/2023, outside MR abdomen 09/07/2024 FINDINGS: Chest: Aorta/Vessels: No acute thoracic aortic pathology. No periaortic hematoma.No filling defect within the pulmonary arteries to suggest pulmonaryembolism. Coronary artery calcifications. Pleural/Pericardial Space: No pneumothorax. No pleural effusions. Nopericardial effusion. Lymph Nodes: No lymphadenopathy within the chest. Lungs: Mild emphysematous changes at the lung apices. Except for dependentatelectasis, the lungs are clear. Mediastinum: Otherwise unremarkable. Chest wall: No chest wall hematoma or contusion. Hematoma over the softtissues of the left neck at the level of the hyoid approximately 5.8 x 4.7cm (series 3, image 32). There were a few areas of apparent contrastextravasation superiorly in the collection as seen on series 3, image 9and image 8. Bones: Minimally displaced posterior first left rib fracture. Postsurgicalchanges of prior median sternotomy. Abdomen: Vessels: The abdominal aorta and its major branches are patent.Postsurgical changes of aortobiiliac arterial stents, which also appearpatent. Liver/Gallbladder/Biliary System: Large heterogeneously enhancing mass inthe medial right hemiliver measuring up to 11.5 x 9.0 cm, increased fromprevious comparison MRI from August 2024 measuring approximately 5.5 x5.3 cm. There appears to be a degree of filling on the portal venousimages. Normal Gallbladder. No intra- or extra- hepatic biliary ductaldilatation. Perihepatic hematoma about the peripheral right hemilivermeasuring 9.9 x 1.7 cm in its greatest measurement (series 901, image 97).No definite laceration is noted. No apparent associated vascularcomplication. Spleen: Rounded peripherally enhancing lesion in the spleen measuring 2.5x 2.9 cm unchanged from previous examination (series 4, image 230). Thereis central fill- in on portal venous images. Pancreas: The pancreas enhances homogeneously. 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 Kidneys: The kidneys demonstrate symmetric nephrogram. Bilateral lowattenuating renal cysts and other too small to characterize lesions,similar to previous examinations. No renal or ureteral calculi. Nohydronephrosis. Bowel/Mesentery: The stomach is within normal limits. The small bowelloops are not dilated. The large bowel loops are not dilated. Colonicdiverticulosis without evidence of acute diverticulitis. The appendix isvisualized and normal. Lymph Nodes: No lymphadenopathy within the abdomen or pelvis. Fluid Survey: Small amount of free fluid in the right paracolic gutter. Nofree fluid in the pelvis. Pelvis: The pelvic viscera are unremarkable. Mesenteric stranding in theleft hemipelvis mesentery, may be posttraumatic. Body Wall: Stranding over the ventral left lower soft tissues of theposttraumatic represent contusion. Fat-containing umbilical hernia. Bones: No acute fracture within the abdomen or pelvis. Cervical Spine: Vertebrae: Mildly displaced fracture through the transverse process C6.Additional fracture through the transverse process of C7. Alignment: Normal spinal alignment. Paraspinal Soft Tissues: No paraspinal hematoma. Lung Apices: No pneumothorax at the lung apices. Skull base: Small right mastoid effusion. Thoracic Spine: Vertebrae: Likely contusion involving the left transverse process of T1.No acute fracture is noted. Alignment: Normal spinal alignment. Paraspinal Soft Tissues: No paraspinal hematoma. Lumbar Spine: Vertebrae: Displaced fractures of the left transverse processes of L1, L2,and L3. Nondisplaced fractures of the left transverse process of L4 andL5. Vertebral body heights are well-maintained. Alignment: Mild retrolisthesis of L3 on L4. Grade 1 anterolisthesis of L5on S1. Paraspinal Soft Tissues: No paraspinal hematoma. Hematoma over the lefthip with acute hemorrhage seen within the soft tissue anteriorly. IMPRESSION: Posttraumatic hematoma in the soft tissues of the left lateral neck withareas of contrast extravasation. This was already visualized by thesurgical team. Nondisplaced fracture of the posterior aspect of the left first rib.Fractures of the bilateral anterolateral fourth ribs. Free fluid in theinferior aspect of the peritoneum and small collections of free fluid inthe right paracolic gutter and left paracolic gutter. Subcapsular hematoma along the right peripheral hemiliver . There islayering hematoma in the inferior aspect of the peritoneum This is mostconsistent with AAST II liver injury. Acute hematoma seen in the right lower quadrant mesentery at the level ofthe iliac crest on image 349 of series 4. Interval increase in size of a heterogeneously enhancing right hemilivermass, suggesting neoplastic disease progression. Stable peripherallyenhancing lesion in the spleen, not entirely characterized on this exam. Multiple fractures in the cervical, lumbar spine, and sacrum asdiscussed. CRITICAL RESULT: Yes COMMUNICATION: Left neck hematoma with areas of contrast extravasation were discussed viaphone with LETTY FOLEY on 04/22/2025 1:04 PM by Nelson Ponce MD withacknowledgment of the results. By electronically signing this report, I, the attending physician, attestthat I have personally reviewed the images/data for the aboveexamination(s) and agree with the final edited report. Drafted by Nelson Ponce MD on 04/22/2025 1:08 PM Final report signed by Jenna Sparrow MD on 04/22/2025 2:10 PM us Letty Foley DO IMG CT PROCEDURES Final Resul t * CT Angio Neck (04/22/2025 12:40 PM EDT) Anatomical Region Laterality Modality Carotid Artery Computed Tomogra phy Impressions 04/22/2025 2:14 PM EDT Neck CTA: 1. Complete thrombosis of RIGHT ICA. 2. Complete thrombosis of RIGHT vertebral artery. 3. Pre-occlusive stenosis of origin of LEFT ICA. 4. Large left-sided cervical hematoma. Head CTA: 1. 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 2. Thrombosis of RIGHT intradural vertebral artery. 3. Reconstitution of hypoplastic RIGHT MCA. 4. 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 5. No significant intracranial aneurysm is present. CRITICAL RESULT: YES. COMMUNICATION: The critical findings were discussed via [employer] secure chat with LETTY FOLEY DO on 04/22/2025 1:50 PM by Nu Cortes MD with acknowledgment of the results . Drafted by Nu Cortes MD on 04/22/2025 1:46 PM Final report signed by Nu Cortes MD on 04/22/2025 2:14 PM Narrative 04/22/2025 2:14 PM EDT CLINICAL INDICATION: Neck pain. TECHNIQUE: Head CTA: Axial images were obtained through the head during contrast bolus injection and multiplanar MIP images were created. Neck CTA: Axial images were obtained through the neck during bolus contrast injection and multiplanar reformatted and MIP images were created. 100 mL of Omnipaque 350 were administered intravenously. Total DLP (Dose-Length Product): 566.2 mGy.cm. Please note: The reported value represents the total of one or more individual components during the CT acquisition on this date and at this time, and as such, the same value may appear in more than one CT report depending on the interpreting/reporting physicians. COMPARISON: None. FINDINGS: Neck CTA: Diagnostic Quality: Adequate Aorta and Great Vessel Origins: The aortic arch has a normal branching pattern. There is atherosclerotic calcification of thoracic aorta. There is no significant stenosis of the origins of the great arteries of the neck. Right Cervical Carotid System: The right common carotid artery and its origin are patent. There is large volume of atherosclerotic plaque at the carotid bifurcation. There is a 100% stenosis at the bifurcation by NASCET criteria. 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 Left Cervical Carotid System: The left common carotid artery and its origin are patent. There is large volume of atherosclerotic plaque at the carotid bifurcation. There is a 95% stenosis at the bifurcation by NASCET criteria. The left internal carotid artery demonstrates a normal course in the cervical region. There is no evidence of dissection or pseudoaneurysm of the left common and internal carotid arteries. Vertebral arteries: The origin of the LEFT vertebral artery appears patent. 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 Other Findings: There is groundglass attenuation within both upper lobes and what may present some dependent atelectasis. The thyroid appears atrophic. There is a large hematoma within the left neck and upper chest measuring approximately 6.6 x 3.3 x 5.7 cm. Head CTA: Diagnostic Quality: Adequate Vertebrobasilar System: There is thrombosis of the right intradural vertebral artery. The left intradural vertebral artery is patent and forms the basilar artery. The basilar artery and its major branches are within normal limits. There is no aneurysm. 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 Left ICA: There is atherosclerotic plaque with severe stenosis. Other Findings: There is no aneurysm of either internal carotid artery. [place] and Major Peripheral Branches: The right middle through artery is small in caliber compared to left. There is reconstitution of the right M1 and M2 segments. The right A1 is hypoplastic. Left A1 and A2 segments are patent. The right A2 segment may be thrombosed versus azygos variant of the A1 segment. There is no aneurysm. 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 Procedure Note Nu Cortes MD - 04/22/2025 CLINICAL INDICATION: Neck pain. TECHNIQUE: Head CTA: Axial images were obtained through the head during contrastbolus injection and multiplanar MIP images were created. Neck CTA: Axial images were obtained through the neck during boluscontrast injection and multiplanar reformatted and MIP images werecreated. 100 mL of Omnipaque 350 were administered intravenously. Total DLP (Dose-Length Product): 566.2 mGy.cm. Please note: The reportedvalue represents the total of one or more individual components during theCT acquisition on this date and at this time, and as such, the same valuemay appear in more than one CT report depending on theinterpreting/reporting physicians. COMPARISON: None. FINDINGS: Neck CTA: Diagnostic Quality: Adequate Aorta and Great Vessel Origins: The aortic arch has a normal branchingpattern. There is atherosclerotic calcification of thoracic aorta. Thereis no significant stenosis of the origins of the great arteries of theneck. Right Cervical Carotid System: The right common carotid artery and itsorigin are patent. There is large volume of atherosclerotic plaque at thecarotid bifurcation. There is a 100% stenosis at the bifurcation by NASCETcriteria. There is complete thrombosis of the right cervical internalcarotid artery. Left Cervical Carotid System: The left common carotid artery and itsorigin are patent. There is large volume of atherosclerotic plaque at thecarotid bifurcation. There is a 95% stenosis at the bifurcation by NASCETcriteria. The left internal carotid artery demonstrates a normal course inthe cervical region. There is no evidence of dissection or pseudoaneurysmof the left common and internal carotid arteries. Vertebral arteries: The origin of the LEFT vertebral artery appearspatent. There is complete thrombosis of the right cervical vertebralartery. Other Findings: There is groundglass attenuation within both upper lobesand what may present some dependent atelectasis. The thyroid appearsatrophic. There is a large hematoma within the left neck and upper chest measuringapproximately 6.6 x 3.3 x 5.7 cm. Head CTA: Diagnostic Quality: Adequate Vertebrobasilar System: There is thrombosis of the right intraduralvertebral artery. The left intradural vertebral artery is patent and formsthe basilar artery. The basilar artery and its major branches are withinnormal limits. There is no aneurysm. Carotid Arteries: Right ICA: Complete thrombosis of the right petrous and cavernous internalcarotid artery. Left ICA: There is atherosclerotic plaque with severe stenosis. Other Findings: There is no aneurysm of either internal carotid artery. [place] and Major Peripheral Branches: The right middle throughartery is small in caliber compared to left. There is reconstitution ofthe right M1 and M2 segments. The right A1 is hypoplastic. Left A1 and [id number] are patent. The right A2 segment may be thrombosed versus azygosvariant of the A1 segment. There is no aneurysm. Other Findings: Chronic infarcts of right frontal and right temporallobes. IMPRESSION: Neck CTA: 1.Complete thrombosis of RIGHT ICA. 2.Complete thrombosis of RIGHT vertebral artery. 3.Pre-occlusive stenosis of origin of LEFT ICA. 4.Large left-sided cervical hematoma. 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 2.Thrombosis of RIGHT intradural vertebral artery. 3.Reconstitution of hypoplastic RIGHT MCA. 4.Hemodynamically significant stenosis of LEFT cavernous internal carotidartery. 5.No significant intracranial aneurysm is present. CRITICAL RESULT: YES. COMMUNICATION: The critical findings were discussed via [employer] secure chat with LETTY DAVIS DO on 04/22/2025 1:50 PM by Nu Cortes MD with acknowledgment ofthe results . Drafted by Nu Cortes MD on 04/22/2025 1:46 PM Final report signed by Nu Cortes MD on 04/22/2025 2:14 PM us Letty Foley DO IMG CT PROCEDURES Final Resul t * CT Angio Head (04/22/2025 12:40 PM EDT) Anatomical Region Laterality Modality [place] of [place] Computed Tomogr aphy Impressions 04/22/2025 2:17 PM EDT Neck CTA: 1. Complete thrombosis of RIGHT ICA. 2. Complete thrombosis of RIGHT vertebral artery. 3. Pre-occlusive stenosis of origin of LEFT ICA. 4. Large left-sided cervical hematoma. Head CTA: 1. 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 2. Thrombosis of RIGHT intradural vertebral artery. 3. Reconstitution of hypoplastic RIGHT MCA. 4. 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 5. No significant intracranial aneurysm is present. CRITICAL RESULT: YES. COMMUNICATION: The critical findings were discussed via [employer] secure chat with LETTY FOLEY DO on 04/22/2025 1:50 PM by Nu Cortes MD with acknowledgment of the results . Drafted by Nu Cortes MD on 04/22/2025 2:17 PM Final report signed by Nu Cortes MD on 04/22/2025 2:17 PM Narrative 04/22/2025 2:17 PM EDT CLINICAL INDICATION: Neck pain TECHNIQUE: Head CTA: Axial images were obtained through the head during contrast bolus injection and multiplanar MIP images were created. Neck CTA: Axial images were obtained through the neck during bolus contrast injection and multiplanar reformatted and MIP images were created. 100 mL of Omnipaque 350 were administered intravenously. Total DLP (Dose-Length Product): 566.2 mGy.cm. Please note: The reported value represents the total of one or more individual components during the CT acquisition on this date and at this time, and as such, the same value may appear in more than one CT report depending on the interpreting/reporting physicians. COMPARISON: None. FINDINGS: Neck CTA: Diagnostic Quality: Adequate Aorta and Great Vessel Origins: The aortic arch has a normal branching pattern. There is atherosclerotic calcification of thoracic aorta. There is no significant stenosis of the origins of the great arteries of the neck. Right Cervical Carotid System: The right common carotid artery and its origin are patent. There is large volume of atherosclerotic plaque at the carotid bifurcation. There is a 100% stenosis at the bifurcation by NASCET criteria. 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 Left Cervical Carotid System: The left common carotid artery and its origin are patent. There is large volume of atherosclerotic plaque at the carotid bifurcation. There is a 95% stenosis at the bifurcation by NASCET criteria. The left internal carotid artery demonstrates a normal course in the cervical region. There is no evidence of dissection or pseudoaneurysm of the left common and internal carotid arteries. Vertebral arteries: The origin of the LEFT vertebral artery appears patent. 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 Other Findings: There is groundglass attenuation within both upper lobes and what may present some dependent atelectasis. The thyroid appears atrophic. There is a large hematoma within the left neck and upper chest measuring approximately 6.6 x 3.3 x 5.7 cm. Head CTA: Diagnostic Quality: Adequate Vertebrobasilar System: There is thrombosis of the right intradural vertebral artery. The left intradural vertebral artery is patent and forms the basilar artery. The basilar artery and its major branches are within normal limits. There is no aneurysm. 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 Left ICA: There is atherosclerotic plaque with severe stenosis. Other Findings: There is no aneurysm of either internal carotid artery. [place] of [place] and Major Peripheral Branches: The right middle through artery is small in caliber compared to left. There is reconstitution of the right M1 and M2 segments. The right A1 is hypoplastic. Left A1 and A2 segments are patent. The right A2 segment may be thrombosed versus azygos variant of the A1 segment. There is no aneurysm. 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 Procedure Note Nu Cortes MD - 04/22/2025 CLINICAL INDICATION: Neck pain TECHNIQUE: Head CTA: Axial images were obtained through the head during contrastbolus injection and multiplanar MIP images were created. Neck CTA: Axial images were obtained through the neck during boluscontrast injection and multiplanar reformatted and MIP images werecreated. 100 mL of Omnipaque 350 were administered intravenously. Total DLP (Dose-Length Product): 566.2 mGy.cm. Please note: The reportedvalue represents the total of one or more individual components during theCT acquisition on this date and at this time, and as such, the same valuemay appear in more than one CT report depending on theinterpreting/reporting physicians. COMPARISON: None. FINDINGS: Neck CTA: Diagnostic Quality: Adequate Aorta and Great Vessel Origins: The aortic arch has a normal branchingpattern. There is atherosclerotic calcification of thoracic aorta. Thereis no significant stenosis of the origins of the great arteries of theneck. Right Cervical Carotid System: The right common carotid artery and itsorigin are patent. There is large volume of atherosclerotic plaque at thecarotid bifurcation. There is a 100% stenosis at the bifurcation by NASCETcriteria. There is complete thrombosis of the right cervical internalcarotid artery. Left Cervical Carotid System: The left common carotid artery and itsorigin are patent. There is large volume of atherosclerotic plaque at thecarotid bifurcation. There is a 95% stenosis at the bifurcation by NASCETcriteria. The left internal carotid artery demonstrates a normal course inthe cervical region. There is no evidence of dissection or pseudoaneurysmof the left common and internal carotid arteries. Vertebral arteries: The origin of the LEFT vertebral artery appearspatent. There is complete thrombosis of the right cervical vertebralartery. Other Findings: There is groundglass attenuation within both upper lobesand what may present some dependent atelectasis. The thyroid appearsatrophic. There is a large hematoma within the left neck and upper chest measuringapproximately 6.6 x 3.3 x 5.7 cm. Head CTA: Diagnostic Quality: Adequate Vertebrobasilar System: There is thrombosis of the right intraduralvertebral artery. The left intradural vertebral artery is patent and formsthe basilar artery. The basilar artery and its major branches are withinnormal limits. There is no aneurysm. Carotid Arteries: Right ICA: Complete thrombosis of the right petrous and cavernous internalcarotid artery. Left ICA: There is atherosclerotic plaque with severe stenosis. Other Findings: There is no aneurysm of either internal carotid artery. [place] of [place] and Major Peripheral Branches: The right middle throughartery is small in caliber compared to left. There is reconstitution ofthe right M1 and M2 segments. The right A1 is hypoplastic. Left A1 and [id number] are patent. The right A2 segment may be thrombosed versus azygosvariant of the A1 segment. There is no aneurysm. Other Findings: Chronic infarcts of right frontal and right temporallobes. IMPRESSION: Neck CTA: 1.Complete thrombosis of RIGHT ICA. 2.Complete thrombosis of RIGHT vertebral artery. 3.Pre-occlusive stenosis of origin of LEFT ICA. 4.Large left-sided cervical hematoma. 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 2.Thrombosis of RIGHT intradural vertebral artery. 3.Reconstitution of hypoplastic RIGHT MCA. 4.Hemodynamically significant stenosis of LEFT cavernous internal carotidartery. 5.No significant intracranial aneurysm is present. CRITICAL RESULT: YES. COMMUNICATION: The critical findings were discussed via [employer] secure chat with LETTY DAVIS DO on 04/22/2025 1:50 PM by Nu Cortes MD with acknowledgment ofthe results . Drafted by Nu Cortes MD on 04/22/2025 2:17 PM Final report signed by Nu Cortes MD on 04/22/2025 2:17 PM us Letty L Og DO IMG CT PROCEDURES Final Resul t * CT Angio Chest (04/22/2025 12:40 PM EDT) Anatomical Region Laterality Modality Chest Computed Tomogra phy Impressions 04/22/2025 2:10 PM EDT Posttraumatic hematoma in the soft tissues of the left lateral neck with areas of contrast extravasation. This was already visualized by the surgical team. Nondisplaced fracture of the posterior aspect of the left first rib. Fractures of the bilateral anterolateral fourth ribs. Free fluid in the inferior aspect of the peritoneum and small collections of free fluid in the right paracolic gutter and left paracolic gutter. Subcapsular hematoma along the right peripheral hemiliver . 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 Acute hematoma seen in the right lower quadrant mesentery at the level of the iliac crest on image 349 of series 4. Interval increase in size of a heterogeneously enhancing right hemiliver mass, suggesting neoplastic disease progression. Stable peripherally enhancing lesion in the spleen, not entirely characterized on this exam. Multiple fractures in the cervical, lumbar spine, and sacrum as discussed. CRITICAL RESULT: Yes COMMUNICATION: Left neck hematoma with areas of contrast extravasation were discussed via phone with LETTY FOLEY on 04/22/2025 1:04 PM by Nelson Ponce MD with acknowledgment of the results. By electronically signing this report, I, the attending physician, attest that I have personally reviewed the images/data for the above examination(s) and agree with the final edited report. Drafted by Nelson Ponce MD on 04/22/2025 1:08 PM Final report signed by Jenna Sparrow MD on 04/22/2025 2:10 PM Narrative 04/22/2025 2:10 PM EDT CLINICAL INDICATION: pain TECHNIQUE: Imaging of the chest abdomen and pelvis was performed, from thoracic inlet through pubic symphysis, using spiral technique, following administration of IV contrast, Omnipaque 350, 100 mL according to the CTA thoracic aorta/chest and CTA Abdomen/Pelvis protocol. Reformatted images in the coronal, sagittal, and oblique planes were generated from the axial data set to facilitate diagnostic accuracy. In addition, 3D images were created and reviewed. Imaging of the entire cervical, thoracic, and lumbar spine was performed, using spiral technique, without contrast administration. Reformatted images in the coronal and sagittal planes were generated from the axial data set to facilitate diagnostic accuracy and/or surgical planning. Total DLP (Dose-Length Product): 4205.41 mGy.cm. Please note: The reported value represents the total of one or more individual components during the CT acquisition on this date and at this time, and as such, the same value may appear in more than one CT report depending on the interpreting/reporting physicians. COMPARISON: Outside CT chest 09/04/2024, outside CT abdomen pelvis without IV contrast 09/02/2023, outside MR abdomen 09/07/2024 FINDINGS: Chest: Aorta/Vessels: No acute thoracic aortic pathology. No periaortic hematoma. No filling defect within the pulmonary arteries to suggest pulmonary embolism. Coronary artery calcifications. Pleural/Pericardial Space: No pneumothorax. No pleural effusions. No pericardial effusion. Lymph Nodes: No lymphadenopathy within the chest. Lungs: Mild emphysematous changes at the lung apices. Except for dependent atelectasis, the lungs are clear. Mediastinum: Otherwise unremarkable. Chest wall: No chest wall hematoma or contusion. Hematoma over the soft tissues of the left neck at the level of the hyoid approximately 5.8 x 4.7 cm (series 3, image 32). There were a few areas of apparent contrast extravasation superiorly in the collection as seen on series 3, image 9 and image 8. Bones: Minimally displaced posterior first left rib fracture. Postsurgical changes of prior median sternotomy. Abdomen: Vessels: The abdominal aorta and its major branches are patent. Postsurgical changes of aortobiiliac arterial stents, which also appear patent. 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 There appears to be a degree of filling on the portal venous images. Normal Gallbladder. No intra- or extra-hepatic biliary ductal dilatation. Perihepatic hematoma about the peripheral right hemiliver measuring 9.9 x 1.7 cm in its greatest measurement (series 901, image 97). No definite laceration is noted. No apparent associated vascular complication. Spleen: Rounded peripherally enhancing lesion in the spleen measuring 2.5 x 2.9 cm unchanged from previous examination (series 4, image 230). There is central fill-in on portal venous images. Pancreas: The pancreas enhances homogeneously. 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 Kidneys: The kidneys demonstrate symmetric nephrogram. Bilateral low attenuating renal cysts and other too small to characterize lesions, similar to previous examinations. No renal or ureteral calculi. No hydronephrosis. Bowel/Mesentery: The stomach is within normal limits. The small bowel loops are not dilated. The large bowel loops are not dilated. Colonic diverticulosis without evidence of acute diverticulitis. The appendix is visualized and normal. Lymph Nodes: No lymphadenopathy within the abdomen or pelvis. Fluid Survey: Small amount of free fluid in the right paracolic gutter. No free fluid in the pelvis. Pelvis: The pelvic viscera are unremarkable. Mesenteric stranding in the left hemipelvis mesentery, may be posttraumatic. Body Wall: Stranding over the ventral left lower soft tissues of the posttraumatic represent contusion. Fat-containing umbilical hernia. Bones: No acute fracture within the abdomen or pelvis. Cervical Spine: Vertebrae: Mildly displaced fracture through the transverse process C6. Additional fracture through the transverse process of C7. Alignment: Normal spinal alignment. Paraspinal Soft Tissues: No paraspinal hematoma. Lung Apices: No pneumothorax at the lung apices. Skull base: Small right mastoid effusion. Thoracic Spine: Vertebrae: Likely contusion involving the left transverse process of T1. No acute fracture is noted. Alignment: Normal spinal alignment. Paraspinal Soft Tissues: No paraspinal hematoma. Lumbar Spine: Vertebrae: Displaced fractures of the left transverse processes of L1, L2, and L3. Nondisplaced fractures of the left transverse process of L4 and L5. Vertebral body heights are well-maintained. Alignment: Mild retrolisthesis of L3 on L4. Grade 1 anterolisthesis of L5 on S1. Paraspinal Soft Tissues: No paraspinal hematoma. Hematoma over the left hip with acute hemorrhage seen within the soft tissue anteriorly. Procedure Note Jenna Sparrow MD - 04/22/2025 CLINICAL INDICATION: pain TECHNIQUE: Imaging of the chest abdomen and pelvis was performed, from thoracic inletthrough pubic symphysis, using spiral technique, following administrationof IV contrast, Omnipaque 350, 100 mL according to the CTA thoracicaorta/chest and CTA Abdomen/Pelvis protocol. Reformatted images in thecoronal, sagittal, and oblique planes were generated from the axial dataset to facilitate diagnostic accuracy. In addition, 3D images were createdand reviewed. Imaging of the entire cervical, thoracic, and lumbar spine was performed,using spiral technique, without contrast administration. Reformattedimages in the coronal and sagittal planes were generated from the axialdata set to facilitate diagnostic accuracy and/or surgical planning. Total DLP (Dose-Length Product): 4205.41 mGy.cm. Please note: The reportedvalue represents the total of one or more individual components during theCT acquisition on this date and at this time, and as such, the same valuemay appear in more than one CT report depending on theinterpreting/reporting physicians. COMPARISON: Outside CT chest 09/04/2024, outside CT abdomen pelvis without IV contrast09/02/2023, outside MR abdomen 09/07/2024 FINDINGS: Chest: Aorta/Vessels: No acute thoracic aortic pathology. No periaortic hematoma.No filling defect within the pulmonary arteries to suggest pulmonaryembolism. Coronary artery calcifications. Pleural/Pericardial Space: No pneumothorax. No pleural effusions. Nopericardial effusion. Lymph Nodes: No lymphadenopathy within the chest. Lungs: Mild emphysematous changes at the lung apices. Except for dependentatelectasis, the lungs are clear. Mediastinum: Otherwise unremarkable. Chest wall: No chest wall hematoma or contusion. Hematoma over the softtissues of the left neck at the level of the hyoid approximately 5.8 x 4.7cm (series 3, image 32). There were a few areas of apparent contrastextravasation superiorly in the collection as seen on series 3, image 9and image 8. Bones: Minimally displaced posterior first left rib fracture. Postsurgicalchanges of prior median sternotomy. Abdomen: Vessels: The abdominal aorta and its major branches are patent.Postsurgical changes of aortobiiliac arterial stents, which also appearpatent. Liver/Gallbladder/Biliary System: Large heterogeneously enhancing mass inthe medial right hemiliver measuring up to 11.5 x 9.0 cm, increased fromprevious comparison MRI from August 2024 measuring approximately 5.5 x5.3 cm. There appears to be a degree of filling on the portal venousimages. Normal Gallbladder. No intra- or extra- hepatic biliary ductaldilatation. Perihepatic hematoma about the peripheral right hemilivermeasuring 9.9 x 1.7 cm in its greatest measurement (series 901, image 97).No definite laceration is noted. No apparent associated vascularcomplication. Spleen: Rounded peripherally enhancing lesion in the spleen measuring 2.5x 2.9 cm unchanged from previous examination (series 4, image 230). Thereis central fill- in on portal venous images. Pancreas: The pancreas enhances homogeneously. 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 Kidneys: The kidneys demonstrate symmetric nephrogram. Bilateral lowattenuating renal cysts and other too small to characterize lesions,similar to previous examinations. No renal or ureteral calculi. Nohydronephrosis. Bowel/Mesentery: The stomach is within normal limits. The small bowelloops are not dilated. The large bowel loops are not dilated. Colonicdiverticulosis without evidence of acute diverticulitis. The appendix isvisualized and normal. Lymph Nodes: No lymphadenopathy within the abdomen or pelvis. Fluid Survey: Small amount of free fluid in the right paracolic gutter. Nofree fluid in the pelvis. Pelvis: The pelvic viscera are unremarkable. Mesenteric stranding in theleft hemipelvis mesentery, may be posttraumatic. Body Wall: Stranding over the ventral left lower soft tissues of theposttraumatic represent contusion. Fat-containing umbilical hernia. Bones: No acute fracture within the abdomen or pelvis. Cervical Spine: Vertebrae: Mildly displaced fracture through the transverse process C6.Additional fracture through the transverse process of C7. Alignment: Normal spinal alignment. Paraspinal Soft Tissues: No paraspinal hematoma. Lung Apices: No pneumothorax at the lung apices. Skull base: Small right mastoid effusion. Thoracic Spine: Vertebrae: Likely contusion involving the left transverse process of T1.No acute fracture is noted. Alignment: Normal spinal alignment. Paraspinal Soft Tissues: No paraspinal hematoma. Lumbar Spine: Vertebrae: Displaced fractures of the left transverse processes of L1, L2,and L3. Nondisplaced fractures of the left transverse process of L4 andL5. Vertebral body heights are well-maintained. Alignment: Mild retrolisthesis of L3 on L4. Grade 1 anterolisthesis of L5on S1. Paraspinal Soft Tissues: No paraspinal hematoma. Hematoma over the lefthip with acute hemorrhage seen within the soft tissue anteriorly. IMPRESSION: Posttraumatic hematoma in the soft tissues of the left lateral neck withareas of contrast extravasation. This was already visualized by thesurgical team. Nondisplaced fracture of the posterior aspect of the left first rib.Fractures of the bilateral anterolateral fourth ribs. Free fluid in theinferior aspect of the peritoneum and small collections of free fluid inthe right paracolic gutter and left paracolic gutter. Subcapsular hematoma along the right peripheral hemiliver . There islayering hematoma in the inferior aspect of the peritoneum This is mostconsistent with AAST II liver injury. Acute hematoma seen in the right lower quadrant mesentery at the level ofthe iliac crest on image 349 of series 4. Interval increase in size of a heterogeneously enhancing right hemilivermass, suggesting neoplastic disease progression. Stable peripherallyenhancing lesion in the spleen, not entirely characterized on this exam. Multiple fractures in the cervical, lumbar spine, and sacrum asdiscussed. CRITICAL RESULT: Yes COMMUNICATION: Left neck hematoma with areas of contrast extravasation were discussed viaphone with LETTY FOLEY on 04/22/2025 1:04 PM by Nelson Ponce MD withacknowledgment of the results. By electronically signing this report, I, the attending physician, attestthat I have personally reviewed the images/data for the aboveexamination(s) and agree with the final edited report. Drafted by Nelson Ponce MD on 04/22/2025 1:08 PM Final report signed by Jenna Sparrow MD on 04/22/2025 2:10 PM us Letty Foley DO IMG CT PROCEDURES Final Resul t * CT Angio Abdomen Pelvis (04/22/2025 12:40 PM EDT) Anatomical Region Laterality Modality Abdomen, Pelvis Computed Tomogra phy Impressions 04/22/2025 2:10 PM EDT Posttraumatic hematoma in the soft tissues of the left lateral neck with areas of contrast extravasation. This was already visualized by the surgical team. Nondisplaced fracture of the posterior aspect of the left first rib. Fractures of the bilateral anterolateral fourth ribs. Free fluid in the inferior aspect of the peritoneum and small collections of free fluid in the right paracolic gutter and left paracolic gutter. Subcapsular hematoma along the right peripheral hemiliver . 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 Acute hematoma seen in the right lower quadrant mesentery at the level of the iliac crest on image 349 of series 4. Interval increase in size of a heterogeneously enhancing right hemiliver mass, suggesting neoplastic disease progression. Stable peripherally enhancing lesion in the spleen, not entirely characterized on this exam. Multiple fractures in the cervical, lumbar spine, and sacrum as discussed. CRITICAL RESULT: Yes COMMUNICATION: Left neck hematoma with areas of contrast extravasation were discussed via phone with LETTY FOLEY on 04/22/2025 1:04 PM by Nelson Ponce MD with acknowledgment of the results. By electronically signing this report, I, the attending physician, attest that I have personally reviewed the images/data for the above examination(s) and agree with the final edited report. Drafted by Nelson Ponce MD on 04/22/2025 1:08 PM Final report signed by Jenna Sparrow MD on 04/22/2025 2:10 PM Narrative 04/22/2025 2:10 PM EDT CLINICAL INDICATION: pain TECHNIQUE: Imaging of the chest abdomen and pelvis was performed, from thoracic inlet through pubic symphysis, using spiral technique, following administration of IV contrast, Omnipaque 350, 100 mL according to the CTA thoracic aorta/chest and CTA Abdomen/Pelvis protocol. Reformatted images in the coronal, sagittal, and oblique planes were generated from the axial data set to facilitate diagnostic accuracy. In addition, 3D images were created and reviewed. Imaging of the entire cervical, thoracic, and lumbar spine was performed, using spiral technique, without contrast administration. Reformatted images in the coronal and sagittal planes were generated from the axial data set to facilitate diagnostic accuracy and/or surgical planning. Total DLP (Dose-Length Product): 4205.41 mGy.cm. Please note: The reported value represents the total of one or more individual components during the CT acquisition on this date and at this time, and as such, the same value may appear in more than one CT report depending on the interpreting/reporting physicians. COMPARISON: Outside CT chest 09/04/2024, outside CT abdomen pelvis without IV contrast 09/02/2023, outside MR abdomen 09/07/2024 FINDINGS: Chest: Aorta/Vessels: No acute thoracic aortic pathology. No periaortic hematoma. No filling defect within the pulmonary arteries to suggest pulmonary embolism. Coronary artery calcifications. Pleural/Pericardial Space: No pneumothorax. No pleural effusions. No pericardial effusion. Lymph Nodes: No lymphadenopathy within the chest. Lungs: Mild emphysematous changes at the lung apices. Except for dependent atelectasis, the lungs are clear. Mediastinum: Otherwise unremarkable. Chest wall: No chest wall hematoma or contusion. Hematoma over the soft tissues of the left neck at the level of the hyoid approximately 5.8 x 4.7 cm (series 3, image 32). There were a few areas of apparent contrast extravasation superiorly in the collection as seen on series 3, image 9 and image 8. Bones: Minimally displaced posterior first left rib fracture. Postsurgical changes of prior median sternotomy. Abdomen: Vessels: The abdominal aorta and its major branches are patent. Postsurgical changes of aortobiiliac arterial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 (Lovenox) syringe 30 mg 30 mg, Subcutaneous, 2 times daily, First dose (after last modification) on [facility] 04/28/25 at 2100, Until Discontinued, Routine Given 05/05/2025 8:52 AM EDT 30 mg Left Lower Abdomen Given 05/04/2025 8:36 PM EDT 30 mg Le ft Lower Abdomen Given 05/04/2025 8:56 AM EDT 30 mg Ri ght Upper Arm (Back) enoxaparin (Lovenox) syringe 40 mg 40 mg, Subcutaneous, Daily, First dose on [place] 04/24/25 at 1500, Until Discontinued, Routine Given 04/28/2025 8:09 AM EDT 40 mg Right Upper Abdomen Given 04/27/2025 8:19 AM EDT 40 mg Le ft Lower Abdomen Given 04/26/2025 8:43 AM EDT 40 mg Ri ght Lower Abdomen esomeprazole (NexIUM) packet for suspension 40 mg 40 mg, Nasogastric, Daily, First dose on Fri05/03/25 at 0900, Until Discontinued, Routine Given 05/04/2025 8:5 5 AM EDT 40 mg Given 05/03/2025 9:09 AM EDT 40 mg famotidine (Pepcid) tablet 20 mg 20 mg, Oral, 2 times daily, First dose on Fri05/04/25 at 2100, Until Discontinued, Routine Given 05/05/2025 8:5 2 AM EDT 20 mg Given 05/04/2025 8:37 PM EDT 20 mg guaiFENesin (Robitussin) 100 MG/5ML solution 200 mg 200 mg, Nasogastric, Every 6 hours scheduled, First dose on Fri05/02/25 at 1330, Until Discontinued, Routine Given 05/04/2025 11:36 AM EDT 200 mg Given 05/04/2025 6:07 AM EDT 200 mg Given 05/03/2025 6:49 PM EDT 200 mg haloperidol lactate (Haldol) injection 2 mg 2 mg, Intravenous, Once, 1 dose, On Fri04/23/25 at 2300, Routine Given 04/23/2025 10:30 PM EDT 2 mg hydrALAZINE (Apresoline) injection 10 mg 10 mg, Intravenous, Once, 1 dose, On Fri04/24/25 at 2200, STAT Given 04/24/2025 9:25 PM EDT 10 mg HYDROmorphone (Dilaudid) injection 0.25 mg 0.25 mg, Intravenous, Every 2 hour PRN, Starting on Fri04/23/25 at 0930, Until Fri04/26/25 at 1359, Routine, severe pain Given 04/25/2025 9:26 PM EDT 0.25 mg Given 04/23/2025 1:33 PM EDT 0.25 mg HYDROmorphone (Dilaudid) injection 0.5 mg 0.5 mg, Intravenous, Every 2 hour PRN, Starting on Fri04/23/25 at 0930, Until Fri04/26/25 at 1359, Routine, mild - moderate pain Given 04/26/2025 6:35 AM EDT 0.5 mg Given 04/26/2025 12:56 AM EDT 0.5 mg Given 04/25/2025 4:28 PM EDT 0.5 mg iohexol (OMNIPaque) 300 MG/ML injection 100 mL 100 mL, Intravenous, Once in imaging, 1 dose, Starting on Fri04/24/25 at 1744, Until Fri04/24/25 at 2157, Routine, Imaging Protocol Orders Given 04/24/2025 9:57 PM EDT 100 mL iohexol (OMNIPaque) 350 MG/ML injection 100 mL 100 mL, Intravenous, Once in imaging, 1 dose, Starting on Fri04/22/25 at 1201, Until Fri04/22/25 at 1225, Routine, Imaging Protocol Orders Given 04/22/2025 12:25 PM EDT 100 mL iohexol (OMNIPaque) 9 MG/ML oral contrast 500 mL 500 mL, Oral, Once in imaging, 1 dose, Starting on Fri04/24/25 at 1744, Until Fri04/24/25 at 2023, Routine, Imaging Protocol Orders Given 04/24/2025 8:23 PM EDT 500 mL ipratropium-albuterol (Duo-Neb) 0.5-2.5 mg/3 mL nebulizer solution 3 mL 3 mL, Nebulization, Every 6 hours PRN, Starting on Fri04/22/25 at 1639, Until Fri04/26/25 at 1658, Routine, wheezing Given 04/26/2025 3:44 PM EDT 3 mL ipratropium-albuterol (Duo-Neb) 0.5-2.5 mg/3 mL nebulizer solution 3 mL 3 mL, Nebulization, Every 6 hours, First dose (after last modification) on Fri04/26/25 at 2100, Until Discontinued, Routine Given 04/28/2025 3:15 PM EDT 3 mL Given 04/28/2025 8:10 AM EDT 3 mL Given 04/28/2025 3:47 AM EDT 3 mL ipratropium-albuterol (Duo-Neb) 0.5-2.5 mg/3 mL nebulizer solution 3 mL 3 mL, Nebulization, 2 times daily, First dose (after last modification) on Fri04/29/25 at 2100, Until Discontinued, Routine Given 04/30/2025 9:12 AM EDT 3 mL Given 04/29/2025 8:04 PM EDT 3 mL ipratropium-albuterol (Duo-Neb) 0.5-2.5 mg/3 mL nebulizer solution 3 mL 3 mL, Nebulization, Every 6 hours PRN, Starting on [place] 05/01/25 at 0745, Until [place] 05/05/25 at 2011, Routine, wheezing, shortness of breath Given 05/04/2025 9:21 AM EDT 3 mL Given 05/02/2025 11:03 AM EDT 3 mL labetalol (Normodyne,Trandate) injection 10 mg 10 mg, Intravenous, Once, 1 dose, On [place] 04/28/25 at 0315, STAT Given 04/28/2025 2:25 AM EDT 10 mg labetalol (Normodyne,Trandate) injection 10 mg 10 mg, Intravenous, Every 4 hours PRN, Starting on [place] 04/28/25 at 0841, Until 05/02/25 at 1011, Routine, high blood pressure, SBP >180 Given 04/28/2025 9:06 PM EDT 10 mg Given 04/28/2025 5:06 PM EDT 10 mg Given 04/28/2025 1:16 PM EDT 10 mg lacosamide (Vimpat) tablet 50 mg 50 mg, Oral, 2 times daily, First dose on [place] 04/28/25 at 2100, Until Discontinued, Routine Given 05/05/2025 8:5 3 AM EDT 50 mg Given 05/04/2025 8:37 PM EDT 50 mg Given 05/04/2025 8:55 AM EDT 50 mg lactated Ringer's bolus 500 mL 500 mL, Intravenous, Once, 1 dose, On [place] 04/24/25 at 0400, Administer over 2 Hours, Routine Rate/Dose Verify 04/24/2025 5:00 AM EDT 250 mL/hr Rate/Dose Verify 04/24/2025 4:00 AM EDT 250 mL/ hr New Bag 04/24/2025 3:15 AM EDT 500 mL 250 mL/hr lactated Ringer's bolus 500 mL 500 mL, Intravenous, Once, 1 dose, On 04/25/25 at 0300, Administer over 2 Hours, Routine Rate/Dose Verify 04/25/2025 4:00 AM EDT 250 mL/hr Rate/Dose Verify 04/25/2025 3:00 AM EDT 250 mL/ hr New Bag 04/25/2025 2:15 AM EDT 500 mL 250 mL/hr levETIRAcetam (Keppra) injection 500 mg 500 mg, Intravenous, 2 times daily, First dose on 04/23/25 at 2115, Until Discontinued, Routine Given 04/24/2025 8:11 AM EDT 500 mg Given 04/23/2025 9:13 PM EDT 500 mg levETIRAcetam (Keppra) injection 500 mg 500 mg, Intravenous, Every 12 hours, First dose on 04/24/25 at 1545, Until Discontinued, Routine Given 04/25/2025 3:52 AM EDT 500 mg Given 04/24/2025 3:27 PM EDT 500 mg levETIRAcetam (Keppra) tablet 500 mg 500 mg, Oral, 2 times daily, First dose on Fri04/22/25 at 2100, Until Discontinued, Routine Given 04/22/2025 9:38 PM EDT 500 mg levETIRAcetam (Keppra) tablet 500 mg 500 mg, Oral, 2 times daily, First dose on Fri04/25/25 at 1800, Until Discontinued, Routine Given 04/28/2025 8:09 AM EDT 500 mg Given 04/27/2025 8:35 PM EDT 500 mg Given 04/27/2025 8:19 AM EDT 500 mg lidocaine (Lidoderm) 5 % patch 1 patch 1 patch, Apply externally, Every 24 hours, First dose on Fri04/26/25 at 1445, Until Discontinued, Administer over 12 Hours, Routine Medication Applied 05/05/2025 4:13 PM EDT 1 patch Left Arm Medication Applied 05/04/2025 2:40 PM EDT 1 patch Left Deltoid Medication Applied 05/03/2025 2:46 PM EDT 1 patch Left Deltoid losartan (Cozaar) tablet 37.5 mg 37.5 mg, Oral, Every morning, First dose (after last modification) on Fri04/27/25 at 2045, Until Discontinued, Routine Given 04/28/2025 6:17 AM EDT 37.5 mg Given 04/27/2025 8:35 PM EDT 37.5 mg losartan (Cozaar) tablet 37.5 mg 37.5 mg, Oral, Once, 1 dose, On [place] 04/28/25 at 0930, Routine Given 04/28/2025 9:04 AM EDT 37.5 mg losartan (Cozaar) tablet 75 mg 75 mg, Oral, Every morning, First dose (after last modification) on Fri04/29/25 at 0900, Until Discontinued, Routine Given 05/05/2025 8:53 AM EDT 75 mg Given 05/04/2025 8:55 AM EDT 75 mg Given 05/03/2025 9:11 AM EDT 75 mg magnesium hydroxide (Milk of Magnesia) 400 MG/5ML suspension 30 mL 30 mL, Oral, Daily, First dose on 04/30/25 at 1715, Until Discontinued, Routine Given 04/30/2025 5:48 PM EDT 30 mL magnesium sulfate IVPB 2 g 2 g, Intravenous, Once, 1 dose, On 04/24/25 at 0315, Routine Rate/Dose Verify 04/24/2025 4:00 AM EDT 25 mL/hr Rate/Dose Verify 04/24/2025 3:00 AM EDT 25 mL/h r New Bag 04/24/2025 2:34 AM EDT 2 g 25 mL/hr methocarbamol (Robaxin) tablet 500 mg 500 mg, Oral, Every 8 hours, First dose on Fri04/22/25 at 1645, Until Discontinued, Routine Given 04/22/2025 6:49 PM EDT 500 mg methocarbamol (Robaxin) tablet 500 mg 500 mg, Oral, 4 times daily, First dose (after last modification) on Fri04/27/25 at 2200, Until Discontinued, Routine Given 05/05/2025 4:12 PM EDT 500 mg Given 05/05/2025 8:53 AM EDT 500 mg Given 05/04/2025 8:37 PM EDT 500 mg methocarbamol (Robaxin) tablet 750 mg 750 mg, Oral, 4 times daily, First dose on Fri04/26/25 at 1800, Until Discontinued, Routine Given 04/27/2025 1:39 PM EDT 750 mg Given 04/27/2025 8:19 AM EDT 750 mg Given 04/26/2025 10:32 PM EDT 750 mg mupirocin (Bactroban) 2 % ointment 1 Application Each Nostril, 2 times daily, 10 doses, First dose on Fri04/22/25 at 2100, Last dose on Fri04/27/25 at 0900, Routine Given 04/27/2025 8:19 AM EDT 1 Application Given 04/26/2025 8:23 PM EDT 1 Application Given 04/26/2025 8:43 AM EDT 1 Application ondansetron (Zofran) injection 4 mg 4 mg, Intravenous, Every 6 hours PRN, Starting on Fri04/22/25 at 1638, Until Fri05/04/25 at 0929, Routine, vomiting, nausea Given 05/01/2025 4:41 AM EDT 4 mg ondansetron ODT (Zofran-ODT) disintegrating tablet 4 mg 4 mg, Oral, Every 6 hours PRN, Starting on Fri04/22/25 at 1638, Until [place] 05/05/25 at 2010, Routine, nausea, vomiting Given 05/05/2025 8:53 AM EDT 4 mg oxyCODONE (Roxicodone) immediate release tablet 5 mg 5 mg, Oral, Every 6 hours PRN, Starting on Fri04/22/25 at 1639, Until 04/23/25 at 0316, Routine, Moderate/Severe Pain > or =3: CPOT; > or =4: FLACC, PAINAD, NPASS, NRS, Fierro-Jensen Faces; > or =5: DVPRS, NIPS Given 04/22/2025 9:38 PM EDT 5 mg oxyCODONE (Roxicodone) immediate release tablet 5 mg 5 mg, Oral, Every 6 hours PRN, Starting on Fri04/25/25 at 0655, Until Marina 05/05/25 at 2010, Routine, severe pain Given 05/04/2025 8:37 PM EDT 5 mg Given 05/03/2025 6:49 PM EDT 5 mg Given 05/03/2025 9:10 AM EDT 5 mg pantoprazole (Protonix) injection 40 mg 40 mg, Intravenous, Daily, First dose on 05/01/25 at 1730, Until Discontinued, Routine Given 05/02/2025 9:1 6 AM EDT 40 mg Given 05/01/2025 5:40 PM EDT 40 mg phosphorus (K Phos Neutral) tablet 1 tablet 1 tablet, Oral, Every 8 hours, 3 doses, First dose on Fri05/04/25 at 1015, Last dose on Fri05/05/25 at 0215, Routine Given 05/05/2025 2:28 AM EDT 1 tabl et Given 05/04/2025 5:16 PM EDT 1 tablet Given 05/04/2025 11:35 AM EDT 1 tablet polyethylene glycol (Miralax) packet 17 g 17 g, Oral, 2 times daily, First dose on Fri04/28/25 at 0930, Until Discontinued, Routine Given 05/05/2025 8:53 AM EDT 17 g Given 04/30/2025 9:14 AM EDT 17 g Given 04/29/2025 8:35 PM EDT 17 g senna (Senokot) tablet 8.6 mg 8.6 mg, Oral, 2 times daily, First dose on Fri04/28/25 at 0930, Until Discontinued, Routine Given 04/30/2025 9:14 AM EDT 8.6 mg Given 04/29/2025 8:35 PM EDT 8.6 mg Given 04/29/2025 8:41 AM EDT 8.6 mg senna-docusate (Kamille-Colace) 8.6-50 MG per tablet 2 tablet 2 tablet, Oral, 2 times daily, First dose on Fri04/30/25 at 2100, Until Discontinued, Routine Given 05/05/2025 8:53 AM EDT 2 tablets Given 05/03/2025 9:09 AM EDT 2 tablets Given 05/02/2025 9:09 PM EDT 2 tablets sodium chloride 0.9 % flush 10 mL 10 mL, Intravenous, Every 12 hours, First dose on Fri04/22/25 at 1645, Until Discontinued, Routine Given 05/05/2025 4:19 AM EDT 10 mL Given 05/04/2025 4:32 PM EDT 10 mL Given 05/04/2025 4:40 AM EDT 10 mL sodium chloride 0.9 % flush 10 mL 10 mL, Intravenous, As needed, Starting on Fri04/22/25 at 1635, Until Fri05/05/25 at 2011, Routine, line care sodium chloride 7 % nebulizer solution 4 mL 4 mL, Nebulization, 2 times daily, First dose on Fri05/02/25 at 1000, Until Discontinued, Routine Given 05/03/2025 9:40 PM EDT 4 mL Given 05/03/2025 9:12 AM EDT 4 mL Given 05/02/2025 9:44 PM EDT 4 mL documented in this encounter Active and Recently Administered Medications Times are shown in EDT. Scheduled Medication Order 05/03/2025 05/04/2025 05/05/2025 acetaminophen (Tylenol) tablet 650 mg 650 mg, Oral, Every 6 hours scheduled, First dose on Fri04/25/25 at 1800, Until Discontinued, Routine 0528 (Given - Provider: Vanessa Haas RN)1306 (Given - Provider: Mary Badillo RN)1849 (Given - Provider: Mary Badillo RN) 0246 (Not Given - Provider: Vanessa Anderson RN - Reason: Patient/family refused)0607 (Given - Provider: Vanessa Anderson RN)1136 (Given - Provider: Mary Badillo RN)1702 (Given - Provider: Mary Badillo RN)2307 (Not Given - Provider: Vanessa Anderson RN - Reason: Order parameters not met - Comment: od warning) 0505 (Not Given - Provider: Vanessa Anderson RN - Reason: Patient/family refused)1218 (Given - Provider: Diandra Estrada, SANDI)1800 (Canceled Entry - Provider: Automatic Discharge Provider - Comment: Automatically canceled at discontinue of medication order) amLODIPine (Norvasc) tablet 5 mg 5 mg, Oral, Daily, First dose on Fri05/04/25 at 1300, Until Discontinued, Routine 1440 (Given - Provider: Mary Badillo RN) 0853 (Given - Provider: Diandra Estrada, RN) aspirin chewable tablet 81 mg 81 mg, Oral, Daily, First dose on Fri04/23/25 at 1215, Until Discontinued, Routine 0909 (Given - Provider: Mary Badillo RN) 0856 (Given - Provider: Mary Badillo RN) 0853 (Given - Provider: Diandra Estrada, RN) clopidogrel (Plavix) tablet 75 mg 75 mg, Oral, Daily, First dose on Fri04/24/25 at 1500, Until Discontinued, Routine 0912 (Given - Provider: Mary Badillo RN) 0855 (Given - Provider: Mary Badillo RN) 0853 (Given - Provider: Diandra Estrada, RN) diclofenac (Voltaren) 1 % topical gel 1 g 1 g, Topical, 4 times daily, First dose on Fri04/25/25 at 1800, Until Discontinued, Routine 1028 (Given - Provider: Mary Badillo RN)1416 (Given - Provider: Mary Badillo RN)1856 (Not Given - Provider: Mary Badillo RN - Reason: Patient/family refused)2025 (Given - Provider: Vanessa Anderson RN) 0922 (Given - Provider: Mary Badillo RN)1446 (Not Given - Provider: Mary Badillo RN - Reason: Patient/family refused)1716 (Given - Provider: Mary Badillo RN)203 (Given - Provider: Vanessa Anderson RN) 0954 (Given - Provider: Diandra Estrada, SANDI)1612 (Given - Provider: Diandra Estrada, SANDI)1800 (Canceled Entry - Provider: Automatic Discharge Provider - Comment: Automatically canceled at discontinue of medication order) doxazosin (Cardura) tablet 1 mg 1 mg, Oral, Nightly, First dose on Fri04/28/25 at 2100, Until Discontinued, Routine 2025 (Given - Provider: Vanessa Anderson RN) 2036 (Given - Provider: Vanessa Anderson, RN) enoxaparin (Lovenox) syringe 30 mg 30 mg, Subcutaneous, 2 times daily, First dose (after last modification) on Fri04/28/25 at 2100, Until Discontinued, Routine 0909 (Given - Provider: Mary Badillo, SANDI)2024 (Given - Provider: Vanessa Anderson, SANDI) 0856 (Given - Provider: Mary Badillo RN)2035 (Given - Provider: Vanessa Anderson, SANDI) 0852 (Given - Provider: Diandra Estrada, RN) esomeprazole (NexIUM) packet for suspension 40 mg (CANCELED) 40 mg, Nasogastric, Daily, First dose on Fri05/03/25 at 0900, Until Discontinued, Routine 0909 (Given - Provider: Mary Badillo RN) 0855 (Given - Provider: Mary Badillo, SANDI) famotidine (Pepcid) tablet 20 mg 20 mg, Oral, 2 times daily, First dose on Fri05/04/25 at 2100, Until Discontinued, Routine 2036 (Given - Provider: Vanessa Anderson RN) 0852 (Given - Provider: Diandra Estrada, RN) guaiFENesin (Robitussin) 100 MG/5ML solution 200 mg (CANCELED) 200 mg, Nasogastric, Every 6 hours scheduled, First dose on Fri05/02/25 at 1330, Until Discontinued, Routine 0528 (Given - Provider: Vanessa Haas, SANDI)1306 (Given - Provider: Mary Badillo, SANDI)1849 (Given - Provider: Mary Badillo RN) 0246 (Not Given - Provider: Vanessa Anderson RN - Reason: Patient/family refused)0607 (Given - Provider: Vanessa Anderson, SANDI)1136 (Given - Provider: Mary Badillo, SANDI) lacosamide (Vimpat) tablet 50 mg 50 mg, Oral, 2 times daily, First dose on Fri04/28/25 at 2100, Until Discontinued, Routine 0912 (Given - Provider: Mary Badillo RN)2025 (Given - Provider: Vanessa Anderson RN) 0855 (Given - Provider: Mary Badillo, SANDI)2036 (Given - Provider: Vanessa Anderson RN) 0853 (Given - Provider: Diandra Estrada, RN) lidocaine (Lidoderm) 5 % patch 1 patch 1 patch, Apply externally, Every 24 hours, First dose on Fri04/26/25 at 1445, Until Discontinued, Administer over 12 Hours, Routine 0107 (Medication Removed - Provider: Vanessa Haas RN)1446 (Medication Applied - Provider: Mary Badillo RN) 0251 (Medication Removed - Provider: Vanessa Anderson RN)1440 (Medication Applied - Provider: Mary Badillo RN) 0142 (Medication Removed - Provider: Vanessa Anderson RN)1613 (Medication Applied - Provider: Diandra Estrada, RN)1811 (Due: Medication Removed - Provider: Automatic Discharge Provider - Comment: Time automatically adjusted from order being discontinued) losartan (Cozaar) tablet 75 mg 75 mg, Oral, Every morning, First dose (after last modification) on Fri04/29/25 at 0900, Until Discontinued, Routine 0911 (Given - Provider: Mary Badillo RN) 0855 (Given - Provider: Mary Badillo RN) 0853 (Given - Provider: Diandra Estrada, SANDI) methocarbamol (Robaxin) tablet 500 mg 500 mg, Oral, 4 times daily, First dose (after last modification) on Fri04/27/25 at 2200, Until Discontinued, Routine 0912 (Given - Provider: Mary Badillo RN)1307 (Given - Provider: Mary Badillo, SANDI)1848 (Given - Provider: Mary Badillo RN)202 (Given - Provider: Vanessa Anderson RN) 0855 (Given - Provider: Mary Badillo RN)1441 (Given - Provider: Mary Badillo, SANDI)1716 (Given - Provider: Mary Badillo RN)203 (Given - Provider: Vanessa Anderson RN) 0853 (Given - Provider: Diandra Estrada, SANDI)1612 (Given - Provider: Diandra Etsrada, SANDI)1754 (Not Given - Provider: Diandra Estrada RN - Reason: Order parameters not met) phosphorus (K Phos Neutral) tablet 1 tablet (COMPLETED) 1 tablet, Oral, Every 8 hours, 3 doses, First dose on Fri05/04/25 at 1015, Last dose on Fri05/05/25 at 0215, Routine 1135 (Given - Provider: Mary Badillo RN)1716 (Given - Provider: Mary Badillo, SANDI) 022 (Given - Provider: Vanessa Anderson, SANDI) polyethylene glycol (Miralax) packet 17 g 17 g, Oral, 2 times daily, First dose on Fri04/28/25 at 0930, Until Discontinued, Routine 1028 (Not Given - Provider: Mary Badillo RN - Reason: Patient/family refused)2016 (Not Given - Provider: Vanessa Anderson RN - Reason: Patient/family refused - Comment: loose stools) 0923 (Not Given - Provider: Mary Badillo RN - Reason: Patient/family refused)2022 (Not Given - Provider: Vanessa Anderson RN - Reason: Patient/family refused) 0853 (Given - Provider: Diandra Estrada, RN) senna-docusate (Kamille-Colace) 8.6-50 MG per tablet 2 tablet 2 tablet, Oral, 2 times daily, First dose on 04/30/25 at 2100, Until Discontinued, Routine 0909 (Given - Provider: Mary Badillo, SANDI)2016 (Not Given - Provider: Vanessa Anderson RN - Reason: Patient/family refused - Comment: loose stools) 922 (Not Given - Provider: Mary Badillo RN - Reason: Patient/family refused)2023 (Not Given - Provider: Vanessa Anderson RN - Reason: Patient/family refused) 0853 (Given - Provider: Diandra Estrada, SANDI) sodium chloride 0.9 % flush 10 mL(Linked Group 1) 10 mL, Intravenous, Every 12 hours, First dose on 04/22/25 at 1645, Until Discontinued, Routine 0442 (Given - Provider: Vanessa Haas RN)1634 (Given - Provider: Mary Badillo, SANDI) 0440 (Given - Provider: Vanessa Anderson, SANDI)1632 (Given - Provider: Mary Badillo, SANDI) 0419 (Given - Provider: Vanessa Anderson RN)1645 (Canceled Entry - Provider: Diandra Estrada, SANDI) sodium chloride 7 % nebulizer solution 4 mL (CANCELED) 4 mL, Nebulization, 2 times daily, First dose on 05/02/25 at 1000, Until Discontinued, Routine 0912 (Given - Provider: Arturo Escobar)2139 (Given - Provider: Lainey Rowe) PRN Medication Order 05/03/2025 05/04/2025 05/05/2025 ipratropium-albuterol (Duo-Neb) 0.5-2.5 mg/3 mL nebulizer solution 3 mL 3 mL, Nebulization, Every 6 hours PRN, Starting on 05/01/25 at 0745, Until Marina 05/05/25 at 2011, Routine, wheezing, shortness of breath 0921 (Given - Provider: Letty Mishra) ondansetron ODT (Zofran-ODT) disintegrating tablet 4 mg(Linked Group 2) 4 mg, Oral, Every 6 hours PRN, Starting on Fri04/22/25 at 1638, Until Fri05/05/25 at 2010, Routine, nausea, vomiting 0853 (Given - Provider: Diandra Estrada, SANDI) oxyCODONE (Roxicodone) immediate release tablet 5 mg 5 mg, Oral, Every 6 hours PRN, Starting on Fri04/25/25 at 0655, Until Fri05/05/25 at 2010, Routine, severe pain 0910 (Given - Provider: Mary Badillo, SANDI)1416 (Return to Cabinet - Provider: Mary Badillo, SANDI)1849 (Given - Provider: Mary Badillo, SANDI) 0856 (Return to Cabinet - Provider: Mary Badillo RN)203 (Given - Provider: Vanessa Anderson RN) sodium chloride 0.9 % flush 10 mL(Linked Group 1) 10 mL, Intravenous, As needed, Starting on Fri04/22/25 at 1635, Until Fri05/05/25 at 2010, Routine, line care Linked Groups Order Group 1: Insert peripheral IV (CANCELED) Once, On Fri04/22/25 at 1636, For 1 occurrence And Saline lock IV (CANCELED) Once, On Fri04/22/25 at 1636, For 1 occurrence And sodium chloride 0.9 % flush 10 mLJump to med 10 mL, Intravenous, Every 12 hours, First dose on Fri04/22/25 at 1645, Until Discontinued, Routine And sodium chloride 0.9 % flush 10 mLJump to med 10 mL, Intravenous, As needed, Starting on Fri04/22/25 at 1635, Until Fri05/05/25 at 2010, Routine, line care Group 2: ondansetron ODT (Zofran-ODT) disintegrating tablet 4 mgJump to med 4 mg, Oral, Every 6 hours PRN, Starting on Fri04/22/25 at 1638, Until Fri05/05/25 at 2010, Routine, nausea, vomiting Or ondansetron (Zofran) injection 4 mg (CANCELED) 4 mg, Intravenous, Every 6 hours PRN, Starting on Fri04/22/25 at 1638, Until 05/04/25 at 0929, Routine, vomiting, nausea Or ondansetron (Zofran) 4 MG/5ML solution 4 mg (CANCELED) 4 mg, Oral, Every 6 hours PRN, Starting on 04/22/25 at 1638, Until Marina 04/28/25 at 0838, Routine, nausea, vomiting documented in this encounter Additional Health Concerns Assessment Noted Time A Body Mass Index follow-up plan has been documented for the patient 05/05/2025 1:06 PM EDT documented as of this encounter Care Teams Aquatic Physiotherapist Relationship Specialty Start Date End Date Pcp, [address] [place] [address] PCP - General Family Medicine 04/22/25 documented as of this encounter
--- OUTSIDE RECORDS SUMMARY | 2025-06-09 21:01 | XMS_ITS | Continuity of Care Document ---
Author Organization [facility] Phone Care Team Providers Care Cafeteria Director Name Role Phone NO, DEFINED P Unavailable Unavailable ALBANIA DURAN Primary Attending ALBANIA DURAN Admitting NO, DEFINED P Primary Care Unavailable ALLERGIES AND ADVERSE REACTIONS ALLERGIES AND ADVERSE REACTIONS Code System Allergy Substance Adverse Reaction Date Reaction (Severity) Comment Status Reported By Updated By Yury (Free Text Allergy) Adverse reaction to substance Pt daughter active Sister, Brother, Aunt, Uncle, etc. [id number] on June 03, 2025 9:43:34 PM UTC ASSESSMENTS Pulmonary embolism ; Metastatic renal cell carcinoma ; PROBLEMS PATIENT PROBLEMS Code Description/Comments Category Status Upda heena By [id number] Sepsis completed [id number] on May 2:47:11 PM UT [id number] Pulmonary embolism active [id number] on June 05, 2025 1:59:16 PM UT [id number] Metastatic renal cell carcinoma acti ve [id number] on June 05, 2025 1:59:16 PM UT RESULTS Patient: LIZETT Bhatia Date of : 1945 0 LABORATORY RESULTS ORDER 300: COMP METABOLIC PA SUZANNE (LOINC: 81295-8) ORDER DATE: June 03, 2025 3:50:00 PM UTC Specimen Source: PLASMA Specimen Type: Plasma specim en PERFORMING LAB: [address] [id number] Result Comment: Final Result Date: June 03, 2025 4:38:00 PM UT (TECH: ADB) LOINC TEST FLAG RESULT REFERENCE RANGE UPDA HEENA BY 2951-2 Sodium [Moles/volume ] in Serum or Plasma N 142 mmol/L 136 mmol/L - 145 mmol/L June 03, 2025 4:37:00 PM UTC (TECH: ADB) 2823-3 Potassium [Moles/volume] in Serum or Plasma N 4.2 mmol/L 3.6 mmol/L - 5.0 mmol/L June 03, 2025 4:37:00 PM UTC (TECH: ADB) 2075-0 Chloride [Moles/volume] in Serum or Plasma H 109 mmol/L 98 mmol/L - 107 mmol/L June 03, 2025 4:37:00 PM UTC (TECH: ADB) 8-9 Carbon dioxide, tota l [Moles/volume] in Serum or Plasma N 27.6 mmol/L 21.0 mmol/L - 32.0 mmol/L June 03, 2025 4:37:00 PM UTC (TECH: ADB) 40713-4 Anion gap in Blood N 9.6 N ov2024 4:37:00 PM UTC (TECH: ADB) 2345-7 Glucose [Mass/volume ] in Serum or Plasma N 105 mg/dl 70 mg/dl - 120 mg/dl June 03, 2025 4:37:00 PM UTC (TECH: ADB) 6299-2 Urea nitrogen [Mass/volume] in Blood H 33 mg/dL 7 mg/dL - 18 mg/dL June 03, 2025 4:37:00 PM UTC (TECH: ADB) 28256-8 Creatinine [Moles/volume] in Blood H 1.5 mg/dL 0.6 mg/dL - 1.3 mg/dL June 03, 2025 4:37:00 PM UTC (TECH: ADB) 84449-2 Glomerular filtratio n rate/1.73 sq M.predicted by Creatinine-based formula (MDRD) L 46 mlpermin 60 mlpermin June 03, 2025 4:37:00 PM UTC (TECH: ADB) 59283-9 Osmolality of Serum or Plasma by calculated by sum of electrolytes H 303 mosm/kg 275 mosm/kg - 301 mosm/kg June 03, 2025 4:37:00 PM UTC (TECH: ADB) 2185-2 Protein [Mass/volume ] in Serum or Plasma N 6.8 g/dl 6.4 g/dl - 8.2 g/dl June 03, 2025 4:38:00 PM UTC (TECH: ADB) 1751-7 Albumin [Mass/volume ] in Serum or Plasma L 2.3 g/dl 3.4 g/dl - 5.0 g/dl June 03, 2025 4:38:00 PM UTC (TECH: ADB) 2336-6 Globulin [Mass/volum e] in Serum N 4.5 June 03, 2025 4:38:00 PM UTC (TECH: ADB) 1759-0 Albumin/Globulin [Ma ss Ratio] in Serum or Plasma L 0.5 0.7 - 2 June 03, 2025 4:38:00 PM UTC (TECH: ADB) 93259-5 Calcium [Mass/volume ] in Serum or Plasma H 11.1 mg/dl 8.5 mg/dl - 10.5 mg/dl June 03, 2025 4:37:00 PM UTC (TECH: ADB) 1975-2 Bilirubin.total [Mass/volume] in Serum or Plasma N 0.80 mg/dL 0.10 mg/dL - 1.00 mg/dL June 03, 2025 4:38:00 PM UTC (TECH: ADB) 1920-8 Aspartate aminotransferase [Enzymatic activity/volume] in Serum or Plasma H 41 U/L 0 U/L - 37 U/L June 03, 2025 4:38:00 PM UTC (TECH: ADB) 1742-6 Alanine aminotransferase [Enzymatic activity/volume] in Serum or Plasma N 21 U/L 0 U/L - 65 U/L June 03, 2025 4:38:00 PM UT (TECH: ADB) 6768-6 Alkaline phosphatase [Enzymatic activity/volume] in Serum or Plasma H 323 U/L 46 U/L - 116 U/L June 03, 2025 4:38:00 PM UTC (TECH: ADB) ORDER 400: CBC AUTO W DIFF ( LOINC: 98087-2) ORDER DATE: June 03, 2025 3:50:00 PM [place] Specimen Source: EDTA Specimen Type: Blood specime n with EDTA PERFORMING LAB: [address] [id number] Result Comment: Final Result Date: June 03, 2025 5:36:00 PM UT (TECH: MH2) LOINC TEST FLAG RESULT REFERENCE RANGE UPDA HEENA BY 6690-2 Leukocytes [#/volume] in Blood by Automated count H 17.8 K/ul 4.0 K/ul - 10.5 K/ul June 03, 2025 5:36:00 PM UTC (TECH: [employer]) 789-8 Erythrocytes [#/volume] in Blood by Automated count L 3.7 M/mm3 4.7 M/mm3 - 6.1 M/mm3 June 03, 2025 5:36:00 PM UTC (TECH: [employer]) 718-7 Hemoglobin [Mass/volume] in Blood L 10.0 gm/dl 13.5 gm/dl - 18.0 gm/dl June 03, 2025 5:36:00 PM UTC (TECH: [employer]) 80001-4 Hematocrit [Volume Fraction] of Blood L 32.7 % 42.0 % - 52.0 % June 03, 2025 5:36:00 PM UTC (TECH: [employer]) 787-2 Erythrocyte mean corpuscular volume [Entitic volume] by Automated count N 89.3 fl 78 fl - 100 fl June 03, 2025 5:36:00 PM UTC (TECH: [employer]) 785-6 Erythrocyte mean corpuscular hemoglobin [Entitic mass] by Automated count N 27.3 pg 27 pg - 31 pg June 03, 2025 5:36:00 PM UTC (TECH: [employer]) 786-4 Erythrocyte mean corpuscular hemoglobin concentration [Mass/volume] by Automated count L 30.6 g/dl 32 g/dl - 36 g/dl June 03, 2025 5:36:00 PM UTC (TECH: [employer]) 42306-4 Erythrocyte distribution width [Ratio] H 17.2 % 11.5 % - 14.0 % June 03, 2025 5:36:00 PM UTC (TECH: [employer]) 777-3 Platelets [#/volume] in Blood by Automated count N 159 K/ul 150 K/ul - 450 K/ul June 03, 2025 5:36:00 PM UTC (TECH: [employer]) 62439-5 Platelet mean volume [Entitic volume] in Blood by Automated count H 11.4 fl 6 fl - 9.5 fl June 03, 2025 5:36:00 PM UTC (TECH: [employer]) 70351-4 Neutrophils/100 leukocytes in Blood H 90.0 % 43 % - 65 % June 03, 2025 5:36:00 PM UTC (TECH: [employer]) 736-9 Lymphocytes/100 leukocytes in Blood by Automated count L 5.1 % 20.5 % - 45.5 % June 03, 2025 5:36:00 PM UTC (TECH: [employer]) 5905-5 Monocytes/100 leukocytes in Blood by Automated count L 3.8 % 5.5 % - 11.7 % June 03, 2025 5:36:00 PM UTC (TECH: [employer]) 713-8 Eosinophils/100 leukocytes in Blood by Automated count L 0.3 % 0.9 % - 2.9 % June 03, 2025 5:36:00 PM UTC (TECH: [employer]) 706-2 Basophils/100 leukocytes in Blood by Automated count N 0.3 % 0.2 % - 1.0 % June 03, 2025 5:36:00 PM UTC (TECH: [employer]) 20587-8 Immature granulocytes/100 leukocytes in Blood by Automated count N 0.5 % 0.0 % - 0.8 % June 03, 2025 5:36:00 PM UTC (TECH: [employer]) 54688-8 Nucleated cells [#/volume] in Blood N 0.0 % June 03, 2025 5:36:00 PM UTC (TECH: [employer]) 40206-7 Neutrophils [#/volume] in Blood H 16.0 K/uL 2.2 K/uL - 4.8 K/uL June 03, 2025 5:36:00 PM UTC (TECH: [employer]) 731-0 Lymphocytes [#/volume] in Blood by Automated count L 0.9 CELL/MCL 1.3 CELL/MCL - 2.9 CELL/MCL June 03, 2025 5:36:00 PM UTC (TECH: [employer]) 742-7 Monocytes [#/volume] in Blood by Automated count N 0.7 CELL/MCL 0.3 CELL/MCL - 0.8 CELL/MCL June 03, 2025 5:36:00 PM UTC (TECH: [employer]) 711-2 Eosinophils [#/volume] in Blood by Automated count N 0.1 CELL/MCL 0 CELL/MCL - 0.2 CELL/MCL June 03, 2025 5:36:00 PM UTC (TECH: [employer]) 704-7 Basophils [#/volume] in Blood by Automated count N 0.1 CELL/MCL 0.0 CELL/MCL - 1.0 CELL/MCL June 03, 2025 5:36:00 PM UTC (TECH: [employer]) 60047-0 Immature granulocytes [#/volume] in Blood N 0.09 K/ul June 03, 2025 5:36:00 PM UTC (TECH: [employer]) 73299-9 Nucleated cells [#/volume] in Blood N 0.00 K/uL June 03, 2025 5:36:00 PM UTC (TECH: [employer]) 05019-2 Manual Differential panel - Blood N YES June 03, 2025 5:36:00 PM UTC (TECH: [employer]) 79404-2 Neutrophils.segmente d/100 leukocytes in Blood by Automated count H 92 % 42 % - 76 % June 03, 2025 5:36:00 PM UTC (TECH: [employer]) 736-9 Lymphocytes/100 leukocytes in Blood by Automated count L 6 % 15 % - 41 % June 03, 2025 5:36:00 PM UTC (TECH: [employer]) 713-8 Eosinophils/100 leukocytes in Blood by Automated count N 2 % 0 % - 3 % June 03, 2025 5:36:00 PM UTC (TECH: [employer]) 778-1 Platelets [#/volume] in Blood by Manual count N ADEQUATE ADEQUATE June 03, 2025 5:36:00 PM UTC (TECH: [employer]) 9317-9 Platelet adequacy [Presence] in Blood by Light microscopy N NORMAL NORMAL June 03, 2025 5:36:00 PM UTC (TECH: [employer]) 77399-3 Erythrocytes [Morphology] in Blood by Automated count ABNORMAL NORMAL June 03, 2025 5:36:00 PM UTC (TECH: MH2) 702-1 Anisocytosis [Presence] in Blood by Light microscopy N 1+ NONE SEEN June 03, 2025 5:36:00 PM UTC (TECH: MH2) 741-9 Microcytes [Presence] in Blood by Light microscopy N SLIGHT NONE SEEN June 03, 2025 5:36:00 PM UTC (TECH: [employer]) ORDER 500: LACTIC ACID (LOIN C: 2524-7) ORDER DATE: June 03, 2025 3:50:00 PM UTC Specimen Source: PLASMA Specimen Type: Plasma specim en PERFORMING LAB: [address] [id number] Result Comment: Final Result Date: June 03, 2025 4:38:00 PM UTC (TECH: ADB) LOINC TEST FLAG RESULT REFERENCE RANGE UPDA HEENA BY 2524-7 Lactate [Moles/volume] in Serum or Plasma N 1.5 mmol/L 0.4 mmol/L - 2.0 mmol/L June 03, 2025 4:38:00 PM UTC (TECH: ADB) ORDER 600: PT PROTHROMBIN TI ME W INR (LOINC: 19820-3) ORDER DATE: June 03, 2025 3:50:00 PM UTC Specimen Source: PLASMA Specimen Type: Plasma specim en PERFORMING LAB: [address] [id number] Result Comment: Final Result Date: June 03, 2025 4:38:00 PM UTC (TECH: ADB) LOINC TEST FLAG [place] [address]-8 INR in Platelet poor plasma or blood by Coagulation assay N 11.0 SECONDS 9.3 SECONDS - 11.4 SECONDS June 03, 2025 4:38:00 PM UTC (TECH: ADB) 6301-6 INR in Platelet poor plasma by Coagulation assay N 1.0 Ratio 0.97 Ratio - 1.05 Ratio June 03, 2025 4:38:00 PM UTC (TECH: ADB) ORDER 700: PROCALCITONIN (LO INC: 25280-6) ORDER DATE: June 03, 2025 3:50:00 PM UTC Specimen Source: PLASMA Specimen Type: Plasma specim en PERFORMING LAB: [address] [id number] Result Comment: Final Result Date: June 03, 2025 4:46:00 PM UTC (TECH: ADB) LOINC TEST FLAG [place] [address]-1 Procalcitonin [Mass/volume] in Serum or Plasma by Immunoassay H 1.38 ng/mL 0.00 ng/mL - 0.5 ng/mL June 03, 2025 4:46:00 PM UTC (TECH: ADB) ORDER 800: PTT PARTIAL THROM B TIME (LOINC: 3173-2) ORDER DATE: June 03, 2025 3:50:00 PM UTC Specimen Source: PLASMA Specimen Type: Plasma specim en PERFORMING LAB: [address] [id number] Result Comment: Final Result Date: June 03, 2025 4:38:00 PM UTC (TECH: ADB) LOINC TEST FLAG RESULT REFERENCE RANGE UPDA HEENA BY 3173-2 Activated partial thromboplastin time (aPTT) in Blood by Coagulation assay L 23.8 SECONDS 24.5 SECONDS - 32.8 SECONDS June 03, 2025 4:38:00 PM UTC (TECH: ADB) ORDER 900: URINALYSIS REFLEX MICROSCOPIC (LOINC: 08869-0) ORDER DATE: June 03, 2025 3:50:00 PM UTC Specimen Source: URINE Specimen Type: Urine specime n PERFORMING LAB: [address] [id number] Result Comment: Final Result Date: June 03, 2025 6:14:00 PM UTC (TECH: MH2) LOINC TEST FLAG RESULT REFERENCE RANGE UPDA HEENA BY 5778-6 Color of Urine N STEPHIE YELLOW Novem 2024 6:14:00 PM UTC (TECH: MH2) 5767-9 Appearance of Urine N TURBID CLEAR June 03, 2025 6:14:00 PM UTC (TECH: MH2) 5792-7 Glucose [Mass/volume] in Urine by Test strip 250 NORMAL June 03, 2025 6:14:00 PM UTC (TECH: MH2) 55462-0 Bilirubin.total [Mass/volume] in Urine by Automated test strip N NEGATIVE NEGATIVE June 03, 2025 6:14:00 PM UTC (TECH: MH2) 5797-6 Ketones [Mass/volume] in Urine by Test strip N NEGATIVE NEGATIVE June 03, 2025 6:14:00 PM UTC (TECH: MH2) 2965-2 Specific gravity of Urine L 1.015 1.016 - 1.022 June 03, 2025 6:14:00 PM UTC (TECH: MH2) 90275-3 Erythrocytes [#/volume] in Urine by Automated test strip N 10 NEGATIVE June 03, 2025 6:14:00 PM UTC (TECH: MH2) 09899-9 pH of Urine by Automated test strip N 5 5 - 9 May 6:14:00 PM UTC (TECH: MH2) 82958-7 Protein [Presence] in Urine by Test strip N TNP NEGATIVE June 03, 2025 6:14:00 PM UTC (TECH: MH2) 75255-5 Urobilinogen [Mass/volume] in Urine by Automated test strip N norm NORMAL June 03, 2025 6:14:00 PM UTC (TECH: MH2) 97883-1 Nitrate [Presence] in Urine N NEGATIVE NEGATIVE June 03, 2025 6:14:00 PM UTC (TECH: MH2) 00511-2 Leukocytes [#/volume] in Urine by Test strip 500 NEGATIVE June 03, 2025 6:14:00 PM UTC (TECH: MH2) 56621-9 Urinalysis dipstick W Reflex Culture panel - Urine N NO June 03, 2025 6:14:00 PM UTC (TECH: MH2) 59425-0 Erythrocytes [#/area] in Urine sediment by Microscopy high power field N 1-5 NONE SEEN June 03, 2025 6:14:00 PM UTC (TECH: MH2) 5821-4 Leukocytes [#/area] in Urine sediment by Microscopy high power field 6-10 NONE SEEN June 03, 2025 6:14:00 PM UTC (TECH: MH2) 32826-8 Epithelial cells.squamous [#/area] in Urine sediment by Microscopy high power field N NONE SEEN NONE SEEN June 03, 2025 6:14:00 PM UTC (TECH: MH2) 5769-5 Bacteria [#/area] in Urine sediment by Microscopy high power field N RARE NONE SEEN June 03, 2025 6:14:00 PM UTC (TECH: MH2) 34061-6 Fungi.yeastlike [Presence] in Urine sediment by Light microscopy N 3+ NONE SEEN June 03, 2025 6:14:00 PM UTC (TECH: MH2) ORDER 1100: ER VENOUS BLOOD GAS (LOINC: 24429-2) ORDER DATE: June 03, 2025 3:50:00 PM UTC Specimen Source: WHOLE BLOOD Specimen Type: Whole blood s ample PERFORMING LAB: [address] [id number] Result Comment: Final Result Date: June 03, 2025 4:57:00 PM UTC (TECH: KP) LOINC TEST FLAG RESULT REFERENCE RANGE UPDA HEENA BY 2746-6 pH of Venous blood N 7.49 pH Units 7.24 pH Units - 7.49 pH Units June 03, 2025 4:57:00 PM UTC (TECH: KP) 1-4 Carbon dioxide [Partial pressure] in Venous blood L 34.6 MMHG 41 MMHG - 51 MMHG June 03, 2025 4:57:00 PM UTC (TECH: KP) 2705-2 Oxygen [Partial pressure] in Venous blood H >144 MMHG - 40 MMHG June 03, 2025 4:57:00 PM UTC (TECH: KP) 72894-8 Bicarbonate [Moles/volume] in Venous blood N 25.9 MEQ/L 22 MEQ/L - 26 MEQ/L June 03, 2025 4:57:00 PM UTC (TECH: KP) 2711-0 Oxygen saturation in Venous blood H 99.3 % - 60 % June 03, 2025 4:57:00 PM UTC (TECH: KP) 8310-5 Body temperature N 37.0 C Nov emb2024 4:57:00 PM UTC (TECH: KP) 37234-9 Report comment Narrative N ARTERIAL BLOOD June 03, 2025 4:57:00 PM UTC (TECH: KP) ORDER 1200: RESPIRATORY PANE L RP (LOINC: 34565-8) ORDER DATE: June 03, 2025 3:50:00 PM UTC Specimen Source: [employer] Specimen Type: Nasopharyngea l airway insertion PERFORMING LAB: [address] [id number] Result Comment: Final Result Date: June 03, 2025 4:59:00 PM UTC (TECH: ADB) LOINC TEST FLAG [place] [address]-1 Adenovirus DNA [Presence] in Nasopharynx by Target amplification with non-probe based detection N NOT DETECTED NOT DETECTED June 03, 2025 4:59:00 PM UTC (TECH: ADB) 27261-1 Bordetella parapertussis [id number] DNA [Presence] in Nasopharynx by MACKENZIE with non-probe detection N NOT DETECTED NOT DETECTED June 03, 2025 4:59:00 PM UTC (TECH: ADB) 75028-9 Human coronavirus 229E RNA [Presence] in Nasopharynx by Target amplification with non-probe based detection N NOT DETECTED NOT DETECTED June 03, 2025 4:59:00 PM UTC (TECH: ADB) 44740-6 Human coronavirus HKU1 RNA [Presence] in Nasopharynx by Target amplification with non-probe based detection N NOT DETECTED NOT DETECTED June 03, 2025 4:59:00 PM UTC (TECH: ADB) 13420-0 Human coronavirus NL63 RNA [Presence] in Nasopharynx by Target amplification with non-probe based detection N NOT DETECTED NOT DETECTED June 03, 2025 4:59:00 PM UTC (TECH: ADB) 85936-7 Human coronavirus OC43 RNA [Presence] in Nasopharynx by Target amplification with non-probe based detection N NOT DETECTED NOT DETECTED June 03, 2025 4:59:00 PM UTC (TECH: ADB) 49296-0 Human metapneumoviru s RNA [Presence] in Nasopharynx by Target amplification with non-probe based detection N NOT DETECTED NOT DETECTED June 03, 2025 4:59:00 PM UTC (TECH: ADB) 64035-6 Rhinovirus+Enterovir u s RNA [Presence] in Nasopharynx by Target amplification with non-probe based detection N NOT DETECTED NOT DETECTED June 03, 2025 4:59:00 PM UTC (TECH: ADB) 42617-9 Influenza virus A RN A [Presence] in Nasopharynx by Target amplification with non-probe based detection N NOT DETECTED NOT DETECTED June 03, 2025 4:59:00 PM UTC (TECH: ADB) 88406-2 Influenza virus A H1 RNA [Presence] in Nasopharynx by Target amplification with non-probe based detection N N/A NOT DETECTED June 03, 2025 4:59:00 PM UTC (TECH: ADB) 61908-5 Influenza virus A H1 2009 pandemic RNA [Presence] in Nasopharynx by Target amplification with non-probe based detection N N/A NOT DETECTED June 03, 2025 4:59:00 PM UTC (TECH: ADB) 96924-0 Influenza virus A H3 RNA [Presence] in Nasopharynx by Target amplification with non-probe based detection N N/A NOT DETECTED June 03, 2025 4:59:00 PM UTC (TECH: ADB) 59098-7 Influenza virus B RN A [Presence] in Nasopharynx by Target amplification with non-probe based detection N NOT DETECTED NOT DETECTED June 03, 2025 4:59:00 PM UTC (TECH: ADB) 03916-0 Parainfluenza virus 1 RNA [Presence] in Nasopharynx by Target amplification with non-probe based detection N NOT DETECTED NOT DETECTED June 03, 2025 4:59:00 PM UTC (TECH: ADB) 71095-6 Parainfluenza virus 2 RNA [Presence] in Nasopharynx by Target amplification with non-probe based detection N NOT DETECTED NOT DETECTED June 03, 2025 4:59:00 PM UTC (TECH: ADB) 52410-7 Parainfluenza virus 3 RNA [Presence] in Nasopharynx by Target amplification with non-probe based detection N NOT DETECTED NOT DETECTED June 03, 2025 4:59:00 PM UTC (TECH: ADB) 53270-5 Parainfluenza virus 4 RNA [Presence] in Nasopharynx by Target amplification with non-probe based detection N NOT DETECTED NOT DETECTED June 03, 2025 4:59:00 PM UTC (TECH: ADB) 12336-0 Respiratory syncytia l virus RNA [Presence] in Nasopharynx by Target amplification with non-probe based detection N NOT DETECTED NOT DETECTED June 03, 2025 4:59:00 PM UTC (TECH: ADB) 08533-6 Bordetella pertussis toxin promoter region [Presence] in Nasopharynx by Target amplification with non-probe based detection N NOT DETECTED NOT DETECTED June 03, 2025 4:59:00 PM UTC (TECH: ADB) 15496-3 Chlamydophila pneumoniae DNA [Presence] in Nasopharynx by Target amplification with non-probe based detection N NOT DETECTED NOT DETECTED June 03, 2025 4:59:00 PM UTC (TECH: ADB) 71270-8 Mycoplasma pneumonia e DNA [Presence] in Nasopharynx by Target amplification with non-probe based detection N NOT DETECTED NOT DETECTED June 03, 2025 4:59:00 PM UTC (TECH: ADB) 19796-5 SARS-CoV-2 (COVID-19 ) RNA [Presence] in Nasopharynx by MACKENZIE with non-probe detection N NOT DETECTED NOT DETECTED June 03, 2025 4:59:00 PM UT (TECH: ADB) ORDER 2100: BASIC METABOLIC PANEL (LOINC: 69088-3) ORDER DATE: June 03, 2025 8:53:00 PM UTC Specimen Source: PLASMA Specimen Type: Plasma specim en PERFORMING LAB: [address] [id number] Result Comment: Final Result Date: June 04, 2025 10:28:00 AM UT (TECH: AH1) LOINC TEST FLAG RESULT REFERENCE RANGE UPDA HEENA BY 2951-2 Sodium [Moles/volume] in Serum or Plasma N 142 mmol/L 136 mmol/L - 145 mmol/L June 04, 2025 10:28:00 AM UT (TECH: AH1) 2823-3 Potassium [Moles/volume] in Serum or Plasma N 3.9 mmol/L 3.6 mmol/L - 5.0 mmol/L June 04, 2025 10:28:00 AM UT (TECH: AH1) 5-0 Chloride [Moles/volume] in Serum or Plasma H 110 mmol/L 98 mmol/L - 107 mmol/L June 04, 2025 10:28:00 AM UT (TECH: AH1) 8-9 Carbon dioxide, total [Moles/volume] in Serum or Plasma N 25.1 mmol/L 21.0 mmol/L - 32.0 mmol/L June 04, 2025 10:28:00 AM UT (TECH: AH1) 26359-8 Anion gap in Blood N 10.8 N ov2024 10:28:00 AM UTC (TECH: AH1) 2345-7 Glucose [Mass/volume] in Serum or Plasma N 94 mg/dl 70 mg/dl - 120 mg/dl June 04, 2025 10:28:00 AM UT (TECH: AH1) 6299-2 Urea nitrogen [Mass/volume] in Blood H 32 mg/dL 7 mg/dL - 18 mg/dL June 04, 2025 10:28:00 AM UT (TECH: AH1) 00408-1 Creatinine [Moles/volume] in Blood N 1.3 mg/dL 0.6 mg/dL - 1.3 mg/dL June 04, 2025 10:28:00 AM UT (TECH: [employer]) 23824-3 Glomerular filtration rate/1.73 sq M.predicted by Creatinine-based formula (MDRD) L 55 mlpermin 60 mlpermin June 04, 2025 10:28:00 AM UT (TECH: [employer]) 86157-7 Osmolality of Serum or Plasma by calculated by sum of electrolytes H 302 mosm/kg 275 mosm/kg - 301 mosm/kg June 04, 2025 10:28:00 AM UT (TECH: [employer]) 05058-2 Calcium [Mass/volume] in Serum or Plasma H 10.9 mg/dl 8.5 mg/dl - 10.5 mg/dl June 04, 2025 10:28:00 AM [facility] (TECH: [employer]) ORDER 2101: BASIC METABOLIC PANEL (LOINC: 94633-2) ORDER DATE: June 03, 2025 8:53:00 PM UT Specimen Source: PLASMA Specimen Type: Plasma specim en PERFORMING LAB: [address] [id number] Result Comment: Final Result Date: June 05, 2025 10:11:00 AM [facility] (TECH: [employer]) LOINC TEST FLAG RESULT REFERENCE RANGE UPDA HEENA BY 2951-2 Sodium [Moles/volume] in Serum or Plasma N 143 mmol/L 136 mmol/L - 145 mmol/L June 05, 2025 10:11:00 AM UT (TECH: [employer]) 2823-3 Potassium [Moles/volume] in Serum or Plasma N 3.9 mmol/L 3.6 mmol/L - 5.0 mmol/L June 05, 2025 10:11:00 AM UT (TECH: [employer]) 2075-0 Chloride [Moles/volume] in Serum or Plasma H 110 mmol/L 98 mmol/L - 107 mmol/L June 05, 2025 10:11:00 AM UT (TECH: [employer]) 2027-9 Carbon dioxide, total [Moles/volume] in Serum or Plasma N 26.6 mmol/L 21.0 mmol/L - 32.0 mmol/L June 05, 2025 10:11:00 AM UT (TECH: [employer]) 94596-0 Anion gap in Blood N 10.3 N ov2024 10:11:00 AM UT (TECH: [employer]) 2345-7 Glucose [Mass/volume] in Serum or Plasma N 88 mg/dl 70 mg/dl - 120 mg/dl June 05, 2025 10:11:00 AM [facility] (TECH: [employer]) 6299-2 Urea nitrogen [Mass/volume] in Blood H 30 mg/dL 7 mg/dL - 18 mg/dL June 05, 2025 10:11:00 AM [facility] (TECH: [employer]z) 26472-0 Creatinine [Moles/volume] in Blood N 1.2 mg/dL 0.6 mg/dL - 1.3 mg/dL June 05, 2025 10:11:00 AM [facility] (TECH: [employer]) 96984-5 Glomerular filtration rate/1.73 sq M.predicted by Creatinine-based formula (MDRD) N 61 mlpermin 60 mlpermin June 05, 2025 10:11:00 AM [facility] (TECH: [employer]) 88113-7 Osmolality of Serum or Plasma by calculated by sum of electrolytes H 303 mosm/kg 275 mosm/kg - 301 mosm/kg June 05, 2025 10:11:00 AM [facility] (TECH: [employer]) 72429-9 Calcium [Mass/volume] in Serum or Plasma H 10.8 mg/dl 8.5 mg/dl - 10.5 mg/dl June 05, 2025 10:11:00 AM [facility] (TECH: Techoz) ORDER 2103: BASIC METABOLIC PANEL (LOINC: 53245-5) ORDER DATE: June 03, 2025 8:53:00 PM [facility] Specimen Source: PLASMA Specimen Type: Plasma specim en PERFORMING LAB: [address] [id number] Result Comment: Final Result Date: June 06, 2025 10:10:00 AM [facility] (TECH: [facility]) LOINC TEST FLAG RESULT REFERENCE RANGE UPDA HEENA BY 2951-2 Sodium [Moles/volume] in Serum or Plasma H 146 mmol/L 136 mmol/L - 145 mmol/L June 06, 2025 10:10:00 AM [facility] (TECH: [email or web address]) 2823-3 Potassium [Moles/volume] in Serum or Plasma N 4.2 mmol/L 3.6 mmol/L - 5.0 mmol/L June 06, 2025 10:10:00 AM [facility] (TECH: [facility]) 5-0 Chloride [Moles/volume] in Serum or Plasma H 110 mmol/L 98 mmol/L - 107 mmol/L June 06, 2025 10:10:00 AM [facility] (TECH: [facility]) 2027-9 Carbon dioxide, total [Moles/volume] in Serum or Plasma N 29.5 mmol/L 21.0 mmol/L - 32.0 mmol/L June 06, 2025 10:10:00 AM [facility] (TECH: [facility]) 75091-0 Anion gap in Blood N 10.7 N ov2024 10:10:00 AM [facility] (TECH: [facility]) 1105-7 Glucose [Mass/volume] in Serum or Plasma N 97 mg/dl 70 mg/dl - 120 mg/dl June 06, 2025 10:10:00 AM [facility] (TECH: [facility]) 6299-2 Urea nitrogen [Mass/volume] in Blood H 23 mg/dL 7 mg/dL - 18 mg/dL June 06, 2025 10:10:00 AM [facility] (TECH: [facility]) 29047-1 Creatinine [Moles/volume] in Blood N 1.1 mg/dL 0.6 mg/dL - 1.3 mg/dL June 06, 2025 10:10:00 AM [facility] (TECH: [facility]) 29008-7 Glomerular filtration rate/1.73 sq M.predicted by Creatinine-based formula (MDRD) N 67 mlpermin 60 mlpermin June 06, 2025 10:10:00 AM [facility] (TECH: [facility]) 90853-0 Osmolality of Serum or Plasma by calculated by sum of electrolytes H 307 mosm/kg 275 mosm/kg - 301 mosm/kg June 06, 2025 10:10:00 AM [facility] (TECH: [facility]) 10140-6 Calcium [Mass/volume] in Serum or Plasma H 10.9 mg/dl 8.5 mg/dl - 10.5 mg/dl June 06, 2025 10:10:00 AM [facility] (TECH: [facility]) ORDER 2201: CBC AUTO W DIFF (LOINC: 81843-0) ORDER DATE: June 03, 2025 8:53:00 PM UTC Specimen Source: EDTA Specimen Type: Blood specime n with EDTA PERFORMING LAB: [facility] [address] [facility] [id number] Result Comment: Final Result Date: June 04, 2025 10:21:00 AM UT (TECH: [employer]) LOINC TEST FLAG RESULT REFERENCE RANGE UPDA HEENA BY 6690-2 Leukocytes [#/volume] in Blood by Automated count H 12.4 K/ul 4.0 K/ul - 10.5 K/ul June 04, 2025 10:21:00 AM UTC (TECH: [employer]) 789-8 Erythrocytes [#/volume] in Blood by Automated count L 3.5 M/mm3 4.7 M/mm3 - 6.1 M/mm3 June 04, 2025 10:21:00 AM UTC (TECH: [employer]) 718-7 Hemoglobin [Mass/volume] in Blood L 9.4 gm/dl 13.5 gm/dl - 18.0 gm/dl June 04, 2025 10:21:00 AM UTC (TECH: [employer]) 47143-3 Hematocrit [Volume Fraction] of Blood L 31.6 % 42.0 % - 52.0 % June 04, 2025 10:21:00 AM UTC (TECH: [employer]) 787-2 Erythrocyte mean corpuscular volume [Entitic volume] by Automated count N 91.1 fl 78 fl - 100 fl June 04, 2025 10:21:00 AM UTC (TECH: [employer]) 785-6 Erythrocyte mean corpuscular hemoglobin [Entitic mass] by Automated count N 27.1 pg 27 pg - 31 pg June 04, 2025 10:21:00 AM UTC (TECH: [employer]) 786-4 Erythrocyte mean corpuscular hemoglobin concentration [Mass/volume] by Automated count L 29.7 g/dl 32 g/dl - 36 g/dl June 04, 2025 10:21:00 AM UTC (TECH: [employer]) 09357-0 Erythrocyte distribution width [Ratio] H 17.2 % 11.5 % - 14.0 % June 04, 2025 10:21:00 AM UTC (TECH: [employer]) 777-3 Platelets [#/volume] in Blood by Automated count L 123 K/ul 150 K/ul - 450 K/ul June 04, 2025 10:21:00 AM UT (TECH: [employer] [facility]) 02197-6 Platelet mean volume [Entitic volume] in Blood by Automated count H 11.4 fl 6 fl - 9.5 fl June 04, 2025 10:21:00 AM UT (TECH: [employer]) 68552-3 Neutrophils/100 leukocytes in Blood H 84.7 % 43 % - 65 % June 04, 2025 10:21:00 AM UTC (TECH: [employer]) 736-9 Lymphocytes/100 leukocytes in Blood by Automated count L 7.4 % 20.5 % - 45.5 % June 04, 2025 10:21:00 AM UTC (TECH: [employer]) 5905-5 Monocytes/100 leukocytes in Blood by Automated count L 5.0 % 5.5 % - 11.7 % June 04, 2025 10:21:00 AM UT (TECH: [employer]) 713-8 Eosinophils/100 leukocytes in Blood by Automated count N 2.0 % 0.9 % - 2.9 % June 04, 2025 10:21:00 AM UT (TECH: [employer]) 706-2 Basophils/100 leukocytes in Blood by Automated count N 0.4 % 0.2 % - 1.0 % June 04, 2025 10:21:00 AM UT (TECH: [employer]) 94055-8 Immature granulocytes/100 leukocytes in Blood by Automated count N 0.5 % 0.0 % - 0.8 % June 04, 2025 10:21:00 AM UT (TECH: [employer]) 20484-7 Nucleated cells [#/volume] in Blood N 0.0 % June 04, 2025 10:21:00 AM UT (TECH: [employer]) 47652-5 Neutrophils [#/volume] in Blood H 10.5 K/uL 2.2 K/uL - 4.8 K/uL June 04, 2025 10:21:00 AM UTC (TECH: [employer]) 731-0 Lymphocytes [#/volume] in Blood by Automated count L 0.9 CELL/MCL 1.3 CELL/MCL - 2.9 CELL/MCL June 04, 2025 10:21:00 AM UTC (TECH: [employer]) 742-7 Monocytes [#/volume] in Blood by Automated count N 0.6 CELL/MCL 0.3 CELL/MCL - 0.8 CELL/MCL June 04, 2025 10:21:00 AM UTC (TECH: [employer]) 711-2 Eosinophils [#/volume] in Blood by Automated count H 0.3 CELL/MCL 0 CELL/MCL - 0.2 CELL/MCL June 04, 2025 10:21:00 AM UTC (TECH: [employer]) 704-7 Basophils [#/volume] in Blood by Automated count N 0.1 CELL/MCL 0.0 CELL/MCL - 1.0 CELL/MCL June 04, 2025 10:21:00 AM UTC (TECH: [employer]) 97873-8 Immature granulocytes [#/volume] in Blood N 0.06 K/ul June 04, 2025 10:21:00 AM UTC (TECH: [employer]) 31238-8 Nucleated cells [#/volume] in Blood N 0.00 K/uL June 04, 2025 10:21:00 AM UTC (TECH: [employer]) 99180-2 Manual Differential panel - Blood N NO June 04, 2025 10:21:00 AM UT (TECH: [employer]) ORDER 2202: CBC AUTO W DIFF (LOINC: 12529-7) ORDER DATE: June 03, 2025 8:53:00 PM UTC Specimen Source: EDTA Specimen Type: Blood specime n with EDTA PERFORMING LAB: [address] [id number] Result Comment: Final Result Date: June 05, 2025 10:17:00 AM UT (TECH: [employer]) LOINC TEST FLAG RESULT REFERENCE RANGE UPDA HEENA BY 6690-2 Leukocytes [#/volume] in Blood by Automated count N 10.2 K/ul 4.0 K/ul - 10.5 K/ul June 05, 2025 10:17:00 AM UTC (TECH: [employer]) 789-8 Erythrocytes [#/volume] in Blood by Automated count L 3.3 M/mm3 4.7 M/mm3 - 6.1 M/mm3 June 05, 2025 10:17:00 AM UTC (TECH: [employer]) 718-7 Hemoglobin [Mass/volume] in Blood L 9.1 gm/dl 13.5 gm/dl - 18.0 gm/dl June 05, 2025 10:17:00 AM UTC (TECH: [employer]) 58536-3 Hematocrit [Volume Fraction] of Blood L 30.4 % 42.0 % - 52.0 % June 05, 2025 10:17:00 AM UTC (TECH: [employer]) 787-2 Erythrocyte mean corpuscular volume [Entitic volume] by Automated count N 91.6 fl 78 fl - 100 fl June 05, 2025 10:17:00 AM UTC (TECH: [employer]) 785-6 Erythrocyte mean corpuscular hemoglobin [Entitic mass] by Automated count N 27.4 pg 27 pg - 31 pg June 05, 2025 10:17:00 AM UTC (TECH: [employer]) 786-4 Erythrocyte mean corpuscular hemoglobin concentration [Mass/volume] by Automated count L 29.9 g/dl 32 g/dl - 36 g/dl June 05, 2025 10:17:00 AM UTC (TECH: [employer]) 42182-8 Erythrocyte distribution width [Ratio] H 17.2 % 11.5 % - 14.0 % June 05, 2025 10:17:00 AM UTC (TECH: [employer]) 777-3 Platelets [#/volume] in Blood by Automated count L 148 K/ul 150 K/ul - 450 K/ul June 05, 2025 10:17:00 AM UTC (TECH: [employer]) 14801-3 Platelet mean volume [Entitic volume] in Blood by Automated count H 11.6 fl 6 fl - 9.5 fl June 05, 2025 10:17:00 AM UTC (TECH: [employer]) 46858-5 Neutrophils/100 leukocytes in Blood H 82.8 % 43 % - 65 % June 05, 2025 10:17:00 AM UTC (TECH: [employer]) 736-9 Lymphocytes/100 leukocytes in Blood by Automated count L 7.5 % 20.5 % - 45.5 % June 05, 2025 10:17:00 AM UTC (TECH: [employer]) 5905-5 Monocytes/100 leukocytes in Blood by Automated count L 5.4 % 5.5 % - 11.7 % June 05, 2025 10:17:00 AM UTC (TECH: [employer]) 713-8 Eosinophils/100 leukocytes in Blood by Automated count H 3.4 % 0.9 % - 2.9 % June 05, 2025 10:17:00 AM UTC (TECH: [employer]) 706-2 Basophils/100 leukocytes in Blood by Automated count N 0.4 % 0.2 % - 1.0 % June 05, 2025 10:17:00 AM UTC (TECH: [employer]) 84549-3 Immature granulocytes/100 leukocytes in Blood by Automated count N 0.5 % 0.0 % - 0.8 % June 05, 2025 10:17:00 AM UTC (TECH: [employer]) 69336-8 Nucleated cells [#/volume] in Blood N 0.0 % June 05, 2025 10:17:00 AM UTC (TECH: [employer]) 56923-0 Neutrophils [#/volume] in Blood H 8.4 K/uL 2.2 K/uL - 4.8 K/uL June 05, 2025 10:17:00 AM UTC (TECH: [employer]) 731-0 Lymphocytes [#/volume] in Blood by Automated count L 0.8 CELL/MCL 1.3 CELL/MCL - 2.9 CELL/MCL June 05, 2025 10:17:00 AM UTC (TECH: [employer]) 742-7 Monocytes [#/volume] in Blood by Automated count N 0.6 CELL/MCL 0.3 CELL/MCL - 0.8 CELL/MCL June 05, 2025 10:17:00 AM UTC (TECH: [employer]) 711-2 Eosinophils [#/volume] in Blood by Automated count H 0.4 CELL/MCL 0 CELL/MCL - 0.2 CELL/MCL June 05, 2025 10:17:00 AM UTC (TECH: [facility]) 704-7 Basophils [#/volume] in Blood by Automated count N 0.0 CELL/MCL 0.0 CELL/MCL - 1.0 CELL/MCL June 05, 2025 10:17:00 AM UTC (TECH: [employer]) 35472-7 Immature granulocytes [#/volume] in Blood N 0.05 K/ul June 05, 2025 10:17:00 AM UTC (TECH: [employer]) 83387-5 Nucleated cells [#/volume] in Blood N 0.00 K/uL June 05, 2025 10:17:00 AM UT (TECH: [employer]) 64474-0 Manual Differential panel - Blood N NO June 05, 2025 10:17:00 AM UTC (TECH: [employer]) 778-1 Platelets [#/volume] in Blood by Manual count N SL DECREASED ADEQUATE June 05, 2025 10:17:00 AM UTC (TECH: [employer]) 9317-9 Platelet adequacy [Presence] in Blood by Light microscopy N NORMAL NORMAL June 05, 2025 10:17:00 AM UTC (TECH: [employer]) 05632-3 Erythrocytes [Morphology] in Blood by Automated count ABNORMAL NORMAL June 05, 2025 10:17:00 AM UTC (TECH: [employer]) 702-1 Anisocytosis [Presence] in Blood by Light microscopy N 2+ NONE SEEN June 05, 2025 10:17:00 AM UT (TECH: [employer]) ORDER 2203: CBC AUTO W DIFF (LOINC: 07210-2) ORDER DATE: June 03, 2025 8:53:00 PM UTC Specimen Source: EDTA Specimen Type: Blood specime n with EDTA PERFORMING LAB: [address] [id number] Result Comment: Final Result Date: June 06, 2025 10:30:00 AM UT (TECH: [employer]) LOINC TEST FLAG RESULT REFERENCE RANGE UPDA HEENA BY 6690-2 Leukocytes [#/volume] in Blood by Automated count N 8.8 K/ul 4.0 K/ul - 10.5 K/ul June 06, 2025 10:30:00 AM UT (TECH: [employer]) 789-8 Erythrocytes [#/volume] in Blood by Automated count L 3.4 M/mm3 4.7 M/mm3 - 6.1 M/mm3 June 06, 2025 10:30:00 AM UT (TECH: [employer]) 718-7 Hemoglobin [Mass/volume] in Blood L 9.1 gm/dl 13.5 gm/dl - 18.0 gm/dl June 06, 2025 10:30:00 AM UTC (TECH: [employer]) 26488-4 Hematocrit [Volume Fraction] of Blood L 31.2 % 42.0 % - 52.0 % June 06, 2025 10:30:00 AM UTC (TECH: [employer]) 787-2 Erythrocyte mean corpuscular volume [Entitic volume] by Automated count N 92.0 fl 78 fl - 100 fl June 06, 2025 10:30:00 AM UTC (TECH: [employer]) 785-6 Erythrocyte mean corpuscular hemoglobin [Entitic mass] by Automated count L 26.8 pg 27 pg - 31 pg June 06, 2025 10:30:00 AM UTC (TECH: [employer]) 786-4 Erythrocyte mean corpuscular hemoglobin concentration [Mass/volume] by Automated count L 29.2 g/dl 32 g/dl - 36 g/dl June 06, 2025 10:30:00 AM UTC (TECH: [employer]) 77493-5 Erythrocyte distribution width [Ratio] H 17.2 % 11.5 % - 14.0 % June 06, 2025 10:30:00 AM UTC (TECH: [employer]) 777-3 Platelets [#/volume] in Blood by Automated count L 145 K/ul 150 K/ul - 450 K/ul June 06, 2025 10:30:00 AM UTC (TECH: [employer]) 53301-6 Platelet mean volume [Entitic volume] in Blood by Automated count H 11.5 fl 6 fl - 9.5 fl June 06, 2025 10:30:00 AM UTC (TECH: [employer]) 21579-3 Neutrophils/100 leukocytes in Blood H 81.3 % 43 % - 65 % June 06, 2025 10:30:00 AM UTC (TECH: [employer]) 736-9 Lymphocytes/100 leukocytes in Blood by Automated count L 8.5 % 20.5 % - 45.5 % June 06, 2025 10:30:00 AM UTC (TECH: [employer]) 5905-5 Monocytes/100 leukocytes in Blood by Automated count N 6.0 % 5.5 % - 11.7 % June 06, 2025 10:30:00 AM UTC (TECH: [employer]) 713-8 Eosinophils/100 leukocytes in Blood by Automated count H 3.2 % 0.9 % - 2.9 % June 06, 2025 10:30:00 AM UTC (TECH: [employer]) 706-2 Basophils/100 leukocytes in Blood by Automated count N 0.5 % 0.2 % - 1.0 % June 06, 2025 10:30:00 AM UTC (TECH: [employer]) 24181-7 Immature granulocytes/100 leukocytes in Blood by Automated count N 0.5 % 0.0 % - 0.8 % June 06, 2025 10:30:00 AM UTC (TECH: JNJ) 67286-1 Nucleated cells [#/volume] in Blood N 0.0 % June 06, 2025 10:30:00 AM UTC (TECH: JNJ) 85072-8 Neutrophils [#/volume] in Blood H 7.2 K/uL 2.2 K/uL - 4.8 K/uL June 06, 2025 10:30:00 AM UTC (TECH: JNJ) 731-0 Lymphocytes [#/volume] in Blood by Automated count L 0.8 CELL/MCL 1.3 CELL/MCL - 2.9 CELL/MCL June 06, 2025 10:30:00 AM UTC (TECH: JNJ) 742-7 Monocytes [#/volume] in Blood by Automated count N 0.5 CELL/MCL 0.3 CELL/MCL - 0.8 CELL/MCL June 06, 2025 10:30:00 AM UTC (TECH: JNJ) 711-2 Eosinophils [#/volume] in Blood by Automated count H 0.3 CELL/MCL 0 CELL/MCL - 0.2 CELL/MCL June 06, 2025 10:30:00 AM UTC (TECH: JNJ) 704-7 Basophils [#/volume] in Blood by Automated count N 0.0 CELL/MCL 0.0 CELL/MCL - 1.0 CELL/MCL June 06, 2025 10:30:00 AM UTC (TECH: JNJ) 58770-2 Immature granulocytes [#/volume] in Blood N 0.04 K/ul June 06, 2025 10:30:00 AM UTC (TECH: JNJ) 94877-1 Nucleated cells [#/volume] in Blood N 0.00 K/uL June 06, 2025 10:30:00 AM UTC (TECH: JNJ) 74029-5 Manual Differential panel - Blood N NO June 06, 2025 10:30:00 AM UTC (TECH: JNJ) ORDER 2301: MAGNESIUM (LOINC : 60020-8) ORDER DATE: June 03, 2025 8:53:00 PM UTC Specimen Source: PLASMA Specimen Type: Plasma specim en PERFORMING LAB: [address] [id number] Result Comment: Final Result Date: June 04, 2025 10:28:00 AM UTC (TECH: AH1) LOINC TEST FLAG [place] [address]-3 Magnesium [Mass/volume] in Serum or Plasma N 1.9 MG/DL 1.8 MG/DL - 2.4 MG/DL June 04, 2025 10:28:00 AM UTC (TECH: AH1) ORDER 2302: MAGNESIUM (LOINC : 59375-3) ORDER DATE: June 03, 2025 8:53:00 PM UTC Specimen Source: PLASMA Specimen Type: Plasma specim en PERFORMING LAB: [address] [id number] Result Comment: Final Result Date: June 05, 2025 10:11:00 AM UTC (TECH: AH1) LOINC TEST [place] [address]-2 Magnesium [Mass/volume] in Serum or Plasma N 1.8 MG/DL 1.8 MG/DL - 2.4 MG/DL June 05, 2025 10:11:00 AM UTC (TECH: AH1) ORDER 2303: MAGNESIUM (LOINC : 17487-9) ORDER DATE: June 03, 2025 8:53:00 PM UTC Specimen Source: PLASMA Specimen Type: Plasma specim en PERFORMING LAB: [address] [id number] Result Comment: Final Result Date: June 06, 2025 10:10:00 AM UTC (TECH: AH1) LOINC TEST FLAG [place] [address]-1 Magnesium [Mass/volume] in Serum or Plasma N 1.8 MG/DL 1.8 MG/DL - 2.4 MG/DL June 06, 2025 10:10:00 AM UTC (TECH: AH1) ORDER 2500: AMMONIA (LOINC: 38934-3) ORDER DATE: June 03, 2025 9:09:00 PM UTC Specimen Source: PLASMA Specimen Type: Plasma specim en PERFORMING LAB: [address] [id number] Result Comment: Final Result Date: June 03, 2025 10:30:00 PM UT (TECH: AH1) LOINC TEST FLAG [place] [address]-0 Ammonia [Mass/volume ] in Unspecified specimen N 18 umol/L 11 umol/L - 32 umol/L June 03, 2025 10:30:00 PM UT (TECH: AH1) LABORATORY NARRATIVE RESULTS Information is not available RADIOLOGY RESULTS ORDER 1300: CHEST PORTABLE ( LOINC: 54848-7) ORDER DATE: June 03, 2025 3:50:00 PM UTC PERFORMING LAB: [address] [id number] Final Result Date: June 03, 2025 4:36:11 PM [facility] [address] [place] [address] Name: HOLLY PHOENIX Exam Date: 06/03/2025 : 1945 Age 80 years Gender: M Physician: AARON LAGUNAS Facility: [facility] Facility HSV: Outpatient Exam: CHEST PORTABLE EXAMINATION: TWO VIEW CHEST XR CLINICAL INDICATION: Male, 80 years old. Congestion. TECHNIQUE: 2 View, PA and lateral, X-ray of the chest was performed. [id number]. COMPARISON: No prior exam. FINDINGS: Pleural thickening and/or small pleural effusion on the left. Prior median sternotomy. Normal heart size and pulmonary vascularity. IMPRESSION: Pleural thickening and/or pleural effusion on the left. Electronically signed by: Wei Brand MD 06/03/2025 11:36 AM [facility] Dictated By: WEI BRAND Transcribed By: Transcribed On: 06/03/2025 11:36 AM Electronically signed by: WEI BRAND 06/03/2025 Thank you for referring HOLLY PHOENIX to [facility]. Legally authenticated by CATHIE FOURNIER 2025-06-03 11:36:11 ORDER 1500: CT CHEST W (LOIN C: 38007-9) ORDER DATE: June 03, 2025 5:50:00 PM [facility] PERFORMING LAB: [facility] [address] [facility] [id number] Final Result Date: June 03, 2025 7:03:21 PM [facility] [address] [place] [address] Name: HOLLY PHOENIX Exam Date: 06/03/2025 : 1945 Age 80 years Gender: M Physician: AARON LAGUNAS Facility: [facility] Facility HSV: Outpatient Exam: CT CHEST W EXAM DESCRIPTION: CT ABD PEL W (IV CONT ONLY) (accession [id number]), CT CHEST W (accession [id number]) CLINICAL HISTORY: 80 years Male, Abdominal Pain and congestion TECHNIQUE: CT of the chest, abdomen, and pelvis was performed. One or more of the following dose-optimizing techniques was utilized for this exam: automated exposure control, adjustment of the mA and/or kV according to patient size, and/or use of iterative reconstruction technique. IV CONTRAST: Present ORAL CONTRAST: None COMPARISON: CTA of the chest, abdomen, and pelvis 09/04/2024 FINDINGS: CHEST: Enlarging lymph nodes in the mediastinum are worrisome for metastatic disease. For example, a subcarinal lymph node is newly enlarged measuring 1.2 cm short axis (series 302 image 61). Paraesophageal lymph nodes are likewise slightly larger, though remaining subcentimeter (image 93). A few scattered paratracheal lymph nodes are also larger but remain subcentimeter. Esophagus is unremarkable. The thyroid gland is diminutive. 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 The right ventricle to left ventricle ratio is not increased. There are pulmonary emboli within the lobar, segmental, and subsegmental branches throughout the right lung. Fewer emboli are seen in the left lung with several smaller segmental and subsegmental pulmonary emboli. No pulmonary infarct is identified. Mild interlobular septal thickening is seen. There is mild atelectasis in the left lung base. A small left pleural effusion is present. Respiratory motion mildly limits assessment of the lung parenchyma. No new or enlarging pulmonary nodules are identified. ABDOMEN AND PELVIS: A large, heterogeneously enhancing mass in the liver has increased in size measuring 13.0 x 10.1 cm, previously 3.9 x 5.1 cm (series 305 image 50). The gallbladder is unremarkable. The right adrenal gland is unremarkable. A left adrenal gland mass is stable measuring 1.1 cm. This is indeterminate on the basis of this study. There are new multifocal areas of hypoattenuation throughout the spleen, likely in part reflecting perfusional abnormalities but also concerning for multiple masses. A previously described hypervascular mass in the spleen is hypodense on today's study but similar in size. There are additional new areas of altered enhancement concerning for infiltrating masses. The spleen is newly enlarged. The kidneys enhance symmetrically without hydronephrosis. A partially exophytic solid mass in the posterior aspect of the left kidney interpolar region is larger measuring 1.5 cm, previously 1.3 cm (series 305 image 94). Multiple simple renal cysts are evident. The bladder wall is diffusely thickened and irregular. The prostate is enlarged. Seminal vesicles are Legally authenticated by [facility] 2025-06-03 14:03:21 symmetric. Colonic diverticulosis is evident. No obstructing colonic mass is seen. Colonic and duodenal diverticulosis are evident. There is a new low density peritoneal mass in the left abdomen at the level of the left kidney measuring 2.6 x 1.8 cm (series 305 image 90). Multiple kristine hepatis lymph nodes and gastrohepatic lymph nodes have increased in size. For reference, a portacaval lymph node measures 1.2 cm, previously 1.0 cm (series 305 image 73). Postsurgical changes of aortobiiliac stent graft repair of an infrarenal abdominal aortic aneurysm is evident. No enhancement of the excluded aneurysm sac is evident. Severe atherosclerosis is seen in the bilateral iliofemoral systems. This exam is not tailored for assessment of the vascular structures. Small volume ascites is seen in the abdomen and pelvis. MUSCULOSKELETAL: A median sternotomy is well united. No acute skeletal abnormality is identified. There are degenerative changes in the shoulders. There is an acute to subacute appearing fracture of the sacrococcygeal junction, new since the prior study. A mild T11 superior endplate compression deformity with less than 25% vertebral body height loss is new. There is an acute appearing fracture of the anterior aspect of the S1 vertebral body. There is a sagittally oriented acute to subacute fracture of the right aspect of the sternal manubrium. Acute to subacute appearing fractures are evident in the anterior left second, third, and fourth ribs along with subacute fractures of the right anterior fifth rib. There is a small, fat-containing umbilical hernia. IMPRESSION: 1. Bilateral pulmonary emboli with the most proximal extent in the lobar branches of the right lower lobe and right upper lobe. No CT evidence of right heart strain no pulmonary infarct. 2. Minimal interstitial pulmonary edema with a small pleural effusion and adjacent atelectasis. 3. Findings concerning for new metastatic disease in the chest, worsening malignancy in the liver and spleen, and new metastatic adenopathy and potentially small volume malignant ascites in the abdomen and pelvis. 4. Increase in size of left probable renal cell carcinoma. 5. Acute to subacute appearing sternal fracture, bilateral rib fractures, T11 compression fracture, and sacral fractures. 6. Chronic findings above. NOTIFICATION OF CRITICAL FINDINGS/RESULTS: Dr. Chatterjee communicated critical results to AARON LAGUNAS 06/03/2025 12:53 PM [employer] [employer] by method of telephone. The provider demonstrated understanding of the significance of the findings during our conversation providing positive read back of the finding/results. Electronically signed by: Brian Chatterjee MD 06/03/2025 02:03 PM [facility] Dictated By: Brian Chatterjee Transcribed By: Transcribed On: 06/03/2025 2:03 PM Electronically signed by: Brian Chatterjee 06/03/2025 Thank you for referring HOLLY PHOENIX to [facility]. Legally authenticated by GALEN RICHMOND 2025-06-03 14:03:21 ORDER 1600: CT ABD PEL W IV CONT ONLY (LOINC: 75804-0) ORDER DATE: June 03, 2025 5:50:00 PM [facility] PERFORMING LAB: [address] [id number] Final Result Date: June 03, 2025 7:03:21 PM [facility] l [address] [place] [address] Name: HOLLY PHOENIX Exam Date: 06/03/2025 : 1945 Age 80 years Gender: M Physician: AARON LAGUNAS Facility: [facility] Facility HSV: Outpatient Exam: CT ABD PEL W (IV CONT ONLY) EXAM DESCRIPTION: CT ABD PEL W (IV CONT ONLY) (accession [id number]), CT CHEST W (accession [id number]) CLINICAL HISTORY: 80 years Male, Abdominal Pain and congestion TECHNIQUE: CT of the chest, abdomen, and pelvis was performed. One or more of the following dose-optimizing techniques was utilized for this exam: automated exposure control, adjustment of the mA and/or kV according to patient size, and/or use of iterative reconstruction technique. IV CONTRAST: Present ORAL CONTRAST: None COMPARISON: CTA of the chest, abdomen, and pelvis 09/04/2024 FINDINGS: CHEST: Enlarging lymph nodes in the mediastinum are worrisome for metastatic disease. For example, a subcarinal lymph node is newly enlarged measuring 1.2 cm short axis (series 302 image 61). Paraesophageal lymph nodes are likewise slightly larger, though remaining subcentimeter (image 93). A few scattered paratracheal lymph nodes are also larger but remain subcentimeter. Esophagus is unremarkable. The thyroid gland is diminutive. 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 The right ventricle to left ventricle ratio is not increased. There are pulmonary emboli within the lobar, segmental, and subsegmental branches throughout the right lung. Fewer emboli are seen in the left lung with several smaller segmental and subsegmental pulmonary emboli. No pulmonary infarct is identified. Mild interlobular septal thickening is seen. There is mild atelectasis in the left lung base. A small left pleural effusion is present. Respiratory motion mildly limits assessment of the lung parenchyma. No new or enlarging pulmonary nodules are identified. ABDOMEN AND PELVIS: A large, heterogeneously enhancing mass in the liver has increased in size measuring 13.0 x 10.1 cm, previously 3.9 x 5.1 cm (series 305 image 50). The gallbladder is unremarkable. The right adrenal gland is unremarkable. A left adrenal gland mass is stable measuring 1.1 cm. This is indeterminate on the basis of this study. There are new multifocal areas of hypoattenuation throughout the spleen, likely in part reflecting perfusional abnormalities but also concerning for multiple masses. A previously described hypervascular mass in the spleen is hypodense on today's study but similar in size. There are additional new areas of altered enhancement concerning for infiltrating masses. The spleen is newly enlarged. The kidneys enhance symmetrically without hydronephrosis. A partially exophytic solid mass in the posterior aspect of the left kidney interpolar region is larger measuring 1.5 cm, previously 1.3 cm (series 305 image 94). Multiple simple renal cysts are evident. The bladder wall is diffusely thickened and irregular. The prostate is enlarged. Seminal vesicles are Legally authenticated by GALEN RICHMOND 2025-06-03 14:03:21 symmetric. Colonic diverticulosis is evident. No obstructing colonic mass is seen. Colonic and duodenal diverticulosis are evident. There is a new low density peritoneal mass in the left abdomen at the level of the left kidney measuring 2.6 x 1.8 cm (series 305 image 90). Multiple kristine hepatis lymph nodes and gastrohepatic lymph nodes have increased in size. For reference, a portacaval lymph node measures 1.2 cm, previously 1.0 cm (series 305 image 73). Postsurgical changes of aortobiiliac stent graft repair of an infrarenal abdominal aortic aneurysm is evident. No enhancement of the excluded aneurysm sac is evident. Severe atherosclerosis is seen in the bilateral iliofemoral systems. This exam is not tailored for assessment of the vascular structures. Small volume ascites is seen in the abdomen and pelvis. MUSCULOSKELETAL: A median sternotomy is well united. No acute skeletal abnormality is identified. There are degenerative changes in the shoulders. There is an acute to subacute appearing fracture of the sacrococcygeal junction, new since the prior study. A mild T11 superior endplate compression deformity with less than 25% vertebral body height loss is new. There is an acute appearing fracture of the anterior aspect of the S1 vertebral body. There is a sagittally oriented acute to subacute fracture of the right aspect of the sternal manubrium. Acute to subacute appearing fractures are evident in the anterior left second, third, and fourth ribs along with subacute fractures of the right anterior fifth rib. There is a small, fat-containing umbilical hernia. IMPRESSION: 1. Bilateral pulmonary emboli with the most proximal extent in the lobar branches of the right lower lobe and right upper lobe. No CT evidence of right heart strain no pulmonary infarct. 2. Minimal interstitial pulmonary edema with a small pleural effusion and adjacent atelectasis. 3. Findings concerning for new metastatic disease in the chest, worsening malignancy in the liver and spleen, and new metastatic adenopathy and potentially small volume malignant ascites in the abdomen and pelvis. 4. Increase in size of left probable renal cell carcinoma. 5. Acute to subacute appearing sternal fracture, bilateral rib fractures, T11 compression fracture, and sacral fractures. 6. Chronic findings above. NOTIFICATION OF CRITICAL FINDINGS/RESULTS: Dr. Chatterjee communicated critical results to AARON LAGUNAS 06/03/2025 12:53 PM FINANCIAL CENTER MANAGER by method of telephone. The provider demonstrated understanding of the significance of the findings during our conversation providing positive read back of the finding/results. Electronically signed by: Brian Chatterjee MD 06/03/2025 02:03 PM [facility] Dictated By: Brian Chatterjee Transcribed By: Transcribed On: 06/03/2025 2:03 PM Electronically signed by: Brian Chatterjee 06/03/2025 Thank you for referring HOLLY PHOENIX to [facility]. Legally authenticated by GALEN RICHMOND 2025-06-03 14:03:21 ORDER [id number]: VENOUS DUPLEX US LWR EXT BILAT (LOINC: 39463-3) ORDER DATE: June 03, 2025 9:23:00 PM [facility] PERFORMING LAB: [address] [id number] Final Result Date: June 04, 2025 2:33:14 AM [facility] [address] [place] [address] Name: HOLLY PHOENIX Exam Date: 06/03/2025 : 1945 Age 80 years Gender: M Physician: MIGUEL BERMUDEZ Facility: [facility] Facility HSV: Inpatient Exam: VENOUS DUPLEX US LWR EXT BILAT US LOWER EXTREMITY VEINS BILATERAL CLINICAL HISTORY: Rule out DVT of the lower extremities. COMPARISON: None Available. TECHNIQUE: Duplex Doppler with color flow imaging and spectral waveform analysis was performed of the deep veins of bilateral lower extremities. FINDINGS: There is partial thrombus within the right popliteal vein, demonstrated by noncompression and partial absence of flow. There is thrombus within the left common femoral vein, proximal, mid, and distal SFV, popliteal vein, and throughout the left peroneal vein. No superficial probable bodies is identified. IMPRESSION: 1. Evidence of acute DVT within bilateral lower extremities, as above. 2. No evidence of superficial thrombophlebitis. Per report, findings communicated to patient's nurse Lucia by production technologist GEETA at time of discovery. Electronically signed by: Diandra Covington MD 06/03/2025 09:33 PM [facility] Dictated By: Diandra Covington Transcribed By: Transcribed On: 06/03/2025 9:33 PM Electronically signed by: Diandra Covington 06/03/2025 Thank you for referring HOLLY PHOENIX to [facility]. Legally authenticated by PARAMJIT MAGANA 2025-06-03 21:33:14 PATHOLOGY NARRATIVE RESULTS Information is not available MICROBIOLOGY RESULTS No Micro Labs/Results Exist for Patient BLOOD ADMIN RESULTS Information is not available TREATMENT PLAN DISCHARGE MEDICATIONS Status RXNORM Medication Dose Route Frequency Dates Comments U pdated By Continued [id number] Atorvastatin Calcium Oral Tablet 80 MG 80 MG ORAL ONCE DAILY Prescribe d: June 06, 2025 2:45:57 PM [facility] [id number] on June 06, 2025 2:45:57 PM UT Continued [id number] apixaban (ELIQUIS) 5 MG ORAL TWICE A DAY Prescribe d: June 06, 2025 2:45:57 PM [facility] [id number] on June 06, 2025 2:45:57 PM UT Continued 782503 Doxazosin Mesylate Oral Tablet 1 MG 1 MG ORAL EVERY 24 HOURS Prescribe d: June 06, 2025 5:53:01 PM UT [id number] on June 06, 2025 5:53:01 PM UT Continued 7361542 Eliquis Oral Tablet 5 MG 1 TAB ORAL TWICE A DAY Prescribe d: June 06, 2025 10:09:38 PM [facility] [id number] on June 06, 2025 10:09:38 PM UT Continued 539431 Ezetimibe Oral Tablet 10 MG 10 MG ORAL EVERY 24 HOURS Prescribe d: June 06, 2025 2:45:57 PM UT [id number] on June 06, 2025 2:45:57 PM UT Continued 887045 Famotidine Oral Tablet 20 MG 20 MG ORAL EVERY TWELVE HOURS Prescribe d: June 06, 2025 5:53:01 PM UT [id number] on June 06, 2025 5:53:01 PM UT Continued 6420519 Ipratropium-Al buterol Inhalation Solution 0.5-2.5 (3) MG/3ML 3 ML INHALED EVERY SIX HOURS Prescribe d: June 06, 2025 2:45:57 PM UT END DATE: 06/06/25 [id number] on June 06, 2025 2:45:57 PM UT Continued 687502 Lacosamide Oral Tablet 50 MG 50 MG ORAL TWICE A DAY Prescribe d: June 06, 2025 5:53:01 PM [facility] [id number] on June 06, 2025 5:53:01 PM UT Continued 206134 Losartan Potassium Oral Tablet 100 MG 100 MG ORAL EVERY 24 HOURS Prescribe d: June 06, 2025 2:45:57 PM [facility] [id number] on June 06, 2025 2:45:57 PM UT Continued 083373 Acetaminophen Oral Tablet 325 MG 325 MG ORAL FOUR TIMES A DAY Prescribe d: June 06, 2025 2:45:57 PM [facility] [id number] on June 06, 2025 2:45:57 PM UT Continued 224289 Aspirin 81 Oral Tablet Chewable 81 MG 81 MG ORAL EVERY 24 HOURS Prescribe d: June 06, 2025 2:45:57 PM [facility] [id number] on June 06, 2025 2:45:57 PM UT Continued 212748 Sennosides-Doc usate Sodium Oral Tablet 8.6-50 MG 2 TAB ORAL EVERY TWELVE HOURS Prescribe d: June 06, 2025 5:53:01 PM UT [id number] on June 06, 2025 5:53:01 PM UT Continued 429587 Tamsulosin HCl Oral Capsule 0.4 MG 0.4 MG ORAL EVERY 24 HOURS Prescribe d: June 06, 2025 2:45:57 PM [facility] [id number] on June 06, 2025 2:45:57 PM UT Continued 876734 Clopidogrel Bisulfate Oral Tablet 75 MG 75 MG ORAL EVERY 24 HOURS Prescribe d: June 06, 2025 2:45:57 PM UT [id number] on June 06, 2025 2:45:57 PM UT Continued 287047 Vitamin D (Cholecalcifer ol) Oral Capsule 25 MCG (1000 UT) 25 MCG ORAL EVERY 24 HOURS Prescribe d: June 06, 2025 2:45:57 PM UT [id number] on June 06, 2025 2:45:57 PM UT Continued 608026 amLODIPine Besylate Oral Tablet 5 MG 5 MG ORAL EVERY 24 HOURS Prescribe d: June 06, 2025 5:53:01 PM UT [id number] on June 06, 2025 5:53:01 PM UT Continued 257547 oxyBUTYnin Chloride ER Oral Tablet Extended Release 24 Hour 5 MG 5 MG ORAL EVERY 24 HOURS Prescribe d: June 06, 2025 6:09:41 PM UT [id number] on June 06, 2025 6:09:41 PM UT Continued 5264593 Lidocaine External Patch 5 % 1 PK TOPICAL EVERY 24 HOURS NEEDED Prescribe d: June 06, 2025 2:45:57 PM UT [id number] on June 06, 2025 2:45:57 PM UT PATIENT OPEN ORDERS Code System Descripti on Frequency Occurrenc es Priority Category [place] [address]-9 [facility] Interval Lead V2 ONE TIME 0 Stat June 04, 2025 1:08:00 AM UT BENJAMIN HATFIELD [id number] on June 04, 2025 1:09:00 AM [facility] SCHEDULED PROCEDURES Code System Description Status Scheduled Date Upd ated By Patient scheduled procedure information is not available. HOSPITAL COURSE HOSPITAL COURSE Note Title Discharge Summary Date Of Service June 06, 2025 2: 46:57 PM UT Created By [id number] on June 06, 2025 2:46:57 PM UT Signed By [id number] on June 06, 2025 5:02:57 PM UT 06/04: Pt is hard to underst and but is communicating. Spoke to his medical power of commonwealth attorney and relayed CT findings. She is in agreement to pursue hospice care.06/05: No complaints overnight.&Acirc; Nursing reports he rested well with no need for intervention. MEDICATIONS HOME MEDICATIONS Status RXNORM NDC Medication Dose Route Frequency Dates Comments Reported By Updated By Active [id number] 31261 97686 0 Acetaminophe n Oral Tablet 325 MG 325.0 MG ORAL QID Last Dose: [id number] on June 03, 2025 9:36:25 PM UTC Active 732735 45531 96141 5 amLODIPine Besylate Oral Tablet 5 MG 5.0 MG ORAL Q24H Last Dose: [id number] on June 03, 2025 7:38:51 PM UTC Active 10484 11795 1 Aspirin 81 Oral Tablet Chewable 81 MG 81.0 MG ORAL Q24H Last Dose: [id number] on June 03, 2025 7:39:22 PM UTC Active 742612 52491 45881 0 Atorvastatin Calcium Oral Tablet 80 MG 80.0 MG ORAL Last Dose: [id number] on June 03, 2025 7:40:05 PM UTC Active 57245 73744 2 Bisacodyl Laxative Rectal Suppository 10 MG 10.0 MG RECTAL [id number] Last Dose: [id number] on June 06, 2025 2:44:58 PM UTC Active 19411 88535 0 Vitamin D (Cholecalcif rica) Oral Capsule 25 MCG (1000 UT) 25.0 MCG ORAL Q24H Last Dose: [id number] on June 03, 2025 9:36:25 PM UTC Active 328815 27372 25166 2 Clopidogrel Bisulfate Oral Tablet 75 MG 75.0 MG ORAL Q24H Last Dose: [id number] on June 03, 2025 7:42:29 PM UTC Active 3425140 84347 65059 0 Dapagliflozi n Propanediol Oral Tablet 5 MG 5.0 MG ORAL Q24H Last Dose: [id number] on June 03, 2025 9:36:25 PM UTC Active 653579 38797 22806 0 Diclofenac Sodium External Gel 1 % 1.0 GM QID Last Dose: [id number] on June 06, 2025 2:44:50 PM UTC Active 058573 40861 16182 0 Doxazosin Mesylate Oral Tablet 1 MG 1.0 MG ORAL Q24H Last Dose: [id number] on June 03, 2025 7:47:58 PM UTC Active 412616 56743 62859 5 Ezetimibe Oral Tablet 10 MG 10.0 MG ORAL Q24H Last Dose: [id number] on June 03, 2025 7:55:03 PM UTC Active 172736 88351 30863 0 Famotidine Oral Tablet 20 MG 20.0 MG ORAL Q12H Last Dose: [id number] on June 03, 2025 7:55:34 PM UTC Active 0993752 10762 15221 1 Ipratropium- Albuterol Inhalation Solution 0.5-2.5 (3) MG/3ML 3.0 ML INHALA TION Q6H Last Dose: END DATE: 06/06/25TVN5111 on June 03, 2025 9:36:24 PM UT Active 541879 99082 27289 0 Lacosamide Oral Tablet 50 MG 50.0 MG ORAL BID Last Dose: [id number] on June 03, 2025 9:36:24 PM UT Active 9228092 79708 89815 1 Lidocaine External Patch 5 % 1.0 PK TOPICA L [id number] Last Dose: [id number] on June 06, 2025 2:44:45 PM UT Active 785433 70156 47034 0 Losartan Potassium Oral Tablet 100 MG 100.0 MG ORAL Q24H Last Dose: [id number] on June 03, 2025 8:00:02 PM UTC Active 682019 49080 82725 0 Ondansetron HCl Oral Tablet 4 MG 4.0 MG ORAL Q6HPRN Last Dose: [id number] on June 03, 2025 9:36:24 PM UT Active 847529 15254 75913 7 oxyBUTYnin Chloride ER Oral Tablet Extended Release 24 Hour 5 MG 5.0 MG ORAL Q24H Last Dose: [id number] on June 03, 2025 8:01:22 PM UT Active 696006 87389 10041 1 Polyethylene Glycol 3350 Oral Packet 17 GM 17.0 GM ORAL Q12H Last Dose: [id number] on June 03, 2025 9:36:24 PM UTC Active 403056 97418 81439 1 Sennosides-D ocusate Sodium Oral Tablet 8.6-50 MG 2.0 TAB ORAL Q12H Last Dose: [id number] on June 03, 2025 9:36:25 PM UTC Active 533065 72736 73482 1 Tamsulosin HCl Oral Capsule 0.4 MG 0.4 MG ORAL Q24H Last Dose: [id number] on June 03, 2025 8:03:11 PM UTC DISCHARGE MEDICATIONS Status RXNORM [facility] Medication Dose Route Frequency Dates Dis pense Data Comments Physician Updated By Continu ed [id number] 5378 4632 350 Atorvastati n Calcium Oral Tablet 80 MG 80.0 MG ORAL ONCE DAILY Prescr ibed: [facility] 2024 2:45:5 7 PM UTC KING ЮЛИЯ A PA [id number] on June 06, 2025 2:45:57 PM UTC Continu ed 1176555 6035 3089 421 apixaban (ELIQUIS) 5.0 MG ORAL TWICE A DAY Prescr ibed: [facility] 2024 2:45:5 7 PM UTC KING ЮЛИЯ A PA [id number] on June 06, 2025 2:45:57 PM UTC Continu ed 522804 5663 5009 300 Doxazosin Mesylate Oral Tablet 1 MG 1.0 MG ORAL EVERY 24 HOURS Prescr ibed: [facility] 2024 5:53:0 1 PM UTC KING ЮЛИЯ A PA [id number] on June 06, 2025 5:53:01 PM UTC Continu ed 1936593 8736 3089 421 Eliquis Oral Tablet 5 MG 1.0 TAB ORAL TWICE A DAY Prescr ibed: [facility] 2024 10:09: 38 PM UTC KING ЮЛИЯ A PA [id number] on June 06, 2025 10:09:38 PM UTC Continu ed 056876 0491 1569 005 Ezetimibe Oral Tablet 10 MG 10.0 MG ORAL EVERY 24 HOURS Prescr ibed: [facility] 2024 2:45:5 7 PM UTC KING ЮЛИЯ A PA [id number] on June 06, 2025 2:45:57 PM UTC Continu ed 755422 5462 2572 860 Famotidine Oral Tablet 20 MG 20.0 MG ORAL EVERY TWELVE HOURS Prescr ibed: [facility] 2024 5:53:0 1 PM UTC KING ЮЛИЯ A PA [id number] on June 06, 2025 5:53:01 PM UTC Continu ed 3110172 7877 7020 101 Ipratropium -Albuterol Inhalation Solution 0.5-2.5 (3) MG/3ML 3.0 ML INHALE D EVERY SIX HOURS Prescr ibed: [facility] 2024 2:45:5 7 PM UTC END DATE: 06/06/25 KING ЮЛИЯ A PA [id number] on June 06, 2025 2:45:57 PM UTC Continu ed 631035 7394 2066 860 Lacosamide Oral Tablet 50 MG 50.0 MG ORAL TWICE A DAY Prescr ibed: [facility] 2024 5:53:0 1 PM UTC KING ЮЛИЯ A PA [id number] on June 06, 2025 5:53:01 PM UTC Continu ed 931648 2639 2019 330 Losartan Potassium Oral Tablet 100 MG 100.0 MG ORAL EVERY 24 HOURS Prescr ibed: [facility] 2024 2:45:5 7 PM UTC KING ЮЛИЯ A PA [id number] on June 06, 2025 2:45:57 PM UTC Continu ed 838966 7249 9056 330 Acetaminoph en Oral Tablet 325 MG 325.0 MG ORAL FOUR TIMES A DAY Prescr ibed: [facility] 2024 2:45:5 7 PM UTC KING ЮЛИЯ A PA [id number] on June 06, 2025 2:45:57 PM UTC Continu ed 603719 6663 7016 381 Aspirin 81 Oral Tablet Chewable 81 MG 81.0 MG ORAL EVERY 24 HOURS Prescr ibed: [facility] 2024 2:45:5 7 PM UTC KING ЮЛИЯ A PA [id number] on June 06, 2025 2:45:57 PM UTC Continu ed 839079 8187 7062 201 Sennosides- Docusate Sodium Oral Tablet 8.6-50 MG 2.0 TAB ORAL EVERY TWELVE HOURS Prescr ibed: [facility] 2024 5:53:0 1 PM UTC KING ЮЛИЯ A PA [id number] on June 06, 2025 5:53:01 PM UTC Continu ed 580828 7685 1207 601 Tamsulosin HCl Oral Capsule 0.4 MG 0.4 MG ORAL EVERY 24 HOURS Prescr ibed: [facility] 2024 2:45:5 7 PM UTC KING ЮЛИЯ A PA [id number] on June 06, 2025 2:45:57 PM UTC Continu ed 641723 6779 5025 302 Clopidogrel Bisulfate Oral Tablet 75 MG 75.0 MG ORAL EVERY 24 HOURS Prescr ibed: [facility] 2024 2:45:5 7 PM UTC KING ЮЛИЯ A PA [id number] on June 06, 2025 2:45:57 PM UT Continu ed 622937 3489 7003 630 Vitamin D (Cholecalci ferol) Oral Capsule 25 MCG (1000 UT) 25.0 MCG ORAL EVERY 24 HOURS Prescr ibed: [facility] 2024 2:45:5 7 PM UTC KING ЮЛИЯ A PA [id number] on June 06, 2025 2:45:57 PM UT Continu ed 811083 8265 2011 205 amLODIPine Besylate Oral Tablet 5 MG 5.0 MG ORAL EVERY 24 HOURS Prescr ibed: [facility] 2024 5:53:0 1 PM UTC KING ЮЛИЯ A PA [id number] on June 06, 2025 5:53:01 PM UT Continu ed 088571 8052 5027 037 oxyBUTYnin Chloride ER Oral Tablet Extended Release 24 Hour 5 MG 5.0 MG ORAL EVERY 24 HOURS Prescr ibed: [facility] 2024 6:09:4 1 PM UTC KING ЮЛИЯ A PA [id number] on June 06, 2025 6:09:41 PM UT Continu ed 2491883 2187 1352 511 Lidocaine External Patch 5 % 1.0 PK TOPICA L EVERY 24 HOURS NEEDED Prescr ibed: [facility] 2024 2:45:5 7 PM UTC KING ЮЛИЯ A PA [id number] on June 06, 2025 2:45:57 PM UT INPATIENT MEDICATIONS Status RXNORM [facility] Medication Dose Route Frequency Rat e Quantity Dates Indication Dispense Data Comments Physician Updated By [facility] [id number] 7280 912 piperacilli n-tazobacta m(ZOSYN) 3.375 GM SOLR 3.375 GM INTRAV ENOUS ONE TIME ONLY (SCHEDULED DOSE) Start: [facility] 2024 4:52:0 0 PM UT End: [facility] 2024 4:52:0 0 PM UT VIKKI Trujillo [facility] on June 03, 2025 4:51:00 PM UT Helen inued 768615 77500231 2816 491 LOVENOX 100 MG/ML SOLN 100.0 MG SUBCUT ANEOUS ONE TIME ONLY (SCHEDULED DOSE) Start: 2024 7:57:0 0 PM UTC End: 2024 7:57:0 0 PM UTC VIKKI WEI Trujillo [facility] on June 03, 2025 7:55:00 PM UTC Discont inued 2521 5482 546 sodium chloride 0.9% FLUSH 10 ML SOLN 10.0 ML INTRAV ENOUS NEEDED Start: 2024 8:32:0 0 PM UTC End: 2024 10:15: 09 PM UTC BERMUDEZ WALIAH [id number] on June 07, 2025 5:25:00 AM UTC Discont inued 0478718 8353 5613 000 ondansetron (ZOFRAN) INJ 4 MG/2 ML SOLN 4.0 MG INTRAV ENOUS EVERY SIX HOURS NEEDED Start: 2024 8:32:0 0 PM UTC End: 2024 10:15: 09 PM UTC BERMUDEZ WALIAH [id number] on June 07, 2025 5:25:00 AM UTC Discont inued [id number] 3578 2602 912 prochlorper azine (COMPAZINE) 10 MG/2 ML SOLN 5.0 MG INTRAV ENOUS EVERY SIX HOURS NEEDED Start: 2024 8:32:0 0 PM UTC End: 2024 10:15: 09 PM UTC BERMUDEZ WALIAH [id number] on June 07, 2025 5:25:00 AM UTC Discont inued 3892 4370 164 NOZIN NASAL CONSULTING SOLUTION MANAGER POPSWAB SWAB 1.0 EA NASAL TWICE A DAY Start: 2024 2:00:0 0 AM UTC End: [facility]2024 10:15: 09 PM UTC BERMUDEZ WALIAH [id number] on June 07, 2025 5:25:00 AM UTC Discont inued 923389 83546955 2480 0463 401 hydrALAZINE (APRESOLINE ) 20 MG/ML SOLN 10.0 MG INTRAV ENOUS EVERY SIX HOURS NEEDED Start: [facility] 2024 8:32:0 0 PM UTC End: [facility] 2024 10:15: 09 PM UTC BERMUDEZ WALIAH [id number] on June 07, 2025 5:25:00 AM UTC Discont inued 6294897 1347 8010 250 PERCOCET 5-325 MG TABS 1.0 TAB ORAL EVERY SIX HOURS NEEDED Start: [facility] 2024 8:32:0 0 PM UTC End: [facility] 2024 10:15: 09 PM UTC BERMUDEZ WALIAH [id number] on June 07, 2025 5:25:00 AM UTC Discont inued 5041425 6332 304 201 morphine sulfate (FK) 2 MG/ML SOLN 2.0 MG INTRAV ENOUS EVERY FOUR HOURS NEEDED Start: [facility] 2024 8:32:0 0 PM UTC End: [facility] 2024 10:15: 09 PM UTC BERMUDEZ WALIAH [id number] on June 07, 2025 5:25:00 AM UTC Discont inued 6738671 9446 7020 101 DUONEB 0.5-2.5 MG/3 ML SOLN 3.0 ML INHALE D EVERY SIX HOURS NEEDED (RESPIRATO RY) Start: [facility] 2024 8:32:0 0 PM UTC End: [facility] 2024 10:15: 09 PM UTC BERMUDEZ WALIAH [id number] on June 07, 2025 5:25:00 AM UTC Discont inued 7220637 1073 7043 198 MIRALAX PACKET 17 GM PACK 17.0 GM ORAL ONCE DAILY NEEDED Start: [facility] 2024 8:32:0 0 PM UTC End: [facility] 2024 10:15: 09 PM UTC BERMUDEZ WALIAH [id number] on June 07, 2025 5:25:00 AM UTC Discont inued 7049979 7462 3026 201 heparin sodium (PORCINE) 5000 UNIT/ML SOLN 5000. 0 UNT SUBCUT ANEOUS EVERY TWELVE HOURS Start: [facility] 2024 7:30:0 0 AM UTC End: [facility] 2024 7:30:0 0 AM UTC BERMUDEZVIOLETA RIVERA [id number] on June 03, 2025 9:42:00 PM UTC Discont inued 167370 3839 8011 704 LACTATED RINGERS SOLN 1000. 0 ML IV CONTIN UOUS CONT 70.0 ML/HR Start: [facility] 2024 9:16:0 0 PM UTC End: [facility] 2024 5:25:1 9 AM UTC BERMUDEZ MIGUEL [id number] on June 05, 2025 5:25:00 AM UTC Discont inued 3244635 3790 9733 201 cefTRIAXone (ROCEPHIN) 1 GM SOLR 1.0 GM INTRAV ENOUS EVERY TWELVE HOURS 100.0 ML/HR Start: [facility] 2024 10:00: 00 PM UTC End: [facility] 2024 3:02:1 7 PM UTC BERMUDEZ JAYDE [id number] on June 04, 2025 3:02:00 PM UTC Discont inued 2898364 0033 8055 311 sodium chloride 0.9% MB+ SOLN 50.0 ML INTRAV ENOUS EVERY TWELVE HOURS 100.0 ML/HR Start: [facility] 2024 10:00: 00 PM UTC End: [facility] 2024 3:02:1 6 PM UTC BERMUDEZ WALIAH [id number] on June 04, 2025 3:02:00 PM UTC Discont inued XXXX XXX0 045 CONSULT (HEPARIN DRIP) 1 EA MISC 1.0 EA PHARMA CY TO DOSE PHARMACY CONSULT NEEDED Start: [facility] 2024 9:20:0 0 PM UTC End: [facility] 2024 9:39:3 0 PM UTC BERMUDEZ WALIAH [id number] on June 03, 2025 9:39:00 PM UTC Discont inued 627586 5158 1005 290 EZETIMIBE 10 MG TABS 10.0 MG ORAL EVERY 24 HOURS Start: [facility] 2024 9:36:0 0 PM UTC End: [facility] 2024 9:41:2 6 PM UTC BERMUDEZ MIGUEL [id number] on June 03, 2025 9:41:00 PM UTC Discont inued Free Text Med Doxazosin Mesylate Oral Tablet 1 MG 1.0 MG ORAL EVERY 24 HOURS Start: [facility] 2024 9:36:0 0 PM UTC End: [facility] 2024 9:41:5 9 PM UTC BERMUDEZ WALIAH [id number] on June 03, 2025 9:41:00 PM UTC Discont inued 880480 3961 1039 708 famotidine (PEPCID) 20 MG TABS 20.0 MG ORAL EVERY TWELVE HOURS Start: [facility] 2024 9:35:0 0 PM UTC End: [facility] 2024 9:45:4 9 PM UTC BERMUDEZ WALIA [id number] on June 03, 2025 9:45:00 PM UTC Discont inued 659106 9099 2070 290 losartan potassium (COZAAR) 100 MG TABS 100.0 MG ORAL EVERY 24 HOURS Start: [facility] 2024 9:35:0 0 PM UTC End: [facility]2024 9:46:1 7 PM UTC BERMUDEZ WALIA [id number] on June 03, 2025 9:46:00 PM UTC Discont inued 241108 7712 8075 715 oxybutynin chlor (DITROPAN XL) 5 MG TB24 5.0 MG ORAL EVERY 24 HOURS Start: [facility] 2024 10:00: 00 PM UTC End: [facility]2024 10:00: 00 PM [facility] [id number] on June 03, 2025 9:48:00 PM UTC Discont inued 967945 8525 6016 088 tamsulosin (FLOMAX) 0.4 MG CAPS 0.4 MG ORAL EVERY 24 HOURS Start: [facility] 2024 9:34:0 0 PM UTC End: [facility]2024 9:47:2 3 PM UTC BERMUDEZ WALIA [id number] on June 03, 2025 9:47:00 PM UTC Discont inued 819913 6450 4053 601 clopidogrel (PLAVIX) 75 MG TABS 75.0 MG ORAL EVERY 24 HOURS Start: [facility] 2024 9:33:0 0 PM UTC End: [facility] 2024 9:48:2 4 PM UTC BERMUDEZVIOLEAT RIVERA [id number] on June 03, 2025 9:48:00 PM UTC Discont inued 170395 7692 7048 811 amLODIPine (NORVASC) 5 MG TABS 5.0 MG ORAL EVERY 24 HOURS Start: [facility] 2024 9:33:0 0 PM UTC End: [facility] 2024 9:48:4 1 PM UTC BERMUDEZ WALIA [id number] on June 03, 2025 9:48:00 PM UTC Discont inued Free Text Med Atorvastati n Calcium Oral Tablet 80 MG 80.0 MG ORAL AT BEDTIME Start: [facility] 2024 2:00:0 0 AM UTC End: [facility] 2024 2:00:0 0 AM UTC BERMUDEZ JAYDE [id number] on June 03, 2025 9:49:00 PM UTC Discont inued Free Text Med Aspirin 81 Oral Tablet Chewable 81 MG 81.0 MG ORAL EVERY 24 HOURS Start: [facility] 2024 9:32:0 0 PM UTC End: [facility] 2024 9:49:2 1 PM UTC AIDAN DONOHUE [id number] on June 03, 2025 9:49:00 PM UTC Discont inued [id number] 3205 1005 290 EZETIMIBE 10 MG TABS 10.0 MG ORAL ONCE DAILY Start: [facility] 2024 2:00:0 0 PM UTC End: [facility] 2024 10:15: 09 PM UTC BERMUDEZ JAYDE [id number] on June 07, 2025 5:25:00 AM UTC Discont inued 342454 3285 5009 400 doxazosin (CARDURA) 2 MG TABS 1.0 MG ORAL AT BEDTIME Start: [facility] 2024 2:00:0 0 AM UTC End: [facility] 2024 10:15: 09 PM UTC BERMUDEZ JAYDEManny [id number] on June 07, 2025 5:25:00 AM UT Discont inued 453818 4429 8041 088 LOVENOX 100 MG/ML SOLN 85.0 MG SUBCUT ANEOUS EVERY 24 HOURS Start: 2024 7:30:0 0 PM UTC End: 2024 7:30:0 0 PM UTC RENEESARA LOVELACE [id number] on June 03, 2025 10:05:00 PM UTC Discont inued 562596 0605 103 708 famotidine (PEPCID) 20 MG TABS 20.0 MG ORAL ONCE DAILY Start: 2024 2:00:0 0 PM UTC End: 2024 10:15: 09 PM UT BERMUDEZ WALIAH [id number] on June 07, 2025 5:25:00 AM UTC Discont inued 654879 9116 2070 290 losartan potassium (COZAAR) 100 MG TABS 100.0 MG ORAL ONCE DAILY Start: 2024 2:00:0 0 PM UTC End: 2024 10:15: 09 PM UT BERMUDEZ WALIAH [id number] on June 07, 2025 5:25:00 AM UTC Discont inued 729776 7763 6016 088 tamsulosin (FLOMAX) 0.4 MG CAPS 0.4 MG ORAL AT BEDTIME Start: 2024 2:00:0 0 AM UTC End: 2024 10:15: 09 PM UT BERMUDEZ WALIAH [id number] on June 07, 2025 5:25:00 AM UTC Discont inued 137559 1453 8062 715 oxybutynin chlor (DITROPAN XL) 5 MG TB24 5.0 MG ORAL ONCE DAILY Start: 2024 2:00:0 0 PM UTC End: 2024 10:15: 09 PM UT RENEE ALBANIA [id number] on June 07, 2025 5:25:00 AM UTC Discont inued 664824 1712 4055 601 clopidogrel (PLAVIX) 75 MG TABS 75.0 MG ORAL ONCE DAILY Start: 2024 2:00:0 0 PM UTC End: [facility] 2024 10:15: 09 PM UTC BERMUDEZ WALIAH [id number] on June 07, 2025 5:25:00 AM UTC Discont inued 457104 1435 7048 811 amLODIPine (NORVASC) 5 MG TABS 5.0 MG ORAL ONCE DAILY Start: [facility] 2024 2:00:0 0 PM UTC End: [facility] 2024 10:15: 09 PM UTC BERMUDEZ WALIAH [id number] on June 07, 2025 5:25:00 AM UTC Discont inued 994382 4552 9010 920 atorvastati n (LIPITOR) 20 MG TABS 80.0 MG ORAL AT BEDTIME Start: [facility] 2024 2:00:0 0 AM UTC End: [facility] 2024 10:15: 09 PM UT BERMUDEZ WALIA [id number] on June 07, 2025 5:25:00 AM UTC Discont inued 6655 3000 201 baby aspirin (DIOGO) 81 MG CHEW 81.0 MG ORAL ONCE DAILY Start: [facility] 2024 2:00:0 0 PM UTC End: [facility] 2024 10:15: 09 PM UT BERMUDEZ NASRAIA [id number] on June 07, 2025 5:25:00 AM UTC Discont inued 483805 7510 8041 088 LOVENOX 100 MG/ML SOLN 85.0 MG SUBCUT ANEOUS EVERY TWELVE HOURS Start: [facility] 2024 7:30:0 0 AM UTC End: [facility] 2024 1:44:5 1 PM UTC RENEE ELIZONDOA [id number] on June 04, 2025 1:44:00 PM UTC Discont inued [id number] 8001 3089 421 apixaban (ELIQUIS) 5 MG TABS 10.0 MG ORAL TWICE A DAY Start: [facility] 2024 2:00:0 0 PM UTC End: [facility] 2024 1:15:0 0 AM UTC ESPERANZA VIVAS [id number] on June 07, 2025 5:25:00 AM UTC Discont inued 655036 3768 4081 309 pantoprazol e (PROTONIX) 40 MG TBEC 40.0 MG ORAL ONCE DAILY Start: 2024 2:00:0 0 PM UTC End: 2024 10:15: 09 PM UTC KATMEH AMJED [id number] on June 07, 2025 5:25:00 AM UTC Discont inued 8349876 0420 9733 201 cefTRIAXone (ROCEPHIN) 1 GM SOLR 1.0 GM INTRAV ENOUS ONCE DAILY 100.0 ML/HR Start: 2024 2:00:0 0 PM UTC End: 2024 10:15: 09 PM UT KATMEH AMJED [id number] on June 07, 2025 5:25:00 AM UTC Discont inued 8973313 0033 8055 311 sodium chloride 0.9% MB+ SOLN 50.0 ML INTRAV ENOUS ONCE DAILY 100.0 ML/HR Start: 2024 2:00:0 0 PM UTC End: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
[2025-06-10] VITALS (14 sets, daily range): BP systolic 136–190; BP diastolic 67–102; PULSE 86–103; RESP 14–24; TEMP 36.6–36.8; O2SAT 96–100; BMI 30.7
--- OUTSIDE RECORDS SUMMARY | 2025-06-10 13:39 | XMS_ITS | Encounter Summary ---
Author Organization Healthcare Address [address] [place] [address] Care Team Providers Care Chartered Accountant Name Role Phone Pcp, No Primary Care Provider Unavailabl e Encounter Details Date Type Department Care Team ([facility] st Contact Info) Description 12/16/2022 Orders Only External Location [address] [place] [address] Provider, External Social History Tobacco Use Types Packs/Day Years Used Date Smoking Tobacco: Former Alcohol Use Standard Drinks/Week Comments Yes 0 (1 standard drink = 0.6 oz pure alcohol) Alcoholic Drinks/day: Rarely consumes alcohol Sex and Gender Information Value Date Recorded Sex Assigned at Not on file Legal Sex Male 6:48 PM EDT Gender Identity Not on file Sexual Orientation Not on file documented as of this encounter Plan of Treatment Not on file documented as of this encounter Procedures Procedure Name Priority Date/Time Associated Diagnosis Comments CT OUTSIDE IMAGES 12/16/2022 1:08 PM EDT documented in this encounter Results * CT OUTSIDE IMAGES (12/16/2022 1:08 PM EDT) Anatomical Region Laterality Modality Computed Tomogra phy 12/16/2022 1:08 PM EDT us External Provider IMG CT PROCEDURES Final Result documented in this encounter Visit Diagnoses Not on filedocumented in this encounter Care Teams Chartered Accountant Relationship Specialty Start Date End Date Pcp, No [address] [place] [address] PCP - General Family Medicine 04/22/25 documented as of this encounter
--- NOTE | 2025-06-10 13:40 | ECG_ITS ---
APPROVED REPORT Exam: Resting ECG HR:92 bpm ECG Measurements Heart Rate 92 AXES NV 164 P 51 QRSd 118 QRS 73 QT 327 T 60 QTc 377 Conclusion SINUS RHYTHM POSSIBLE ANTERIOR MYOCARDIAL INFARCTION , OF INDETERMINATE AGE [30 ms Q WAVE IN V3/V4, OR R < 0.2 mV IN V4] PROBABLE INFERIOR MYOCARDIAL INFARCTION , PROBABLY OLD [35 ms Q WAVE IN II/aVF] ABNORMAL ECG UNCONFIRMED REPORT No STEMI Electronically signed by : YADIRA OSUNA, 06/10/2025 15:22:29
--- NOTE | 2025-06-10 13:40 | CT_ITS ---
FINAL REPORT TECHNIQUE: Thin section axial images were obtained from skull base to vertex without contrast. Coronal reconstruction images were obtained from the axial data. Exam was performed using dose reduction techniques such as automated exposure control, adjustment of the mA and kV according to patient size, and use of iterative reconstruction technique. CLINICAL HISTORY: AMS failure to thrive COMPARISON: 11/05/2024 FINDINGS: There is global atrophy. No mass effect or midline shift. No intracranial hemorrhage. No hydrocephalus. There is encephalomalacia in the right frontal lobe, unchanged. Periventricular hypodensity is likely related to chronic small vessel ischemia. The basilar cisterns are preserved. The posterior fossa is without acute abnormality. There is fluid in the left mastoid air cells. No acute osseous abnormality is identified. IMPRESSION: No acute intracranial abnormality. Stable atrophy and changes suggesting chronic small vessel ischemia. Left mastoiditis. Reviewed, Interpreted and Dictated by Emerald Baker MD Transcribed by Bela Payne Authenticated and . [facility]
--- NOTE | 2025-06-10 13:40 | XR_ITS ---
FINAL REPORT CLINICAL HISTORY: Altered mental status, failure to thrive COMPARISON: 11/05/2024 FINDINGS: A portable view of the chest was obtained. Prior median sternotomy. The heart is normal in size. There is a new medial right upper lobe opacity which could be infectious or inflammatory. Underlying nodule is not excluded. There is a probable soft tissue shadow overlying the left chest wall, pneumothorax felt unlikely.. IMPRESSION: Medial right upper lobe opacity favored to represent pneumonia. Consider CT chest with contrast. Probable artifact along the lower left chest. Pneumothorax felt unlikely. Reviewed, Interpreted and Dictated by Emerald Baker MD Transcribed by Gely Alcazar Authenticated and [facility]
--- OUTSIDE RECORDS SUMMARY | 2025-06-10 13:40 | XMS_ITS | Encounter Summary ---
Author Organization Healthcare Address [address] [place] [address] Care Team Providers Care Advocacy Director Name Role Phone Pcp, No Primary Care Provider Unavailabl e Encounter Details Date Type Department Care Team ([facility] st Contact Info) Description 07/10/2024 Orders Only External Location [address] [place] [address] Provider, External Social History Tobacco Use Types [...] Date/Time Associated Diagnosis Comments CT OUTSIDE IMAGES 07/10/2024 11:33 AM EST documented in this encounter Results * CT OUTSIDE IMAGES (07/10/2024 11:33 AM EST) Anatomical Region Laterality Modality Computed Tomogra phy 07/10/2024 11:3 3 AM EST us External Provider IMG CT PROCEDURES Final Result documented in this encounter Visit Diagnoses Not on filedocumented in this encounter Care Teams Advocacy Director Relationship Specialty Start Date End Date Pcp, No [address] [place] [address] PCP - General Family Medicine 04/22/25 documented as of this encounter
--- OUTSIDE RECORDS SUMMARY | 2025-06-10 13:40 | XMS_ITS | Encounter Summary ---
Author Organization Healthcare Address [address] [place] [address] Care Team Providers Care Rotor Casting Machine Setup Operator Name Role Phone Pcp, No Primary Care Provider Unavailabl e Encounter Details Date Type Department Care Team ([facility] st Contact Info) Description 08/10/2023 Orders Only External Location [address] [place] [address] Provider, External Social History Tobacco Use Types [...] Date/Time Associated Diagnosis Comments CT OUTSIDE IMAGES 08/10/2023 11:09 AM EST documented in this encounter Results * CT OUTSIDE IMAGES (08/10/2023 11:09 AM EST) Anatomical Region Laterality Modality Computed Tomogra phy 08/10/2023 11:0 9 AM EST us External Provider IMG CT PROCEDURES Final Result documented in this encounter Visit Diagnoses Not on filedocumented in this encounter Care Teams Rotor Casting Machine Setup Operator Relationship Specialty Start Date End Date Pcp, No [address] [place] [address] PCP - General Family Medicine 04/22/25 documented as of this encounter
--- OUTSIDE RECORDS SUMMARY | 2025-06-10 13:40 | XMS_ITS | Clinical Summary ---
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 Active Diclofenac Sodium (VOLTAREN) 1 % gel gel Apply 2 g topically to the appropriate area as directed Every 6 (Six) Hours As Needed (Joint and pain). Active amLODIPine (NORVASC) 5 MG tablet Take 1 tablet by mouth Daily. Active trospium (SANCTURA) 20 MG tablet Take 1 tablet by mouth Daily. Active atorvastatin (LIPITOR) 80 MG tablet Take 1 tablet by mouth Every Night. Active isosorbide mononitrate (IMDUR) 30 MG 24 hr tablet Take 0.5 tablets by mouth Daily. Active PHARMACY MEDS TO BED CONSULT Use Daily. 4 Active metoprolol tartrate (LOPRESSOR) 25 MG tablet Take 0.5 tablet (one-half) by mouth 2 (Two) Times a Day. 45 tablet 3 4 Active albuterol sulfate HFA 108 (90 Base) MCG/ACT inhaler Inhale 2 puffs 3 (Three) Times a Day. 18 g 5 4 Active empagliflozin (JARDIANCE) 10 MG tablet tablet Take 1 tablet by mouth Daily. 30 tablet 11 4 Active furosemide (LASIX) 20 MG tablet Take 0.5 tablet (one-half) by mouth Daily. 90 tablet 3 4 Active nitroglycerin (NITROSTAT) 0.[address] 1 tablet under the tongue Every 5 (Five) Minutes As Needed for Chest Pain (Systolic BP Greater Than 100). Take no more than 3 doses in 15 minutes. 25 tablet 11 4 Active aspirin 81 MG EC tablet Take 1 tablet by mouth Daily. 90 tablet 3 4 Active losartan (COZAAR) 100 MG tablet Take 0.5 tablets by mouth Daily. 45 tablet 3 4 Active albuterol sulfate HFA 108 (90 Base) MCG/ACT inhaler Inhale 2 puffs 3 (Three) Times a Day As Needed for Wheezing or Shortness of Air. Active aspirin 81 MG EC tablet Take 1 tablet by mouth Daily. Active atorvastatin (LIPITOR) 80 MG tablet Take 1 tablet by mouth Every Night. Active cholecalciferol (VITAMIN D3) 1.25 MG (03719 UT) capsule Take 1 capsule by mouth Every 7 (Seven) Days. Active empagliflozin (JARDIANCE) 10 MG tablet tablet Take 1 tablet by mouth Daily. Active ezetimibe (ZETIA) 10 MG tablet Take 1 tablet by mouth Daily. Active nitroglycerin (NITROSTAT) 0.[address] 1 tablet under the tongue Every 5 (Five) Minutes As Needed for Chest Pain. Take no more than 3 doses in 15 minutes. Active tamsulosin (FLOMAX) 0.4 MG capsule 24 hr capsule Take 1 capsule by mouth Daily. Active trospium 60 MG capsule sustained-releas e 24 hr capsule Take 20 mg by mouth Every Morning. Active clopidogrel (PLAVIX) 75 MG tablet Take 1 tablet by mouth Daily. 30 tablet 02/24/2024 4:29 PM EDT Active Active Problems Problem Noted Date Diagnosed Date Stroke-like symptom 02/19/2024 Stroke-like symptoms 02/19/2024 Severe malnutrition 02/19/2024 Coronary artery disease of b ypass graft of [place] heart with stable angina pectoris 11/20/2023 Mixed hyperlipidemia 11/20/2023 Hypertension, essential 11/20/2023 Carotid stenosis, asymptomatic, right 11/20/2023 Chronic systolic heart failure 11/20/2023 Unstable angina 10/08/2023 Family History Relation Name Status Comments Brother Alive Daughter Alive Father Mother Sister Alive Son Alive Social History Tobacco Use Types Packs/Day Years Used Date Smoking Tobacco: Never Smokeless Tobacco: Never Tobacco Cessation:Counseling Given: Not Answered Alcohol Use Standard Drinks/Week Comments Not Currently 0 (1 standard drink = 0.6 oz pur e alcohol) AUDIT-C Answer Date Recorded Q1: How often do you have a drink containing alc ohol? Monthly or less 02/19/2024 Q2: How many drinks containi ng alcohol do you have on a typical day when you are drinking? 1 or 2 02/19/2024 Q3: How often do you have si x or more drinks on one occasion? Never 02/19/2024 Abuse Screen Answer Date Recorded Feels Unsafe at Home or Work/School no 02/19/2024 Feels Threatened by Someone no 02/2024 Does Anyone Try to Keep You From Having Contact with Others or Doing Things Outside Your Home? no 02/19/2024 Physical Signs of Abuse Present no 02/19/2024 Housing Stability Answer Date Recorded Current Living Arrangements home 02/2024 Potentially Unsafe Housing Conditions Not on anu e 02/19/2024 Family and Community Support Answer Aneesh e Recorded Help with Day-to-Day Activities Not on file 02/18/2024 Lonely or Isolated Not on file 02/18/2024 Employment Answer Date Recorded Do you want help finding or keeping work or a justin b? Not on file 02/18/2024 Disabilities Answer Date Recorded Difficulty Concentrating, Remembering or Making Decisions yes 02/19/2024 Difficulty Managing Errands Independently yes 02/19/2024 Education Answer Date Recorded Help with school or training? Not on file Preferred Language Singaporean 10/09/2023 Sex and Gender Information Value Date Recorded Sex Assigned at Not on file Legal Sex Male 10:29 PM EDT Gender Identity Not on file Sexual Orientation Not on file Last Filed Vital Signs Vital Sign Reading Time Taken Comments Blood Pressure 138/61 02/24/2024 2:40 PM EDT Pulse 84 02/24/2024 5:00 PM EDT Temperature 36.6 C (97.9 F) 02/24/2024 2:40 PM EDT Respiratory Rate 24 02/24/2024 2:40 PM EDT Oxygen Saturation 95% 02/24/2024 4:45 PM EDT Inhaled Oxygen Concentration - - Weight 95.3 kg (210 lb 1.6 oz) 02/19/2024 8:42 A M EDT Height 180.3 cm (5' 10.98 ) 02/19/2024 8:42 AM E DT Body Mass Index 29.32 02/19/2024 8:42 AM EDT Plan of Treatment Health Maintenance Due Date Last Done Comments TDAP/TD VACCINES (1 - Tdap) 1964 RSV Vaccine - Adults (1 - 1- dose 75+ series) 2019 COVID-19 Vaccine (2 - Pfizer risk series) 08/08/2023 07/18/2023 ANNUAL WELLNESS VISIT 11/20/2023 INFLUENZA VACCINE 02/11/2025 07/18/2023, 09/20/2022 LIPID PANEL 02/18/2025 02/19/2024 Pneumococcal Vaccine 50+ Completed 09/20/2022 ZOSTER VACCINE Completed 01/09/2024, 10/16/2023 Procedures Procedure Name Priority Date/Time Associated Diagnosis Comments LIPID PANEL STAT 02/19/2024 3:37 AM EDT from Last 3 Months or Most Recently Relevant to Health Maintenance Results * (ABNORMAL) Lipid Panel (02/19/2024 3:37 AM EDT) Total Cholesterol 169 0 - 200 mg/dL 02/19/2024 4:45 AM EDT [facility] Triglycerides 71 0 - 150 mg/dL 02/19/2024 4:45 AM EDT [facility] HDL Cholesterol 64(H) 40 - 60 mg/dL 02/19/2024 4:45 AM EDT [facility] LDL Cholesterol 91 0 - 100 mg/dL 02/19/2024 4:45 AM EDT [facility] VLDL Cholesterol 14 5 - 40 mg/dL 02/19/2024 4:45 AM EDT [facility] LDL/HDL Ratio 1.42 02/19/2024 4:45 AM EDT [facility] Blood Venipuncture / Unknown 02/19/2024 3:37 AM EDT 02/19/2024 4:07 AM EDT Narrative [facility] - 02/19/2024 4:45 AM EDT Cholesterol Reference Ranges (U.S. Department of Health and Human Services ATP III Classifications) Desirable <200 mg/dL Borderline High 200-239 mg/dL High Risk >240 mg/dL Triglyceride Reference Ranges (U.S. Department of Health and Human Services ATP III Classifications) Normal <150 mg/dL Borderline High 150-199 mg/dL High 200-499 mg/dL Very High >500 mg/dL HDL Reference Ranges (U.S. Department of Health and Human Services ATP III Classifications) Low <40 mg/dl (major risk factor for CHD) High >60 mg/dl ('negative' risk factor for CHD) LDL Reference Ranges (U.S. Department of Health and Human Services ATP III Classifications) Optimal <100 mg/dL Near Optimal 100-129 mg/dL Borderline High 130-159 mg/dL High 160-189 mg/dL Very High >189 mg/dL Arielle Sears MD LAB BLOOD ORDERABLES Final Resu lt [facility]
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 PATIENT ADVANCE DIRECTIVES - SCAN 09/08/2024 2:37 PM PATIENT ADVANCE DIRECTIVE, [facility], 04/29/2011 * CPR (Attempt to Resuscitate) (Latest Code Status on File) Date Activated Date Inactivated Comments 02/21/2024 12:24 PM 02/24/2024 7:58 PM Question Answer Comments Code Status (Patient has no pulse and is not breathing): CPR (Attempt to Resuscitate) Medical Interventions (Patie nt has pulse or is breathing): Full Support Level Of Support Discussed With: Patient * CPR (Attempt to Resuscitate) Date Activated Date Inactivated Comments 10/08/2023 11:28 AM 10/10/2023 1:10 PM Question Answer Comments Code Status (Patient has no pulse and is not breathing): CPR (Attempt to Resuscitate) Medical Interventions (Patie nt has pulse or is breathing): Full Support Level Of Support Discussed With: Patient Care Teams Windshield Wiper Repairer Relationship Specialty Start Date End Date Allegra Hardy MD PCP - General Internal Medicine 02/18/24
--- NOTE | 2025-06-10 13:42 | ED_ITS ---
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 4.5. Chloride elevated at 110. BUN elevated 222 but no PEDRO with creatinine of 1.10. Calcium mildly elevated at 11.8. Mildly elevated AST but liver enzymes otherwise within normal limits except for elevated alk phos of 448. Urinalysis pending. CT head on my interpretation shows no intracranial hemorrhage, mass or midline shift. 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 Chest x-ray knee x-rays are pending. At this time, patient's care was handed off to the oncoming physician, Dr. Charles, pending completion of patient's workup. Princess Charles, DO I assumed care of the patient at 1500. Patient's labs were reviewed and interpreted by myself: CBC showed no leukocytosis, hemoglobin was stable. CMP showed mild hyponatremia, otherwise unremarkable. Initial troponin 0.02, second troponin 0.02. Thyroid studies unremarkable. UA showed 4+ yeast, trace bacteria, 3-5 white blood cells, leuk esterase. Patient's respiratory panel was negative. Patient's chest x-ray initially showed concern for possible pneumonia however underlying nodule could not be excluded therefore radiology recommended CT chest. Given concern for possible known liver cancer metastasis, CT abdomen was obtained for further metastatic workup. Patient CT head showed no intracranial pathology however radiology did read a left mastoiditis. Clinically on exam, patient had no erythema or swelling posterior to the left ear. Clinically, patient does not have mastoiditis. CT chest showed a upper lobe nodule, and a left-sided pleural effusion but no other acute pathology. CT abdomen showed rim-enhancing lesion in the liver as well as the kidney. Patient was treated with vancomycin and Rocephin for mastoiditis and UTI. Blood cultures were obtained. Given concern for functional decline likely needing PT OT and further management, [facility] Patient was sent in clinical stability via BLS. Patient was accepted by Talon Puckett. Critical Care <Roger Mas MD - Last Filed: 06/10/25 15:09> Critical Care Time Critical Care Time: No
--- OUTSIDE RECORDS SUMMARY | 2025-06-10 13:42 | XMS_ITS | Clinical Summary ---
Author Organization Healthcare Address [address] [place] [address] Care Team Providers Care Residential Nurse Name Role Phone Pcp, No Primary Care Provider Unavailabl e Allergies Active Allergy Reactions Criticality Noted Date Comments Sulfa Drugs Anaphylaxis High 04/22/2025 Medications cholecalciferol (Vitamin D3) 25 MCG (1000 UT) tablet Take 1 tablet by mouth daily. 4 Active aspirin 81 MG EC tablet Take 1 tablet by mouth daily. Active atorvastatin (Lipitor) 80 MG tablet Take 1 tablet by mouth daily. 5 Active clopidogrel (Plavix) 75 MG tablet Take 1 tablet by mouth daily. 5 Active empagliflozin (Jardiance) 10 MG Take 1 tablet by mouth daily. Active ezetimibe (Zetia) 10 MG tablet Take 1 tablet by mouth daily. Active levETIRAcetam (Keppra) 500 MG tablet Take 1 tablet by mouth 2 times a day. 5 Active lidocaine (Lidoderm) 5 % patch Apply 1 patch topically daily as needed for mild pain, moderate pain or severe pain. 5 Active tamsulosin (Flomax) 0.4 MG 24 hr capsule Take 1 capsule by mouth every evening. 5 Active trospium (Sanctura) 20 MG tablet Take 1 tablet by mouth daily. Active Nutritional Supplements (ENSURE PLUS PO) Take 1-2 cartons by mouth daily as needed. Active acetaminophen (Tylenol) 325 MG tablet Take 2 tablets by mouth every 6 hours. 100 tablet 5 Active amLODIPine (Norvasc) 5 MG tablet Take 1 tablet by mouth daily. 30 tablet 5 Active diclofenac (Voltaren) 1 % topical gel Place 1 g on the skin 4 times a day. Apply as directed to affected area 1 g Active doxazosin (Cardura) 1 MG tablet Take 1 tablet by mouth nightly. 30 tablet 5 Active famotidine (Pepcid) 20 MG tablet Take 1 tablet by mouth 2 times a day. 60 tablet 5 Active lacosamide (Vimpat) 50 MG tablet Take 1 tablet by mouth 2 times a day. 60 tablet 5 Active methocarbamol (Robaxin) 500 MG tablet Take 1 tablet by mouth 4 times a day. 120 tablet 5 Active ondansetron ODT (Zofran-ODT) 4 MG disintegrating tablet Dissolve 1 tablet on the tongue every 6 hours as needed for nausea or vomiting. 20 tablet 5 Active naloxone (Narcan) 4 mg/0.1 mL nasal spray 1. Give 1 spray in nostril for no/slow breathing or cannot wake after opioid use 2. Call 911 3. Repeat in other nostril if symptoms continue 1 each Active losartan (Cozaar) 25 MG tablet Take 3 tablets by mouth every morning. 90 tablet 5 Active polyethylene glycol (Miralax) 17 g packet Take 17 g by mouth 2 times a day for 14 days. 28 packet 5 025 senna-docusate (Kamille-Colace) 8.6-50 MG tablet Take 2 tablets by mouth 2 times a day. 120 tablet 5 025 Active Problems Problem Noted Date Diagnosed Date Acid reflux 05/01/2025 Assessment & Plan (05/04/2025 5:11 PM EDT): With TF Started PPI Assessment & Plan (05/03/2025 9:12 AM EDT): With TF Started PPI Assessment & Plan (05/02/2025 4:14 PM EDT): With TF Started PPI Assessment & Plan (05/01/2025 4:40 PM EDT): With TF Started PPI Urinary retention 04/30/2025 Assessment & Plan (05/04/2025 5:11 PM EDT): Cardura Assessment & Plan (05/03/2025 9:12 AM EDT): Cardura Assessment & Plan (05/02/2025 4:14 PM EDT): Cardura Assessment & Plan (05/01/2025 4:40 PM EDT): Cardura Assessment & Plan (04/30/2025 4:39 PM EDT): Cardura Swallowing difficulty 04/27/2025 Assessment & Plan (05/04/2025 5:11 PM EDT): VAULT PERSON consulted Aspiration on MBS Tube feeds per [...] 05/04: DHT removed and cyclic TF discontinued Assessment & Plan (05/03/2025 9:12 AM EDT): Aspiration on MBS Tube feeds per dobhoff Repeat MBS pending 05/01: emesis with TF due to acid reflux; KUB completed and stable; resume TF 05/02: Assessment & Plan (05/02/2025 4:14 PM EDT): Aspiration on MBS Tube feeds per dobhoff Repeat MBS pending 05/01: emesis with TF due to acid reflux; KUB completed and stable; resume TF 05/02: Assessment & Plan (05/01/2025 4:40 PM EDT): Aspiration on MBS Tube feeds per dobhoff Repeat MBS pending 05/01: emesis with TF due to acid reflux; KUB completed and stable; resume TF Assessment & Plan (04/30/2025 4:39 PM EDT): Aspiration on MBS Tube feeds per dobhoff Repeat MBS pending Assessment & Plan (04/29/2025 2:44 PM EDT): Aspiration on MBS Getting tube feeds per dobhoff Assessment & Plan (04/28/2025 8:18 PM EDT): Aspiration on MBS Getting tube feeds per dobhoff Assessment & Plan (04/27/2025 8:57 PM EDT): Aspiration on MBS Getting tube feeds per dobhoff Delirium 04/27/2025 Overview (04/27/2025): - delirium precautions - prn medication for sleep Assessment & Plan (05/04/2025 5:11 PM EDT): Delirium precautions Optimize sleep-wake cycles Assessment & Plan (05/03/2025 9:12 AM EDT): Delirium precautions Optimize sleep-wake cycles Assessment & Plan (05/02/2025 4:14 PM EDT): Delirium precautions Optimize sleep-wake cycles Assessment & Plan (05/01/2025 4:40 PM EDT): Delirium precautions Optimize sleep-wake cycles Assessment & Plan (04/30/2025 4:39 PM EDT): Delirium precautions Optimize sleep-wake cycles Assessment & Plan (04/29/2025 2:44 PM EDT): Delirium precautions Optimize sleep-wake cycles Assessment & Plan (04/28/2025 8:18 PM EDT): Delirium precautions Optimize sleep-wake cycles Liver mass 04/23/2025 Assessment & Plan (05/04/2025 5:11 PM EDT): Known to patient and family, who do not want intervention - Heterogeneously enhancing right hemiliver mass, suggesting neoplastic disease progression. Stable peripherally enhancing lesion in the spleen, not entirely characterized on this exam Assessment & Plan (05/03/2025 9:12 AM EDT): Known to patient and family, who do not want intervention - Heterogeneously enhancing right hemiliver mass, suggesting neoplastic disease progression. Stable peripherally enhancing lesion in the spleen, not entirely characterized on this exam Assessment & Plan (05/02/2025 4:14 PM EDT): Known to patient and family, who do not want intervention - Heterogeneously enhancing right hemiliver mass, suggesting neoplastic disease progression. Stable peripherally enhancing lesion in the spleen, not entirely characterized on this exam Assessment & Plan (05/01/2025 4:40 PM EDT): Known to patient and family, who do not want intervention - Heterogeneously enhancing right hemiliver mass, suggesting neoplastic disease progression. Stable peripherally enhancing lesion in the spleen, not entirely characterized on this exam Assessment & Plan (04/30/2025 4:39 PM EDT): Known to patient and family, who do not want intervention - Heterogeneously enhancing right hemiliver mass, suggesting neoplastic disease progression. Stable peripherally enhancing lesion in the spleen, not entirely characterized on this exam Assessment & Plan (04/29/2025 2:44 PM EDT): Known to patient and family, who do not want intervention - Heterogeneously enhancing right hemiliver mass, suggesting neoplastic disease progression. Stable peripherally enhancing lesion in the spleen, not entirely characterized on this exam Assessment & Plan (04/28/2025 8:18 PM EDT): Known to patient and family, who do not want intervention - Heterogeneously enhancing right hemiliver mass, suggesting neoplastic disease progression. Stable peripherally enhancing lesion in the spleen, not entirely characterized on this exam Assessment & Plan (04/27/2025 8:57 PM EDT): Known to patient and family, who do not want intervention - Heterogeneously enhancing right hemiliver mass, suggesting neoplastic disease progression. Stable peripherally enhancing lesion in the spleen, not entirely characterized on this exam Assessment & Plan (04/26/2025 9:47 PM EDT): Known to patient and family, who do not want intervention - Heterogeneously enhancing right hemiliver mass, suggesting neoplastic disease progression. Stable peripherally enhancing lesion in the spleen, not entirely characterized on this exam Assessment & Plan (04/25/2025 1:39 PM EDT): Known to patient and family, who do not want intervention - Heterogeneously enhancing right hemiliver mass, suggesting neoplastic disease progression. Stable peripherally enhancing lesion in the spleen, not entirely characterized on this exam Assessment & Plan (04/27/2025 11:09 PM EDT): Known to patient and family, who do not want intervention - Heterogeneously enhancing right hemiliver mass, suggesting neoplastic disease progression. Stable peripherally enhancing lesion in the spleen, not entirely characterized on this exam Assessment & Plan (04/27/2025 11:08 PM EDT): Chronic Discuss with family results and follow-up [ ] - heterogeneously enhancing right hemiliver mass, suggesting neoplastic disease progression. Stable peripherally enhancing lesion in the spleen, not entirely characterized on this exam. Assessment & Plan (04/23/2025 12:29 AM EDT): Chronic Discuss with family results and follow-up [ ] - heterogeneously enhancing right hemiliver mass, suggesting neoplastic disease progression. Stable peripherally enhancing lesion in the spleen, not entirely characterized on this exam. 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 Stable peripherally enhancing lesion in the spleen, not entirely characterized on this exam. Assessment & Plan (04/23/2025 12:29 AM EDT): Chronic Discuss with family results and follow-up [ ] - heterogeneously enhancing right hemiliver mass, suggesting neoplastic disease progression. Stable peripherally enhancing lesion in the spleen, not entirely characterized on this exam. 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 - Neurosurgery consulted, no surgical intervention - Restart DAPT when able, restarted asa 81 mg Assessment & Plan (05/02/2025 4:14 PM EDT): - Complete thrombosis of right ICA, 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 - Neurosurgery consulted, no surgical intervention - Restart DAPT when able, restarted asa 81 mg Assessment & Plan (05/01/2025 4:40 PM EDT): - Complete thrombosis of right ICA, 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 - Neurosurgery consulted, no surgical intervention - Restart DAPT when able, restarted asa 81 mg Assessment & Plan (04/30/2025 4:39 PM EDT): - Complete thrombosis of right ICA, 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 - Neurosurgery consulted, no surgical intervention - Restart DAPT when able, restarted asa 81 mg Assessment & Plan (04/29/2025 2:44 PM EDT): - Complete thrombosis of right ICA, 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 - Neurosurgery consulted, no surgical intervention - Restart DAPT when able, restarted asa 81 mg Assessment & Plan (04/28/2025 8:18 PM EDT): - Complete thrombosis of right ICA, 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 - Neurosurgery consulted, no surgical intervention - Restart DAPT when able, restarted asa 81 mg Assessment & Plan (04/27/2025 8:57 PM EDT): - Complete thrombosis of right ICA, 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 - Neurosurgery consulted, no surgical intervention - Restart DAPT when able, restarted asa 81 mg Assessment & Plan (04/26/2025 9:47 PM EDT): - Complete thrombosis of right ICA, 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 - Neurosurgery consulted, no surgical intervention - Restart DAPT when able, restarted asa 81 mg Assessment & Plan (04/25/2025 1:39 PM EDT): - Complete thrombosis of right ICA, 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 - Neurosurgery consulted, no surgical intervention - Restart DAPT when able, restarted asa 81 mg Assessment & Plan (04/27/2025 11:09 PM EDT): - Complete thrombosis of right ICA, 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 - Neurosurgery consulted, no surgical intervention - Restart DAPT when able, restarted asa 81 mg Assessment & Plan (04/27/2025 11:08 PM EDT): - Complete thrombosis of RIGHT ICA, Thrombosis of RIGHT petrous and cavernous internal carotid artery - neurosurgery consulted, no surgical intervention - Restart DAPT when able, restarted asa 81 mg Assessment & Plan (04/23/2025 12:29 AM EDT): - Complete thrombosis of RIGHT ICA, Thrombosis of RIGHT petrous and cavernous internal carotid artery - neurosurgery consulted Stenosis of left internal carotid artery 025 Assessment & Plan (05/04/2025 5:11 PM EDT): - 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; Pre-occlusive stenosis of origin of LEFT ICA - neurosurgery consulted, outpatient f/u for L ICA stenosis - Restart DAPT when able, restarted asa 81 mg Assessment & Plan (05/03/2025 9:12 AM EDT): - 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; Pre-occlusive stenosis of origin of LEFT ICA - neurosurgery consulted, outpatient f/u for L ICA stenosis - Restart DAPT when able, restarted asa 81 mg Assessment & Plan (05/02/2025 4:14 PM EDT): - 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; Pre-occlusive stenosis of origin of LEFT ICA - neurosurgery consulted, outpatient f/u for L ICA stenosis - Restart DAPT when able, restarted asa 81 mg Assessment & Plan (05/01/2025 4:40 PM EDT): - 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; Pre-occlusive stenosis of origin of LEFT ICA - neurosurgery consulted, outpatient f/u for L ICA stenosis - Restart DAPT when able, restarted asa 81 mg Assessment & Plan (04/30/2025 4:39 PM EDT): - 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; Pre-occlusive stenosis of origin of LEFT ICA - neurosurgery consulted, outpatient f/u for L ICA stenosis - Restart DAPT when able, restarted asa 81 mg Assessment & Plan (04/29/2025 2:44 PM EDT): - 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; Pre-occlusive stenosis of origin of LEFT ICA - neurosurgery consulted, outpatient f/u for L ICA stenosis - Restart DAPT when able, restarted asa 81 mg Assessment & Plan (04/28/2025 8:18 PM EDT): - 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; Pre-occlusive stenosis of origin of LEFT ICA - neurosurgery consulted, outpatient f/u for L ICA stenosis - Restart DAPT when able, restarted asa 81 mg Assessment & Plan (04/27/2025 8:57 PM EDT): - 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; Pre-occlusive stenosis of origin of LEFT ICA - neurosurgery consulted, outpatient f/u for L ICA stenosis - Restart DAPT when able, restarted asa 81 mg Assessment & Plan (04/26/2025 9:47 PM EDT): - 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; Pre-occlusive stenosis of origin of LEFT ICA - neurosurgery consulted, outpatient f/u for L ICA stenosis - Restart DAPT when able, restarted asa 81 mg Assessment & Plan (04/25/2025 1:39 PM EDT): - 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; Pre-occlusive stenosis of origin of LEFT ICA - neurosurgery consulted, outpatient f/u for L ICA stenosis - Restart DAPT when able, restarted asa 81 mg Assessment & Plan (04/27/2025 11:09 PM EDT): - 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; Pre-occlusive stenosis of origin of LEFT ICA - neurosurgery consulted, outpatient f/u for L ICA stenosis - Restart DAPT when able, restarted asa 81 mg Assessment & Plan (04/27/2025 11:08 PM EDT): - 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 - Neurosurgery consulted, restart DAPT when able, restarted asa 81 mg Assessment & Plan (05/03/2025 9:12 AM EDT): - Thrombosis of RIGHT intradural vertebral artery, RIGHT vertebral artery, - Reconstitution of hypoplastic RIGHT MCA. - Neurosurgery consulted, restart DAPT when able, restarted asa 81 mg Assessment & Plan (05/02/2025 4:14 PM EDT): - Thrombosis of RIGHT intradural vertebral artery, RIGHT vertebral artery, - Reconstitution of hypoplastic RIGHT MCA. - Neurosurgery consulted, restart DAPT when able, restarted asa 81 mg Assessment & Plan (05/01/2025 4:40 PM EDT): - Thrombosis of RIGHT intradural vertebral artery, RIGHT vertebral artery, - Reconstitution of hypoplastic RIGHT MCA. - Neurosurgery consulted, restart DAPT when able, restarted asa 81 mg Assessment & Plan (04/30/2025 4:39 PM EDT): - Thrombosis of RIGHT intradural vertebral artery, RIGHT vertebral artery, - Reconstitution of hypoplastic RIGHT MCA. - Neurosurgery consulted, restart DAPT when able, restarted asa 81 mg Assessment & Plan (04/29/2025 2:44 PM EDT): - Thrombosis of RIGHT intradural vertebral artery, RIGHT vertebral artery, - Reconstitution of hypoplastic RIGHT MCA. - Neurosurgery consulted, restart DAPT when able, restarted asa 81 mg Assessment & Plan (04/28/2025 8:18 PM EDT): - Thrombosis of RIGHT intradural vertebral artery, RIGHT vertebral artery, - Reconstitution of hypoplastic RIGHT MCA. - Neurosurgery consulted, restart DAPT when able, restarted asa 81 mg Assessment & Plan (04/27/2025 8:57 PM EDT): - Thrombosis of RIGHT intradural vertebral artery, RIGHT vertebral artery, - Reconstitution of hypoplastic RIGHT MCA. - Neurosurgery consulted, restart DAPT when able, restarted asa 81 mg Assessment & Plan (04/26/2025 9:47 PM EDT): - Thrombosis of RIGHT intradural vertebral artery, RIGHT vertebral artery, - Reconstitution of hypoplastic RIGHT MCA. - Neurosurgery consulted, restart DAPT when able, restarted asa 81 mg Assessment & Plan (04/25/2025 1:39 PM EDT): - Thrombosis of RIGHT intradural vertebral artery, RIGHT vertebral artery, - Reconstitution of hypoplastic RIGHT MCA. - Neurosurgery consulted, restart DAPT when able, restarted asa 81 mg Assessment & Plan (04/27/2025 11:09 PM EDT): - Thrombosis of RIGHT intradural vertebral artery, RIGHT vertebral artery, - Reconstitution of hypoplastic RIGHT MCA. - Neurosurgery consulted, restart DAPT when able, restarted asa 81 mg Assessment & Plan (04/27/2025 11:08 PM EDT): - Thrombosis of RIGHT intradural vertebral artery, RIGHT vertebral artery, - Reconstitution of hypoplastic RIGHT MCA. - neurosurgery consulted, restart DAPT when able, restarted asa 81 mg Assessment & Plan (04/23/2025 12:29 AM EDT): - Thrombosis of RIGHT intradural vertebral artery, RIGHT vertebral artery, - Reconstitution of hypoplastic RIGHT MCA. - neurosurgery consulted Rib fractures 04/23/2025 Assessment & Plan (05/04/2025 5:11 PM EDT): Rib fractures: L 1st, b/l 4th rib Pulling <500cc on IS Pulm hygiene [facility] Assessment & Plan (05/03/2025 9:12 AM EDT): Rib fractures: L 1st, b/l 4th rib Pulling <500cc on IS Pulm hygiene [facility] Assessment & Plan (05/02/2025 4:14 PM EDT): Rib fractures: L 1st, b/l 4th rib Pulling <500cc on IS Pulm hygiene [facility] Assessment & Plan (05/01/2025 4:40 PM EDT): Rib fractures: L 1st, b/l 4th rib Pulling <500cc on IS Pulm hygiene [facility] Assessment & Plan (04/30/2025 4:39 PM EDT): Rib fractures: L 1st, b/l 4th rib Pulling <500cc on IS Pulm hygiene [facility] Assessment & Plan (04/29/2025 2:44 PM EDT): Rib fractures: L 1st, b/l 4th rib Pulling <500cc on IS Pulm hygiene [facility] Assessment & Plan (04/28/2025 8:18 PM EDT): Rib fractures: L 1st, b/l 4th rib Pulling <500cc on IS Pulm hygiene [facility] Assessment & Plan (04/27/2025 8:57 PM EDT): Rib fractures: L 1st, b/l 4th rib Pulling <500cc on IS Pulm hygiene [facility] Assessment & Plan (04/26/2025 9:47 PM EDT): Rib fractures: L 1st, b/l 4th rib Pulling <500cc on IS Pulm hygiene [facility] Assessment & Plan (04/25/2025 1:39 PM EDT): Rib fractures: L 1st, b/l 4th rib Pulling <500cc on IS Pulm hygiene [facility] Assessment & Plan (04/27/2025 11:09 PM EDT): Rib fractures: L 1st, b/l 4th rib Pulling <500cc on IS Pulm hygiene [facility] Assessment & Plan (04/27/2025 11:08 PM EDT): rib fractures: L 1st, b/l 4th rib Pulling <500cc on IS Pulm hygiene [facility] Assessment & Plan (04/23/2025 12:29 AM EDT): rib fractures: L 1st, b/l 4th rib Pulling <500cc on IS Pulm hygiene [facility] Liver injury 04/23/2025 Assessment & Plan (05/04/2025 5:11 PM EDT): Serial abdominal exams H&H stable Assessment & Plan (05/03/2025 9:12 AM EDT): Serial abdominal exams H&H stable Assessment & Plan (05/02/2025 4:14 PM EDT): Serial abdominal exams H&H stable Assessment & Plan (05/01/2025 4:40 PM EDT): Serial abdominal exams H&H stable Assessment & Plan (04/30/2025 4:39 PM EDT): Serial abdominal exams H&H stable Assessment & Plan (04/29/2025 2:44 PM EDT): Serial abdominal exams H&H stable Assessment & Plan (04/28/2025 8:18 PM EDT): Serial abdominal exams H&H stable Assessment & Plan (04/27/2025 8:57 PM EDT): Serial abdominal exams H&H stable Assessment & Plan (04/26/2025 9:47 PM EDT): Serial abdominal exams H&H stable Assessment & Plan (04/25/2025 1:39 PM EDT): Serial abdominal exams H&H stable Assessment & Plan (04/27/2025 11:09 PM EDT): Serial abdominal exams H&H stable Assessment & Plan (04/27/2025 11:08 PM EDT): - Free fluid in the inferior aspect of the peritoneum and small collections of free fluid in the right paracolic gutter and left paracolic gutter. - Subcapsular hematoma along the right peripheral hemiliver . There is layering hematoma in the inferior aspect of the peritoneum; AAST II liver injury. Monitor clinically AM labs Assessment & Plan (04/23/2025 12:29 AM EDT): - Free fluid in the inferior aspect of the peritoneum and small collections of free fluid in the right paracolic gutter and left paracolic gutter. - Subcapsular hematoma along the right peripheral hemiliver . There is layering hematoma in the inferior aspect of the peritoneum; AAST II liver injury. Monitor clinically AM labs Cervical transverse process fracture 04/23/2025 Assessment & Plan (05/04/2025 5:11 PM EDT): TP fxs of C6, C7, T1 L, L L1-L4; Mild retrolisthesis of L3 on L4. Grade 1 anterolisthesis of L5 on S1 Spine consulted, non-op intervention Assessment & Plan (05/03/2025 9:12 AM EDT): TP fxs of C6, C7, T1 L, L L1-L4; Mild retrolisthesis of L3 on L4. Grade 1 anterolisthesis of L5 on S1 Spine consulted, non-op intervention Assessment & Plan (05/02/2025 4:14 PM EDT): TP fxs of C6, C7, T1 L, L L1-L4; Mild retrolisthesis of L3 on L4. Grade 1 anterolisthesis of L5 on S1 Spine consulted, non-op intervention Assessment & Plan (05/01/2025 4:40 PM EDT): TP fxs of C6, C7, T1 L, L L1-L4; Mild retrolisthesis of L3 on L4. Grade 1 anterolisthesis of L5 on S1 Spine consulted, non-op intervention Assessment & Plan (04/30/2025 4:39 PM EDT): TP fxs of C6, C7, T1 L, L L1-L4; Mild retrolisthesis of L3 on L4. Grade 1 anterolisthesis of L5 on S1 Spine consulted, non-op intervention Assessment & Plan (04/29/2025 2:44 PM EDT): TP fxs of C6, C7, T1 L, L L1-L4; Mild retrolisthesis of L3 on L4. Grade 1 anterolisthesis of L5 on S1 Spine consulted, non-op intervention Assessment & Plan (04/28/2025 8:18 PM EDT): TP fxs of C6, C7, T1 L, L L1-L4; Mild retrolisthesis of L3 on L4. Grade 1 anterolisthesis of L5 on S1 Spine consulted, non-op intervention Assessment & Plan (04/27/2025 8:57 PM EDT): TP fxs of C6, C7, T1 L, L L1-L4; Mild retrolisthesis of L3 on L4. Grade 1 anterolisthesis of L5 on S1 Spine consulted, non-op intervention Assessment & Plan (04/26/2025 9:47 PM EDT): TP fxs of C6, C7, T1 L, L L1-L4; Mild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 mL/min/1.7 3m*2 05/04/2025 5:35 AM EDT [facility] Comment:Reported eGFRcr in m L/min/1.73m2 is based the CKD-EPI 2020 equation that does not use a race coefficient. Blood Venous blood specimen / Unknown Venipuncture / Unknown 05/04/2025 4:51 AM EDT 05/04/2025 5:01 AM EDT us Michelle Christensen MD LAB BLOOD ORDERABLES Final Res ult [facility] [address] [place] [address] * (ABNORMAL) POCT glucose meter (05/03/2025 5:32 AM EDT) Only the most recent of33 resultswithin the time period is included. POCT Glucose 109(H) 74 - 99 mg/dL [...] Comment 05/03/2025 5:35 AM EDT [facility] Emt B ID Ericka Griffith 05/03/2025 5:35 AM EDT [facility] Device ID [id number] 05/03/2025 5:35 AM EDT [facility] Specimen Type POC Capillary 05/03/2025 5:35 AM EDT [facility] Blood Capillary blood specimen / Unknown 05/03/2025 5:32 AM EDT 05/03/2025 5:35 AM EDT us José Miguel Krueger MD LAB POINT OF CARE TEST DOCKED DEVICE UNSOLICITED RESULTS Final Result [facility] [address] [place] [address] * FL Modified Barium Swallow (05/02/2025 1:46 PM EDT) Only the most recent of2 resultswithin the time period is included. Anatomical Region Laterality Modality Esophagus, stomach and [...] on 05/02/2025 4:51 PM us Shabnam Spring PRESSURE WASHER, DNP IMG FLUOROSCOPY PROCE DURES Final Result * XR Abdomen 1 View (05/01/2025 10:41 AM EDT) Only the most recent of4 resultswithin the time period is included. Anatomical Region Laterality Modality Body Digital Radiogra [...] on 05/01/2025 11:33 AM us Shabnam Spring APRN, DNP IMG XR PROCEDURES Fin al Result * XR Chest 1 View (04/27/2025 6:57 AM EDT) Only the most recent of4 resultswithin the time period is included. Anatomical Region Laterality Modality Chest Digital Radiogra [...] Danelle Gonzalez MD on 04/27/2025 10:34 AM us Bell Campbell MD IMG XR PROCEDURES Final Re sult * (ABNORMAL) Hemoglobin and hematocrit, blood (04/25/2025 2:48 AM EDT) HGB 9.2(L) 13.7 - 17.5 g/dL LAB HEMATOLOGY METHOD 04/25/2025 3:03 AM EDT [facility] HCT 28.9(L) 40.0 - 51.0 % LAB HEMATOLOGY METHOD 04/25/2025 3:03 AM EDT [facility] Blood Venous blood specimen / Unknown Venipuncture / Unknown 04/25/2025 2:48 AM EDT 04/25/2025 2:54 AM EDT us Michelle Christensen MD LAB BLOOD ORDERABLES Final Res ult [facility] [address] [place] [address] * TEG Global Hemostasis with Lysis (04/25/2025 2:48 AM EDT) R, Lysis 6.7 4.6 - 9.1 min 04/25/2025 3:55 AM EDT [facility] MA, Rapid, Lysis 65.7 52.0 - 70.0 mm 04/25/2025 3:55 AM EDT [facility] MA, Fibrinogen, Lysis 28.9 15.0 - 32.0 mm 04/25/2025 3:55 AM EDT [facility] LY30 0.1 0.0 - 2.6 % 04/25/2025 3:55 AM EDT [facility] Blood Venous blood specimen / Unknown Venipuncture / Unknown 04/25/2025 2:48 AM EDT 04/25/2025 2:56 AM EDT Michelle Christensen MD LAB BLOOD ORDERABLES Final Res ult Performing Organization Address City/[facility] Co de Phone Number [facility] [address] [place] [address] * ECG Adult (04/25/2025 12:32 AM EDT) Only the most recent of3 resultswithin the time period is included. EKG DIAGNOSIS CLASS Abnormal MUSE ECG Ventricular Rate 101 BPM MUSE ECG Atrial Rate 101 BPM MUSE ECG NE Interval 186 ms MUSE ECG QRSD Interval 106 ms MUSE ECG QT Interval 334 ms MUSE ECG QTC Interval 433 ms MUSE ECG P Paton 53 degrees MUSE ECG R Paton 70 degrees MUSE ECG T Wave Paton 33 degrees MUSE ECG Diagnosis Sinus tachycardia with occasional premature ventricular complexes MUSE ECG Diagnosis Inferior Q waves noted MUSE ECG Diagnosis Poor R-wave progression Cannot rule out Anterior infarct , age undetermined MUSE ECG Diagnosis Nonspecific ST abnormality MUSE ECG Diagnosis Abnormal ECG MUSE ECG Diagnosis MUSE ECG Diagnosis Confirmed by Mathew King ([id number]) on 04/25/2025 7:36:58 AM MUSE ECG 04/25/2025 12:3 2 AM EDT 04/25/2025 7:36 AM EDT Michelle Christensen MD ECG ORDERABLES Final Result Performing Organization Address [facility] Co de Phone Number MUSE ECG * CT Abdomen Pelvis w IV Contrast [...] Tomer Sparks MD on 04/24/2025 10:54 PM Michelle Christensen MD IM CT PROCEDURES Final Result * NE CRITICAL CARE, E/M 30-74 MINUTES (04/24/2025 4:48 [...] with the findings and plan as documented. us Michelle Christensen MD IN CLINIC/BEDSIDE ORDERABLES F inal Result * (ABNORMAL) Blood gas panel, arterial (04/24/2025 1:31 AM EDT) pH, Arterial 7.41 7.31 - 7.42 LAB HEMATOLOGY METHOD 04/24/2025 1:44 AM EDT [facility] pCO2, Arterial 36 32 - 45 mmHg LAB HEMATOLOGY METHOD 04/24/2025 1:44 AM EDT [facility] pO2, Arterial 93 >60 mmHg LAB HEMATOLOGY METHOD 04/24/2025 1:44 AM EDT [facility] SO2, Measured, Arterial 98 94 - 98 % LAB HEMATOLOGY METHOD 04/24/2025 1:44 AM EDT [facility] Base Excess, Arterial -1.3 -2.0 - 3.0 mmol/L LAB HEMATOLOGY METHOD 04/24/2025 1:44 AM EDT [facility] Bicarbonate, Calculated, Arterial 23 22 - 26 mmol/L LAB HEMATOLOGY METHOD 04/24/2025 1:44 AM EDT [facility] Hematocrit, Whole Blood 28.5(L) 40.0 - 51.0 % LAB HEMATOLOGY METHOD 04/24/2025 1:44 AM EDT [facility] Sodium, Whole Blood 145 136 - 145 mmol/L LAB HEMATOLOGY METHOD 04/24/2025 1:44 AM EDT [facility] Potassium, Whole Blood 3.7 3.6 - 4.9 mmol/L LAB HEMATOLOGY METHOD 04/24/2025 1:44 AM EDT [facility] Chloride, Whole Blood 114(H) 97 - 107 mmol/L LAB HEMATOLOGY METHOD 04/24/2025 1:44 AM EDT [facility] Glucose, Whole Blood 128(H) 74 - 99 mg/dL LAB HEMATOLOGY METHOD 04/24/2025 1:44 AM EDT [facility] Ionized Calcium, Whole Blood 5.2(H) 4.6 - 5.1 mg/dL LAB HEMATOLOGY METHOD 04/24/2025 1:44 AM EDT [facility] Lactate, Arterial, Whole Blood 1.8(H) 0.5 - 1.6 mmol/L LAB HEMATOLOGY METHOD 04/24/2025 1:44 AM EDT [facility] Blood Arterial blood specimen / Unknown Arterial Puncture / Unknown 04/24/2025 1:31 AM EDT 04/24/2025 1:43 AM EDT us Michelle Christensen MD LAB BLOOD ORDERABLES Final Res ult [facility] [address] [place] [address] * (ABNORMAL) OXYCODONE CONFIRMATION,URINE (04/23/2025 10:14 AM EDT) Oxycodone 264(H) <50 ng/mL 04/26/2025 12:33 AM EDT [facility] Oxymorphone <50 <50 ng/mL 04/26/2025 12:33 AM EDT [facility] Oxymorphone Glucuronide 621(H) <50 ng/mL 04/26/2025 12:33 AM EDT [facility] Urine Urine specimen from urinary conduit / Unknown Non-blood Collection / Unknown 04/23/2025 10:14 AM EDT 04/23/2025 10:21 AM EDT Narrative [facility] - 04/26/2025 12:33 AM EDT Test performed by LC-MS/MS at the [facility]. This test was developed and its performance characteristics determined by [facility]. It has not been cleared or approved by the FDA. The laboratory is regulated under CLIA as qualified to perform high-complexity testing. This test is used for clinical purposes. hint DO LAB URINE ORDERABLES Final Re sult Performing Organization Address [facility]/ZIP Co de Phone Number [facility] [address] [place] [address] * Urinalysis Microscopic Examination (04/23/2025 10:14 AM EDT) Urine Urine specimen from urinary conduit / Unknown Non-blood Collection / Unknown 04/23/2025 10:14 AM EDT 04/23/2025 10:21 AM EDT hint DO LAB URINE ORDERABLES Final Re sult Performing Organization Address [facility] Co de Phone Number [facility] [address] [place] [address] * Drug Abuse Screen, Urine (04/23/2025 10:14 AM EDT) Amphetamine Screen Urine Negative Cutoff: 500 ng/mL 04/23/2025 1:46 PM EDT [facility] Benzodiazepines Screen Urine Negative Cutoff: 200 ng/mL 04/23/2025 1:46 PM EDT [facility] Cannabinoid Screen Urine Negative Cutoff: 50 ng/mL 04/23/2025 1:46 PM EDT [facility] Cocaine Screen Urine Negative Cutoff: 300 ng/mL 04/23/2025 1:46 PM EDT [facility] Barbiturate Screen Urine Negative Cutoff: 200 ng/mL 04/23/2025 1:46 PM EDT [facility] Opiate Screen Urine Negative Cutoff: 300 ng/mL 04/23/2025 1:46 PM EDT [facility] Methadone Screen Urine Negative Cutoff: 300 ng/mL 04/23/2025 1:46 PM EDT [facility] Buprenorphine Screen Urine Negative Cutoff: 10 ng/mL 04/23/2025 1:46 PM EDT [facility] Fentanyl Screen Urine Negative Cutoff: 1 ng/mL 04/23/2025 1:46 PM EDT [facility] Oxycodone Screen Urine Presumptive positive. Confirmation by LC-MS/MS to follow. Cutoff: 100 ng/mL 04/23/2025 1:46 PM EDT [facility] Urine Urine specimen from urinary conduit / Unknown Non-blood Collection / Unknown 04/23/2025 10:14 AM EDT 04/23/2025 10:21 AM EDT us Dotty Deep Foley DO LAB URINE ORDERABLES Final Re sult [facility] [address] [place] [address] * (ABNORMAL) Urinalysis with reflex microscopic (Culture NOT Included) (04/23/2025 10:14 AM EDT) Color, Urine Yellow LAB URINALYSIS - AUTOMATED METHOD 04/23/2025 10:32 AM EDT [facility] Clarity, Urine Cloudy LAB URINALYSIS - AUTOMATED METHOD 04/23/2025 10:32 AM EDT [facility] Spec [place], Urine >1.030(H) 1.005 - 1.030 LAB URINALYSIS - AUTOMATED METHOD 04/23/2025 10:32 AM EDT [facility] pH, Urine 5.5 5.0 - 8.0 LAB URINALYSIS - AUTOMATED METHOD 04/23/2025 10:32 AM EDT [facility] Protein, Urine 30(A) Negative mg/dL LAB URINALYSIS - AUTOMATED METHOD 04/23/2025 10:32 AM EDT [facility] Glucose, Urine >=1000(A) Negative mg/dL LAB URINALYSIS - AUTOMATED METHOD 04/23/2025 10:32 AM EDT [facility] Ketones, Urine Negative Negative mg/dL LAB URINALYSIS - AUTOMATED METHOD 04/23/2025 10:32 AM EDT [facility] Blood, Urine Large(A) Negative LAB URINALYSIS - AUTOMATED METHOD 04/23/2025 10:32 AM EDT [facility] Bilirubin, Urine Negative Negative LAB URINALYSIS - AUTOMATED METHOD 04/23/2025 10:32 AM EDT [facility] Urobilinogen, Urine 0.2 0.2 to 1.0 mg/dL LAB URINALYSIS - AUTOMATED METHOD 04/23/2025 10:32 AM EDT [facility] Leukocytes, Urine Negative Negative LAB URINALYSIS - AUTOMATED METHOD 04/23/2025 10:32 AM EDT [facility] Nitrite, Urine Negative Negative LAB URINALYSIS - AUTOMATED METHOD 04/23/2025 10:32 AM EDT [facility] RBC, Urine >50(A) 0 to 3 /HPF LAB URINALYSIS - AUTOMATED METHOD 04/23/2025 10:32 AM EDT [facility] WBC, Urine 0 - 5 0 to 5 /HPF LAB URINALYSIS - AUTOMATED METHOD 04/23/2025 10:32 AM EDT [facility] Squamous Epithelial Cells 0 - 2 0 to 5 /HPF LAB URINALYSIS - AUTOMATED METHOD 04/23/2025 10:32 AM EDT [facility] Hyaline Casts 0 - 2 0 to 5 /LPF LAB URINALYSIS - AUTOMATED METHOD 04/23/2025 10:32 AM EDT [facility] Bacteria, Urine Negative Negative LAB URINALYSIS - AUTOMATED METHOD 04/23/2025 10:32 AM EDT [facility] Urine Urine specimen from urinary conduit / Unknown Non-blood Collection / Unknown 04/23/2025 10:14 AM EDT 04/23/2025 10:21 AM EDT us Dotty Foley DO LAB URINE ORDERABLES Final Re sult [facility] [address] [place] [address] * NE CRITICAL CARE, E/M 30-74 MINUTES (04/23/2025 9:08 [...] with the findings and plan as documented. us Michelle Christensen MD IN CLINIC/BEDSIDE ORDERABLES F inal Result * Janneth auris Surveillance by PCR (04/23/2025 9:05 AM EDT) Janneth auris PCR Result Not Detected Not Detected 04/24/2025 2:13 PM EDT [facility] Swab (Axilla and Groin) Non-blood Collection / Unknown 04/23/2025 9:05 AM EDT 04/23/2025 9:45 AM EDT Narrative [facility] - 04/24/2025 2:13 PM EDT This PCR assay was developed and its performance characteristics determined by [facility] as appropriate for clinical purposes. This assay has not been cleared or approved by the FDA, but is performed in a CLIA regulated laboratory that is qualified to perform high-complexity testing. This PCR assay was developed and its performance characteristics determined by [facility] as appropriate for clinical purposes. This assay has not been cleared or approved by the FDA, but is performed in a CLIA regulated laboratory that is qualified to perform high-complexity testing. us José Miguel Krueger MD LAB MICROBIOLOGY - GENERAL ORDERABLES Final Result Performing Organization Address City/State/[facility] Co de Phone Number [facility] [address] [place] [address] * Multi Drug Resistance Test (04/23/2025 9:05 AM EDT) Culture No growth at day 1 04/24/2025 12:11 PM EDT [facility] Swab (Nares and Kamille Rectal) Non-blood Collection / Unknown 04/23/2025 9:05 AM EDT 04/23/2025 9:45 AM EDT Narrative [facility] - 04/24/2025 12:11 PM EDT This test was developed and its performance characteristics determined by the [facility]. Although the media is FDA-approved, it is not FDA-approved for all specimen types submitted. The FDA has determined that such clearance or approval is not necessary. This test is used for surveillance purposes. It should not be regarded as investigational or for research. The [facility] is certified under the Clinical Laboratory Improvement Amendments of 1988 (CLIA-88) as qualified to perform high complexity clinical laboratory testing. José Miguel Krueger MD LAB MICROBIOLOGY - GENERAL ORDERABLES Final Result [facility] [address] [place] [address] * XR Thoracic Spine 2 Views (04/23/2025 [...] MD on 04/23/2025 6:32 AM Kim DIOR IM XR PROCEDURES Final Resul t * XR [...] Eliezer Gamble MD on 04/23/2025 6:32 AM us Kim DOIR IMG XR PROCEDURES Final Resul t * Anti Xa Level Unfractionated Heparin (04/22/2025 1:11 PM EDT) Anti Xa Level Unfractionated Heparin <0.11 <1.00 IU/mL 04/22/2025 1:28 PM EDT [facility] Blood Venous blood specimen / Unknown Venipuncture / Unknown 04/22/2025 1:11 PM EDT 04/22/2025 1:12 PM EDT Narrative [facility] - 04/22/2025 1:28 PM EDT Therapeutic Range: UFH Full Dose and ACS/MA protocols*: 0.30 - 0.70 IU/mL UFH Low Dose protocol*: 0.25 - 0.50 IU/mL UFH prophylaxis: Not established Dotty Foley DO LAB BLOOD ORDERABLES Final Re sult [facility] [address] [place] [address] * XR Pelvis 1 or 2 Views [...] Jenna Sparrow MD on 04/22/2025 2:36 PM Dotty Foley DO IMG XR PROCEDURES Final Resul t * XR Hand 3+ Views Left (04/22/2025 [...] Jenna Sparrow MD on 04/22/2025 3:18 PM Dotty Foley DO IMG XR PROCEDURES Final Resul t * CT Angio [...] contrast extravasation were discussed via phone with DOTTY FOLEY on 04/22/2025 1:04 PM by Nelson [...] of contrast extravasation were discussed viaphone with DOTTY FOLEY on 04/22/2025 1:04 PM by Nelson Ponce MD withacknowledgment of the results. By electronically signing this report, I, the attending physician, attestthat I have personally reviewed the images/data for the aboveexamination(s) and agree with the final edited report. Drafted by Nelson Ponce MD on 04/22/2025 1:08 PM Final report signed by Jenna Sparrow MD on 04/22/2025 2:10 PM us Dotty Foley DO IMG CT PROCEDURES Final Resul [...] contrast extravasation were discussed via phone with DOTTY FOLEY on 04/22/2025 1:04 PM by Nelson [...] of contrast extravasation were discussed viaphone with DOTTY FOLEY on 04/22/2025 1:04 PM by Nelson Ponce MD withacknowledgment of the results. By electronically signing this report, I, the attending physician, attestthat I have personally reviewed the images/data for the aboveexamination(s) and agree with the final edited report. Drafted by Nelson Ponce MD on 04/22/2025 1:08 PM Final report signed by Jenna Sparrow MD on 04/22/2025 2:10 PM us Dotty Foley DO IMG CT PROCEDURES Final Resul t * CT Thoracic [...] contrast extravasation were discussed via phone with DOTTY FOLEY on 04/22/2025 1:04 PM by Nelson [...] of contrast extravasation were discussed viaphone with DOTTY FOLEY on 04/22/2025 1:04 PM by Nelson Ponce MD withacknowledgment of the results. By electronically signing this report, I, the attending physician, prabha I have personally reviewed the images/data for the aboveexamination(s) and agree with the final edited report. Drafted by Nelson Ponce MD on 04/22/2025 1:08 PM Final report signed by Jenna Sparrow MD on 04/22/2025 2:10 PM us Dotty Foley DO IMG CT PROCEDURES Final Resul [...] contrast extravasation were discussed via phone with DOTTY FOLEY on 04/22/2025 1:04 PM by Nelson [...] of contrast extravasation were discussed viaphone with DOTTY FOLEY on 04/22/2025 1:04 PM by Nelson Ponce MD withacknowledgment of the results. By electronically signing this report, I, the attending physician, attestthat I have personally reviewed the images/data for the aboveexamination(s) and agree with the final edited report. Drafted by Nelson Ponce MD on 04/22/2025 1:08 PM Final report signed by Jenna Sparrow MD on 04/22/2025 2:10 PM us Dotty Adame Morena DO IMG CT PROCEDURES Final Resul t [...] contrast extravasation were discussed via phone with DOTTY FOLEY on 04/22/2025 1:04 PM by Nelson [...] of contrast extravasation were discussed viaphone with DOTTY FOLEY on 04/22/2025 1:04 PM by Nelson Ponce MD withacknowledgment of the results. By electronically signing this report, I, the attending physician, attestthat I have personally reviewed the images/data for the aboveexamination(s) and agree with the final edited report. Drafted by Nelson Ponce MD on 04/22/2025 1:08 PM Final report signed by Jenan Sparrow MD on 04/22/2025 2:10 PM us Dotty Foley DO IMG CT PROCEDURES Final Resul [...] COMMUNICATION: The critical findings were discussed via EPIC secure chat with DOTTY FOLEY DO on 04/22/2025 1:50 PM by [...] no aneurysm of either internal carotid artery. [place] and Major Peripheral Branches: The [...] no aneurysm of either internal carotid artery. [place] and Major Peripheral Branches: The right middle throughartery is small in caliber compared to left. There is reconstitution ofthe right M1 and M2 segments. The right A1 is hypoplastic. Left A1 and [id number] are patent. The right A2 segment may [...] COMMUNICATION: The critical findings were discussed via spotdock secure chat with DOTTY DAVIS DO on 04/22/2025 1:50 PM by Nu Cortes MD with acknowledgment ofthe results . Drafted by Nu Cortes MD on 04/22/2025 1:46 PM Final report signed by Nu Cortes MD on 04/22/2025 2:14 PM Dotty Foley DO IMG CT PROCEDURES Final Resul [...] Cortes MD on 04/22/2025 1:37 PM us Dotty Foley DO IMG CT PROCEDURES Final Resul t * CT Angio Head (04/22/2025 12:40 PM EDT) Anatomical Region Laterality Modality [place] Computed Tomogr aphy Impressions 04/22/2025 [...] COMMUNICATION: The critical findings were discussed via [employer] secure chat with DOTTY FOLEY DO on 04/22/2025 1:50 PM by [...] no aneurysm of either internal carotid artery. [place] and Major Peripheral Branches: The [...] no aneurysm of either internal carotid artery. [place] and Major Peripheral Branches: The right middle throughartery is small in caliber compared to left. There is reconstitution ofthe right M1 and M2 segments. The right A1 is hypoplastic. Left A1 and [id number] are patent. The right A2 segment may [...] COMMUNICATION: The critical findings were discussed via [employer] secure chat with DOTTY DAVIS DO on 04/22/2025 1:50 PM by Nu Cortes MD with acknowledgment ofthe results . Drafted by Nu Cortes MD on 04/22/2025 2:17 PM Final report signed by Nu Cortes MD on 04/22/2025 2:17 PM Dotty Foley DO IMG CT PROCEDURES Final Resul t * (ABNORMAL) Trauma shock panel blood gas (04/22/2025 12:37 PM EDT) pH, Venous 7.25(LL) 7.32 - 7.43 LAB HEMATOLOGY METHOD 04/22/2025 12:51 PM EDT [facility] Bicarbonate, Calculated, Venous 25 22 - 26 mmol/L LAB HEMATOLOGY METHOD 04/22/2025 12:51 PM EDT [facility] Base Excess, Venous -3.3(L) -2.0 - 3.0 mmol/L LAB HEMATOLOGY METHOD 04/22/2025 12:51 PM EDT [facility] Lactate, Venous, Whole Blood 2.4(H) 0.5 - 2.2 mmol/L LAB HEMATOLOGY METHOD 04/22/2025 12:51 PM EDT [facility] Blood Venous blood specimen / Unknown Venipuncture / Unknown 04/22/2025 12:37 PM EDT 04/22/2025 12:49 PM EDT [employer] LAB BLOOD ORDERABLES Final Re sult Performing Organization Address [facility]/ZIP Co de Phone Number [facility] [address] [place] [address] * Gold Top (04/22/2025 12:37 PM EDT) Only the most recent of2 resultswithin the time period is included. Extra Hold for add-ons 04/22/2025 3:01 PM EDT [facility] Comment:Auto resulted. Blood Venous blood specimen / Unknown 04/22/2025 12:37 PM EDT 04/22/2025 12:42 PM EDT [employer] LAB BLOOD ORDERABLES Final Re sult Performing Organization Address [facility] Co de Phone Number [facility] [address] [place] [address] * Ethyl Alcohol Plasma (04/22/2025 12:37 PM EDT) Ethanol Plasma <10 <10 mg/dL 04/22/2025 1:00 PM EDT [facility] Blood Venous blood specimen / Unknown Venipuncture / Unknown 04/22/2025 12:37 PM EDT 04/22/2025 12:40 PM EDT Narrative [facility] - 04/22/2025 1:00 PM EDT Enzymatic Assay: Performed on [employer] hint LAB BLOOD ORDERABLES Final Re sult Performing Organization Address City/[facility]/ZIP Co de Phone Number [facility] [address] [place] [address] * APTT (PTT) (04/22/2025 12:37 PM EDT) aPTT 27 25 - 35 sec 04/22/2025 12:54 PM EDT [facility] Blood Venous blood specimen / Unknown Venipuncture / Unknown 04/22/2025 12:37 PM EDT 04/22/2025 12:40 PM EDT Dotty Adame [employer] LAB BLOOD ORDERABLES Final Re sult [facility] [address] [place] [address] * PT-INR (04/22/2025 12:37 PM EDT) Prothrombin Time 13.8 12.0 - 14.3 sec 04/22/2025 12:54 PM EDT [facility] INR 1.0 0.9 - 1.1 04/22/2025 12:54 PM EDT [facility] Blood Venous blood specimen / Unknown Venipuncture / Unknown 04/22/2025 12:37 PM EDT 04/22/2025 12:40 PM EDT Narrative [facility] - 04/22/2025 12:54 PM EDT OPTIMAL INR RANGES FOR PATIENT ON ORAL ANTICOAGULANT THERAPY Prevention of venous thromboembolism INR 2.0 to 3.0 In patients with heart disease: Atrial fibrillation INR 2.0 to 3.0 Valvular heart disease INR 2.0 to 3.0 Tissue heart valves INR 2.0 to 3.0 Mechanical prosthetic valves INR 2.5 to 3.5 Prevention of recurrent MA INR 2.5 to 3.5 Dotty Foley DO LAB BLOOD ORDERABLES Final Re sult [facility] [address] [place] [address] * Type and Screen (04/22/2025 12:37 PM EDT) ABO/Rh O Negative 04/22/2025 12:41 PM EDT [facility] BLOOD BANK Antibody Screen Negative 04/22/2025 12:41 PM EDT [facility] BLOOD BANK Specimen Expiration 04/25/2025 23:59 04/22/2025 12:41 PM EDT BLOOD BANK Blood Venous blood specimen / Unknown Venipuncture / Unknown 04/22/2025 12:37 PM EDT 04/22/2025 12:41 PM EDT us Dotty Adame Morena LAB BLOOD BANK TEST ORDERABLE S Final Result BLOOD BANK [address] [place] [address], * (ABNORMAL) CMP (04/22/2025 12:37 PM EDT) Glucose, Plasma 137(H) 74 - 99 mg/dL 04/22/2025 1:00 PM EDT [facility] BUN, Plasma 24(H) 8 - 23 mg/dL 04/22/2025 1:00 PM EDT [facility] Creatinine, Plasma 1.21(H) 0.70 - 1.20 mg/dL 04/22/2025 1:00 PM EDT [facility] BUN/Creatinine Ratio 20 04/22/2025 1:00 PM EDT [facility] Sodium, Plasma 141 136 - 145 mmol/L 04/22/2025 1:00 PM EDT [facility] Potassium, Plasma 4.0 3.6 - 4.9 mmol/L 04/22/2025 1:00 PM EDT [facility] Chloride, Plasma 108(H) 97 - 107 mmol/L 04/22/2025 1:00 PM EDT [facility] CO2, Plasma 23 22 - 29 mmol/L 04/22/2025 1:00 PM EDT [facility] Anion Gap 10 6 - 16 mmol/L 04/22/2025 1:00 PM EDT [facility] Total Calcium, Plasma 10.4(H) 8.9 - 10.2 mg/dL 04/22/2025 1:00 PM EDT [facility] Total Protein 5.9(L) 6.3 - 7.9 g/dL 04/22/2025 1:00 PM EDT [facility] Albumin, Plasma 3.0(L) 3.5 - 5.2 g/dL 04/22/2025 1:00 PM EDT [facility] AST, Plasma 114(H) 10 - 50 U/L 04/22/2025 1:00 PM EDT [facility] ALT, Plasma 63(H) 10 - 50 U/L 04/22/2025 1:00 PM EDT [facility] Alkaline Phosphatase, Plasma 201(H) 40 - 115 U/L 04/22/2025 1:00 PM EDT [facility] Total Bilirubin, Plasma 0.9 0.2 - 1.1 mg/dL 04/22/2025 1:00 PM EDT [facility] eGFRcr 60.5 mL/min/1.7 3m*2 04/22/2025 1:00 PM EDT [facility] Comment:Reported eGFRcr in m L/min/1.73m2 is based the CKD-EPI 2020 equation that does not use a race coefficient. Blood Venous blood specimen / Unknown Venipuncture / Unknown 04/22/2025 12:37 PM EDT 04/22/2025 12:40 PM EDT us Dotty Foley DO LAB BLOOD ORDERABLES Final Re sult [facility] [address] [place] [address] * Critical Care (04/22/2025 11:23 AM EDT) Narrative Dotty Foley DO - 04/22/2025 11:23 AM EDT Dotty Foley DO 04/25/2025 1:03 PM Critical Care Performed by: Dotty Foley DO Authorized by: Bunny Castle MD us Bunny Castle MD IN CLINIC/BEDSIDE ORDERABLES Final Result * Critical Care (04/22/2025 11:23 AM EDT) Narrative Dotty Foley DO - 04/22/2025 11:23 AM EDT Dotty Foley DO 04/25/2025 1:03 PM Critical Care Performed by: Dotty Foley DO Authorized by: Bunny Castle MD us Bunny Castle MD IN CLINIC/BEDSIDE ORDERABLES Edited Result - Final * Laceration Repair (04/22/2025 11:23 AM EDT) Narrative Dotty Foley DO - 04/22/2025 11:23 AM EDT Dotty Foley DO 04/25/2025 1:03 PM Laceration Repair Performed by: Kaylynn Russo MD Authorized by: Dotty Foley DO Consent: Consent obtained: Verbal Consent given by: Patient (and family at bedside) Risks discussed: Infection and pain Alternatives discussed: No treatment [place] protocol: Patient identity confirmed: Verbally with patient [...] Number of sutures: 4 Approximation: Approximation: Close Dotty Foley DO IN CLINIC/BEDSIDE ORDERABLES Edited Result - Final from Last 3 Months Insurance [employer] MEDICARE [facility] Advance Directives * DNR - Ok to intubate (Latest Code Status on File) Date Activated Date Inactivated Comments 04/24/2025 5:48 PM 05/05/2025 8:16 PM Question Answer Comments DNR determined on/before admission date? No I have reviewed the capacity from the link above and, if needed, have updated to appropriate status: Yes * Full Code Date Activated Date Inactivated Comments 04/22/2025 4:40 PM 04/24/2025 5:48 PM Question Answer Comments I have reviewed the capacity from the link above and, if needed, have updated to appropriate status: Yes Care Teams Residential Nurse Relationship Specialty Start Date End Date Pcp, No [address] [place] [address] PCP - General Family Medicine 04/22/25
--- OUTSIDE RECORDS SUMMARY | 2025-06-10 13:42 | XMS_ITS | Encounter Summary ---
Author Organization Healthcare Address [address] [place] [address] Care Team Providers Care Cheesemaker Name Role Phone Pcp, No Primary Care Provider Unavailabl e Encounter Details Date Type Department Care Team (Latest Contact Info) Description 05/02/2025 Travel Social History Tobacco Use Types Packs/Day Years [...] any time in the past 12 m [facility], were you homeless or living in a jail (including now)? No 04/27/[address] [facility] Utilities Answer Date Recorded In the [...] drink first t celestino in the morning (EYE-FARMWORKER FIELD CROP) to steady your nerves or to get rid of a hangover? 0 04/22/2025 CAGE Questionnaire Score 0 025 Sex and Gender Information Value Date Recorded Sex Assigned at Not on file Legal Sex Male 6:48 PM EDT Gender Identity Not on file Sexual Orientation Not on file documented as of this encounter Functional Status * Calculated C-SSRS Risk Score (Lifetime/Recent) Answer Date of Assessment Author No Risk Indicated 05/02/2025 7:00 PM EDT Jonny Haas RN * Question Answer Date of Assessment Author 1. Wish to be (Past 1 Month) No 025 7:00 PM EDT Haas, Vanessa J, RN 2. Non-Specific Active Suici hillary Thoughts (Past 1 Month) No 05/02/2025 7:00 PM EDT Vanessa Haas RN 6. Suicidal Behavior (Lifetime) No 7:00 PM EDT Vanessa Haas RN documented as of this encounter Plan of Treatment Not on file documented as of this encounter Visit Diagnoses Not on filedocumented in this encounter Additional Health Concerns Assessment Noted Time A Body Mass Index follow-up plan has been documented for the patient 05/05/2025 1:06 PM EDT documented as of this encounter Care Teams Cheesemaker Relationship Specialty Start Date End Date Pcp, No [address] [place] [address] PCP - General Family Medicine 04/22/25 documented as of this encounter
--- OUTSIDE RECORDS SUMMARY | 2025-06-10 13:42 | XMS_ITS | Encounter Summary ---
Author Organization Healthcare Address [address] [place] [address] Care Team Providers Care Maintenance Service Dispatcher Name Role Phone Pcp, No Primary Care Provider Unavailabl e Encounter Details Date Type Department Care Team (Latest Contact Info) Description 04/27/2025 Travel Social History Tobacco Use Types Packs/Day [...] any time in the past 12 m [facility], were you homeless or living in a residential (including now)? No 04/27/2025 [facility] Utilities Answer Date Recorded In the [...] drink first t celestino in the morning (EYE-KILN CAR REPAIRER) to steady your nerves or to get [...] Date of Assessment Author No Risk Indicated 04/27/2025 8:00 PM EDT Blanka La, RN * Question Answer Date of Assessment Author 1. Wish to be (Past 1 Month) No 04/27/2025 8:00 PM EDT Blanka [place] RN 2. Non-Specific Active Suici hillary Thoughts (Past 1 Month) No 04/27/2025 8:00 PM EDT Jose [place] RN 6. Suicidal Behavior (Lifetime) No 8:00 PM EDT Blanka [place] RN documented as of this encounter Plan of Treatment Not on file documented as of this encounter Visit Diagnoses Not on filedocumented in this encounter Additional Health Concerns Assessment Noted Time A Body Mass Index follow-up plan has been documented for the patient 05/05/2025 1:06 PM EDT documented as of this encounter Care Teams Maintenance Service Dispatcher Relationship Specialty Start Date End Date Pcp, No [address] [place] [address] PCP - General Family Medicine 04/22/25 documented as of this encounter
--- OUTSIDE RECORDS SUMMARY | 2025-06-10 13:42 | XMS_ITS | Encounter Summary ---
Author Organization Healthcare Address [facility] [place] [address] Care Team Providers Care Laboratory Analyst Name Role Phone Pcp, No Primary Care Provider Unavailabl e Encounter Details Date Type Department Care Team (Latest Contact Info) Description 04/25/2025 Travel Social History Tobacco Use Types Packs/Day Years Used Date Smoking Tobacco: Former Alcohol Use Standard Drinks/Week Comments Yes 0 (1 standard drink = 0.6 oz pure alcohol) Alcoholic Drinks/day: Rarely consumes alcohol CAGE ASSESSMENT Answer Date Recorded Cage unable [...] drink first t celestino in the morning (EYE-CYANIDE POT HARDENER) to steady your nerves or to get [...] Date of Assessment Author No Risk Indicated 04/25/2025 8:00 PM EDT Debby Montes RN * Question Answer Date of Assessment Author 1. Wish to be (Past 1 Month) No 025 8:00 PM EDT Debby Montes RN 2. Non-Specific Active Suici hillary Thoughts (Past 1 Month) No 04/25/2025 8:00 PM EDT Nelson Montes sa, RN 6. Suicidal Behavior (Lifetime) No 5 8:00 PM EDT Debby Montes RN documented as of this encounter Plan of Treatment Not on file documented as of this encounter Visit Diagnoses Not on filedocumented in this encounter Additional Health Concerns Assessment Noted Time A Body Mass Index follow-up plan has been documented for the patient 05/05/2025 1:06 PM EDT documented as of this encounter Care Teams Laboratory Analyst Relationship Specialty Start Date End Date Pcp, No [address] [place] [address] PCP - General Family Medicine 04/22/25 documented as of this encounter
--- OUTSIDE RECORDS SUMMARY | 2025-06-10 13:42 | XMS_ITS | Encounter Summary ---
Author Organization Healthcare Address [facility] [place] [id number] Care Team Providers Care Executive Account Manager Name Role Phone Pcp, No Primary Care Provider Unavailabl e Encounter Details Date Type Department Care Team (Latest Contact Info) Description 04/23/2025 Travel Social History Tobacco Use Types Packs/Day [...] drink first t celestino in the morning (EYE-MOBILE HOME SET UP PERSON) to steady your nerves or to get [...] Date of Assessment Author No Risk Indicated 04/23/2025 8:00 AM EDT Etta Mackay V RN * Question Answer Date of Assessment Author 1. Wish to be (Past 1 Month) No 04/23/2025 8:00 AM EDT Deedee Mcallister RN 2. Non-Specific Active Suicidal Thoughts (Past 1 Month) No 04/23/2025 8:00 AM EDT Deedee Mcallister RN 6. Suicidal Behavior (Lifetime) No 04/23/2025 8:00 AM EDT Deedee Mcallister RN documented as of this encounter Plan of Treatment Not on file documented as of this encounter Visit Diagnoses Not on filedocumented in this encounter Additional Health Concerns Assessment Noted Time A Body Mass Index follow-up plan has been documented for the patient 05/05/2025 1:06 PM EDT documented as of this encounter Care Teams Executive Account Manager Relationship Specialty Start Date End Date Pcp, No [address] [place] [address] PCP - General Family Medicine 04/22/25 documented as of this encounter
--- OUTSIDE RECORDS SUMMARY | 2025-06-10 13:42 | XMS_ITS | Encounter Summary ---
Author Organization Healthcare Address [facility] [place] [address] Care Team Providers Care Agricultural Researcher Name Role Phone Pcp, No Primary Care Provider Unavailabl e Encounter Details Date Type Department Care Team (Latest Contact Info) Description 04/24/2025 Travel Social History Tobacco Use Types Packs/Day [...] drink first t celestino in the morning (EYE-DRY KILN LOADER) to steady your nerves or to get [...] Date of Assessment Author No Risk Indicated 04/24/2025 8:00 AM EDT Peri Armenta RN * Question Answer Date of Assessment Author 1. Wish to be (Past 1 Month) No 025 8:00 AM EDT Peri Moya RN 2. Non-Specific Active Suici hillary Thoughts (Past 1 Month) No 04/24/2025 8:00 AM EDT Julisa Moya RN 6. Suicidal Behavior (Lifetime) No 5 8:00 AM EDT Peri Moya RN documented as of this encounter Plan of Treatment Not on file documented as of this encounter Visit Diagnoses Not on filedocumented in this encounter Additional Health Concerns Assessment Noted Time A Body Mass Index follow-up plan has been documented for the patient 05/05/2025 1:06 PM EDT documented as of this encounter Care Teams Agricultural Researcher Relationship Specialty Start Date End Date Pcp, No [address] [place] [address] PCP - General Family Medicine 04/22/25 documented as of this encounter
--- OUTSIDE RECORDS SUMMARY | 2025-06-10 13:42 | XMS_ITS | Encounter Summary ---
Author Organization Healthcare Address [address] [place] [address] Care Team Providers Care Office Engineer Name Role Phone Pcp, No Primary Care Provider Unavailabl e Encounter Details Date Type Department Care Team (Latest Contact Info) Description 04/22/2025 Travel Social History Tobacco Use Types Packs/Day [...] drink first t celestino in the morning (EYE-LADIES LOCKER ROOM ATTENDANT) to steady your nerves or to get [...] Date of Assessment Author No Risk Indicated 04/22/2025 8:00 PM EDT Chandu Oliveros RN * Question Answer Date of Assessment Author 1. Wish to be (Past 1 Month) No 04/22/2025 8:00 PM EDT Chnadu Hirsch, RN 2. Non-Specific Active Suici hillary Thoughts (Past 1 Month) No 04/22/2025 8:00 PM EDT Anais Hirsch, RN 6. Suicidal Behavior (Lifetime) No 8:00 PM EDT Chandu Hirsch, RN documented as of this encounter Plan of Treatment Not on file documented as of this encounter Visit Diagnoses Not on filedocumented in this encounter Additional Health Concerns Assessment Noted Time A Body Mass Index follow-up plan has been documented for the patient 05/05/2025 1:06 PM EDT documented as of this encounter Care Teams Office Engineer Relationship Specialty Start Date End Date Pcp, No [address] [place] [address] PCP - General Family Medicine 04/22/25 documented as of this encounter
--- OUTSIDE RECORDS SUMMARY | 2025-06-10 13:42 | XMS_ITS | Encounter Summary ---
Author Organization Healthcare Address [address] [place] [address] Care Team Providers Care Therapy Administrative Assistant Name Role Phone Pcp, No Primary Care Provider Unavailabl e Encounter Details Date Type Department Care Team (Latest Contact Info) Description 05/01/2025 Travel Social History Tobacco Use Types Packs/Day [...] any time in the past 12 m [facility], were you homeless or living in a skilled nursing (including now)? No 04/27/2025 [facility] Utilities Answer Date Recorded In the past [...] drink first t celestino in the morning (EYE-GLASS BLOWING INSTRUCTOR) to steady your nerves or to get [...] Date of Assessment Author No Risk Indicated 05/01/2025 7:00 PM EDT Jonny Haas RN * Question Answer Date of Assessment Author 1. Wish to be (Past 1 Month) No 025 7:00 PM EDT Haas, Vanessa J, RN 2. Non-Specific Active Suici hillary Thoughts (Past 1 Month) No 05/01/2025 7:00 PM EDT Vanessa Haas RN 6. [...] documented as of this encounter Care Teams Therapy Administrative Assistant Relationship Specialty Start Date End Date Pcp, No [address] [place] [address] PCP - General Family Medicine 04/22/25 documented as of this encounter
--- OUTSIDE RECORDS SUMMARY | 2025-06-10 13:42 | XMS_ITS | Encounter Summary ---
Author Organization Healthcare Address [address] [place] [address] Care Team Providers Care Extension Course Coordinator Name Role Phone Pcp, No Primary Care Provider Unavailabl e Encounter Details Date Type Department Care Team (Latest Contact Info) Description 04/26/2025 Travel Social History Tobacco Use Types Packs/Day [...] any time in the past 12 m [facility], were you homeless or living in a [facility] (including now)? No 04/27/2025 [facility] Utilities Answer Date Recorded In the [...] drink first t celestino in the morning (EYE-DELIVERY ARCHITECT) to steady your nerves or to get [...] Date of Assessment Author No Risk Indicated 04/26/2025 8:00 PM EDT Blanka La, RN * Question Answer Date of Assessment Author 1. Wish to be (Past 1 Month) No 04/26/2025 8:00 PM EDT Blanka [place] RN 2. Non-Specific Active Suici hillary Thoughts (Past 1 Month) No 04/26/2025 8:00 PM EDT Jose [place] RN 6. [...] documented as of this encounter Care Teams Extension Course Coordinator Relationship Specialty Start Date End Date Pcp, No [address] [place] [address] PCP - General Family Medicine 04/22/25 documented as of this encounter
--- NOTE | 2025-06-10 13:46 | XR_ITS ---
FINAL REPORT CLINICAL HISTORY: Left knee pain chronic knee pain FINDINGS: Two views of the left knee were obtained. There is no prior exam for comparison. There is no acute fracture or dislocation. Degenerative joint disease is noted. There is a small joint effusion. There are vascular calcifications. IMPRESSION: No acute osseous abnormality of the left knee. Small joint effusion and degenerative changes. Reviewed, Interpreted and Dictated by Emerald Baker MD Transcribed by Gely Alcazar Authenticated and [facility]
[2025-06-10 13:51] LABS: Adenovirus,PCR Not Detected (NotDetected); Chlamydophila Pneumoniae, PCR Not Detected (NotDetected); Coronavirus 19, PCR Not Detected (NotDetected); Coronovirus HKU1,PCR Not Detected (NotDetected); Influenza A, PCR Not Detected (NotDetected); Influenza AH1, 2009 Not Detected (NotDetected); Influenza AH1, PCR Not Detected (NotDetected); Influenza AH3,PCR Not Detected (NotDetected); Influenza B, PCR Not Detected (NotDetected); Mycoplasma Pneumoniae, PCR Not Detected (NotDetected); Parainfluenza 1, PCR Not Detected (NotDetected); Parainfluenza 2, PCR Not Detected (NotDetected); Parainfluenza 3, PCR Not Detected (NotDetected); Parainfluenza 4, PCR Not Detected (NotDetected)
[2025-06-10 13:54] LABS: Hematocrit 37.2 % (42.0-52.0); Hemoglobin 11.0 g/dL (14.1-18.0); Immature Granulocytes % 0.4 %; Mean Corpuscular HGB Conc 29.6 g/dL (31.8-35.4); Mean Corpuscular Hemoglobin 26.8 pg (27.0-31.2); Mean Corpuscular Volume 90.7 fl (80-94); Nucleated Red Blood Cells % 0 %; Platelet Count 232 K/mm3 (142-424); Red Blood Count 4.10 M/mm3 (4.60-6.20); Red Cell Distribution Width-SD 56.5 fL; White Blood Count 10.9 K/mm3 (4.8-10.8)
[2025-06-10 13:58] LABS: Albumin Level 3.3 g/dl (3.5-5.0); Chloride 110 mmol/L (98-107); Potassium 4.5 mmoL/L (3.5-5.1); Sodium 149 mmol/L (136-145)
[2025-06-10 14:01] LABS: Alanine Aminotransferase 39 U/L (12-78); Albumin/Globulin Ratio 0.8 (1.1-1.8); Alkaline Phosphatase 448 U/L (38-126); Anion Gap 13.5 mEq/L (5-15); Aspartate Amino Transferase 70 U/L (17-59); Bilirubin,Total 0.9 mg/dl (0.2-1.3); Blood Urea Nitrogen 22 mg/dl (9-20); Carbon Dioxide 30 mmol/L (22.0-30.0); Creatinine Clearance Estimated 74 mL/min (50-200); Creatinine,Serum 1.10 mg/dl (0.66-1.25); Estimated Glomerular Filt Rate 64 ml/min (>60); GFR (African American) 78 ML/MIN (>60); Globulin 4.3 g/dL (1.3-3.2); Glucose 104 mg/dl (74-100); Phosphorous 2.9 mg/dl (2.5-4.5); Total Protein,Serum 7.6 g/dl (6.3-8.2)
[2025-06-10 14:02] LABS: Calcium 11.8 mg/dl (8.4-10.2); Magnesium 2.2 mg/dl (1.6-2.3)
[2025-06-10 14:14] LABS: Troponin I 0.02 ng/ml (0.00-0.034)
[2025-06-10] MEDS: LACTATED RINGERS 1000ML 1,000 ML 999 ML IV (14:20)
--- NOTE | 2025-06-10 14:30 | PC.NURSE ---
Pure wick applied for urine specimen collection
[2025-06-10 14:32] LABS: Thyroid Stimulating Hormone 3.05 uIU/mL (0.465-4.68)
[2025-06-10 15:01] LABS: Free T4 (Free Thyroxine) 1.15 ng/dl (0.78-2.19)
[2025-06-10 15:39] LABS: Microscopic, Urine URINE MICROSCOPIC (MICROSCOPIC)
[2025-06-10 15:40] LABS: Bilirubin,Urine Negative (Negative); Color,Urine YELLOW (Yellow); Glucose,Urine (UA) 3+ (Negative); Ketones,Urine Negative (Negative); Leukocyte Esterase,Urine 2+ (Negative); PH,Urine 6.0 (5.0-8.5); Protein,Urine TRACE (Negative); Specific Gravity, Urine 1.015 (1.005-1.030); Urobilinogen,Urine 0.2 EU/dl (0.2)
[2025-06-10 15:53] LABS: Bacteria,Urine Trace /lpf; Squamous Epithelial Cell,Urine Occasional #/hpf (0-5)
--- NOTE | 2025-06-10 16:09 | CT_ITS ---
PROCEDURE INFORMATION: Exam: CT Abdomen And Pelvis With Contrast Exam date and time: 06/10/2025 4:21 PM Age: 80 years old Clinical indication: Screening exam; Other: Metastatic w/u TECHNIQUE: Imaging protocol: Computed tomography of the abdomen and pelvis with contrast. Radiation optimization: All CT scans at this facility use at least one of these dose optimization techniques: automated exposure control; mA and/or kV adjustment per patient size (includes targeted exams where dose is matched to clinical indication); or iterative reconstruction. Contrast material: ISOVUE; Contrast volume: 75 ml; Contrast route: IV; COMPARISON: CT ABDOMEN PELVIS W CON 06/10/2025 4:21 PM FINDINGS: Liver: Heterogeneous peripherally enhancing mass in the right hepatic lobe measuring 14 cm transverse by 10 cm AP x 8.5 cm craniocaudal. Gallbladder and biliary ducts: Normal. No calcified stones. No ductal dilation. Pancreas: Normal. No ductal dilation. Spleen: Splenomegaly, 17 cm craniocaudal. Adrenal glands: Normal. No mass. Kidneys and ureters: 1.7 cm partially exophytic left renal lesion with thin enhancing rim. Multiple bilateral renal cysts measuring up to 5 cm. No hydronephrosis or hydroureter. Stomach and bowel: Unremarkable. No obstruction. No mucosal thickening. Appendix: No evidence of appendicitis. Intraperitoneal space: Trace ascites. Vasculature: Patent aortoiliac stent graft. Lymph nodes: Shotty retroperitoneal lymph nodes. Urinary bladder: Unremarkable as visualized. Reproductive: Unremarkable as visualized. Bones/joints: Unremarkable. No acute fracture. Soft tissues: 3.7 cm fat containing umbilical hernia. IMPRESSION: 1. Heterogeneous peripherally enhancing mass in the right hepatic lobe measuring 14 cm transverse by 10 cm AP x 8.5 cm craniocaudal. Suspicious for neoplasm. 2. Splenomegaly. 3. Trace ascites. 4. 1.7 cm partially exophytic left renal lesion with thin enhancing rim. (Bosniak 2 F) six-month follow-up imaging recommended. COMMENTS: Consistent with the [employer]'s Incidental Findings Committee white paper (J Am Terence Radiol 2018): Any incidental renal lesion less than 1 cm or classified as too small to characterize, or any incidental cystic renal lesion characterized as simple-appearing, is likely benign. No follow-up imaging is recommended for these lesions per consensus recommendations based on imaging criteria.
--- NOTE | 2025-06-10 16:09 | CT_ITS ---
PROCEDURE INFORMATION: Exam: CT Chest With Contrast; Diagnostic Exam date and time: 06/10/2025 4:21 PM Age: 80 years old Clinical indication: Screening exam; Other screening; Additional info: Pneumonia vs pulmonary nodule TECHNIQUE: Imaging protocol: Diagnostic computed tomography of the chest with contrast. Radiation optimization: All CT scans at this facility use at least one of these dose optimization techniques: automated exposure control; mA and/or kV adjustment per patient size (includes targeted exams where dose is matched to clinical indication); or iterative reconstruction. Contrast material: ISOVUE; Contrast volume: 75 ml; Contrast route: IV; COMPARISON: CR XR CHEST PORTABLE 06/10/2025 2:30 PM FINDINGS: Limitations: Motion artifact degrades image quality and limits the sensitivity of this examination. Lungs: No focal airspace disease. 4 mm nodule in the anterior lingula. Pleural spaces: Small left pleural effusion. Heart: Unremarkable. No cardiomegaly. No pericardial effusion. Coronary arteries: CABG. Lymph nodes: Unremarkable. No enlarged lymph nodes. Vasculature: Extensive calcification of the aorta and coronary arteries. Bones/joints: Median sternotomy with wire closure. Degenerative changes in the spine and shoulders. Soft tissues: Unremarkable. IMPRESSION: 1. Small left pleural effusion. 2. No focal airspace disease. 3. 4 mm nodule in the anterior lingula. For patients at low risk (minimal or absent history of smoking and of other known risk factors), no routine follow-up is indicated. For patients at high risk (history of smoking or of other known risk factors), consider optional CT Chest at 12 months. (Reference: Moy) References: Kenhomarcia H, et al. Guidelines for Management of Incidental Pulmonary Nodules Detected on CT Images: From the Fleischner Society 2017. Radiology. 2017;284(1):228-243.
--- NOTE | 2025-06-10 16:17 | PC.NURSE ---
[facility] the [facility] at [facility].
[2025-06-10 16:22] LABS: Ammonia < 9 umol/L (9-30)
[2025-06-10] MEDS: IOPAMIDOL-370 (76%);100ML BOTTLE 75 ML IV (16:22)
[2025-06-10] MEDS: SODIUM CHLORIDE 0.9% 10ML SYR (RAD ONLY) 10 ML IV (16:22)
[2025-06-10 16:34] LABS: Troponin I 0.02 ng/ml (0.00-0.034)
--- NOTE | 2025-06-10 16:44 | PC.NURSE ---
Dr. Charles speaking with Dr. Puckett at the [facility]
[2025-06-10] MEDS: VANCOMYCIN HCL 2,000 MG in 0.9 % SODIUM CHLORIDE 250 ML 125 MG IV (18:32)
[2025-06-10] MEDS: VANCOMYCIN CONSULT REQUEST 1 EACH NOTAPPLIC (18:45)
--- NOTE | 2025-06-10 18:50 | PC.NURSE ---
[facility]ed [facility] to get [facility] bed [facility], they stated a bed was not ready yet.
--- NOTE | 2025-06-10 20:20 | PC.NURSE ---
[facility] called to [facility] bed [facility]
--- NOTE | 2025-06-10 20:31 | PC.NURSE ---
Report called SANDI Krueger at [facility]
--- NOTE | 2025-06-10 20:53 | PC.NURSE ---
Called son, and informed that patient will to transferred to [facility] at this time and provided room number of 315 to 3N. Phone number [phone]
--- NOTE | 2025-06-13 08:25 | SW/DCPLANNER ---
I received a consult regarding failure to thrive: patient transferred to [place].
== END 2025-06-10 20:51 | disposition other institution (70) ==
PROVIDERS: Student in an Organized Health Care Education/Training Program; Emergency Provider Student in an Organized Health Care Education/Training Program
DX: N39.0 Urinary tract infection, site not specified (principal); E87.0 Hyperosmolality and hypernatremia; H70.002 Acute mastoiditis without complications, left ear; J90 Pleural effusion, not elsewhere classified; R41.82 Altered mental status, unspecified
CPT/HCPCS: 0223U; 36415; 70450; 71045; 71260; 73560; 74177; 80053; 81001; 82140; 83735; 84100; 84439; 84443; 84484; 85025; 87040; 87086; 93005; 96361; 96365; 96366; 99285; J0696; J3373; J7050; J7120; Q9967